=== PATIENT | male | born 1975 | race Hispanic/Latino ===

== ENCOUNTER 2019-12-02 11:18 | Emergency (ER) | payer SELFPAY ==
[2019-12-02] MEDS ORDERED: LIDOCAINE 1% W/EPI 1:100,000 MDV 20 ML VIAL ONE (12:16)
--- NOTE | 2019-12-02 12:43 | ER ---
Nurse's Notes [facility] Name: Trevor Miguel Age: 43 yrs Sex: Male : 1975 Arrival Date: 12/02/2019 Time: 11:20 Bed 13 Private MD: Diagnosis: Laceration without foreign body of left wrist Presentation: 12/01 11:48 Chief complaint: Patient states: "I cut myself with a knife about an hour ago". aa5 Laceration noted to left wrist, no active bleeding noted. Unknown tetanus. 11:48 Acuity: MEGAN 4 aa5 11:48 Method Of Arrival: Ambulatory aa5 11:48 Coronavirus screen: Client denies travel out of the [place] in the last 14 days. At this aa5 time, the client does not indicate any symptoms associated with coronavirus-19. 11:48 Ebola Screen: Patient negative for fever greater than or equal to 101.5 degrees aa5 Fahrenheit, and additional compatible Ebola Virus Disease symptoms. Complicating Factors: There are no complicating factors for this patient. Initial Sepsis Screen: Does the patient meet any 2 criteria? No. Patient's initial sepsis screen is negative. Does the patient have a suspected source of infection? No. Patient's initial sepsis screen is negative. Risk Assessment: Do you want to hurt yourself or someone else? Patient reports no desire to harm self or others. Onset of symptoms was December 02, 2019. Triage Assessment: 12:00 General: Appears in no apparent distress. comfortable, Behavior is calm, cooperative, bp appropriate for age. Pain: Complains of pain in left arm. EENT: No deficits noted. Neuro: No deficits noted. Cardiovascular: No deficits noted. Respiratory: No deficits noted. GI: No signs and/or symptoms were reported involving the gastrointestinal system. : No signs and/or symptoms were reported regarding the genitourinary system. Derm: No deficits noted. Musculoskeletal: No deficits noted. Injury Description: Laceration sustained to left arm. Historical: - Allergies: :48 No Known Allergies; aa5 - PMHx: 11:48 Diabetes - IDDM; aa5 - Immunization history:: Last tetanus immunization: unknown. - Social history:: Patient/guardian denies using alcohol, street drugs, The patient lives with family, Smoking status: Patient denies any tobacco usage or history of. - Family history:: not pertinent. Screenin:00 Abuse screen: Denies threats or abuse. Denies injuries from another. Nutritional bp screening: No deficits noted. Tuberculosis screening: No symptoms or risk factors identified. Fall Risk None identified. Assessment: 12:31 General: SEE TRIAGE NOTE. bp 12:31 Injury Description: Laceration is 0.5 to 2.5 cm long, not bleeding. bp 12:38 Reassessment: MD AT B/S FOR REPAIR. bp 13:11 Reassessment: PT D/C HOME AMBULATORY, DX WITH LACERATION WITHOUT FB. bp Vital Signs: 11:48 BP 120 / 75; Pulse 71; Resp 16; Temp 98.5; Pulse Ox 99% ; Weight 74.39 kg (R); Height 5 bp ft. 7 in. (170.18 cm) (R); Pain 3/10; 12:30 BP 114 / 65; Pulse 70; Resp 16; Pulse Ox 100% ; bp 13:11 BP 122 / 77; Pulse 71; Resp 16; Temp 98.5; Pulse Ox 100% ; bp 11:48 Body Mass Index 25.69 (74.39 kg, 170.18 cm) bp ED Course: 11:20 Patient arrived in ED. as 11:48 Arm band placed on Patient placed in an exam room, on a stretcher. aa5 11:49 Eligio Crowe MD is Attending Physician. ma2 11:53 Rony Gibson, RN is Primary Nurse. bp 12:00 Patient has correct armband on for positive identification. Bed in low position. Call bp light in reach. Side rails up X2. 12:05 Triage completed. aa5 13:12 Assist provider with laceration repair on left arm that was 2.5 cm. or less using bp sutures. Set up tray. Performed by Eligio Crowe MD Dressed with Inge, Patient tolerated well. Patient did not have IV access during this emergency room visit. Administered Medications: 12:10 Drug: Lidocaine-Epinephrine -2 % (1:100,000) 10 ml {Note: AT B/S FOR MD.} Route: bp Infiltration; 13:10 Drug: Tetanus-Diphtheria Toxoid Adult 0.5 ml {Compliance Officer: [employer]. Exp: bp 05/20/2022. Lot #: [id number]. } Route: IM; Site: right deltoid; 13:11 Follow up: Response: Medication administered at discharge. bp Outcome: 12:43 Discharge ordered by . sundar 13:12 Discharged to home ambulatory. bp 13:12 Condition: stable 13:12 Discharge instructions given to patient, Instructed on discharge instructions, follow up and referral plans. medication usage, wound care, Demonstrated understanding of instructions, follow-up care, medications, wound care, Prescriptions given X 1. 13:13 Patient left the ED. bp Signatures: Irma Landon Audri, RN RN aa5 Rony Gibson RN RN bp Eligio Crowe MD MD ma2 Corrections: (The following items were deleted from the chart) 12:22 11:48 74.39 kg Reported; Height 5 ft. 7 in. Reported; BMI: 25.6; Pain 3/10; aa5 bp
--- NOTE | 2019-12-02 12:43 | EDPHYS ---
Physician Documentation [facility] Name: Trevor Miguel Age: 43 yrs Sex: Male : 1975 Arrival Date: 12/02/2019 Time: 11:20 Bed 13 Private MD: ED Physician Eligio Crowe HPI: 12/01 12:03 This 43 yrs old Male presents to ER via Unassigned with complaints of ma2 Laceration To Hand. 12:03 The patient has a laceration occurred at home. The laceration(s) is(are) located on the ma2 left arm. Onset: The symptoms/episode began/occurred suddenly, 1 hour(s) ago. Associated signs and symptoms: Pertinent negatives: dizziness, heavy bleeding, loss of consciousness, suspected foreign body. The patient has not experienced similar symptoms in the past. Historical: - Allergies: 11:48 No Known Allergies; aa5 - PMHx: 11:48 Diabetes - IDDM; aa5 - Immunization history:: Last tetanus immunization: unknown. - Social history:: Patient/guardian denies using alcohol, street drugs, The patient lives with family, Smoking status: Patient denies any tobacco usage or history of. - Family history:: not pertinent. ROS: 12:03 Constitutional: Negative for fever, chills, and weight loss. ma2 12:03 All other systems are negative. Exam: 12:03 Constitutional: This is a well developed, well nourished patient who is awake, alert, ma2 and in no acute distress. Neck: Trachea midline, no thyromegaly or masses palpated, and no cervical lymphadenopathy. Supple, full range of motion without nuchal rigidity, or vertebral point tenderness. No Meningismus. Chest/axilla: Normal chest wall appearance and motion. Nontender with no deformity. No lesions are appreciated. Cardiovascular: Regular rate and rhythm with a normal S1 and S2. No gallops, murmurs, or rubs. Normal PMI, no JVD. No pulse deficits. Respiratory: Lungs have equal breath sounds bilaterally, clear to auscultation and percussion. No rales, rhonchi or wheezes noted. No increased work of breathing, no retractions or nasal flaring. Abdomen/GI: Soft, non-tender, with normal bowel sounds. No distension or tympany. No guarding or rebound. No evidence of tenderness throughout. Skin: Warm, dry with normal turgor. Normal color with no rashes, no lesions, and no evidence of cellulitis. MS/ Extremity: lac left anterior wrist, 4 cm long superficialPulses equal, no cyanosis. Neurovascular intact. Full, normal range of motion. Neuro: Awake and alert, GCS 15, oriented to person, place, time, and situation. Cranial nerves II-XII grossly intact. Motor strength 5/5 in all extremities. Sensory grossly intact. Cerebellar exam normal. Normal gait. Vital Signs: 11:48 BP 120 / 75; Pulse 71; Resp 16; Temp 98.5; Pulse Ox 99% ; Weight 74.39 kg (R); Height 5 bp ft. 7 in. (170.18 cm) (R); Pain 3/10; 12:30 BP 114 / 65; Pulse 70; Resp 16; Pulse Ox 100% ; bp 13:11 BP 122 / 77; Pulse 71; Resp 16; Temp 98.5; Pulse Ox 100% ; bp 11:48 Body Mass Index 25.69 (74.39 kg, 170.18 cm) bp Laceration: 12:03 Wound Repair of 4cm ( 1.6in ) subcutaneous laceration to left arm. Linear shaped.. ma2 Distal neuro/vascular/tendon intact. Anesthesia: Local anesthetic administered with 10 mls of 1% lidocaine w/ Epi. Wound prep: Simple cleansing. Skin closed with 5 2-0 Prolene using simple sutures and sterile technique. Dressed with Bacitracin. Patient tolerated well. MDM: 11:49 Patient medically screened. ma2 12:03 Differential diagnosis: superficial laceration, tendon injury, vascular injury. ma2 Differential diagnosis: tendon injury, vascular injury, no tendon or neurovascular injury. Data reviewed: vital signs, nurses notes. Data interpreted: traffic monitor specialist:. Counseling: I had a detailed discussion with the patient and/or guardian regarding: the historical points, exam findings, and any diagnostic results supporting the discharge/admit diagnosis, the presence of at least one elevated blood pressure reading (>120/80) during this emergency department visit. Response to treatment: the patient's symptoms have markedly improved after treatment. 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 Exp: bp 05/20/2022. Lot #: [id number]. } Route: IM; Site: right deltoid; 13:11 Follow up: Response: Medication administered at discharge. bp Disposition: 12/02/19 12:43 Discharged to Home. Impression: Laceration without foreign body of left wrist. - Condition is Stable. - Discharge Instructions: Laceration Care, Adult, [id number]. - Prescriptions for Diclofenac Sodium 75 mg Oral Tablet Sustained Release - take 1 tablet by ORAL route 2 times per day; 30 tablet. - Medication Reconciliation Form, Thank You Letter, Antibiotic Education, Prescription Opioid Use form. - Follow up: Private Physician; When: Tomorrow; Reason: Continuance of care. - Notes: remove sutures in 10 days Signatures: Erika Red RN RN aa5 Rony Gibson RN RN Eligio Crowe MD MD ma2 Corrections: (The following items were deleted from the chart) 13:13 12:43 12/02/2019 12:43 Discharged to Home. Impression: Laceration without foreign body bp of left wrist. Condition is Stable. Forms are Medication Reconciliation Form, Thank You Letter, Antibiotic Education, Prescription Opioid Use. Follow up: Private Physician; When: Tomorrow; Reason: Continuance of care. ma2
[2019-12-02] MEDS ORDERED: TETANUS & DIPHTHERIA TOX,ADULT 0.5 ML VIAL ONE (13:13)
[2019-12-03 11:32] VITALS: TEMP 98.5
[2019-12-03 11:33] VITALS: O2SAT 100
[2019-12-03 11:34] VITALS: BP 122/77
== END 2019-12-02 13:13 | disposition home or self-care (01) ==
LOC: ER 11:18
PROC: 0JQH0ZZ Repair Left Lower Arm Subcutaneous Tissue and Fascia, Open Approach (ICD-10-PCS; principal; 2019-12-02)
DX: S61.512A Laceration without foreign body of left wrist, initial encounter (principal); W45.8XXA Other foreign body or object entering through skin, initial encounter; Y93.9 Activity, unspecified; Y92.009 Unspecified place in unspecified non-institutional (private) residence as the place of occurrence of the external cause; Z23 Encounter for immunization; E11.9 Type 2 diabetes mellitus without complications
CPT/HCPCS: 90471; 90714; 99283

== ENCOUNTER 2020-06-26 07:46 | Emergency (ER) | payer SELFPAY ==
[2020-06-26] MEDS ORDERED: FAMOTIDINE 20 MG/2 ML VIAL IV ONE (09:14)
--- NOTE | 2020-06-26 09:19 | RAD REPORT ---
EXAM DESCRIPTION: Sera Single View06/26/2020 9:04 am CLINICAL HISTORY: Chest pain COMPARISON: none FINDINGS: The lungs appear clear of acute infiltrate. The heart is normal size IMPRESSION: No acute abnormalities displayed
[2020-06-26 09:20] LABS: Absolute Lymphocytes (CBC) 1.2 K/uL (0.7-4.9); Basophils % 0.4 % (0-1.3); Lymphocytes % 9.2 % (15.3-44.8); MPV 10.6 fL (7.6-11.3); RBC Red Blood Cell Count 4.48 M/uL (4.33-5.43)
[2020-06-26 09:28] LABS: Protime INR 1.09
[2020-06-26 09:58] LABS: Bilirubin Direct 0.2 mg/dL (0-0.2); Bilirubin Total 0.8 mg/dL (0.2-1.0); Magnesium 2.1 mg/dL (1.8-2.4); Potassium 4.7 mmol/L (3.5-5.1); Protein, Total 6.5 g/dL (6.4-8.2)
[2020-06-26] MEDS ORDERED: METOPROLOL TAR 25 MG TAB ONE (10:19)
[2020-06-26] MEDS ORDERED: ASPIRIN 81 MG CHEWABLE TABLET ONE (10:19)
[2020-06-26] MEDS ORDERED: CLOPIDOGREL 75 MG TABLET ONE (10:37)
--- NOTE | 2020-06-26 10:48 | ER ---
Nurse's Notes [facility] Name: Trevor Miguel Age: 44 yrs Sex: Male : 1975 Arrival Date: 06/26/2020 Time: 07:47 Bed 13 Private MD: Diagnosis: Non-ST elevation (NSTEMI) myocardial infarction;Hyperglycemia, unspecified Presentation: 06/26 08:17 Chief complaint: Patient states: Pt presents with Chest pain and tenderness x4 days. bw Body aches, vomitting at home and slight fever. Denies sick contacts. Coronavirus screen: At this time, unable to obtain information related to travel outside the [place] Client presents with at least one sign or symptom that may indicate coronavirus-19. Standard/surgical mask placed on the client. Provider contacted for isolation considerations. Ebola Screen: No symptoms or risks identified at this time. Initial Sepsis Screen: Does the patient meet any 2 criteria? No. Patient's initial sepsis screen is negative. Does the patient have a suspected source of infection? No. Patient's initial sepsis screen is negative. Risk Assessment: Do you want to hurt yourself or someone else? Patient reports no desire to harm self or others. Onset of symptoms was June 23, 2020. 08:17 Method Of Arrival: Ambulatory 08:17 Acuity: MEGAN 3 bw Triage Assessment: 08:22 General: Appears in no apparent distress. Behavior is calm, cooperative, appropriate bw for age. Pain: Complains of pain in anterior aspect of left upper chest and left breast. Cardiovascular: Reports chest pain, nausea, Rhythm is regular. Respiratory: No deficits noted. GI: Reports nausea, vomiting. : No signs and/or symptoms were reported regarding the genitourinary system. Derm: No signs and/or symptoms reported regarding the dermatologic system. Musculoskeletal: No deficits noted. Historical: - Allergies: 08:22 No Known Allergies; bw - Home Meds: 08:22 Insulin Glargine Sub-Q twice a day [Active]; bw - PMHx: 08:22 Diabetes - IDDM; bw - PSHx: 08:22 None; bw - Immunization history:: Adult Immunizations up to date. - Social history:: Smoking status: Patient denies any tobacco usage or history of. Screenin:24 Abuse screen: Denies threats or abuse. Nutritional screening: No deficits noted. Tuberculosis screening: No symptoms or risk factors identified. Fall Risk None identified. Assessment: 08:24 Reassessment: See triage assessment. Pain: Pain does not radiate. Pain began 2-3 days bw ago. 09:11 Reassessment: Patient appears in no apparent distress at this time. No changes from previously documented assessment. Patient and/or family updated on plan of care and expected duration. Pain level reassessed. Patient is alert, oriented x 3, equal unlabored respirations, skin warm/dry/pink. 10:13 Reassessment: Patient appears in no apparent distress at this time. No changes from previously documented assessment. Patient and/or family updated on plan of care and expected duration. Pain level reassessed. Patient is alert, oriented x 3, equal unlabored respirations, skin warm/dry/pink. 10:14 Reassessment: critical trop of [address] Saenz. Orders received. Will bw continue to monitor. 11:10 Reassessment: Patient appears in no apparent distress at this time. No changes from previously documented assessment. Patient and/or family updated on plan of care and expected duration. Pain level reassessed. Patient is alert, oriented x 3, equal unlabored respirations, skin warm/dry/pink. 12:49 Reassessment: Patient appears in no apparent distress at this time. No changes from previously documented assessment. Patient and/or family updated on plan of care and expected duration. Pain level reassessed. Patient is alert, oriented x 3, equal unlabored respirations, skin warm/dry/pink. 13:10 Reassessment: Patient appears in no apparent distress at this time. No changes from previously documented assessment. Patient and/or family updated on plan of care and expected duration. Pain level reassessed. Patient is alert, oriented x 3, equal unlabored respirations, skin warm/dry/pink. report given to Get MARVIN at [facility]. 14:01 Reassessment: Patient appears in no apparent distress at this time. No changes from previously documented assessment. Patient and/or family updated on plan of care and expected duration. Pain level reassessed. Patient is alert, oriented x 3, equal unlabored respirations, skin warm/dry/pink. ems here for patient transfer. Report given. Vital Signs: 08:17 BP 130 / 81; Pulse 106; Resp 18; Temp 99.7; Pulse Ox 99% on R/A; Weight 77.11 kg; bw Height 5 ft. 7 in. (170.18 cm); Pain 6/10; 09:11 BP 115 / 75; Pulse 98; Resp 18; Pulse Ox 99% on R/A; bw 10:13 BP 119 / 73; Pulse 87; Resp 18; Pulse Ox 100% on R/A; bw 11:10 BP 115 / 77; Pulse 88; Resp 18; Pulse Ox 100% on R/A; bw 12:49 BP 117 / 75; Pulse 86; Resp 18; Pulse Ox 99% on R/A; bw 14:02 BP 123 / 79; Pulse 87; Resp 18; Pulse Ox 99% on R/A; bw 08:17 Body Mass Index 26.63 (77.11 kg, 170.18 cm) bw ED Course: 07:47 Patient arrived in ED. rg4 08:15 Chris Saenz MD is Attending Physician. kdr 08:17 Fior Roca RN is Primary Nurse. bw 08:21 Triage completed. bw 08:24 Patient has correct armband on for positive identification. Call light in reach. Side bw rails up X2. cafeteria monitor on. Pulse ox on. NIBP on. Warm blanket given. 08:24 No provider procedures requiring assistance completed. Patient maintains SpO2 bw saturation greater than 95% on room air. 09:04 XRAY Chest (1 view) In Process Unspecified. EDMS 10:13 Inserted saline lock: 20 gauge in right antecubital area, using aseptic technique. bw 11:57 Inserted saline lock: 20 gauge in left. kj1 Administered Medications: 09:10 Drug: Pepcid (famotidine) 20 mg Route: IVP; Site: right antecubital; bw 09:11 Follow up: Response: No adverse reaction bw 10:12 Drug: Lopressor 25 mg Route: PO; bw 10:23 Follow up: Response: No adverse reaction bw 10:13 Drug: Aspirin Chewable Tablet 324 mg Route: PO; bw 10:23 Follow up: Response: No adverse reaction bw 10:23 Drug: PlaVIX (clopidogrel) 300 mg Route: PO; bw 11:09 Follow up: Response: No adverse reaction bw 12:29 Drug: Heparin (VA-Bolus No thrombolytic) - HEParin 60 units/kg {Co-Signature: sv bw (Dilma Neri RN).} Route: IVP; Site: left forearm; 13:13 Follow up: Response: No adverse reaction bw 12:39 Drug: Heparin (VA Drip) 12 units/kg/hr - (HEParin 78189 units, D5W 500 ml) bw {Co-Signature: sv (Dilma Neri RN).} Route: IV; Rate: calculated rate; Site: left forearm; 12:44 Drug: Lipitor (atorvastatin) 40 mg Route: PO; bw 13:14 Follow up: Response: No adverse reaction bw Outcome: 10:47 ER care complete, transfer ordered by . kdr 14:23 Patient left the ED. bw Signatures: Dispatcher [employer] EDMS Chris Saenz MD MD kdr Garcia, Rubi rg4 Jessi Coulter kj1 Fior Roca RN RN Dilma Neri RN sv Corrections: (The following items were deleted from the chart) 10:15 10:13 BP 123 / 83; Pulse 102bpm; Resp 18bpm; Pulse Ox 97%; bw bw 11:59 11:57 Inserted saline lock: 20 gauge in left Blood collected. kj1 kj1
--- NOTE | 2020-06-26 10:48 | EDPHYS ---
Physician Documentation [facility] Name: Trevor Miguel Age: 44 yrs Sex: Male : 1975 Arrival Date: 06/26/2020 Time: 07:47 Bed 13 Private MD: ED Physician Chris Saenz HPI: 06/26 10:49 This 44 yrs old Male presents to ER via Ambulatory with complaints of Chest kdr Pain, Body Aches, Anxiety. 10:49 The patient or guardian reports chest pain that is located primarily in the anterior kdr chest wall, left. Onset: gradually, 2 day(s) ago. The pain radiates to Lateral left chest. Associated signs and symptoms: Pertinent positives: anxious, nausea. The chest pain is described as aching, dull, a pressure. Duration: The patient or guardian reports multiple episodes, that are intermittent, that wax and wane, with no pattern. Modifying factors: The symptoms are alleviated by nothing. the symptoms are aggravated by nothing. Severity of pain: At its worst the pain was mild moderate just prior to arrival, in the emergency department the pain has improved mildly. The patient has not experienced similar symptoms in the past. The patient has not recently seen a physician. Historical: - Allergies: 08:22 No Known Allergies; bw - Home Meds: 08:22 Insulin Glargine Sub-Q twice a day [Active]; bw - PMHx: 08:22 Diabetes - IDDM; bw - PSHx: 08:22 None; bw - Immunization history:: Adult Immunizations up to date. - Social history:: Smoking status: Patient denies any tobacco usage or history of. ROS: 10:49 Constitutional: Negative for fever, chills, and weight loss, Eyes: Negative for injury, kdr pain, redness, and discharge, ENT: Negative for injury, pain, and discharge, Neck: Negative for injury, pain, and swelling, Respiratory: Negative for shortness of breath, cough, wheezing, and pleuritic chest pain, Abdomen/GI: Negative for abdominal pain, nausea, vomiting, diarrhea, and constipation, Back: Negative for injury and pain, : Negative for injury, bleeding, discharge, and swelling, MS/Extremity: Negative for injury and deformity, Skin: Negative for injury, rash, and discoloration, Neuro: Negative for headache, weakness, numbness, tingling, and seizure activity. Psych: Negative for depression, anxiety, suicide ideation, homicidal ideation, and hallucinations, Allergy/Immunology: Negative for hives, rash, and allergies, Endocrine: Negative for neck swelling, polydipsia, polyuria, polyphagia, and marked weight changes, Hematologic/Lymphatic: Negative for swollen nodes, abnormal bleeding, and unusual bruising. 10:49 Cardiovascular: Positive for chest pain, with cough, with movement, Negative for edema, orthopnea, palpitations. Exam: 10:03 ECG was reviewed by the Attending Physician. kdr 10:49 Constitutional: This is a well developed, well nourished patient who is awake, alert, kdr and in no acute distress. Head/Face: Normocephalic, atraumatic. Eyes: Pupils equal round and reactive to light, extra-ocular motions intact. Lids and lashes normal. Conjunctiva and sclera are non-icteric and not injected. Cornea within normal limits. Periorbital areas with no swelling, redness, or edema. Neck: Trachea midline, no thyromegaly or masses palpated, and no cervical lymphadenopathy. Supple, full range of motion without nuchal rigidity, or vertebral point tenderness. No Meningismus. Chest/axilla: Normal chest wall appearance and motion. Nontender with no deformity. No lesions are appreciated. Cardiovascular: Regular rate and rhythm with a normal S1 and S2. No gallops, murmurs, or rubs. Normal PMI, no JVD. No pulse deficits. Respiratory: Lungs have equal breath sounds bilaterally, clear to auscultation and percussion. No rales, rhonchi or wheezes noted. No increased work of breathing, no retractions or nasal flaring. Back: No spinal tenderness. No costovertebral tenderness. Full range of motion. Skin: Warm, dry with normal turgor. Normal color with no rashes, no lesions, and no evidence of cellulitis. MS/ Extremity: Pulses equal, no cyanosis. Neurovascular intact. Full, normal range of motion. Neuro: Awake and alert, GCS 15, oriented to person, place, time, and situation. Cranial nerves II-XII grossly intact. Motor strength 5/5 in all extremities. Sensory grossly intact. Cerebellar exam normal. Normal gait. Psych: Awake, alert, with orientation to person, place and time. Behavior, mood, and affect are within normal limits. Vital Signs: 08:17 BP 130 / 81; Pulse 106; Resp 18; Temp 99.7; Pulse Ox 99% on R/A; Weight 77.11 kg; bw Height 5 ft. 7 in. (170.18 cm); Pain 6/10; 09:11 BP 115 / 75; Pulse 98; Resp 18; Pulse Ox 99% on R/A; bw 10:13 BP 119 / 73; Pulse 87; Resp 18; Pulse Ox 100% on R/A; bw 11:10 BP 115 / 77; Pulse 88; Resp 18; Pulse Ox 100% on R/A; bw 12:49 BP 117 / 75; Pulse 86; Resp 18; Pulse Ox 99% on R/A; bw 14:02 BP 123 / 79; Pulse 87; Resp 18; Pulse Ox 99% on R/A; bw 08:17 Body Mass Index 26.63 (77.11 kg, 170.18 cm) bw MDM: 10:47 Patient medically screened. kdr 10:49 Differential diagnosis: acute myocardial infarction, acute pericarditis, anxiety, kdr coronary artery disease congestive heart failure. Data reviewed: vital signs, nurses notes, lab test result(s). Counseling: I had a detailed discussion with the patient and/or guardian regarding: the historical points, exam findings, and any diagnostic results supporting the discharge/admit diagnosis, lab results, radiology results, the need to transfer to another facility, for higher level of care, [facility] does not immediately have the required specialist. Physician consultation: Basil Sullivan MD was called at 10:52, was contacted at 10:52, regarding admission, consult, patient's condition, after a discussion of the case, a recommendation for transfer for higher level of care is made, No cath lab technologist available. 06/26 08:30 Order name: Basic Metabolic Panel; Complete Time: 10: kdr 06/26 08:30 Order name: CBC with Diff; Complete Time: 09:56 kdr 06/26 08:30 Order name: LFT's; Complete Time: 10:01 kdr 06/26 08:30 Order name: Magnesium; Complete Time: 10: kdr 06/26 08:30 Order name: NT PRO-BNP; Complete Time: 10: kdr 06/26 08:30 Order name: PT-INR; Complete Time: 09:56 kdr 06/26 08:30 Order name: Troponin (emerg Dept Use Only); Complete Time: 10:01 kdr 06/26 08:30 Order name: XRAY Chest (1 view); Complete Time: 09:56 kdr 06/26 10:47 Order name: Troponin (emerg Dept Use Only); Complete Time: 12:01 kdr 06/26 11:52 Order name: SARS-COV-2 RT PCR; Complete Time: 12:01 EDMS 06/26 08:30 Order name: EKG; Complete Time: 08:31 kdr 06/26 08:30 Order name: Cardiac monitoring; Complete Time: 08:55 kdr 06/26 08:30 Order name: EKG - Nurse/Tech; Complete Time: 08:55 kdr 06/26 08:30 Order name: IV Saline Lock; Complete Time: 09:11 kdr 06/26 08:30 Order name: Labs collected and sent; Complete Time: 09:11 kdr 06/26 08:30 Order name: O2 Per Protocol; Complete Time: 08:55 kdr 06/26 08:30 Order name: O2 Sat Monitoring; Complete Time: 08:55 kdr EC:03 Rate is 96 beats/min. Rhythm is regular, Sinus Rhythm with No ectopy. QRS [place] is kdr Normal. VT interval is normal. QRS interval is normal. QT interval is normal. Clinical impression: NSR w/ Non-specific ST/T Changes. Administered Medications: 09:10 Drug: Pepcid (famotidine) 20 mg Route: IVP; Site: right antecubital; bw 09:11 Follow up: Response: No adverse reaction bw 10:12 Drug: Lopressor 25 mg Route: PO; bw 10:23 Follow up: Response: No adverse reaction bw 10:13 Drug: Aspirin Chewable Tablet 324 mg Route: PO; bw 10:23 Follow up: Response: No adverse reaction bw 10:23 Drug: PlaVIX (clopidogrel) 300 mg Route: PO; bw 11:09 Follow up: Response: No adverse reaction bw 12:29 Drug: Heparin (MT-Bolus No thrombolytic) - HEParin 60 units/kg {Co-Signature: sv bw (Dilma Neri RN).} Route: IVP; Site: left forearm; 13:13 Follow up: Response: No adverse reaction bw 12:39 Drug: Heparin (MT Drip) 12 units/kg/hr - (HEParin 01172 units, D5W 500 ml) bw {Co-Signature: sv (Dilma Neri RN).} Route: IV; Rate: calculated rate; Site: left forearm; 12:44 Drug: Lipitor (atorvastatin) 40 mg Route: PO; bw 13:14 Follow up: Response: No adverse reaction bw Disposition: 06/26/20 10:47 Transfer ordered to [facility]. Diagnosis are Non-ST elevation (NSTEMI) myocardial infarction, Hyperglycemia, unspecified. - Reason for transfer: Higher level of care. - Accepting physician is Card. - Condition is Fair. - Problem is new. - Symptoms have improved. Signatures: Dispatcher [employer] ED[facility] Chris Saenz MD MD kdr Fior Roca RN RN bw Dilma groves Corrections: (The following items were deleted from the chart) 10:47 10:47 06/26/2020 10:47 Transfer ordered to [facility]. kdr Diagnosis is Non-ST elevation (NSTEMI) myocardial infarction. Reason for transfer: Higher level of care. Accepting physician is Card. Condition is Fair. Problem is new. Symptoms have improved. kdr 11:06 10:50 CORONAVIRUS+MR.LAB.BRZ ordered. [facility] ED[facility] 14:23 10:47 06/26/2020 10:47 Transfer ordered to [facility]. bw Diagnosis is Non-ST elevation (NSTEMI) myocardial infarction; Hyperglycemia, unspecified. Reason for transfer: Higher level of care. Accepting physician is Card. Condition is Fair. Problem is new. Symptoms have improved. kdr
[2020-06-26] MEDS ORDERED: HEPARIN/D5W 25,000 UNIT/500 ML BAG IV ONE (12:44)
[2020-06-26] MEDS ORDERED: HEPARIN 5000 UNIT/ML 1 ML VIAL ONE (12:44)
[2020-06-26] MEDS ORDERED: ATORVASTATIN 20 MG TAB ONE (12:44)
[2020-06-27 04:13] VITALS: TEMP 99.7
[2020-06-27 04:25] VITALS: BP 123/79; O2SAT 99
== END 2020-06-26 14:23 | disposition short-term general hospital (02) ==
LOC: ER 07:46
DX: I21.4 Non-ST elevation (NSTEMI) myocardial infarction (principal); E11.65 Type 2 diabetes mellitus with hyperglycemia; Z79.4 Long term (current) use of insulin; Z20.822 Contact with and (suspected) exposure to COVID-19
CPT/HCPCS: 36415; 71045; 80048; 80076; 83735; 83880; 84484; 85025; 85610; 93005; 99285; J1644; U0003

== ENCOUNTER 2021-06-11 22:34 | Emergency (ER) | payer SELFPAY ==
--- OUTSIDE RECORDS SUMMARY | 2021-06-11 22:44 | XMS REPORT | Continuity of Care Document ---
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 Dasha [facility] GLUCOSE-STAT LAB 2020-07-02 02:49:00 Dasha [facility] HGB/HCT (H&H) - STAT LAB 2020-07-02 02:49:00 Rohan Lou [facility] CBC W/PLT COUNT & AUTO 2020-07-02 02:49:00 Rickie Doyle [facility] BLOOD GAS, ARTERIAL 2020-07-02 01:44:00 Lamont Schuler [facility] RRL CRITICAL LABS 2020-07-02 01:44:00 Dasha Rohan [facility] (ABG,NA,K,H&H,GLUCOSE) [facility] enter SODIUM NA-STAT LAB 2020-07-02 01:44:00 Dasha [facility] POTASSIUM-STAT LAB 2020-07-02 01:44:00 Dasha Rohan [facility] GLUCOSE-STAT LAB 2020-07-02 01:44:00 Dasha [facility] HGB/HCT (H&H) - STAT LAB 2020-07-02 01:44:00 Rohan Lou [facility] MAGNESIUM 2020-07-02 01:44:00 Rickie Doyle [facility] LACTIC ACID, ARTERIAL 2020-07-02 01:44:00 Dasha Rohan [facility] POCT-GLUCOSE METER 2020-07-02 01:17:00 Lei Pierson [facility] XR CHEST 1 VIEW PORTABLE 2020-07-02 00:25:[address] [facility] / BEDSIDE [facility] RRL CRITICAL LABS 2020-07-01 23:59:00 Lamont Schuler [facility] (ABG,NA,K,H&H,GLUCOSE) Medical C enter BLOOD GAS, ARTERIAL 2020-07-01 23:59:00 Lamont Schuler I [facility] SODIUM NA-STAT LAB 2020-07-01 23:59:00 Lamont Schuler [facility] POTASSIUM-STAT LAB 2020-07-01 23:59:00 [facility] GLUCOSE-STAT LAB 2020-07-01 23:59:00 Lamont Schuler [facility] HGB/HCT (H&H) - STAT LAB 2020-07-01 23:59:00 Lamont Schuler [facility] PREPARE RBC 2020-07-01 23:30:00 Rohan Lou [facility] ECG 12-LEAD 2020-07-01 23:19:00 [facility] MAGNESIUM 2020-07-01 23:02:00 Scout [facility] PHOSPHORUS 2020-07-01 23:02:00 Scout [facility] RRL CRITICAL LABS 2020-07-01 23:02:00 Lamont Schuler [facility] (ABG,NA,K,H&H,GLUCOSE) Medical C enter CBC W/PLT COUNT & AUTO 2020-07-01 23:02:00 Lamont Schuler [facility] COMPREHENSIVE METABOLIC 2020-07-01 23:02:00 Lamont Schuler [facility] LACTIC ACID, ARTERIAL 2020-07-01 23:02:00 Lamont Schuler [facility] OXYGEN SATURATION, 2020-07-01 23:02:[address] [facility] CALCIUM, IONIZED 2020-07-01 23:02:00 [place]OT[facility]/INR 2020-07-01 23:02:00 Lamont Schuler Kat C HI [facility] APTT 2020-07-01 23:02:00 [facility] FIBR[facility]EN 2020-07-01 23:02:00 [place] [facility] BLOOD GAS, ARTERIAL 2020-07-01 23:02:00 Lamont Schuler Kat [facility] SODIUM NA-STAT LAB 2020-07-01 23:02:00 [place] [facility] POTASSIUM-STAT LAB 2020-07-01 23:02:00 Harini [facility] GLUCOSE-STAT LAB 2020-07-01 23:02:00 [place] [facility] HGB/HCT (H&H) - STAT LAB 2020-07-01 23:02:00 [place] [facility] CBC W/PLT COUNT & AUTO 2020-07-01 23:02:00 [place] [facility] RRL CRITICAL LABS 2020-07-01 22:27:34 Jenniffer Watts [facility] (ABG,NA,K,H&H,GLUCOSE) Medical C enter CALCIUM, IONIZED 2020-07-01 22:27:34 Jenniffer Watts [facility] BLOOD GAS, ARTERIAL 2020-07-01 22:27:34 Jenniffer Watts [facility] SODIUM NA-STAT LAB 2020-07-01 22:27:34 Jenniffer Watts [facility] POTASSIUM-STAT LAB 2020-07-01 22:27:34 Jenniffer Watts [facility] GLUCOSE-STAT LAB 2020-07-01 22:27:34 Jenniffer Watts [facility] HGB/HCT (H&H) - STAT LAB 2020-07-01 22:27:34 Jenniffer Watts [facility] POCT-ACT 2020-07-01 21:54:00 Lei Pierson [facility] TRANSFUSE LEUKO-REDUCED 2020-07-01 21:46:[address] [facility] PLATELETS [facility] RRL CRITICAL LABS 2020-07-01 21:40:44 Jenniffer Watts [facility] (ABG,NA,K,H&H,GLUCOSE) Medical C enter CALCIUM, IONIZED 2020-07-01 21:40:44 Jenniffer Watts [facility] PROTHROMBIN TIME/INR 2020-07-01 21:40:44 Jenniffer Watts [facility] APTT 2020-07-01 21:40:44 Jenniffer Watts [facility] FIBRINOGEN 2020-07-01 21:40:44 Jenniffer Watts [facility] PLATELET COUNT 2020-07-01 21:40:44 Jenniffer Watts [facility] BLOOD GAS, ARTERIAL 2020-07-01 21:40:44 Jenniffer Watts [facility] SODIUM NA-STAT LAB 2020-07-01 21:40:44 Jenniffer Watts [facility] POTASSIUM-STAT LAB 2020-07-01 21:40:44 Jenniffer Watts [facility] GLUCOSE-STAT LAB 2020-07-01 21:40:44 Jenniffer Watts [facility] HGB/HCT (H&H) - STAT LAB 2020-07-01 21:40:44 Jenniffer Watts [facility] CBC W/PLT COUNT & AUTO 2020-07-01 21:40:00 Siena Butterfield [facility] CBC W/PLT COUNT & AUTO 2020-07-01 21:40:00 Siena Butterfield [facility] RRL CRITICAL LABS 2020-07-01 21:05:[address] [facility] (ABG,NA,K,H&H,GLUCOSE) Medical C enter BLOOD GAS, ARTERIAL 2020-07-01 21:05:25 Rohan Lou [facility] SODIUM NA-STAT LAB 2020-07-01 21:05:25 Rohan Lou [facility] POTASSIUM-STAT LAB 2020-07-01 21:05:25 Rohan Lou [facility] GLUCOSE-STAT LAB 2020-07-01 21:05:25 Rohan Lou [facility] HGB/HCT (H&H) - STAT LAB 2020-07-01 21:05:25 Rohan Lou [facility] POCT-ACT 2020-07-01 21:05[facility]00 [facility]-07[facility]01 20:32[facility] 2020-07-01 20:30:38 Rohan Lou [facility] (ABG,NA,K,H&H,GLUCOSE) Medical C enter BLOOD GAS, ARTERIAL 2020-07-01 20:30:38 Rohan Lou yolanda [facility] SODIUM NA-STAT LAB 2020-07-01 20:30:38 Rohan Lou [facility] POTASSIUM-STAT LAB 2020-07-01 20:30:38 Rohan Lou [facility] GLUCOSE-STAT LAB 2020-07-01 20:30:38 Rohan Lou [facility] HGB/HCT (H&H) - STAT LAB 2020-07-01 20:30:38 Dasha Rohan El [facility] POCT-ACT 2020-07-01 20:02:00 [facility] 2020-07-01 20:00:10 Rohan Lou [facility] (ABG,NA,K,H&H,GLUCOSE) Medical C enter BLOOD GAS, ARTERIAL 2020-07-01 20:00:10 Dasha Rohan yolanda [facility] SODIUM NA-STAT LAB 2020-07-01 20:00:10 Dasha Rohan [facility] POTASSIUM-STAT LAB 2020-07-01 20:00:10 Rohan Lou [facility] GLUCOSE-STAT LAB 2020-07-01 20:00:10 Dasha Rohan [facility] HGB/HCT (H&H) - STAT LAB 2020-07-01 20:00:10 Rohan Lou [facility] POCT-ACT 2020-07-01 19:34:00 Brisa [facility] RRL CRITICAL LABS 2020-07-01 19:31:53 Rohan Lou [facility] (ABG,NA,K,H&H,GLUCOSE) Medical C enter BLOOD GAS, ARTERIAL 2020-07-01 19:31:53 Rohan Lou yolanda [facility] SODIUM NA-STAT LAB 2020-07-01 19:31:53 Dasha [facility] POTASSIUM-STAT LAB 2020-07-01 19:31:53 Dasha Rohan [facility] GLUCOSE-STAT LAB 2020-07-01 19:31:53 Rohan Lou [facility] HGB/HCT (H&H) - STAT LAB 2020-07-01 19:31:[address] [facility] POCT-ACT 2020-07-01 19:10:00 Brisa [facility] ANESTHESIA ROSALINDA 2020-07-01 18:35:35 Jenniffer Watts [facility] POCT-ACT 2020-07-01 17:26:00 Brisa [facility] RRL CRITICAL LABS 2020-07-01 17:21:59 Jenniffer Watts [facility] (ABG,NA,K,H&H,GLUCOSE) Medical C enter CALCIUM, IONIZED 2020-07-01 17:21:59 Jenniffer Watts [facility] BLOOD GAS, ARTERIAL 2020-07-01 17:21:59 Jenniffer Watts [facility] SODIUM NA-STAT LAB 2020-07-01 17:21:59 Jenniffer Watts [facility] POTASSIUM-STAT LAB 2020-07-01 17:21:59 Jenniffer Watts [facility] GLUCOSE-STAT LAB 2020-07-01 17:21:59 Jenniffer Watts [facility] HGB/HCT (H&H) - STAT LAB 2020-07-01 17:21:59 Jenniffer Watts [facility] BYPASS,AORTO CORONARY 2020-07-01 16:40:[address] [facility] MAURICIO/SVG [facility] ENDOSCOPIC HARVEST,VEIN 2020-07-01 16:40:00 Rohan Lou [facility] STERNOTOMY 2020-07-01 16:40:00 Rohan Lou [facility] POCT-GLUCOSE METER 2020-07-01 16:09:00 Brisa [facility] POCT-GLUCOSE METER 2020-07-01 14:22:00 Brisa [facility] POCT-GLUCOSE METER 2020-07-01 12:07:00 Brisa [facility] POCT-GLUCOSE METER 2020-07-01 10:13:00 Brisa [facility] HC VENOUS DOPPLER EXT UNI 2020-07-01 09:57:00 Marissa Borges [facility] POCT-GLUCOSE METER 2020-07-01 08:59:00 Brisa [facility] POCT-GLUCOSE METER 2020-07-01 08:06:00 Brisa [facility] POCT-GLUCOSE METER 2020-07-01 06:51:00 Brisa [facility] POCT-GLUCOSE METER 2020-07-01 04:45:00 Brisa [facility] CBC W/PLT COUNT & AUTO 2020-07-01 04:39:00 Lew Sosa [facility] BASIC METABOLIC PANEL (7) 2020-07-01 04:39:00 Lew Sosa [facility] MAGNESIUM 2020-07-01 04:39:00 Lew Sosa [facility] APTT 2020-07-01 04:39:00 Lew Sosa [facility] CBC W/PLT COUNT & AUTO 2020-07-01 04:39:00 Rickie Doyle [facility] POCT-GLUCOSE METER 2020-07-01 03:16:00 Brisa [facility] POCT-GLUCOSE METER 2020-07-01 02:07:00 Brisa [facility] POCT-GLUCOSE METER 2020-07-01 00:49:00 Javedangelina [facility] ABORH, MANUAL 2020-07-01 00:30:00 Casie Gaspar [facility] XR CHEST 1 VIEW PORTABLE 2020-07-01 00:22:[address] [facility] HEMOGLOBIN A1C 2020-06-30 23:01:00 Jacqueline [facility] LIPID PANEL 2020-06-30 23:01:00 Jacqueline [facility] TYPE AND SCREEN, 2020-06-30 23:01:00 Tony Phillips [facility] POCT-GLUCOSE METER 2020-06-30 22:57:00 Alam, [facility] POCT-GLUCOSE METER 2020-06-30 21:30:00 Ala, [facility] POCT-GLUCOSE METER 2020-06-30 20:13:00 Alam, [facility] POCT-GLUCOSE METER 2020-06-30 19:15:00 Alam, [facility] POCT-GLUCOSE METER 2020-06-30 18:03:00 Ala, [facility] ECG 12-LEAD 2020-06-30 17:37:17 Unknown, Hl7 [facility] ECG 12-LEAD 2020-06-30 17:37:17 Unknown, Hl7 [facility] POCT-GLUCOSE METER 2020-06-30 17:01:00 Ala, [facility] POCT-GLUCOSE METER 2020-06-30 15:43:00 Ala, [facility] POCT-GLUCOSE METER 2020-06-30 14:32:00 Ala, [facility] POCT-GLUCOSE METER 2020-06-30 13:37:00 Ala, [facility] POCT-GLUCOSE METER 2020-06-30 12:30:00 Alam, [facility] POCT-GLUCOSE METER 2020-06-30 11:28:00 Ala, [facility] ECG 12-LEAD 2020-06-30 10:59:40 Unknown, 7 [facility] POCT-GLUCOSE METER 2020-06-30 10:30:00 Ala, [facility] POCT-GLUCOSE METER 2020-06-30 07:27:00 Ala, [facility] POCT-GLUCOSE METER 2020-06-30 06:10:00 Brisa [facility] POCT-GLUCOSE METER 2020-06-30 04:28:00 Brisa [facility] CBC W/PLT COUNT & AUTO 2020-06-30 04:26:00 Sheila Hackett [facility] BASIC METABOLIC PANEL (7) 2020-06-30 04:26:00 Lew Sosa [facility] MAGNESIUM 2020-06-30 04:26:00 Lew Sosa [facility] APTT 2020-06-30 04:26:00 Lew Sosa [facility] CBC W/PLT COUNT & AUTO 2020-06-30 04:26:00 Rickie Doyle [facility] POCT-GLUCOSE METER 2020-06-30 03:17:00 Javedangelina [facility] XR CHEST 1 VIEW PORTABLE 2020-06-30 02:43:00 Lew Sosa [facility] BEDSIDE [facility] POCT-GLUCOSE METER 2020-06-30 01:24:00 Javedangelina [facility] POCT-GLUCOSE METER 2020-06-30 00:22:00 Javedangelina [facility] POCT-GLUCOSE METER 2020-06-30 00:01:00 Alaagnelina [facility] POCT-GLUCOSE METER 2020-06-29 23:27:00 Alaangelina, [facility] APTT 2020-06-29 23:25:00 Lew Sosa [facility] POCT-GLUCOSE METER 2020-06-29 21:42:00 Alaangelina [facility] POCT-GLUCOSE METER 2020-06-29 20:19:00 Alaangelina, [facility] POCT-GLUCOSE METER 2020-06-29 18:53:00 Alaangelina [facility] APTT 2020-06-29 17:12:00 Lew Sosa [facility] POCT-GLUCOSE METER 2020-06-29 17:11:00 Alaangelina, [facility] POCT-GLUCOSE METER 2020-06-29 16:15:00 Alam, [facility] POCT-GLUCOSE METER 2020-06-29 15:05:00 Alam, [facility] POCT-GLUCOSE METER 2020-06-29 14:34:00 Alam, [facility] POCT-GLUCOSE METER 2020-06-29 13:12:00 Alaangelina, [facility] POCT-GLUCOSE METER 2020-06-29 12:14:00 Alaangelina, [facility] POCT-GLUCOSE METER 2020-06-29 11:25:00 Brisa, [facility] HC CAROTID DOPPLER SAMUEL 2020-06-29 10:25:00 Rickie Doyle [facility] HC VENOUS DOPPLER EXT SAMUEL 2020-06-29 10:25:00 Rickie Dyole [facility] POCT-GLUCOSE METER 2020-06-29 09:02:00 Alaangelina, [facility] APTT 2020-06-29 08:00:00 Lew Sosa [facility] POCT-GLUCOSE METER 2020-06-29 07:58:00 Alaangelina, [facility] POCT-GLUCOSE METER 2020-06-29 06:55:00 Alam, [facility] POCT-GLUCOSE METER 2020-06-29 05:56[facility]00 [facility] W/[facility]T COUNT & AUTO 2020-06-29 04:35:00 Lew Sosa [facility] BASIC METABOLIC PANEL (7) 2020-06-29 04:35:00 Lew Sosa [facility] MAGNESIUM 2020-06-29 04:35:00 [facility] CBC W/PLT COUNT & AUTO 2020-06-29 04:35:00 Rickie Doyle [facility] POCT-GLUCOSE METER 2020-06-29 04:16:00 Javed [facility] POCT-GLUCOSE METER 2020-06-29 03:12[facility]00 [facility] VIEW PORTABLE 2020-06-29 02:19:[address] [facility] / BEDSIDE [facility] POCT-GLUCOSE METER 2020-06-29 01:50:00 Brisa [facility] SARS-COV2/RT-PCR ([facility] & 2020-06-29 00:11:00 Lew Sosa [facility] - REF LABS) [facility] GLUCOSE 2020-06-29 00:11:00 Charlee [facility] POTASSIUM 2020-06-29 00:11:00 Charlee [facility] APTT 2020-06-29 00:11:00 Lew Sosa [facility] ECG 12-LEAD 2020-06-28 23:54:28 Unknown, Hl7 [facility] ECG 12-LEAD 2020-06-28 23:54:28 Unknown, Hl7 [facility] POCT-GLUCOSE METER 2020-06-28 21:39:00 Brisa [facility] POCT-GLUCOSE METER 2020-06-28 20:47[facility]00 [facility] 2020-06-28 18:23:00 Rickie Doyle [facility] APTT 2020-06-28 18:23:00 Lew [facility] POCT-GLUCOSE METER 2020-06-28 16:10:00 Lei Pierson [facility] 2D ECHO W/ DOPPLER 2020-06-28 14:53:40 Rickie Doyle [facility] (CW/PW/COLOR) [facility] APTT 2020-06-28 11:46:00 Lew Sosa [facility] TROPONIN I 2020-06-28 08:49:00 Yanira [facility] POCT-GLUCOSE METER 2020-06-28 07:39:00 Lei Pierson [facility] ECG 12-LEAD 2020-06-28 05:19:24 Yanira [facility] ECG 12-LEAD 2020-06-28 05:19:24 Unknown, Hl7 [facility] BASIC METABOLIC PANEL (7) 2020-06-28 05:01:00 Rickie Doyle [facility] HEPATIC FUNCTION PANEL 2020-06-28 05:01:00 Rickie Doyle [facility] MAGNESIUM 2020-06-28 05:01:00 Rickie Doyle [facility] PHOSPHORUS 2020-06-28 05:01:00 Rickie Doyle [facility] TROPONIN I 2020-06-28 05:01:00 Yanira [facility] B-TYPE NATRIURETIC FACTOR 2020-06-28 05:01:00 Rickie Doyle [facility] (BNP) [facility] CBC W/PLT COUNT & AUTO 2020-06-28 05:01:00 Rickie Doyle [facility] PROTHROMBIN TIME/INR 2020-06-28 05:01:00 Rickie Doyle [facility] APTT 2020-06-28 05:01:00 Yanira [facility] CBC W/PLT COUNT & AUTO 2020-06-28 05:01:00 Rickie Doyle [facility] POCT-GLUCOSE METER 2020-06-28 04:57:00 Brisa [facility] XR CHEST 1 VIEW PORTABLE 2020-06-28 04:55:00 Rickie Doyle [facility] - / BEDSIDE [facility] POCT-GLUCOSE METER 2020-06-27 23:11:00 [facility] POCT-GLUCOSE METER 2020-06-27 21:35:00 [facility] B-TYPE NATRIURETIC FACTOR 2020-06-27 20:12:00 [facility] APTT 2020-06-27 20:11:00 Brisa [facility] BASIC METABOLIC PANEL (7) 2020-06-27 20:11:00 Brisa [facility] TROPONIN I 2020-06-27 20:11:00 Javed [facility] LACTIC ACID, VENOUS 2020-06-27 20:11:00 Brisa [facility] POCT-GLUCOSE METER 2020-06-27 16:22:00 [facility] APTT 2020-06-27 12:16:00 Brisa [facility] POCT-GLUCOSE METER 2020-06-27 11:45:00 [facility] L CATH & PCI 2020-06-27 08:06:00 Brisa [facility] POCT-GLUCOSE METER 2020-06-27 07:51:00 [facility] CBC W/PLT COUNT & AUTO 2020-06-27 05:18:00 Tyler [facility] BASIC METABOLIC PANEL (7) 2020-06-27 05:18:00 Tyler [facility] MAGNESIUM 2020-06-27 05:18:00 Tyler [facility] LIPID PANEL 2020-06-27 05:18:00 Tyler [facility] CBC W/PLT COUNT & AUTO 2020-06-27 05:18:00 Tyler [facility] APTT 2020-06-27 01:02:00 Brisa [facility] URINALYSIS W/ REFLEX 2020-06-26 23:44:00 Javed [facility] URINE CULTURE [facility] XR CHEST 1 VIEW PORTABLE 2020-06-26 22:15:00 Javed [facility] / BEDSIDE [facility] BLOOD CULTURE 2020-06-26 22:12:00 [facility] BLOOD [facility] 2020-06-26 22:10:00 [place] [facility] POCT-GLUCOSE METER 2020-06-26 21:12:00 [facility] CONTRAST & DOPPLER 2020-06-26 20:22:31 Javed [facility] B-TYPE NATRIURETIC FACTOR 2020-06-26 18:02:00 Tyelr [facility] (BNP) [facility] ECG 12-LEAD 2020-06-26 17:13:31 [facility] TROPONIN I 2020-06-26 16:36:00 [facility] CBC W/PLT COUNT & AUTO 2020-06-26 16:36:00 [facility] BASIC METABOLIC PANEL (7) 2020-06-26 16:36:00 Scott [facility] MAGNESIUM 2020-06-26 16:36:00 [facility] APTT 2020-06-26 16:36:00 [facility] HEMOGLOBIN A1C 2020-06-26 16:36:00 [facility] CBC W/PLT COUNT & AUTO 2020-06-26 16:36:00 Murali [facility] POCT-GLUCOSE METER 2020-06-26 16:23:00 Murali Scott [facility] CARDIAC CATH REPORT - 2020-06-26 00:00:00 Provider, Default [facility] SCAN Scanning [facility] REPORT OF PROCEDURE - 2020-06-26 00:00:00 Provider, Default [facility] ENDOSCOPY SCAN Scanning [facility] Plan of Care Planned Activity Planned Date Details Comments Source Future Scheduled 2023-07-[address] [facility]00 (procedure) [code = Medical Center 53611981] Diagnostic Test 2021-06-06 glucose, fingerstick, [facility] Pending 00:00:00 blood [code = glucose, fingerstick, blood] Diagnostic Test 2021-06-06 albumin/creatinine, [facility] Pending 00:00:00 ratio, urine [code = albumin/creatinine, ratio, urine] Future Scheduled 2020-12-30 Hemoglobin A1c [facility] - Test 00:00:00 measurement Medical Center (procedure) [code = 47905747] Future Scheduled 2020-11-26 INFLUENZA VACCINE (#1) [facility]:00 [code = INFLUENZA Medical Ce nter VACCINE (#1)] Future Scheduled 1996 DTAP/TDAP/TD VACCINES [facility] Test 00:00:00 (1 - Tdap) [code = Medical C enter DTAP/TDAP/TD VACCINES (1 - Tdap)] Future Scheduled 1995-12-09 HEPATITIS C SCREENING [facility] Test 00:00:00 [code = HEPATITIS C Medical Center SCREENING] Future Scheduled 1989 COVID-19 VACCINE (1) [facility] - Test 00:00:00 [code = COVID-[address] VACCINE (1)] Future Scheduled 1987-12-09 DIABETIC EYE EXAM [facility] - Test 00:00:00 [code = DIABETIC EYE Medical Center EXAM] Future Scheduled 1987-12-[address] [facility] - Test 00:00:00 examination Medical Center (regime/therapy) [code = 628172331] Future Scheduled 1987-12-09 Urine screening for [facility] - Test 00:00:00 [facility] [code = 732923912] Future Scheduled 1983-12-[address] [facility] - Test 00:00:00 0-64 YRS (1 of 2 - Medical C enter PPSV23) [code = PNEUMOCOCCAL VACCINE 0-64 YRS (1 of 2 - PPSV23)] Encounters Start End Encounter Admission Attending Care Care Encounter Source Date/Time Date/Time Type Type Clinicians Facility Department ID 2020-06-28 Inpatient UR BRISA [facility] Cardiac ICU [id number] SLE 04:16:00 MAHBOOB 2020-06-26 Inpatient ER SCOTT, [facility] [id number] [facility] 15:55:00 MURALI 2021-06-06 2021-06-06 Outpatient GRAIR_D SJOSE SJOSE [id number] Bright 12:24:00 12:24:00 4 [facility] 2021-06-06 2021-06-06 Outpatient GRAIR_D SJOSE SJOSE [id number] Bright 10:30:00 10:30:00 0312 [facility] 2021-06-06 2021-06-06 Ryan SJOSE [place] - Bright [id number] Bright 00:00:00 00:00:00 Janet [facility] Glenna Schroeder - [facility] - [facility] : [place] [address] , Ph. 2021-05-27 2021-05-27 Outpatient GRAIR_D SJOSE SJOSE [id number] Bright 11:28:00 11:28:00 0302 [facility] 2021-05-27 2021-05-27 Francesca Blake SJOSE [place] - Bright [id number] Bright 00:00:00 00:00:00 MD Kaitlynn: [facility] Roger 261[address]andon [facility] - [facility] [place] [address] , Ph. 2021-05-20 2021-05-20 Outpatient GRAIR_D SJOSE SJOSE [id number] Bright 09:37:00 09:37:00 3 [facility] 2021-04-07 2021-04-07 Outpatient GRAIR_D SJOSE SJOSE [id number] Bright 11:12:00 11:12:00 0111 [facility] 2021-03-11 2021-03-11 Outpatient GRAIR_D SJOSE SJOSE [id number] Bright 03:13:00 03:13:00 1215 [facility] 2021-03-11 2021-03-11 Outpatient GRAIR_D SJOSE SJOSE [id number] Bright 03:13:00 03:13:00 1216 [facility] 2021-03-11 2021-03-11 Outpatient GRAIR_D SJOSE SJOSE [id number] Bright 03:13:00 03:13:00 1220 [facility] 2021-03-04 2021-03-04 Outpatient GRAIR_D SJOSE SJOSE [id number] Bright 04:28:00 04:28:00 1209 [facility] 2021-03-04 2021-03-04 Outpatient GRAIR_D SJOSE SJOSE [id number] Bright 04:28:00 04:28:00 1214 [facility] 2021-03-04 2021-03-04 Outpatient GRAIR_D SJOSE SJOSE [id number] Bright 02:42:00 02:42:00 1208 [facility] 2021-03-04 2021-03-04 Adlia SJOSE [place] - [facility] [id number] Bright 00:00:00 00:00:00 Ayanna [facility] Glenna DAVISD: - [facility] - [address] [address] , Ph. 2021-02-26 2021-02-26 Outpatient GRAIR_D SJOSE SJOSE [id number] Bright 04:54:00 04:54:00 1206 [facility] 2021-02-26 2021-02-26 Outpatient GRAIR_D SJOSE SJOSE [id number] Bright 04:08:00 04:08:00 1202 [facility] 2021-02-26 2021-02-26 Francesca B SJOSE [place] - [facility] [id number] Bright 00:00:00 00:00:00 MD Kaitlynn: [address] [address] [place] [address] , Ph. 2021-02-11 2021-02-11 Outpatient GRAIR_D SJOSE SJOSE [id number] Bright 09:09:00 09:09:00 1117 [facility] 2021-01-27 2021-01-27 Outpatient GRAIR_D SJOSE SJOSE [id number] Bright 02:14:00 02:14:00 1102 [facility] 2021-01-14 2021-01-14 Outpatient GRAIR_D SJOSE SJOSE [id number] Bright 02:41:00 02:41:00 1020 [facility] 2021-01-14 2021-01-14 Outpatient GRAIR_D SJOSE SJOSE [id number] Bright 02:41:00 02:41:00 1021 [facility] 2021-01-14 2021-01-14 Outpatient GRAIR_D SJOSE SJOSE [id number] Bright 02:41:00 02:41:00 1101 [facility] 2021-01-14 2021-01-14 Adlia SJOSE [place] - [facility] [id number] Bright 00:00:00 00:00:00 Ayanna [facility] Glenna abdi PHARMD: - [facility] - [address] [address] , Ph. 2021-01-10 2021-01-10 Outpatient GRAIR_D SJOSE SJOSE [id number] Bright 09:19:00 09:19:00 1016 [facility] 2021-01-10 2021-01-10 Arndy SJOSE [place] - [facility] [id number] Bright 00:00:00 00:00:00 Jose [facility] Donavon madrigal MD: [address] [place] [address] , Ph. 2021-01-07 2021-01-07 Outpatient GRAIR_D SJOSE SJOSE [id number] Bright 02:05:00 02:05:00 1013 [facility] 2021-01-07 2021-01-07 Outpatient GRAIR_D SJOSE SJOSE [id number] Bright 02:05:00 02:05:00 1015 [facility] 2021-01-07 2021-01-07 Rasheedaia SJOSE [place] - [facility] [id number] Bright 00:00:00 00:00:00 Ebkelsie [facility] Glenna se PHARMD: - [address] [address] , Ph. 2020-12-25 2020-12-25 Outpatient GRAIR_D SJOSE SJOSE [id number] Bright 02:32:00 02:32:00 0930 [facility] 2020-12-24 2020-12-24 Outpatient GRAIR_D SJOSE SJOSE [id number] Bright 10:41:00 10:41:00 0929 [facility] 2020-12-24 2020-12-24 Adlia SJOSE [facility] [id number] [facility] 00:00:00 00:00:00 Ayanna [facility] Glenna se PHARMD: - [address] [address] , Ph. 2020-11-28 2020-11-28 Outpatient GRAIR_D SJOSE SJOSE [id number] Bright 03:32:00 03:32:00 0903 [facility] 2020-11-25 2020-11-25 Outpatient GRAIR_D SJOSE SJOSE [id number] Bright 03:05:00 03:05:00 0831 [facility] 2020-11-25 2020-11-25 Francesca B SJOSE [facility] [id number] [facility] 00:00:00 00:00:00 MD Kaitlynn: [address] [address] , Ph. 2020-11-18 2020-11-18 Outpatient GRAIR_D SJOSE SJOSE [id number] Bright 10:41:00 10:41:00 0824 [facility] 2020-10-23 2020-10-23 Outpatient GRAIR_D SJOSE SJOSE [id number] Bright 10:17:00 10:17:00 0729 [facility] 2020-09-26 2020-09-26 Barry Sahni [facility] [id number] [facility] 00:00:00 00:00:[address] [facility] 2020-09-25 2020-09-25 Outpatient GRAIR_D SJOSE SJOSE [id number] Bright 04:52:00 04:52:00 0702 [facility] 2020-09-24 2020-09-24 Outpatient GRAIR_D SJOSE SJOSE [id number] Bright 03:47:00 03:47:00 06 [facility] 2020-09-24 2020-09-24 Outpatient GRAIR_D SJOSE SJOSE [id number] Bright 03:47:00 03:47:00 0701 [facility] 2020-09-24 2020-09-24 Adlia SJOSE [place] - [facility] [id number] Bright 00:00:00 00:00:00 Ayanna [facility] Glenna abdi PHARMD: - [address] [address] , Ph. 2020-09-12 2020-09-12 Outpatient GRAIR_D SJOSE SJOSE [id number] Bright 11:33:00 11:33:00 0618 [facility] 2020-09-11 2020-09-11 Outpatient GRAIR_D SJOSE SJOSE [id number] Bright 11:07:00 11:07:00 0617 [facility] 2020-09-11 2020-09-11 Francesca B SJOSE [place] - [facility] [id number] Bright 00:00:00 00:00:00 MD Kaitlynn: [address] [address] , Ph. 2020-08-20 2020-08-20 Telephone Meera [facility] [id number] 00:[facility] 00:00:00 [facility] 2020-08-14 2020-08-14 Office Dasha [facility] [id number] 12:51:06 13:21:06 Visit Rohan [facility] 2020-08-14 2020-08-14 Outpatient SHIVA LOU [facility] [id number] [facility] 00:00:00 00:00:00 ROHAN 2020-07-22 2020-07-22 Outpatient GRAIR_D SJOSE SJOSE [id number] Bright 05:58:00 05:58:00 0504 [facility] 2020-07-18 2020-07-18 Office SHIVA Hernandes [facility] [id number] 09:31:25 10:01:25 Visit [facility] 2020-07-18 2020-07-18 Outpatient [facility] [id number] [facility] 00:00:00 00:00:00 ROSALINA 2020-07-17 2020-07-17 Outpatient GRAIR_D SJOSE SJOSE [id number] Bright 10:58:00 10:58:00 0422 [facility] 2020-07-17 2020-07-17 Francesca Hayden BLANK [facility] [id number] Bright 00:00:00 00:00:00 MD Kaitlynn: [facility] [address] [facility] [place] [address] , Ph. 2020-07-09 2020-07-09 Documentat bS [facility] [id number] 00:00:00 00:00:00 tiara Newberry [facility] 2020-07-09 2020-07-09 Telephone Jailyn [facility] [id number] 00:[facility] 00:00:00 Sonal aceves [facility] 2020-06-28 2020-07-08 [facility] [id number] [facility] 04:16:00 12:32:00 Molly Mai [facility] 2020-07-07 2020-07-07 Outpatient GRAIR_D SJOSE SJOSE [id number] Bright 05:18:00 05:18:00 0412 [facility] 2020-07-01 2020-07-02 Surgery Dasha [facility] [id number] 18:00:00 00:31:00 [facility] 2020-07-01 2020-07-01 Anesthesia Jenniffer Watts [facility] [id number] 16:15:00 23:17:00 Event Dangelo Anne [facility] 2020-06-26 2020-06-28 Hospital [place], [facility] [id number] 15:55:00 03:30:00 Encounter Murali [facility] 2020-06-28 2020-06-28 Orders [facility] [id number] 00:00:00 00:00:00 Only [facility] 2020-06-28 2020-06-28 Travel [facility] [id number] [facility] 00:[facility]00 00:00:00 [facility] 2020-06-27 2020-06-27 Surgery Brisa, [facility] [id number] 08:00:00 09:19:00 [facility] 2020-06-26 2020-06-26 Travel [facility] [id number] [facility] 00:[facility]:00 00:00:00 [facility] Results Test Description Test Time Test Comments Results Result Comments Source Glucose [Mass/volume] in Capillary blood 2021-05-27 10:53:28 Test Item Value Reference Range Interpretation Comme nts Blood Glucose: mg/dl (test code = Blood Glucose: mg/dl) 207 [facility] - Serum or [id number] 00:00:00 Test Item Value Reference Range Interpretation Comments Glucose [Mass/volume] in 64 mg/dL 65-99 L Serum or Plasma (test code = 2345-7) Urea nitrogen [Mass/volume] 18 mg/dL 6-24 in Serum or Plasma (test code = 3094-0) Creatinine [Mass/volume] in 1.03 mg/dL 0.76-1.27 Serum or Plasma (test code = 2160-0) Glomerular filtration 89 mL/min/1.73 >59 rate/1.73 sq M.predicted among non-blacks [Volume Rate/Area] in Serum, Plasma or Blood by Creatinine-based formula (CKD-EPI) (test code = 94968-7) Glomerular filtration 102 mL/min/1.73 >59 rate/1.73 sq M.predicted among blacks [Volume Rate/Area] in Serum, Plasma or Blood by Creatinine-based formula (CKD-EPI) (test code = 50125-9) Urea nitrogen/Creatinine 17 9-20 [Mass Ratio] in Serum or Plasma (test code = 3097-3) Sodium [Moles/volume] in 143 mmol/L 134-144 Serum or Plasma (test code = 2951-2) Potassium [Moles/volume] in 4.1 mmol/L 3.5-5.2 Serum or Plasma (test code = 2823-3) Chloride [Moles/volume] in 108 mmol/L 96-106 H Serum or Plasma (test code = 2075-0) Carbon dioxide, total 23 mmol/L 20-29 [Moles/volume] in Serum or Plasma (test code = 2027-) Calcium [Mass/volume] in 9.3 mg/dL 8.7-10.2 Serum or Plasma (test code = 20809-3) Protein [Mass/volume] in 6.0 g/dL 6.0-8.5 Serum or Plasma (test code = 2885-2) Albumin [Mass/volume] in 3.9 g/dL 4.0-5.0 L Serum or Plasma (test code = 1751-7) Globulin [Mass/volume] in 2.1 g/dL 1.5-4.5 Serum by calculation (test code = 56704-6) Albumin/Globulin [Mass Ratio] 1.9 1.2-2.2 in Serum or Plasma (test code = 1759-0) Bilirubin.total [Mass/volume] 0.3 mg/dL 0.0-1.2 in Serum or Plasma (test code = 1974-) Alkaline phosphatase 79 IU/L 44-121 [Enzymatic activity/volume] in Serum or Plasma (test code = 6768-6) Aspartate aminotransferase 16 IU/L 0-40 [Enzymatic activity/volume] in Serum or Plasma (test code = 0-8) Alanine aminotransferase 14 IU/L 0-44 [Enzymatic activity/volume] in Serum or Plasma (test code = 174-6) [facility].total in [id number] 00:00:00 Test Item Value Reference Range Interpretation Comments Hemoglobin A1c/Hemoglobin.total in 7.9 % 4.8-5.6 H Blood (test code = 4548-4) [facility]] in Capillary [id number] 15:37:00 Test Item Value Reference Range Interpretation Comments Blood Glucose: mg/dl (test code = Blood 200 Glucose: mg/dl) [facility] [[facility]/volume] in Capillary [id number] 15:37:00 Test Item Value Reference Range Interpretation Comments Blood Glucose: mg/dl (test code = Blood 200 Glucose: mg/dl) [facility] [Mass/volume] in Capillary [id number] 15:37:00 Test Item Value Reference Range Interpretation Comments Blood Glucose: mg/dl (test code = Blood 200 Glucose: mg/dl) [facility] - Serum or [id number] 00:00:00 Test Item Value Reference Range Interpretation Comments Glucose [Mass/volume] in Serum 68 mg/dL 65-99 or Plasma (test code = 2345-7) Urea nitrogen [Mass/volume] in 26 mg/dL 6-24 H Serum or Plasma (test code = 3094-0) Creatinine [Mass/volume] in 1.22 mg/dL 0.76-1.27 Serum or Plasma (test code = 2160-0) Glomerular filtration 72 mL/min/1.73 >59 rate/1.73 sq M.predicted among non-blacks [Volume Rate/Area] in Serum, Plasma or Blood by Creatinine-based formula (CKD-EPI) (test code = 80755-8) Glomerular filtration 83 mL/min/1.73 >59 rate/1.73 sq M.predicted among blacks [Volume Rate/Area] in Serum, Plasma or Blood by Creatinine-based formula (CKD-EPI) (test code = 07769-0) Urea nitrogen/Creatinine [Mass 21 9-20 H Ratio] in Serum or Plasma (test code = 3097-3) Sodium [Moles/volume] in Serum 142 mmol/L 134-144 or Plasma (test code = 2951-2) Potassium [Moles/volume] in 4.5 mmol/L 3.5-5.2 Serum or Plasma (test code = 2823-3) Chloride [Moles/volume] in 106 mmol/L 96-106 Serum or Plasma (test code = 5-0) Carbon dioxide, total 25 mmol/L 20-29 [Moles/volume] in Serum or Plasma (test code = 2027-9) Calcium [Mass/volume] in Serum 9.2 mg/dL 8.7-10.2 or Plasma (test code = 32067-1) Protein [Mass/volume] in Serum 6.2 g/dL 6.0-8.5 or Plasma (test code = 2885-2) Albumin [Mass/volume] in Serum 4.3 g/dL 4.0-5.0 or Plasma (test code = 1751-7) Globulin [Mass/volume] in 1.9 g/dL 1.5-4.5 Serum by calculation (test code = 61047-2) Albumin/Globulin [Mass Ratio] 2.3 1.2-2.2 H in Serum or Plasma (test code = 1759-0) Bilirubin.total [Mass/volume] 0.3 mg/dL 0.0-1.2 in Serum or Plasma (test code = 1974-2) Alkaline phosphatase 87 IU/L 44-121 [Enzymatic activity/volume] in Serum or Plasma (test code = 6768-6) Aspartate aminotransferase 17 IU/L 0-40 [Enzymatic activity/volume] in Serum or Plasma (test code = 1920-8) Alanine aminotransferase 15 IU/L 0-44 [Enzymatic activity/volume] in Serum or Plasma (test code = 1742-6) [facility]em[facility].total in [id number] 00:00:00 Test Item Value Reference Range Interpretation Comments Hemoglobin A1c/Hemoglobin.total in 8.7 % 4.8-5.6 H Blood (test code = 4548-4) [facility] 2000 [facility] - Serum or [id number] 00:00:00 Test Item Value Reference Range Interpretation Comments Glucose [Mass/volume] in Serum 68 mg/dL 65-99 or Plasma (test code = 2345-7) Urea nitrogen [Mass/volume] in 26 mg/dL 6-24 H Serum or Plasma (test code = 3094-0) Creatinine [Mass/volume] in 1.22 mg/dL 0.76-1.27 Serum or Plasma (test code = 2160-0) Glomerular filtration 72 mL/min/1.73 >59 rate/1.73 sq M.predicted among non-blacks [Volume Rate/Area] in Serum, Plasma or Blood by Creatinine-based formula (CKD-EPI) (test code = 88003-2) Glomerular filtration 83 mL/min/1.73 >59 rate/1.73 sq M.predicted among blacks [Volume Rate/Area] in Serum, Plasma or Blood by Creatinine-based formula (CKD-EPI) (test code = 28612-6) Urea nitrogen/Creatinine [Mass 21 9-20 H Ratio] in Serum or Plasma (test code = 3097-3) Sodium [Moles/volume] in Serum 142 mmol/L 134-144 or Plasma (test code = 2951-2) Potassium [Moles/volume] in 4.5 mmol/L 3.5-5.2 Serum or Plasma (test code = 2823-3) Chloride [Moles/volume] in 106 mmol/L 96-106 Serum or Plasma (test code = 5-0) Carbon dioxide, total 25 mmol/L 20-29 [Moles/volume] in Serum or Plasma (test code = 2027-9) Calcium [Mass/volume] in Serum 9.2 mg/dL 8.7-10.2 or Plasma (test code = 83684-3) Protein [Mass/volume] in Serum 6.2 g/dL 6.0-8.5 or Plasma (test code = 2885-2) Albumin [Mass/volume] in Serum 4.3 g/dL 4.0-5.0 or Plasma (test code = 1751-7) Globulin [Mass/volume] in 1.9 g/dL 1.5-4.5 Serum by calculation (test code = 09878-0) Albumin/Globulin [Mass Ratio] 2.3 1.2-2.2 H in Serum or Plasma (test code = 1759-0) Bilirubin.total [Mass/volume] 0.3 mg/dL 0.0-1.2 in Serum or Plasma (test code = 1975-2) Alkaline phosphatase 87 IU/L 44-121 [Enzymatic activity/volume] in Serum or Plasma (test code = 6768-6) Aspartate aminotransferase 17 IU/L 0-40 [Enzymatic activity/volume] in Serum or Plasma (test code = 1920-8) Alanine aminotransferase 15 IU/L 0-44 [Enzymatic activity/volume] in Serum or Plasma (test code = 1742-6) [facility]Hemoglobin.total in [id number] 00:00:00 Test Item Value Reference Range Interpretation Comments Hemoglobin A1c/Hemoglobin.total in 8.7 % 4.8-5.6 H Blood (test code = 4548-4) [facility] - Serum or [id number] 00:00:00 Test Item Value Reference Range Interpretation Comments Glucose [Mass/volume] in Serum 68 mg/dL 65-99 or Plasma (test code = 2345-7) Urea nitrogen [Mass/volume] in 26 mg/dL 6-24 H Serum or Plasma (test code = 3094-0) Creatinine [Mass/volume] in 1.22 mg/dL 0.76-1.27 Serum or Plasma (test code = 2160-0) Glomerular filtration 72 mL/min/1.73 >59 rate/1.73 sq M.predicted among non-blacks [Volume Rate/Area] in Serum, Plasma or Blood by Creatinine-based formula (CKD-EPI) (test code = 57647-7) Glomerular filtration 83 mL/min/1.73 >59 rate/1.73 sq M.predicted among blacks [Volume Rate/Area] in Serum, Plasma or Blood by Creatinine-based formula (CKD-EPI) (test code = 93012-5) Urea nitrogen/Creatinine [Mass 21 9-20 H Ratio] in Serum or Plasma (test code = 3097-3) Sodium [Moles/volume] in Serum 142 mmol/L 134-144 or Plasma (test code = 2951-2) Potassium [Moles/volume] in 4.5 mmol/L 3.5-5.2 Serum or Plasma (test code = 2823-3) Chloride [Moles/volume] in 106 mmol/L 96-106 Serum or Plasma (test code = 2075-0) Carbon dioxide, total 25 mmol/L 20-29 [Moles/volume] in Serum or Plasma (test code = 2027-9) Calcium [Mass/volume] in Serum 9.2 mg/dL 8.7-10.2 or Plasma (test code = 40207-7) Protein [Mass/volume] in Serum 6.2 g/dL 6.0-8.5 or Plasma (test code = 2885-2) Albumin [Mass/volume] in Serum 4.3 g/dL 4.0-5.0 or Plasma (test code = 1751-7) Globulin [Mass/volume] in 1.9 g/dL 1.5-4.5 Serum by calculation (test code = 42161-3) Albumin/Globulin [Mass Ratio] 2.3 1.2-2.2 H in Serum or Plasma (test code = 1759-0) Bilirubin.total [Mass/volume] 0.3 mg/dL 0.0-1.2 in Serum or Plasma (test code = 1975-2) Alkaline phosphatase 87 IU/L 44-121 [Enzymatic activity/volume] in Serum or Plasma (test code = 6768-6) Aspartate aminotransferase 17 IU/L 0-40 [Enzymatic activity/volume] in Serum or Plasma (test code = 1920-8) Alanine aminotransferase 15 IU/L 0-44 [Enzymatic activity/volume] in Serum or Plasma (test code = 1742-6) [facility]Hemoglobin.total in [id number] 00:00:00 Test Item Value Reference Range Interpretation Comments Hemoglobin A1c/Hemoglobin.total in 8.7 % 4.8-5.6 H Blood (test code = 4548-4) [facility] [[facility]/volume] in Capillary [id number] 10:23:00 Test Item Value Reference Range Interpretation Comments Blood Glucose: mg/dl (test code = Blood 251 Glucose: mg/dl) [facility] [Mass/volume] in Capillary [id number] 10:23:00 Test Item Value Reference Range Interpretation Comments Blood Glucose: mg/dl (test code = Blood 251 Glucose: mg/dl) [facility] [id number] 11:27:00 Test Item Value Reference Range Interpretation Comments Sodium (test code = 136 meq/L 823-764 7877-2) Potassium (test code = 4.6 meq/L 3.5-5.1 2823-3) Chloride (test code = 101 meq/L 98-107 2075-0) CO2 (test code = 30 meq/L 22-29 H 8-9) BUN (test code = 23 mg/dL 7-21 H 3094-0) Creatinine (test code 1.31 mg/dL 0.57-1.25 H = 2160-0) Glucose (test code = 278 mg/dL 70-105 H 2345-7) Calcium (test code = 8.7 mg/dL 8.4-10.2 08228-7) EGFR (test code = 60 mL/min/1.73 [place] [address]-7) NOT ACCURATE CREATININE CLEARANCE IN PREDICTING GLOMERULAR FILTRATION RATE . ESTIMATED GFR I S NOT APPLICABLE FOR DIALYSIS PATIENTS. NANCY (test code = NANCY) Rubber Mixer ID - GISELE C Lab Interpretation Abnormal (test code = 26874-4) [facility] Test Item Value Reference Range Interpretation Comments Magnesium (test code = 2.0 mg/dL 1.6-2.6 37056-4) NANCY (test code = NANCY) Rubber Mixer ID - GISELE C Lab Interpretation (test Normal code = 22659-7) [facility] [id number] 11:27:00 Test Item Value Reference Range Interpretation Comments SODIUM (BEAKER) 136 meq/L 136-145 (test code = 381) POTASSIUM (BEAKER) 4.6 meq/L 3.5-5.1 (test code = 379) CHLORIDE (BEAKER) 101 meq/L 98-107 (test code = 382) CO2 (BEAKER) (test 30 meq/L 22-29 H code = 355) BLOOD UREA NITROGEN 23 mg/dL 7-21 H (BEAKER) (test code = 354) CREATININE (BEAKER) 1.31 mg/dL 0.57-1.25 H (test code = 358) GLUCOSE RANDOM 278 mg/dL 70-105 H (BEAKER) (test code = 652) CALCIUM (BEAKER) 8.7 mg/dL 8.4-10.2 (test code = 697) EGFR (BEAKER) (test 60 mL/min/1.73 ESTIMA ADRIANA GFR IS code = 1092) sq m NOT ACCURATE CREATININE CLEARANCE IN PREDICTING GLOMERULAR FILTRATION RATE . ESTIMATED GFR I S NOT APPLICABLE FOR DIALYSIS PATIEN TS. Rubber Mixer ID - GISELE [id number] 11:27:00 Test Item Value Reference Range Interpretation Comments MAGNESIUM (BEAKER) (test code = 2.0 mg/dL 1.6-2.6 627) Rubber Mixer ID - GISELE CGlucose [Mass/volume] in Capillary [id number] 08:58:00 Test Item Value Reference Range Interpretation Comments Blood Glucose: mg/dl (test code = Blood 126 Glucose: mg/dl) [facility] [id number] 08:18:00 Test Item Value Reference Range Interpretation Comments Islet Cell Ab Profile Refer to individual (test code = 2556) Islet Cell Ab and/or Islet Cell Ab Titer results. [facility] [id number] 08:18:00 Test Item Value Reference Range Interpretation Comments ISLET CELL AB Refer to individual AUTOVERIFICATION (test Islet Cell Ab code = 2556) and/or Islet Cell Ab Titer results. Islet Cell Ab [id number] 19:46:00 Test Item Value Reference Range Interpretation Comments Islet Cell NEGATIVE NEGATIVE This test was developed Ab (test and its analyti juanito code = performance 4999298) characteristics havebeen determined by [facility].It h as not been cleared or approved by FDA. This as say has been validatedp ursuant to the CLIA reg ulations and is used for clinical purposes. NANCY (test Performing Lab code = NANCY) [facility]Z [facility] [address] [address] [facility] [address] Berenice Boswell MD, PhD, IRIS [facility] [id number] 19:46:00 Test Item Value Reference Range Interpretation Comments Islet Cell TNP LESS THAN 1.25 Test Not Perf ormed. Ab Titer JDF units Screening test Negative (test code = or Not Detected . Titer 45992-1) notperformed. N OTE: End point titers ar e compared to a s michelle international referencestanda rd and values are repo rted in JDF (Juvenile D iabetes Foundation) uni ts. NANCY (test Performing Lab code = NANCY) EZ [facility] [address] [place] [address] Berenice Boswell MD, PhD, IRIS [facility]-Glucose [id number] 07:41:00 Test Item Value Reference Range Interpretation Comments POC-Glucose Meter (test 287 mg/dL 70-110 H : TE STED AT [facility] code = 1538) [address] [facility], 770 30: Rubber Mixer/Techni allen ID = [id number] for YAMILEBLAINE Lab Interpretation (test Abnormal code = 95393-8) [facility]-GLUCOSE [id number] 07:41:00 Test Item Value Reference Range Interpretation Comments POC-GLUCOSE METER 287 mg/dL 70-110 H : TESTED A T [facility] 6720 (BEAKER) (test code = [facility], 1538) [address]: Rubber Mixer/Techni allen ID = [id number] for BLAINE AMANDA BASIC METABOLIC [id number] 07:18:00 Test Item Value Reference Range Interpretation Comments SODIUM (BEAKER) 132 meq/L 136-145 L (test code = 381) POTASSIUM (BEAKER) 4.7 meq/L 3.5-5.1 (test code = 379) CHLORIDE (BEAKER) 97 meq/L 98-107 L (test code = 382) CO2 (BEAKER) (test 27 meq/L 22-29 code = 355) BLOOD UREA NITROGEN 17 mg/dL 7-21 (BEAKER) (test code = 354) CREATININE (BEAKER) 1.07 mg/dL 0.57-1.25 (test code = 358) GLUCOSE RANDOM 309 mg/dL 70-105 H (BEAKER) (test code = 652) CALCIUM (BEAKER) 8.2 mg/dL 8.4-10.2 L (test code = 697) EGFR (BEAKER) (test 76 mL/min/1.73 ESTIMA ADRIANA GFR IS code = 1092) sq m NOT ACCURATE CREATININE CLEARANCE IN PREDICTING GLOMERULAR FILTRATION RATE . ESTIMATED GFR I S NOT APPLICABLE FOR DIALYSIS PATIEN TS. Rubber Mixer ID - JAMI [id number] 07:18:00 Test Item Value Reference Range Interpretation Comments MAGNESIUM (BEAKER) (test code = 2.0 mg/dL 1.6-2.6 627) Rubber Mixer ID - JAMI MCBC with platelet count + automated [id number] 06:36:00 Test Item Value Reference Range Interpretation Comments WBC (test code = 6690-2) 12.1 See_Comment H [A utomated message] The system [employer] generated this result transmitted ref erence range: 3.5 - 10 .5 K/L. The refe rence range was not u sed to interpret this result as normal/abnor mal. RBC (test code = 789-8) 3.06 See_Comment L [Au tomated message] The system [employer] generated this result transmitted ref erence range: 4.63 - 6 .08 M/L. The refe rence range was not u sed to interpret this result as normal/abnor mal. MCHC (test code = 786-4) 32.8 See_Comment L [A utomated message] The system [employer] generated this result transmitted ref erence range: 32.3 - 3 6.5 GM/DL. The refe rence range was not u sed to interpret this result as normal/abnor mal. Hematocrit (test code = 30.2 % 40.1-51.0 L 4544-3) MCV (test code = 787-2) 98.7 fL 79.0-92.2 H MCH (test code = 785-6) 32.4 pg 25.7-32.2 H RDW (test code = 788-0) 13.9 % 11.6-14.4 Platelets (test code = 364 See_Comment [Aut omated message] 777-3) The system [employer] generated this result transmitted ref erence range: 150 - 45 0 K/CU MM. The referen ce range was not u sed to interpret this result as normal/abnor mal. MPV (test code = 11.2 fL 9.4-12.4 91851-1) nRBC (test code = 413) 0 See_Comment [Aut omated message] The system [employer] generated this result transmitted ref erence range: 0 - 0 /1 00 WBC. The refere nce range was not u sed to interpret this result as normal/abnor mal. % Neutros (test code = 76 % 429) % Lymphs (test code = 9 % 430) % Monos (test code = 9 % 431) % Eos (test code = 432) 4 % % Baso (test code = 437) 1 % # Neutros (test code = 9.23 See_Comment H [Aut omated message] 670) The system [employer] generated this result transmitted ref erence range: 1.78 - 5 .38 K/L. The refe rence range was not u sed to interpret this result as normal/abnor mal. # Lymphs (test code = 1.14 See_Comment L [Auto mated message] 414) The system [employer] generated this result transmitted ref erence range: 1.32 - 3 .57 K/L. The refe rence range was not u sed to interpret this result as normal/abnor mal. # Monos (test code = 1.14 See_Comment H [Autom ated message] 415) The system [employer] generated this result transmitted ref erence range: 0.30 - 0 .82 K/L. The refe rence range was not u sed to interpret this result as normal/abnor mal. # Eos (test code = 416) 0.44 See_Comment [Au tomated message] The system [employer] generated this result transmitted ref erence range: 0.04 - 0 .54 K/L. The refe rence range was not u sed to interpret this result as normal/abnor mal. # Baso (test code = 417) 0.07 See_Comment [A utomated message] The system [employer] generated this result transmitted ref erence range: 0.01 - 0 .08 K/L. The refe rence range was not u sed to interpret this result as normal/abnor mal. Immature 1 % 0-1 Granulocytes-Relative (test code = 2801) Lab Interpretation (test Abnormal code = 60296-3) [facility] W/PLT COUNT & AUTO [id number] 06:36:00 Test Item Value Reference Range Interpretation Comments WHITE BLOOD CELL COUNT (BEAKER) 12.1 K/ L 3.5-10.5 H (test code = 775) RED BLOOD CELL COUNT (BEAKER) 3.06 M/ L 4.63-6.08 L (test code = 761) HEMOGLOBIN (BEAKER) (test code = 9.9 GM/DL 13.7-17.5 L 410) HEMATOCRIT (BEAKER) (test code = 30.2 % 40.1-51.0 L 411) MEAN CORPUSCULAR VOLUME (BEAKER) 98.7 fL 79.0-92.2 H (test code = 753) MEAN CORPUSCULAR HEMOGLOBIN 32.4 pg 25.7-32.2 H (BEAKER) (test code = 751) MEAN CORPUSCULAR HEMOGLOBIN CONC 32.8 GM/DL 32.3-36.5 (BEAKER) (test code = 752) RED CELL DISTRIBUTION WIDTH 13.9 % 11.6-14.4 (BEAKER) (test code = 412) PLATELET COUNT (BEAKER) (test 364 K/CU MM 150-450 code = 756) MEAN PLATELET VOLUME (BEAKER) 11.2 fL 9.4-12.4 (test code = 754) NUCLEATED RED BLOOD CELLS 0 /100 WBC 0-0 (BEAKER) (test code = 413) NEUTROPHILS RELATIVE PERCENT 76 % (BEAKER) (test code = 429) LYMPHOCYTES RELATIVE PERCENT 9 % (BEAKER) (test code = 430) MONOCYTES RELATIVE PERCENT 9 % (BEAKER) (test code = 431) EOSINOPHILS RELATIVE PERCENT 4 % (BEAKER) (test code = 432) BASOPHILS RELATIVE PERCENT 1 % (BEAKER) (test code = 437) NEUTROPHILS ABSOLUTE COUNT 9.23 K/ L 1.78-5.38 H (BEAKER) (test code = 670) LYMPHOCYTES ABSOLUTE COUNT 1.14 K/ L 1.32-3.57 L (BEAKER) (test code = 414) MONOCYTES ABSOLUTE COUNT (BEAKER) 1.14 K/ L 0.30-0.82 H (test code = 415) EOSINOPHILS ABSOLUTE COUNT 0.44 K/ L 0.04-0.54 (BEAKER) (test code = 416) BASOPHILS ABSOLUTE COUNT (BEAKER) 0.07 K/ L 0.01-0.08 (test code = 417) IMMATURE GRANULOCYTES-RELATIVE 1 % 0-1 PERCENT (BEAKER) (test code = 2801) Blood Culture - Routine (Left Venipuncture)2020-07-08 04:01:00 Test Item Value Reference Range Interpretation Comments Result (test code = No growth in 5 days 6463-4) [facility] [id number] 04:01:00 Test Item Value Reference Range Interpretation Comments CULTURE (BEAKER) (test No growth in 5 days code = 1095) BLOOD [id number] 04:01:00 Test Item Value Reference Range Interpretation Comments CULTURE (BEAKER) (test No growth in 5 days code = 1095) POCT-GLUCOSE [id number] 21:58:00 Test Item Value Reference Range Interpretation Comments POC-GLUCOSE METER 207 mg/dL 70-110 H : TESTED A T [facility] 6720 (BEAKER) (test code [facility], = 1538) [address]: Rubber Mixer/Techni allen ID = [id number] for Shannon bucio (contract)Lexi POCT-GLUCOSE [id number] 17:16:00 Test Item Value Reference Range Interpretation Comments POC-GLUCOSE METER 289 mg/dL 70-110 H : TESTED A T [facility] 6720 (BEAKER) (test code = [facility], 1538) 267[address]: Rubber Mixer/Techni allen ID = [id number] for GLENNA HN, BLAINE [id number] 15:46:00 Test Item Value Reference Range Interpretation Comments C-Peptide (test code = <0.10 0.80-3.85 L 4438397) NANCY (test code = NANCY) Performing Lab EZ [facility] [address] [place] [address] Berenice Boswell MD, PhD, IRIS Lab Interpretation (test Abnormal code = 36265-0) [facility]D [id number] 15:41:28 Ejection FractionSLEH ECHO HEARTLAB MKCK[facility]ON [facility] POCT-GLUCOSE [id number] 12:19:00 Test Item Value Reference Range Interpretation Comments POC-GLUCOSE METER 282 mg/dL 70-110 H : TESTED A T [facility] 6720 (BEAKER) (test code = [facility], 1538) [address]: Rubber Mixer/Techni allen ID = [id number] for GLENNA HN, BLAINE RAD, CHEST, 1 VIEW, NON [id number] 11:06:00Reason for exam:->IABPShould this be performed at the bedside?->Yes [facility] : 1975 Sex: MFINAL REPORT CLINICAL HISTORY: IABP TECHNIQUE: 1 view of the chest. COMPARISON: 07/06/2020 IMPRESSION: The right jugular sheath and left basilar chest tube have been removed. The small left pneumothorax is unchanged. Left chest wall subcutaneous emphysema is unchanged. Left lung base pleural- parenchymal opacity is unchanged. The cardiomediastinal silhouette is magnified by technique with sternotomy wires. Signed: Mariah Scott MDReport Verified Date/Time: 07/07/2020 11:06:14 Reading Location: [facility] Radiology Reading Room Manual [id number] 08:54:00 Test Item Value Reference Range Interpretation Comments % Neutros (test code = 2816) 73 % % Lymphs (test code = 2817) 15 % % Monos (test code = 2818) 10 % % Bands (test code = 2826) 1 % 0-10 % Atypical Lymphs (test code = 1 % 0-0 H 2829) # Neutros (test code = 2830) 7.67 K/ul 1.78-5.38 H # Lymphs (test code = 2831) 1.58 K/ul 1.32-3.57 # Monos (test code = 2832) 1.05 K/uL 0.30-0.82 H # Bands (test code = 2840) 0.11 K/uL 0.00-0.80 # Atypical Lymphs (test code = 0.11 K/uL 0.00-0.00 H 2858) Total Counted (test code = 1351) 100 WBC Morphology (test code = 487) Normal Platelet Morphology (test code = Normal 486) Polychromasia (test code = 478) 1+ few Hypochromia (test code = 963) 1+ few Anisocytosis (test code = 961) 1+ few Poikilocytes (test code = 966) 1+ few Spherocytes (test code = 768) 1+ few Ovalocytes (test code = 477) 1+ few Lab Interpretation (test code = Abnormal 21637-7) [facility](CELLAVISION MANUAL DIFF)2020-07-07 08:54:00 Test Item Value Reference Range Interpretation Comments NEUTROPHILS - REL 73 % (CELLAVISION)(BEAKER) (test code = 2816) LYMPHOCYTES - REL 15 % (CELLAVISION)(BEAKER) (test code = 2817) MONOCYTES - REL 10 % (CELLAVISION)(BEAKER) (test code = 2818) BANDS - REL (CELLAVISION)(BEAKER) 1 % 0-10 (test code = 2826) ATYPICAL LYMPHOCYTES - REL 1 % 0-0 H (CELLAVISION)(BEAKER) (test code = 2829) NEUTROPHILS - ABS 7.67 K/ul 1.78-5.38 H (CELLAVISION)(BEAKER) (test code = 2830) LYMPHOCYTES - ABS 1.58 K/ul 1.32-3.57 (CELLAVISION)(BEAKER) (test code = 2831) MONOCYTES - ABS 1.05 K/uL 0.30-0.82 H (CELLAVISION)(BEAKER) (test code = 2832) BANDS - ABS (CELLAVISION)(BEAKER) 0.11 K/uL 0.00-0.80 (test code = 2840) ATYPICAL LYMPHOCYTES - ABS 0.11 K/uL 0.00-0.00 H (CELLAVISION)(BEAKER) (test code = 2858) TOTAL COUNTED (BEAKER) (test code = 100 1351) WBC MORPHOLOGY (BEAKER) (test code Normal = 487) PLT MORPHOLOGY (BEAKER) (test code Normal = 486) POLYCHROMATOPHILLIC RBCS(BEAKER) 1+ few (test code = 478) HYPOCHROMIA (BEAKER) (test code = 1+ few 963) ANISOCYTOSIS (BEAKER) (test code = 1+ few 961) POIKILOCYTES (BEAKER) (test code = 1+ few 966) SPHEROCYTES (BEAKER) (test code = 1+ few 768) OVALOCYTES (BEAKER) (test code = 1+ few 477) POCT-GLUCOSE [id number] 08:08:00 Test Item Value Reference Range Interpretation Comments POC-GLUCOSE METER 119 mg/dL 70-110 H : TESTED A T [facility] 6720 (BEAKER) (test code = [facility], 1538) [address]: Rubber Mixer/Techni allen ID = [id number] for BLAINE AMANDA POCT-GLUCOSE [id number] 06:31:00 Test Item Value Reference Range Interpretation Comments POC-GLUCOSE METER 84 mg/dL 70-110 : TESTED A T [facility] 6720 (BEAKER) (test code = [facility], 1538) [address]12[address]: Rubber Mixer/Techni allen ID = [id number] for Shannon fortuntao (contract)Lexi CBC W/PLT COUNT & AUTO [id number] 05:43:00 Test Item Value Reference Range Interpretation Comments WHITE BLOOD CELL COUNT (BEAKER) 10.5 K/ L 3.5-10.5 (test code = 775) RED BLOOD CELL COUNT (BEAKER) 2.92 M/ L 4.63-6.08 L (test code = 761) HEMOGLOBIN (BEAKER) (test code = 9.4 GM/DL 13.7-17.5 L 410) HEMATOCRIT (BEAKER) (test code = 28.3 % 40.1-51.0 L 411) MEAN CORPUSCULAR VOLUME (BEAKER) 96.9 fL 79.0-92.2 H (test code = 753) MEAN CORPUSCULAR HEMOGLOBIN 32.2 pg 25.7-32.2 (BEAKER) (test code = 751) MEAN CORPUSCULAR HEMOGLOBIN CONC 33.2 GM/DL 32.3-36.5 (BEAKER) (test code = 752) RED CELL DISTRIBUTION WIDTH 13.3 % 11.6-14.4 (BEAKER) (test code = 412) PLATELET COUNT (BEAKER) (test 276 K/CU MM 150-450 code = 756) MEAN PLATELET VOLUME (BEAKER) 11.3 fL 9.4-12.4 (test code = 754) NUCLEATED RED BLOOD CELLS 0 /100 WBC 0-0 (BEAKER) (test code = 413) POCT-GLUCOSE [id number] 05:40:00 Test Item Value Reference Range Interpretation Comments POC-GLUCOSE METER 61 mg/dL 70-110 L : TESTED A T [facility] 6720 (BEAKER) (test code = [place], 1538) [address]: Rubber Mixer/Techni allen ID = [id number] for Shannon (contract)Lexi anshulbobbi BASIC METABOLIC [id number] 05:38:00 Test Item Value Reference Range Interpretation Comments SODIUM (BEAKER) 138 meq/L 136-145 (test code = 381) POTASSIUM (BEAKER) 3.6 meq/L 3.5-5.1 (test code = 379) CHLORIDE (BEAKER) 100 meq/L 98-107 (test code = 382) CO2 (BEAKER) (test 32 meq/L 22-29 H code = 355) BLOOD UREA NITROGEN 18 mg/dL 7-21 (BEAKER) (test code = 354) CREATININE (BEAKER) 0.92 mg/dL 0.57-1.25 (test code = 358) GLUCOSE RANDOM 44 mg/dL 70-105 L (BEAKER) (test code = 652) CALCIUM (BEAKER) 7.9 mg/dL 8.4-10.2 L (test code = 697) EGFR (BEAKER) (test 90 mL/min/1.73 ESTIMA ADRIANA GFR IS code = 1092) sq m NOT ACCURATE CREATININE CLEARANCE IN PREDICTING GLOMERULAR FILTRATION RATE . ESTIMATED GFR I S NOT APPLICABLE FOR DIALYSIS PATIEN TS. Rubber Mixer ID - JAMI [id number] 05:36:00 Test Item Value Reference Range Interpretation Comments MAGNESIUM (BEAKER) (test code = 2.2 mg/dL 1.6-2.6 627) Rubber Mixer ID - JAMI MPOCT-GLUCOSE [id number] 05:22:00 Test Item Value Reference Range Interpretation Comments POC-GLUCOSE METER 40 mg/dL 70-110 LL : TESTED A T [facility] 6720 (BEAKER) (test code = [facility], 153) 70451: Rubber Mixer/Techni allen ID = [id number] for Shannon bucio (contract)Lexi POCT-GLUCOSE [id number] 21:51:00 Test Item Value Reference Range Interpretation Comments POC-GLUCOSE METER 212 mg/dL 70-110 H : TESTED A T [facility] 6720 (BEAKER) (test code = [facility], 153) 70809: Rubber Mixer/Techni allen ID = [id number] for JOSÉ MIGUEL PERES POCT-GLUCOSE [id number] 17:53:00 Test Item Value Reference Range Interpretation Comments POC-GLUCOSE METER 93 mg/dL 70-110 : TESTED A T [facility] 6720 (BEAKER) (test code = [facility], 153) 25974: Rubber Mixer/Techni allen ID = [id number] for ERICKSON SAM POCT-GLUCOSE [id number] 17:42:00 Test Item Value Reference Range Interpretation Comments POC-GLUCOSE METER 47 mg/dL 70-110 L : TESTED A T [facility] 6720 (BEAKER) (test code = [facility], 153) 69622: Rubber Mixer/Techni allen ID = [id number] for SANTOS Cortes WOODY POCT-GLUCOSE [id number] 16:55:00 Test Item Value Reference Range Interpretation Comments POC-GLUCOSE METER 46 mg/dL 70-110 L : TESTED A T [facility] 6720 (AKER) (test code = [facility], 153) 49158: Rubber Mixer/Techni allen ID = [id number] for CHARLIESHE BARRIENTOSCY POCT-GLUCOSE [id number] 11:42:00 Test Item Value Reference Range Interpretation Comments POC-GLUCOSE METER 204 mg/dL 70-110 H : TESTED A T [facility] 6720 (BEAKER) (test code = [facility], 153) 37150: Rubber Mixer/Techni allen ID = [id number] for RAMSEY EREN FAN SARS-CoV2/RT-PCR (Asymptomatic ONLY)2020-07-06 09:24:00 Test Item Value Reference Range Interpretation Comments SARS-COV2/RT-PCR Negative Not Detected, (test code = Negative, See 50342-2) external report for linked test SARS-COV-2 [facility] (test code = 12451-9) NANCY (test code = Negative result for this NANCY) test determines that SARS-CoV-2 RNA was not present in the specimen above the Limit of Detection (LOD). However, Negative results do not preclude SARS-CoV-2 infection and should not be used as the sole basis for treatment or patient management decisions. Negative results must be combined with clinical observations, patient history, and epidemiological information. A false negative result may occur if a specimen is improperly collected, transported or handled. A false negative result should be considered if patient's recent exposures or clinical presentation indicate that COVID-19 (SARS-CoV-2) is likely and diagnostic tests for other causes of illness are negative. Re-testing should be considered in cases of suspected false negatives. The limit of detection for this assay is 800 copies/mL. This SARS CoV-2 test is a real-time RT-PCR test intended for the qualitative detection of nucleic acid from SARS-CoV-2 in a nasopharyngeal swab specimen collected from individuals suspected of COVID-19 by their healthcare provider. This test has not been Food and Drug Administration (FDA) cleared or approved. This is a modified version of an approved Emergency Use Authorization (EUA) and is in the process of review by the FDA. Once authorized by the FDA, the issued EUA will be effective until the declaration that circumstances exist justifying the authorization of the emergency use of in vitro diagnostic tests for detection and/or diagnosis of COVID-19 is terminated under Section 564(b)(2) of the Act or the EUA is revoked under Section 564(g) of the Act. Fact Sheet for Healthcare Providers:https://www.LOG[employer]el[employer]/sites/default/f shawanda/product/documents/F act_Sheet_HC_Providers_L zxy_YVDN-OnP-6.pdf Fact Sheet for Healthcare Patients:https://www.aj del.com/sites/default/fi les/product/documents/Fa ct_Sheet_Patients_Lyra_S ARS-CoV-2.pdf Performing Laboratory:[facility], [place] [address] [place], [place] [address]ARS-COV2/RT-PCR ([facility])2020-07-06 09:24:00 Test Item Value Reference Range Interpretation Comments SARS-COV2/RT-PCR (test Negative Not Detected, Negative, code = 9959393) See external report for linked test SARS-COV-[address] [facility] (test code = 7626372) Negative result for this test determines that SARS-CoV-2 RNA was not present in the specimen above the Limit of Detection (LOD). However, Negative results do not preclude SARS-CoV-2 infection and should not be used as the sole basis for treatment or patient management decisions. Negative results mustbe combined with clinical observations, patient history, and epidemiological information. A false negative result may occur if a specimen is improperly collected, transported or handled. A false negative result should be considered if patient's recent exposures or clinical presentation indicate that COVID-19 (SARS-CoV-2) is likely and diagnostic tests for other causes of illness are negative. Re-testing should be considered in cases of suspected false negatives.The limit of detection for this assay is 800 copies/mL.This SARS CoV-2 test is a real-time RT-PCR test intended for the qualitative detection of nucleic acid from SARS-CoV-2 in a nasopharyngeal swab specimen collected from individuals susp ected of COVID-19 by their healthcare provider.This test has not been Food and Drug Administration (FDA) cleared or approved. This is a modified version of an approved Emergency Use Authorization (EUA) and is in the process of review by the FDA. Once authorized by the FDA, the issued EUA will be effective until the declaration that circumstances exist justifying the authorization of the emergency use of in vitro diagnostic tests for detection and/or diagnosis of COVID-19 is terminated under Section 564(b)(2) of the Act or the EUA is revoked under Section 564(g) of the Act.Fact Sheet for Healthcare Providers:https://www.[employer]/sites/default/files/product/documents/Fact_Shee n_AZ_Cqhcwiiem_Uivt_FVAY-UfO-6.pdfFact Sheet for Healthcare Patients:https://www.[employer]com/sites/default/files/product/ documents/Iayy_Ntsex_Rafyskec_Czts_GMNY-LmQ-6.pdfPerforming Laboratory:[facility], [place] [address]EQES-CNEOYAL METER 2020-07-06 07:25:00 Test Item Value Reference Range Interpretation Comments POC-GLUCOSE METER 115 mg/dL 70-110 H : TESTED A T [facility] 6720 (BEAKER) (test code = [facility], 1538) 31431: Rubber Mixer/Techni allen ID = [id number] for FAN WALTON POCT-GLUCOSE [id number] 06:27:00 Test Item Value Reference Range Interpretation Comments POC-GLUCOSE METER 67 mg/dL 70-110 L : TESTED A T [facility] 6720 (BEAKER) (test code = [facility], 1538) 96771: Rubber Mixer/Techni allen ID = [id number] for Rehana ham (contract)Birgit a [id number] 06:10:00 Test Item Value Reference Range Interpretation Comments MAGNESIUM (BEAKER) 2.3 mg/dL 1.6-2.6 Specimen slightly (test code = 627) hemolyzed Rubber Mixer ID - JAMI MBASIC METABOLIC [id number] 06:10:00 Test Item Value Reference Range Interpretation Comments SODIUM (BEAKER) 136 meq/L 136-145 (test code = 381) POTASSIUM (BEAKER) 4.1 meq/L 3.5-5.1 Specimen slightly (test code = 379) hemolyzed CHLORIDE (BEAKER) 99 meq/L 98-107 (test code = 382) CO2 (BEAKER) (test 28 meq/L 22-29 code = 355) BLOOD UREA NITROGEN 23 mg/dL 7-21 H (BEAKER) (test code = 354) CREATININE (BEAKER) 0.88 mg/dL 0.57-1.25 Specimen slightly (test code = 358) hemolyzed GLUCOSE RANDOM 56 mg/dL 70-105 L (BEAKER) (test code = 652) CALCIUM (BEAKER) 8.1 mg/dL 8.4-10.2 L (test code = 697) EGFR (BEAKER) (test 95 mL/min/1.73 ESTIMA ADRIANA GFR IS code = 1092) sq m NOT ACCURATE CREATININE CLEARANCE IN PREDICTING GLOMERULAR FILTRATION RATE . ESTIMATED GFR I S NOT APPLICABLE FOR DIALYSIS PATIEN TS. Rubber Mixer ID - JAMI [facility] W/PLT COUNT & AUTO [id number] 06:02:00 Test Item Value Reference Range Interpretation Comments WHITE BLOOD CELL COUNT (BEAKER) 12.6 K/ L 3.5-10.5 H (test code = 775) RED BLOOD CELL COUNT (BEAKER) 3.14 M/ L 4.63-6.08 L (test code = 761) HEMOGLOBIN (BEAKER) (test code = 10.2 GM/DL 13.7-17.5 L 410) HEMATOCRIT (BEAKER) (test code = 30.2 % 40.1-51.0 L 411) MEAN CORPUSCULAR VOLUME (BEAKER) 96.2 fL 79.0-92.2 H (test code = 753) MEAN CORPUSCULAR HEMOGLOBIN 32.5 pg 25.7-32.2 H (BEAKER) (test code = 751) MEAN CORPUSCULAR HEMOGLOBIN CONC 33.8 GM/DL 32.3-36.5 (BEAKER) (test code = 752) RED CELL DISTRIBUTION WIDTH 13.1 % 11.6-14.4 (BEAKER) (test code = 412) PLATELET COUNT (BEAKER) (test 280 K/CU MM 150-450 code = 756) MEAN PLATELET VOLUME (BEAKER) 11.5 fL 9.4-12.4 (test code = 754) NUCLEATED RED BLOOD CELLS 0 /100 WBC 0-0 (BEAKER) (test code = 413) NEUTROPHILS RELATIVE PERCENT 78 % (BEAKER) (test code = 429) LYMPHOCYTES RELATIVE PERCENT 9 % (BEAKER) (test code = 430) MONOCYTES RELATIVE PERCENT 10 % (BEAKER) (test code = 431) EOSINOPHILS RELATIVE PERCENT 3 % (BEAKER) (test code = 432) BASOPHILS RELATIVE PERCENT 0 % (BEAKER) (test code = 437) NEUTROPHILS ABSOLUTE COUNT 9.84 K/ L 1.78-5.38 H (BEAKER) (test code = 670) LYMPHOCYTES ABSOLUTE COUNT 1.12 K/ L 1.32-3.57 L (BEAKER) (test code = 414) MONOCYTES ABSOLUTE COUNT (BEAKER) 1.23 K/ L 0.30-0.82 H (test code = 415) EOSINOPHILS ABSOLUTE COUNT 0.31 K/ L 0.04-0.54 (BEAKER) (test code = 416) BASOPHILS ABSOLUTE COUNT (BEAKER) 0.04 K/ L 0.01-0.08 (test code = 417) IMMATURE GRANULOCYTES-RELATIVE 1 % 0-1 PERCENT (BEAKER) (test code = 2801) RAD, CHEST, 1 VIEW, NON [id number] 03:11:00Reason for exam:->IABPShould this be performed at the bedside?->Yes [facility] 1975 Sex: MFINAL REPORT Chest one view. Clinical history: IABP Comparison: Chest radiograph 07/05/2020. Technique: A single frontal view of the chest was obtained. Findings:There is no intra-aortic balloon pump. There is a right IJ vascular sheath with tip in the SVC. There is a left chest tube with tip in the left lung base. The patient is status post median sternotomy and CABG. There are midline surgical skin te. The cardiomediastinal contours are stable. There yunior small left apical pneumothorax. There are airspace opacities in the left lung base, which may represent atelectasis and/or pneumonia. There is no definite pleural effusion. There is mild subcutaneousemphysema in the left chest wall. Signed: Kemi Longoria MDReport Verified Date/Time: 07/06/2020 03:11:31 B-65 2020-07-06 01:00:00 Test Item Value Reference Interpretation Comments Range BEN-65 (test code = 74 See_Comment H This [facility] was 3214) performed using the GAD65 MARIN met [facility] which is standardizedaga inst the International r eference preparation 97/ 550. [Automated mess age] The system which ge nerated this result tra nsmitted reference range : <5 IU/mL. The refe rence range was not u sed to interpret this result as normal/abnor mal. NANCY (test code = Performing Lab NANCY) EZ [facility] [address] [place] [address] Berenice Boswell MD, PhD, IRIS Lab Interpretation Abnormal (test code = 00735-4) [facility] [id number] 20:34:00 Test Item Value Reference Range Interpretation Comments POC-GLUCOSE METER 133 mg/dL 70-110 H : TESTED A T [facility] 6720 (BEAKER) (test code = [facility], 153) 25905: Rubber Mixer/Techni allen ID = [id number] for Avery wilkins (contract), Birgit a POCT-GLUCOSE [id number] 17:02:00 Test Item Value Reference Range Interpretation Comments POC-GLUCOSE METER 79 mg/dL 70-110 : TESTED A T [facility] 6720 (BEAKER) (test code = [facility], 153) 76815: Rubber Mixer/Techni allen ID = [id number] for SCHA NUSRATMAN, FAN POCT-GLUCOSE [id number] 11:46:00 Test Item Value Reference Range Interpretation Comments POC-GLUCOSE METER 157 mg/dL 70-110 H : TESTED A T [facility] 6720 (BEAKER) (test code = [facility], 153) 66128: Rubber Mixer/Techni allen ID = [id number] for SC HATTMAN, FAN POCT-GLUCOSE [id number] 07:50:00 Test Item Value Reference Range Interpretation Comments POC-GLUCOSE METER 190 mg/dL 70-110 H : TESTED A T [facility] 6720 (BEAKER) (test code = [facility], 153) 50359: Rubber Mixer/Techni allen ID = [id number] for SC HATTMAN, FAN RAD, CHEST, 1 VIEW, NON [id number] 07:17:00Reason for exam:->IABPShould this be performed at the bedside?->Yes [facility] : 1975 Sex: MFINAL REPORT TECHNIQUE: Frontal view of the chest. INDICATION:IABP COMPARISON:07/04/2020 DISCUSSION:Limited evaluation due to portable technique. Lines and hardware: Interval removal of the pulmonary arterial catheter and mediastinal drain. Remaining support structures are stable.Heart and mediastinum: Stable.Lungs and pleura: Stable left basilar atelectasis. Negative for lobar consolidation, large pleural effusion or pneumothorax.Soft tissues and bones: No acuteabnormality. IMPRESSION:Interval removal of right internal jugular approach pulmonary arterial catheter and mediastinal drain.Otherwise stable exam. Signed: Howie Kirkland Verified Date/Time: 07/05/2020 07:17:08 Reading Location: [address] Transitional Reading Room Electronically signedby: HOWIE KIRKLAND MD on 07/05/2020 07:17 AMCBC W/PLT COUNT & AUTO [id number] 07:08:00 Test Item Value Reference Range Interpretation Comments WHITE BLOOD CELL COUNT (BEAKER) 14.7 K/ L 3.5-10.5 H (test code = 775) RED BLOOD CELL COUNT (BEAKER) 3.06 M/ L 4.63-6.08 L (test code = 761) HEMOGLOBIN (BEAKER) (test code = 10.1 GM/DL 13.7-17.5 L 410) HEMATOCRIT (BEAKER) (test code = 29.4 % 40.1-51.0 L 411) MEAN CORPUSCULAR VOLUME (BEAKER) 96.1 fL 79.0-92.2 H (test code = 753) MEAN CORPUSCULAR HEMOGLOBIN 33.0 pg 25.7-32.2 H (BEAKER) (test code = 751) MEAN CORPUSCULAR HEMOGLOBIN CONC 34.4 GM/DL 32.3-36.5 (BEAKER) (test code = 752) RED CELL DISTRIBUTION WIDTH 13.2 % 11.6-14.4 (BEAKER) (test code = 412) PLATELET COUNT (BEAKER) (test 238 K/CU MM 150-450 code = 756) MEAN PLATELET VOLUME (BEAKER) 11.4 fL 9.4-12.4 (test code = 754) NUCLEATED RED BLOOD CELLS 0 /100 WBC 0-0 (BEAKER) (test code = 413) (CELLAVISION MANUAL DIFF)2020-07-05 07:08:00 Test Item Value Reference Range Interpretation Comments NEUTROPHILS - REL 80 % (CELLAVISION)(BEAKER) (test code = 2816) LYMPHOCYTES - REL 9 % (CELLAVISION)(BEAKER) (test code = 2817) MONOCYTES - REL 5 % (CELLAVISION)(BEAKER) (test code = 2818) EOSINOPHILS - REL 3 % (CELLAVISION)(BEAKER) (test code = 2819) BANDS - REL (CELLAVISION)(BEAKER) 2 % 0-10 (test code = 2826) ATYPICAL LYMPHOCYTES - REL 1 % 0-0 H (CELLAVISION)(BEAKER) (test code = 2829) NEUTROPHILS - ABS 11.76 K/ul 1.78-5.38 H (CELLAVISION)(BEAKER) (test code = 2830) LYMPHOCYTES - ABS 1.32 K/ul 1.32-3.57 (CELLAVISION)(BEAKER) (test code = 2831) MONOCYTES - ABS 0.74 K/uL 0.30-0.82 (CELLAVISION)(BEAKER) (test code = 2832) EOSINOPHILS - ABS 0.44 K/uL 0.04-0.54 (CELLAVISION)(BEAKER) (test code = 2834) BANDS - ABS (CELLAVISION)(BEAKER) 0.29 K/uL 0.00-0.80 (test code = 2840) ATYPICAL LYMPHOCYTES - ABS 0.15 K/uL 0.00-0.00 H (CELLAVISION)(BEAKER) (test code = 2858) TOTAL COUNTED (BEAKER) (test code 100 = 1351) RBC MORPHOLOGY (BEAKER) (test code Normal = 762) WBC MORPHOLOGY (BEAKER) (test code Normal = 487) PLT MORPHOLOGY (BEAKER) (test code Normal = 486) ARTIFACT (CELLAVISION)(BEAKER) Present (test code = 3432) PLATELET CONCENTRATION Adequate (CELLAVISION)(BEAKER) (test code = 3438) Rubber Mixer ID - Sharon OverholtUser comments: Slide comments:BASIC METABOLIC PANEL 2020-07-05 05:46:00 Test Item Value Reference Range Interpretation Comments SODIUM (BEAKER) 135 meq/L 136-145 L (test code = 381) POTASSIUM (BEAKER) 4.1 meq/L 3.5-5.1 (test code = 379) CHLORIDE (BEAKER) 100 meq/L 98-107 (test code = 382) CO2 (BEAKER) (test 27 meq/L 22-29 code = 355) BLOOD UREA NITROGEN 29 mg/dL 7-21 H (BEAKER) (test code = 354) CREATININE (BEAKER) 0.98 mg/dL 0.57-1.25 (test code = 358) GLUCOSE RANDOM 146 mg/dL 70-105 H (BEAKER) (test code = 652) CALCIUM (BEAKER) 8.3 mg/dL 8.4-10.2 L (test code = 697) EGFR (BEAKER) (test 84 mL/min/1.73 ESTIMA ADRIANA GFR IS code = 1092) sq m NOT ACCURATE CREATININE CLEARANCE IN PREDICTING GLOMERULAR FILTRATION RATE . ESTIMATED GFR I S NOT APPLICABLE FOR DIALYSIS PATIEN TS. Rubber Mixer ID - [id number] 05:46:00 Test Item Value Reference Range Interpretation Comments MAGNESIUM (BEAKER) (test code = 2.4 mg/dL 1.6-2.6 627) Rubber Mixer ID - EDASIPOCT-GLUCOSE [id number] 21:44:00 Test Item Value Reference Range Interpretation Comments POC-GLUCOSE METER 163 mg/dL 70-110 H : TESTED A T [facility] 6720 (BEAKER) (test code = [facility], 1538) 68033: Rubber Mixer/Techni allen ID = [id number] for DO MINGUCARMEN, ROBERTH POCT-GLUCOSE [id number] 16:55:00 Test Item Value Reference Range Interpretation Comments POC-GLUCOSE METER 262 mg/dL 70-110 H : TESTED A T [facility] 6720 (BEAKER) (test code = [facility], 1538) 31158: Rubber Mixer/Techni allen ID = [id number] for Am inu, Kafayat POCT-GLUCOSE [id number] 11:17:00 Test Item Value Reference Range Interpretation Comments POC-GLUCOSE METER 156 mg/dL 70-110 H : TESTED A T [facility] 6720 (BEAKER) (test code = [facility], 153) 06128: Rubber Mixer/Techni allen ID = [id number] for Am inu, Kafayat CBC W/PLT COUNT & AUTO [id number] 09:10:00 Test Item Value Reference Range Interpretation Comments WHITE BLOOD CELL COUNT (BEAKER) 16.3 K/ L 3.5-10.5 H (test code = 775) RED BLOOD CELL COUNT (BEAKER) 2.76 M/ L 4.63-6.08 L (test code = 761) HEMOGLOBIN (BEAKER) (test code = 8.9 GM/DL 13.7-17.5 L 410) HEMATOCRIT (BEAKER) (test code = 26.3 % 40.1-51.0 L 411) MEAN CORPUSCULAR VOLUME (BEAKER) 95.3 fL 79.0-92.2 H (test code = 753) MEAN CORPUSCULAR HEMOGLOBIN 32.2 pg 25.7-32.2 (BEAKER) (test code = 751) MEAN CORPUSCULAR HEMOGLOBIN CONC 33.8 GM/DL 32.3-36.5 (BEAKER) (test code = 752) RED CELL DISTRIBUTION WIDTH 13.4 % 11.6-14.4 (BEAKER) (test code = 412) PLATELET COUNT (BEAKER) (test 159 K/CU MM 150-450 code = 756) MEAN PLATELET VOLUME (BEAKER) 11.7 fL 9.4-12.4 (test code = 754) NUCLEATED RED BLOOD CELLS 0 /100 WBC 0-0 (BEAKER) (test code = 413) (CELLAVISION MANUAL DIFF)2020-07-04 09:10:00 Test Item Value Reference Range Interpretation Comments NEUTROPHILS - REL 91 % (CELLAVISION)(BEAKER) (test code = 2816) LYMPHOCYTES - REL 4 % (CELLAVISION)(BEAKER) (test code = 2817) MONOCYTES - REL 3 % (CELLAVISION)(BEAKER) (test code = 2818) EOSINOPHILS - REL 2 % (CELLAVISION)(BEAKER) (test code = 2819) NEUTROPHILS - ABS 14.83 K/ul 1.78-5.38 H (CELLAVISION)(BEAKER) (test code = 2830) LYMPHOCYTES - ABS 0.65 K/ul 1.32-3.57 L (CELLAVISION)(BEAKER) (test code = 2831) MONOCYTES - ABS 0.49 K/uL 0.30-0.82 (CELLAVISION)(BEAKER) (test code = 2832) EOSINOPHILS - ABS 0.33 K/uL 0.04-0.54 (CELLAVISION)(BEAKER) (test code = 2834) TOTAL COUNTED (BEAKER) (test code 100 = 1351) PLT MORPHOLOGY (BEAKER) (test Normal code = 486) SMUDGE CELLS (BEAKER) (test code Present = 1371) POLYCHROMATOPHILLIC RBCS(BEAKER) 2+ moderate (test code = 478) PLATELET CONCENTRATION Adequate (CELLAVISION)(BEAKER) (test code = 3438) Rubber Mixer ID - Manan Alvarez comments: Slide comments:POCT-GLUCOSE [id number] 07:14:00 Test Item Value Reference Range Interpretation Comments POC-GLUCOSE METER 134 mg/dL 70-110 H : TESTED A T [facility] 6720 (BEAKER) (test code = [facility], 1538) 28328: Rubber Mixer/Techni allen ID = [id number] for June POCT-GLUCOSE [id number] 07:11:00 Test Item Value Reference Range Interpretation Comments POC-GLUCOSE METER 206 mg/dL 70-110 H : TESTED A T [facility] 6720 (BEAKER) (test code [facility], = 1538) 92560: Rubber Mixer/Techni allen ID = [id number] for Charlie whitman (contract), Lacy molina POCT-GLUCOSE [id number] 06:06:00 Test Item Value Reference Range Interpretation Comments POC-GLUCOSE METER 183 mg/dL 70-110 H : TESTED A T [facility] 6720 (BEAKER) (test code [facility], = 1538) 90179: Rubber Mixer/Techni allen ID = [id number] for Charlie whitman (contract), Lacy molina Oxygen saturation, [id number] 05:40:00 Test Item Value Reference Range Interpretation Comments O2 Saturation (Measured) (test code = 97.1 % 49825-9) [facility]YGEN SATURATION, [id number] 05:40:00 Test Item Value Reference Range Interpretation Comments O2 SATURATION (MEASURED) (BEAKER) 97.1 % (test code = 1455) BASIC METABOLIC [id number] 05:38:00 Test Item Value Reference Range Interpretation Comments SODIUM (BEAKER) 135 meq/L 136-145 L (test code = 381) POTASSIUM (BEAKER) 4.4 meq/L 3.5-5.1 (test code = 379) CHLORIDE (BEAKER) 100 meq/L 98-107 (test code = 382) CO2 (BEAKER) (test 28 meq/L 22-29 code = 355) BLOOD UREA NITROGEN 30 mg/dL 7-21 H (BEAKER) (test code = 354) CREATININE (BEAKER) 1.12 mg/dL 0.57-1.25 (test code = 358) GLUCOSE RANDOM 223 mg/dL 70-105 H (BEAKER) (test code = 652) CALCIUM (BEAKER) 8.1 mg/dL 8.4-10.2 L (test code = 697) EGFR (BEAKER) (test 72 mL/min/1.73 ESTIMA ADRIANA GFR IS code = 1092) sq m NOT ACCURATE CREATININE CLEARANCE IN PREDICTING GLOMERULAR FILTRATION RATE . ESTIMATED GFR I S NOT APPLICABLE FOR DIALYSIS PATIEN TS. Rubber Mixer ID - [id number] 05:38:00 Test Item Value Reference Range Interpretation Comments MAGNESIUM (BEAKER) (test code = 2.6 mg/dL 1.6-2.6 627) Rubber Mixer ID - EDASIPOCT-GLUCOSE [id number] 03:43:00 Test Item Value Reference Range Interpretation Comments POC-GLUCOSE METER 198 mg/dL 70-110 H : TESTED A T [facility] 6720 (BEAKER) (test code [facility], = 1538) 09401: Rubber Mixer/Techni allen ID = [id number] for Charlie whitman (contract), Lacy molina POCT-GLUCOSE [id number] 03:38:00 Test Item Value Reference Range Interpretation Comments POC-GLUCOSE METER 220 mg/dL 70-110 H : TESTED A T [facility] 6720 (BEAKER) (test code [facility], = 1538) 27913: Rubber Mixer/Techni allen ID = [id number] for Charlie whitman (contract), Lacy molina RAD, CHEST, 1 VIEW, NON [id number] 02:56:00Reason for exam:->IABPShould this be performed at the bedside?->Yes [facility] 1975 Sex: MFINAL REPORT RAD, CHEST, 1 VIEW, NON DEPT INDICATION: IABP COMPARISON: Prior day's exam FINDINGS: Portable frontal view of the chest. IMPRESSION: Support Lines:Stable. Lungs and pleura: Unchanged venous congestion and left basilar atelectasis. No focal consolidation or sizable effusion. No pneumothorax.Heart and mediastinum: Stable contours.Additional findings: None. Signed: Candelaria Lockett Verified Date/Time: 07/04/2020 02:56:01 Electronicallysigned by: CANDELARIA LOCKETT MD on 07/04/2020 02:56 AMPOCT-GLUCOSE [id number] 01:34:00 Test Item Value Reference Range Interpretation Comments POC-GLUCOSE METER 236 mg/dL 70-110 H : TESTED A T [facility] 6720 (BEAKER) (test code = [facility], 1538) 95044: Rubber Mixer/Techni allen ID = [id number] for Olga Alfaro POCT-GLUCOSE [id number] 00:05:00 Test Item Value Reference Range Interpretation Comments POC-GLUCOSE METER 248 mg/dL 70-110 H : TESTED A T [facility] 6720 (BEAKER) (test code [facility], = 1538) 18133: Rubber Mixer/Techni allen ID = [id number] for Charlie whitman (contract), Lacy tracy POCT-GLUCOSE [id number] 21:25:00 Test Item Value Reference Range Interpretation Comments POC-GLUCOSE METER 200 mg/dL 70-110 H : TESTED A T [facility] 6720 (BEAKER) (test code [facility], = 1538) 66822: Rubber Mixer/Techni allen ID = [id number] for Charlie whitman (contract), Lacy tracy POCT-GLUCOSE [id number] 21:23:00 Test Item Value Reference Range Interpretation Comments POC-GLUCOSE METER 247 mg/dL 70-110 H : TESTED A T [facility] 6720 (BEAKER) (test code = [facility], 1538) 40287: Rubber Mixer/Techni allen ID = [id number] for DO MOYAJune BASIC METABOLIC [id number] 21:19:00 Test Item Value Reference Range Interpretation Comments SODIUM (BEAKER) 135 meq/L 136-145 L (test code = 381) POTASSIUM (BEAKER) 4.6 meq/L 3.5-5.1 (test code = 379) CHLORIDE (BEAKER) 100 meq/L 98-107 (test code = 382) CO2 (BEAKER) (test 27 meq/L 22-29 code = 355) BLOOD UREA NITROGEN 28 mg/dL 7-21 H (BEAKER) (test code = 354) CREATININE (BEAKER) 1.14 mg/dL 0.57-1.25 (test code = 358) GLUCOSE RANDOM 250 mg/dL 70-105 H (BEAKER) (test code = 652) CALCIUM (BEAKER) 8.2 mg/dL 8.4-10.2 L (test code = 697) EGFR (BEAKER) (test 70 mL/min/1.73 ESTIMA ADRIANA GFR IS code = 1092) sq m NOT ACCURATE CREATININE CLEARANCE IN PREDICTING GLOMERULAR FILTRATION RATE . ESTIMATED GFR I S NOT APPLICABLE FOR DIALYSIS PATIEN TS. Rubber Mixer ID - DBPOCT-GLUCOSE [id number] 20:04:00 Test Item Value Reference Range Interpretation Comments POC-GLUCOSE METER 197 mg/dL 70-110 H : TESTED A T [facility] 6720 ([place]) (test code = [place], 1538) 91052: Rubber Mixer/Techni aleln ID = [id number] for DO RACHIDJune, ABDOMEN/KUB, 1 VIEW [id number] 19:42:00Reason for exam:->abdominal distensionMEM[facility] : 1975 Sex: MFINAL REPORT TECHNIQUE: Supine views of the abdomen. INDICATION : abdominal distension. COMPARISON: Exam from nine hours prior. FINDINGS/IMPRESSION: No significantchange in multiple loops of nondistended gaseous small bowel, colon, and stomach that is nonspecific. Moderate volume of fecal matter within the cecum and ascending colon, as before. Supine technique limits sensitivity for detection of free air. Otherwise, no acute interval abnormality. Signed: Candelaria Locketteport Verified Date/Time: 07/03/2020 19:42:59 POCT-GLUCOSE [id number] 18:16:00 Test Item Value Reference Range Interpretation Comments POC-GLUCOSE METER 185 mg/dL 70-110 H : TESTED A T [facility] 6720 (BEAKER) (test code = [facility], 1538) 92987: Rubber Mixer/Techni allen ID = [id number] for PAULINA DELAROSA POCT-GLUCOSE [id number] 16:38:00 Test Item Value Reference Range Interpretation Comments POC-GLUCOSE METER 182 mg/dL 70-110 H : TESTED A T [facility] 6720 (BEAKER) (test code = [facility], 1538) 70180: Rubber Mixer/Techni allen ID = [id number] for PAULINA DELAROSA POCT-GLUCOSE [id number] 15:40:00 Test Item Value Reference Range Interpretation Comments POC-GLUCOSE METER 212 mg/dL 70-110 H : TESTED A T [facility] 6720 (BEAKER) (test code = [facility], 1538) 78383: Rubber Mixer/Techni allen ID = [id number] for PAULINA DELAROSA Urinalysis w/[id number] 15:30:00 Test Item Value Reference Range Interpretation Comments Color, UA (test code Yellow = 5778-6) Clarity, UA (test Clear code = 5767-9) Specific [place], UA 1.038 1.001-1.035 H (test code = 5811-5) pH, UA (test code = 6.0 5.0-8.0 5803-2) Protein, UA (test 20 mg/dL Negative A code = 29304-8) Glucose, UA (test >1000 mg/dL Negative A code = 365) Ketones, UA (test 40 mg/dL Negative A code = 2514-8) Bilirubin, UA (test Negative Negative code = 05424-9) Blood, UA (test code Negative Negative = 90451-1) Nitrite, UA (test Negative Negative code = 5802-4) Leukocytes, UA (test Negative Negative code = 5799-2) Urobilinogen, UA 0.2 mg/dL 0.2-1.0 (test code = 34348-1) RBC, UA (test code = 5 See_Comment [Autom ated 13917-3) message] The system which generated this result transmit adriana reference range : /HPF. The reference range was not used to interpret this result as normal/abnormal . WBC, UA (test code = 1 See_Comment [Autom ated 8021-4) message] The system which generated this result transmit adriana reference range : /HPF. The reference range was not used to interpret this result as normal/abnormal . Bacteria, UA (test Rare code = 31074-0) Mucus (test code = Rare 8247-9) Specimen Source (test code = 2795) NANCY (test code = NANCY) Rubber Mixer ID - [auto]Rubber Mixer ID - tech Lab Interpretation Abnormal (test code = 82297-7) [facility] [id number] 15:30:00 Test Item Value Reference Range Interpretation Comments COLOR (BEAKER) (test code = 470) Yellow CLARITY (BEAKER) (test code = Clear 469) SPECIFIC GRAVITY UA (BEAKER) 1.038 1.001-1.035 H (test code = 468) PH UA (BEAKER) (test code = 467) 6.0 5.0-8.0 PROTEIN UA (BEAKER) (test code = 20 mg/dL Negative A 464) GLUCOSE UA (BEAKER) (test code = >1000 mg/dL Negative A 365) KETONES UA (BEAKER) (test code = 40 mg/dL Negative A 371) BILIRUBIN UA (BEAKER) (test code Negative Negative = 462) BLOOD UA (BEAKER) (test code = Negative Negative 461) NITRITE UA (BEAKER) (test code = Negative Negative 465) LEUKOCYTE ESTERASE UA (BEAKER) Negative Negative (test code = 466) UROBILINOGEN UA (BEAKER) (test 0.2 mg/dL 0.2-1.0 code = 463) RBC UA (BEAKER) (test code = 519) 5 /HPF WBC UA (BEAKER) (test code = 520) 1 /HPF BACTERIA (BEAKER) (test code = Rare 517) MUCUS (BEAKER) (test code = 1574) Rare SOURCE(BEAKER) (test code = 2795) Rubber Mixer ID - [auto]Rubber Mixer ID - techTSH/Free T4 If [id number] 14:57:00 Test Item Value Reference Range Interpretation Comments TSH (test code = 1.765 See_Comment [Automated 51240-5) message] The system which generated this result transmit adriana reference range : 0.350 - 4.940 uIU/mL. The reference range was not used to interpret this result as normal/abnormal . NANCY (test code = NANCY) Rubber Mixer ID - AAHAMID Lab Interpretation Normal (test code = 79239-1) [facility] [id number] 14:57:00 Test Item Value Reference Range Interpretation Comments THYROID STIMULATING HORMONE 1.765 uIU/mL 0.350-4.940 (BEAKER) (test code = 772) Rubber Mixer ID - [id number] 14:48:00 Test Item Value Reference Range Interpretation Comments Phosphorus (test code 2.6 mg/dL 2.3-4.7 Specim en = 2777-1) moderately hemolyzed NANCY (test code = NANCY) Rubber Mixer ID - AAHAMID Lab Interpretation Normal (test code = 81131-0) [id number]:00 Test Item Value Reference Range Interpretation Comments MAGNESIUM (BEAKER) 2.6 mg/dL 1.6-2.6 Specimen moderately (test code = 627) hemolyzed Rubber Mixer ID - [id number] 14:48:00 Test Item Value Reference Range Interpretation Comments PHOSPHORUS (BEAKER) 2.6 mg/dL 2.3-4.7 Specimen moderately (test code = 604) hemolyzed Rubber Mixer ID - AAHAMIDBASIC METABOLIC [id number] 14:48:00 Test Item Value Reference Range Interpretation Comments SODIUM (BEAKER) 134 meq/L 136-145 L (test code = 381) POTASSIUM (BEAKER) 5.0 meq/L 3.5-5.1 Specimen moderately (test code = 379) hemolyzed CHLORIDE (BEAKER) 101 meq/L 98-107 (test code = 382) CO2 (BEAKER) (test 23 meq/L 22-29 code = 355) BLOOD UREA NITROGEN 30 mg/dL 7-21 H (BEAKER) (test code = 354) CREATININE (BEAKER) 1.20 mg/dL 0.57-1.25 Specimen moderately (test code = 358) hemolyzed GLUCOSE RANDOM 276 mg/dL 70-105 H (BEAKER) (test code = 652) CALCIUM (BEAKER) 8.2 mg/dL 8.4-10.2 L (test code = 697) EGFR (BEAKER) (test 66 mL/min/1.73 ESTIMA ADRIANA GFR IS code = 1092) sq m NOT ACCURATE CREATININE CLEARANCE IN PREDICTING GLOMERULAR FILTRATION RATE . ESTIMATED GFR I S NOT APPLICABLE FOR DIALYSIS PATIEN TS. Rubber Mixer ID - AAHAMIDPOCT-GLUCOSE [id number] 14:38:00 Test Item Value Reference Range Interpretation Comments POC-GLUCOSE METER 254 mg/dL 70-110 H : TESTED A T [facility] 6720 (BEAKER) (test code = [facility], 1538) [address]: Rubber Mixer/Techni allen ID = [id number] for CHINEDU ZHANG OXYGEN SATURATION, [id number] 14:28:00 Test Item Value Reference Range Interpretation Comments O2 SATURATION (MEASURED) (BEAKER) 73.4 % (test code = 1455) Calcium, [id number] 14:24:00 Test Item Value Reference Range Interpretation Comments Calcium, Ion (test code = 1994-3) 1.12 mmol/L 1.12-1.27 pH, Blood (test code = 07944-7) 7.46 [facility] [id number] 14:24:00 Test Item Value Reference Range Interpretation Comments CALCIUM IONIZED (BEAKER) (test 1.12 mmol/L 1.12-1.27 code = 698) PH, BLOOD (BEAKER) (test code = 7.46 1810) POCT-GLUCOSE [id number] 13:49:00 Test Item Value Reference Range Interpretation Comments POC-GLUCOSE METER 264 mg/dL 70-110 H : TESTED A T [facility] 6720 (BEAKER) (test code = [facility], 1538) 68398: Rubber Mixer/Techni allen ID = [id number] for RO BERSON, TIONIA POCT-GLUCOSE [id number] 12:42:00 Test Item Value Reference Range Interpretation Comments POC-GLUCOSE METER 303 mg/dL 70-110 H : TESTED A T [facility] 6720 (BEAKER) (test code = [facility], 1538) 02404: Rubber Mixer/Techni allen ID = [id number] for RO BERSON, TIONIA POCT-GLUCOSE [id number] 12:39:00 Test Item Value Reference Range Interpretation Comments POC-GLUCOSE METER 321 mg/dL 70-110 H : TESTED A T [facility] 67[facility] (BEAKER) (test code = [place], 1538) 42182: Rubber Mixer/Techni allen ID = [id number] for PAULINA DELAROSA Ketone, [id number] 11:39:00 Test Item Value Reference Range Interpretation Comments Ketones, Blood (test code = 1103) 3.2 mmol/L <0.4 H Lab Interpretation (test code = Abnormal 15362-6) [facility] [id number] 11:39:00 Test Item Value Reference Range Interpretation Comments KETONES, BLOOD (BEAKER) (test code 3.2 mmol/L <0.4 H = 1103) Blood gas, [id number] 11:33:00 Test Item Value Reference Range Interpretation Comments pH, Arterial (test code 7.42 7.35-7.45 = 2744-1) pCO2, Arterial (test 36 See_Comment [Autom ated code = 2019-8) message] The system which generated this result transmitted reference range : 35 - 45 mm Hg. The reference range was not used to interpret this result as normal/abnormal . pO2, Arterial (test 124 See_Comment H [Automa adriana code = 2703-7) message] The system which generated this result transmitted reference range : 80 - 90 mm Hg. The reference range was not used to interpret this result as normal/abnormal . O2 Sat, Arterial (test 98.5 % 96.0-97.0 H code = 2708-6) HCO3, Arterial (test 22 mmol/L 21-29 code = 1960-4) Base Excess, Arterial -1.7 mmol/L -2.0-3.0 (test code = 1925-7) Patient Temperature 37.5 (test code = 8310-5) FIO2 (test code = 1819) 21 Lab Interpretation Abnormal (test code = 65211-4) [facility], [id number] 11:33:00 Test Item Value Reference Range Interpretation Comments PH ARTERIAL (BEAKER) (test code = 7.42 7.35-7.45 383) PCO2 ARTERIAL (BEAKER) (test code 36 mm Hg 35-45 = 384) PO2 ARTERIAL (BEAKER) (test code 124 mm Hg 80-90 H = 385) O2 SATURATION ARTERIAL (BEAKER) 98.5 % 96.0-97.0 H (test code = 386) HCO3 ARTERIAL (BEAKER) (test code 22 mmol/L 21-29 = 388) BASE EXCESS ARTERIAL (BEAKER) -1.7 mmol/L -2.0-3.0 (test code = 387) PATIENT TEMPERATURE (BEAKER) 37.5 (test code = 1818) FIO2 (BEAKER) (test code = 1819) 21.0 POCT-GLUCOSE [id number] 10:21:00 Test Item Value Reference Range Interpretation Comments POC-GLUCOSE METER 278 mg/dL 70-110 H : TESTED A T [facility] 67[facility] (BEAKER) (test code = [place], 1538) 835[address]: Rubber Mixer/Techni allen ID = [id number] for PAULINA DELAROSA RAD, CHEST, 1 VIEW, NON [id number] 10:12:00Reason for exam:->s/p ACB with IABPShould this be performed at the bedside?->Yes [facility] 1975 Sex: MFINAL REPORT RAD, CHEST, 1 VIEW, NON DEPT INDICATION: s/p ACB with IABP COMPARISON: Prior day's exam FINDINGS: Portable frontal view of the chest. IMPRESSION: Support Lines: [place]-Sanjay tip overlies the pulmonary outflow tract. Sternotomy wires and skin te are present. Lungs and pleura: Scattered diffuse interstitial thickening and hazy airspace disease is unchanged No pneumothorax.Heart and mediastinum: Stable contours.Additional findings: None Signed: Cony Bella Verified Date/Time: 07/03/2020 10:12:13 Reading Location: [facility] Radiology Reading Room RAD, ABDOMEN/KUB, 1 VIEW [id number] 09:17:00Reason for exam:->Abdominal distension [facility] : 1975 Sex: MFINAL REPORT RAD, ABDOMEN/KUB, 1 VIEW AP CLINICAL INDICATION:Abdominal distension COMPARISON: None TECHNIQUE: Single, frontal radiograph of the abdomen. FINDINGS: The bowel gas pattern gaseous distention of the stomach loops of small bowel. Bowel gas pattern is nonspecific, however, mild ileus is difficult to exclude. Large stool burden within the right colon. The regional skeleton is intact. Signed: Cony Bella Verified Date/Time: 07/03/2020 09:17:00 Reading Location: [facility] Radiology Reading Room -GLUCOSE [id number] 09:05:00 Test Item Value Reference Range Interpretation Comments POC-GLUCOSE METER 199 mg/dL 70-110 H : TESTED A T [facility] 67[facility] (BEAKER) (test code = [place], 1538) 12194: Rubber Mixer/Techni allen ID = [id number] for CHINEDU ZHANG [id number] 08:53:00 Test Item Value Reference Range Interpretation Comments Lipase (test code = <4 8-78 L 3040-3) NANCY (test code = NANCY) Rubber Mixer ID - JAMI Alfaro Lab Interpretation (test Abnormal code = 92735-2) [facility] 08:53:00 Test Item Value Reference Range Interpretation Comments LIPASE (BEAKER) (test code = 749) < U/L 8-78 L Rubber Mixer ID - JAMI epatic function [id number] 08:48:00 Test Item Value Reference Range Interpretation Comments Protein, Total (test 5.4 See_Comment L [Autom ated code = 2885-2) message] The system which generated this result transmit adriana reference range : 6.0 - 8.3 gm/dL . The reference range was not u sed to interpret th is result as normal/abnormal . Albumin (test code = 3.0 g/dL 3.5-5.0 L 84208-3) Total Bilirubin (test 0.7 mg/dL 0.2-1.2 code = 1974-2) Bilirubin, Direct 0.4 mg/dL 0.1-0.5 (test code = 1967-7) Alkaline Phosphatase 89 U/L 40-150 (test code = 6768-6) AST (test code = 57 U/L 5-34 H 1920-8) ALT (test code = 32 U/L 6-55 1742-6) NANCY (test code = NANCY) Rubber Mixer ID - JAMI Alfaro Lab Interpretation Abnormal (test code = 17526-0) [facility]ylase[facility] 08:48:00 Test Item Value Reference Range Interpretation Comments Amylase (test code = 27 U/L 25-125 1798-8) NANCY (test code = NANCY) Rubber Mixer ID - JAMI Lab Interpretation (test Normal code = 43435-7) [facility]IC [facility]ABOLIC [id number] 08:48:00 Test Item Value Reference Range Interpretation Comments SODIUM (BEAKER) 138 meq/L 136-145 (test code = 381) POTASSIUM (BEAKER) 4.6 meq/L 3.5-5.1 (test code = 379) CHLORIDE (BEAKER) 103 meq/L 98-107 (test code = 382) CO2 (BEAKER) (test 27 meq/L 22-29 code = 355) BLOOD UREA NITROGEN 27 mg/dL 7-21 H (BEAKER) (test code = 354) CREATININE (BEAKER) 1.15 mg/dL 0.57-1.25 (test code = 358) GLUCOSE RANDOM 155 mg/dL 70-105 H (BEAKER) (test code = 652) CALCIUM (BEAKER) 8.2 mg/dL 8.4-10.2 L (test code = 697) EGFR (BEAKER) (test 70 mL/min/1.73 ESTIMA ADRIANA GFR IS code = 1092) sq m NOT ACCURATE CREATININE CLEARANCE IN PREDICTING GLOMERULAR FILTRATION RATE . ESTIMATED GFR I S NOT APPLICABLE FOR DIALYSIS PATIEN TS. Rubber Mixer ID - JAMI [id number] 08:48:00 Test Item Value Reference Range Interpretation Comments MAGNESIUM (BEAKER) (test code = 2.6 mg/dL 1.6-2.6 627) Rubber Mixer ID - JAMI [id number] 08:48:00 Test Item Value Reference Range Interpretation Comments PHOSPHORUS (BEAKER) (test code = 3.6 mg/dL 2.3-4.7 604) Rubber Mixer ID - JAMI MHEPATIC FUNCTION [id number] 08:48:00 Test Item Value Reference Range Interpretation Comments TOTAL PROTEIN (BEAKER) (test code = 5.4 gm/dL 6.0-8.3 L 770) ALBUMIN (BEAKER) (test code = 1145) 3.0 g/dL 3.5-5.0 L BILIRUBIN TOTAL (BEAKER) (test code 0.7 mg/dL 0.2-1.2 = 377) BILIRUBIN DIRECT (BEAKER) (test 0.4 mg/dL 0.1-0.5 code = 706) ALKALINE PHOSPHATASE (BEAKER) (test 89 U/L 40-150 code = 346) AST (SGOT) (BEAKER) (test code = 57 U/L 5-34 H 353) ALT (SGPT) (BEAKER) (test code = 32 U/L 6-55 347) Rubber Mixer ID - JAMI [id number] 08:48:00 Test Item Value Reference Range Interpretation Comments AMYLASE (BEAKER) (test code = 349) 27 U/L 25-125 Rubber Mixer ID - JAMI MCALCIUM, [id number] 08:23:00 Test Item Value Reference Range Interpretation Comments CALCIUM IONIZED (BEAKER) (test 1.13 mmol/L 1.12-1.27 code = 698) PH, BLOOD (BEAKER) (test code = 7.45 1810) POCT-GLUCOSE [id number] 08:18:00 Test Item Value Reference Range Interpretation Comments POC-GLUCOSE METER 132 mg/dL 70-110 H : TESTED A T [facility] 6720 (BEAKER) (test code = [facility], 1538) 32991: Rubber Mixer/Techni allen ID = [id number] for GLENNA Catherine CHINEDU POCT-GLUCOSE [id number] 08:13:00 Test Item Value Reference Range Interpretation Comments POC-GLUCOSE METER 155 mg/dL 70-110 H : TESTED A T [facility] 6720 (BEAKER) (test code [facility], = 1538) 74006: Rubber Mixer/Techni allen ID = [id number] for Charlie whitman (contract), Lacy tracy [id number] 08:04:00 Test Item Value Reference Range Interpretation Comments MAGNESIUM (BEAKER) (test code = 2.5 mg/dL 1.6-2.6 627) Rubber Mixer ID - KIRAN [id number] 08:04:00 Test Item Value Reference Range Interpretation Comments PHOSPHORUS (BEAKER) (test code = 3.2 mg/dL 2.3-4.7 604) Rubber Mixer ID - KIRAN FPOCT-GLUCOSE [id number] 06:34:00 Test Item Value Reference Range Interpretation Comments POC-GLUCOSE METER 140 mg/dL 70-110 H : TESTED A T [facility] 6720 (BEAKER) (test code [facility], = 1538) 50499: Rubber Mixer/Techni allen ID = [id number] for Charlie whitman (contract), Lacy tracy [id number] 05:16:00 Test Item Value Reference Range Interpretation Comments MAGNESIUM (BEAKER) 2.5 mg/dL 1.6-2.6 Specimen slightly (test code = 627) hemolyzed Rubber Mixer ID - DANIEL [id number] 05:16:00 Test Item Value Reference Range Interpretation Comments PHOSPHORUS (BEAKER) 3.3 mg/dL 2.3-4.7 Specimen slightly (test code = 604) hemolyzed Rubber Mixer ID - PIAYA LBASIC METABOLIC [id number] 05:16:00 Test Item Value Reference Range Interpretation Comments SODIUM (BEAKER) 138 meq/L 136-145 (test code = 381) POTASSIUM (BEAKER) 4.4 meq/L 3.5-5.1 Specimen slightly (test code = 379) hemolyzed CHLORIDE (BEAKER) 105 meq/L 98-107 (test code = 382) CO2 (BEAKER) (test 24 meq/L 22-29 code = 355) BLOOD UREA NITROGEN 27 mg/dL 7-21 H (BEAKER) (test code = 354) CREATININE (BEAKER) 1.17 mg/dL 0.57-1.25 Specimen slightly (test code = 358) hemolyzed GLUCOSE RANDOM 161 mg/dL 70-105 H (BEAKER) (test code = 652) CALCIUM (BEAKER) 8.4 mg/dL 8.4-10.2 (test code = 697) EGFR (BEAKER) (test 68 mL/min/1.73 ESTIMA ADRIANA GFR IS code = 1092) sq m NOT ACCURATE CREATININE CLEARANCE IN PREDICTING GLOMERULAR FILTRATION RATE . ESTIMATED GFR I S NOT APPLICABLE FOR DIALYSIS PATIEN TS. Rubber Mixer ID - PIAYA LPOCT-GLUCOSE [id number] 04:56:00 Test Item Value Reference Range Interpretation Comments POC-GLUCOSE METER 149 mg/dL 70-110 H : TESTED A T [facility] 6720 (BEAKER) (test code [facility], = 1538) 10265: Rubber Mixer/Techni allen ID = [id number] for Charlie whitman (contract), Lacy tracy POCT-GLUCOSE [id number] 04:30:00 Test Item Value Reference Range Interpretation Comments POC-GLUCOSE METER 226 mg/dL 70-110 H : TESTED A T [facility] 6720 (BEAKER) (test code [facility], = 1538) 15981: Rubber Mixer/Techni allen ID = [id number] for Charlie ington (contract), Lacy tracy POCT-GLUCOSE [id number] 02:21:00 Test Item Value Reference Range Interpretation Comments POC-GLUCOSE METER 245 mg/dL 70-110 H : TESTED A T [facility] (BEAKER) (test code [place], = 1538) 13513: Rubber Mixer/Techni allen ID = [id number] for Charlie whitman (contract)Lacy [id number] 02:12:00 Test Item Value Reference Range Interpretation Comments Glucose (test code = 290 mg/dL 70-105 H 2345-7) NANCY (test code = NANCY) Rubber Mixer ID - DANIEL L Lab Interpretation (test Abnormal code = 36285-5) [facility] 02:12:00 Test Item Value Reference Range Interpretation Comments GLUCOSE RANDOM (BEAKER) (test code 290 mg/dL 70-105 H = 652) Rubber Mixer ID - DANIEL LCBC W/PLT COUNT & AUTO [id number] 02:07:00 Test Item Value Reference Range Interpretation Comments WHITE BLOOD CELL COUNT (BEAKER) 13.9 K/ L 3.5-10.5 H (test code = 775) RED BLOOD CELL COUNT (BEAKER) 2.98 M/ L 4.63-6.08 L (test code = 761) HEMOGLOBIN (BEAKER) (test code = 9.7 GM/DL 13.7-17.5 L 410) HEMATOCRIT (BEAKER) (test code = 28.7 % 40.1-51.0 L 411) MEAN CORPUSCULAR VOLUME (BEAKER) 96.3 fL 79.0-92.2 H (test code = 753) MEAN CORPUSCULAR HEMOGLOBIN 32.6 pg 25.7-32.2 H (BEAKER) (test code = 751) MEAN CORPUSCULAR HEMOGLOBIN CONC 33.8 GM/DL 32.3-36.5 (BEAKER) (test code = 752) RED CELL DISTRIBUTION WIDTH 13.0 % 11.6-14.4 (BEAKER) (test code = 412) PLATELET COUNT (BEAKER) (test 143 K/CU MM 150-450 L code = 756) MEAN PLATELET VOLUME (BEAKER) 11.8 fL 9.4-12.4 (test code = 754) NUCLEATED RED BLOOD CELLS 0 /100 WBC 0-0 (BEAKER) (test code = 413) NEUTROPHILS RELATIVE PERCENT 89 % (BEAKER) (test code = 429) LYMPHOCYTES RELATIVE PERCENT 4 % (BEAKER) (test code = 430) MONOCYTES RELATIVE PERCENT 7 % (BEAKER) (test code = 431) EOSINOPHILS RELATIVE PERCENT 0 % (BEAKER) (test code = 432) BASOPHILS RELATIVE PERCENT 0 % (BEAKER) (test code = 437) NEUTROPHILS ABSOLUTE COUNT 12.31 K/ L 1.78-5.38 H (BEAKER) (test code = 670) LYMPHOCYTES ABSOLUTE COUNT 0.55 K/ L 1.32-3.57 L (BEAKER) (test code = 414) MONOCYTES ABSOLUTE COUNT (BEAKER) 0.90 K/ L 0.30-0.82 H (test code = 415) EOSINOPHILS ABSOLUTE COUNT 0.00 K/ L 0.04-0.54 L (BEAKER) (test code = 416) BASOPHILS ABSOLUTE COUNT (BEAKER) 0.03 K/ L 0.01-0.08 (test code = 417) IMMATURE GRANULOCYTES-RELATIVE 1 % 0-1 PERCENT (BEAKER) (test code = 2801) [id number] 01:47:00 Test Item Value Reference Range Interpretation Comments MAGNESIUM (BEAKER) (test code = 2.5 mg/dL 1.6-2.6 627) Rubber Mixer ID - DANIEL [id number] 01:47:00 Test Item Value Reference Range Interpretation Comments PHOSPHORUS (BEAKER) (test code = 3.6 mg/dL 2.3-4.7 604) Rubber Mixer ID - DANIEL [id number] 01:47:00 Test Item Value Reference Range Interpretation Comments PHOSPHORUS (BEAKER) (test code = 3.9 mg/dL 2.3-4.7 604) Rubber Mixer ID - PIAYA LOXYGEN SATURATION, [id number] 01:27:00 Test Item Value Reference Range Interpretation Comments O2 SATURATION (MEASURED) (BEAKER) 97.8 % (test code = 1455) BASIC METABOLIC [id number] 00:11:00 Test Item Value Reference Range Interpretation Comments SODIUM (BEAKER) 134 meq/L 136-145 L (test code = 381) POTASSIUM (BEAKER) 5.0 meq/L 3.5-5.1 (test code = 379) CHLORIDE (BEAKER) 103 meq/L 98-107 (test code = 382) CO2 (BEAKER) (test 19 meq/L 22-29 L code = 355) BLOOD UREA NITROGEN 27 mg/dL 7-21 H (BEAKER) (test code = 354) CREATININE (BEAKER) 1.43 mg/dL 0.57-1.25 H (test code = 358) GLUCOSE RANDOM 340 mg/dL 70-105 H (BEAKER) (test code = 652) CALCIUM (BEAKER) 8.5 mg/dL 8.4-10.2 (test code = 697) EGFR (BEAKER) (test 54 mL/min/1.73 ESTIMA ADRIANA GFR IS code = 1092) sq m NOT ACCURATE CREATININE CLEARANCE IN PREDICTING GLOMERULAR FILTRATION RATE . ESTIMATED GFR I S NOT APPLICABLE FOR DIALYSIS PATIEN TS. Rubber Mixer ID - BSPrepare [id number] 23:55:00 Test Item Value Reference Range Interpretation Comments Unit ABO (test code = 6852507) O Pos UNIT NUMBER (test code = [id number] 934-0) Status (test code = 6457358) TX_TIMEINCHART Blood Bank Product (test code PLATELETS = 2263) PRODUCT CODE (test code = K1959E40 933-2) [facility], [id number] 23:45:00 Test Item Value Reference Range Interpretation Comments Lactate, Art (test code = 1.5 mmol/L 0.5-2.2 2874) NANCY (test code = NANCY) Rubber Mixer ID - BS Lab Interpretation (test Normal code = 31342-0) [facility]LACTIC ACID, [id number] 23:45:00 Test Item Value Reference Range Interpretation Comments LACTATE BLOOD ARTERIAL (2) 1.5 mmol/L 0.5-2.2 (AKER) (test code = 2874) Rubber Mixer ID - BSPOCT-GLUCOSE [id number] 23:43:00 Test Item Value Reference Range Interpretation Comments POC-GLUCOSE METER 325 mg/dL 70-110 H : Notified RN/MD: (YOANA) (test code = TESTED AT [facility] 67[facility] 1538) [place], [address]: Rubber Mixer/Techni allen ID = [id number] for DO RACHIDJune, [id number] 23:32:00 Test Item Value Reference Range Interpretation Comments KETONES, BLOOD (BEAKER) (test code 1.6 mmol/L <0.4 H = 1103) Potassium-Stat [id number] 23:31:00 Test Item Value Reference Range Interpretation Comments Potassium (test code = 2823-3) 4.9 meq/L 3.6-5.5 Lab Interpretation (test code = Normal 39410-7) [facility], [id number] 23:31:00 Test Item Value Reference Range Interpretation Comments PH ARTERIAL (BEAKER) (test code = 7.39 7.35-7.45 383) PCO2 ARTERIAL (BEAKER) (test code 36 mm Hg 35-45 = 384) PO2 ARTERIAL (BEAKER) (test code 118 mm Hg 80-90 H = 385) O2 SATURATION ARTERIAL (BEAKER) 98.3 % 96.0-97.0 H (test code = 386) HCO3 ARTERIAL (BEAKER) (test code 21 mmol/L 21-29 = 388) BASE EXCESS ARTERIAL (BEAKER) -3.3 mmol/L -2.0-3.0 L (test code = 387) PATIENT TEMPERATURE (BEAKER) 37.0 (test code = 1818) FIO2 (BEAKER) (test code = 1819) 24.0 POTASSIUM-STAT [id number] 23:31:00 Test Item Value Reference Range Interpretation Comments POTASSIUM (BEAKER) (test code = 4.9 meq/L 3.6-5.5 379) BASIC METABOLIC [id number] 21:13:00 Test Item Value Reference Range Interpretation Comments SODIUM (BEAKER) 132 meq/L 136-145 L (test code = 381) POTASSIUM (BEAKER) 5.5 meq/L 3.5-5.1 H Specimen moderately (test code = 379) hemolyzed CHLORIDE (BEAKER) 102 meq/L 98-107 (test code = 382) CO2 (BEAKER) (test 16 meq/L 22-29 L code = 355) BLOOD UREA NITROGEN 26 mg/dL 7-21 H (BEAKER) (test code = 354) CREATININE (BEAKER) 1.47 mg/dL 0.57-1.25 H Specimen moderately (test code = 358) hemolyzed GLUCOSE RANDOM 410 mg/dL 70-105 HH (BEAKER) (test code = 652) CALCIUM (BEAKER) 8.6 mg/dL 8.4-10.2 (test code = 697) EGFR (BEAKER) (test 53 mL/min/1.73 ESTIMA ADRIANA GFR IS code = 1092) sq m NOT ACCURATE CREATININE CLEARANCE IN PREDICTING GLOMERULAR FILTRATION RATE . ESTIMATED GFR I S NOT APPLICABLE FOR DIALYSIS PATIEN TS. Rubber Mixer ID - [id number] 21:11:00 Test Item Value Reference Range Interpretation Comments MAGNESIUM (BEAKER) 2.3 mg/dL 1.6-2.6 Specimen moderately (test code = 627) hemolyzed Rubber Mixer ID - [id number] 21:11:00 Test Item Value Reference Range Interpretation Comments PHOSPHORUS (BEAKER) 3.8 mg/dL 2.3-4.7 Specimen moderately (test code = 604) hemolyzed Rubber Mixer ID - BSLACTIC ACID, [id number] 21:07:00 Test Item Value Reference Range Interpretation Comments LACTATE BLOOD ARTERIAL (2) 1.6 mmol/L 0.5-2.2 (BEAKER) (test code = 2874) Rubber Mixer ID - BSPOCT-GLUCOSE [id number] 19:01:00 Test Item Value Reference Range Interpretation Comments POC-GLUCOSE METER 404 mg/dL 70-110 HH : TESTED A T [facility] 6720 (BEAKER) (test code = [facility] [employer] [facility], 153) [address]: Rubber Mixer/Techni allen ID = [id number] for PAULINA DELAROSA POCT-GLUCOSE [id number] 12:35:00 Test Item Value Reference Range Interpretation Comments POC-GLUCOSE METER 248 mg/dL 70-110 H : TESTED A T [facility] 6720 (BEAKER) (test code = [facility] [employer] [facility], 1538) 23120: Rubber Mixer/Techni allen ID = [id number] for WILLIAMS DEJESUS POCT-GLUCOSE [id number] 11:47:00 Test Item Value Reference Range Interpretation Comments POC-GLUCOSE METER 207 mg/dL 70-110 H : TESTED A T [facility] 6720 (BEAKER) (test code = [facility] [employer] [facility], 1538) 73530: Rubber Mixer/Techni allen ID = [id number] for CHELSI DEJESUSA POCT-GLUCOSE [id number] 10:40:00 Test Item Value Reference Range Interpretation Comments POC-GLUCOSE METER 116 mg/dL 70-110 H : TESTED A T [facility] 6720 (BEAKER) (test code = [facility], 1538) [address]: Rubber Mixer/Techni allen ID = [id number] for CHELSI DEJESUSA POCT-GLUCOSE [id number] 10:28:00 Test Item Value Reference Range Interpretation Comments POC-GLUCOSE METER 47 mg/dL 70-110 L : TESTED A T [facility] 6720 (BEAKER) (test code = [facility], 1538) 61176: Rubber Mixer/Techni allen ID = [id number] for BHAVANI STEELEAIRA OXYGEN SATURATION, [id number] 10:09:00 Test Item Value Reference Range Interpretation Comments O2 SATURATION (MEASURED) ([facility]) 68.4 % (test code = 1455) POCT-GLUCOSE [id number] 09:55:00 Test Item Value Reference Range Interpretation Comments POC-GLUCOSE METER 113 mg/dL 70-110 H : TESTED A T [facility] 6720 (BEAKER) (test code = [facility], 1538) 43445: Rubber Mixer/Techni allen ID = [id number] for BHAVANI DEJESUSAIRA POCT-GLUCOSE [id number] 08:54:00 Test Item Value Reference Range Interpretation Comments POC-GLUCOSE METER 100 mg/dL 70-110 : TESTED A T [facility] 6720 (BEAKER) (test code = [facility], 1538) 38[address]: Rubber Mixer/Techni allen ID = [id number] for BHAVANI DEJESUSAIRA [id number] 06:54:00 Test Item Value Reference Range Interpretation Comments ACTIVATED CLOTTING TIME 692 sec : 74 -137 seconds, (BEAKER) (test code = Baseli ne: TESTED AT 441) [facility] [address] [facility], 770 30: Rubber Mixer/Techni allen ID = [id number] for NG NADIAMONSEG [id number] 06:54:00 Test Item Value Reference Range Interpretation Comments ACTIVATED CLOTTING TIME > sec : 74 -137 seconds, (BEAKER) (test code = Baseli ne: TESTED AT 441) [address], [address]: Rubber Mixer/Techni allen ID = [id number] for NG NADIA, DUNG POC ACTIVATED CLOTTING [id number] 06:53:00 Test Item Value Reference Range Interpretation Comments Activated Clotting Time 109 sec : 74 -137 seconds, (test code = 441) Baseline: TESTED AT [address], [facility] 30: Rubber Mixer/Techni allen ID = [id number] for NG NADIA, DUNG [id number] 06:53:00 Test Item Value Reference Range Interpretation Comments ACTIVATED CLOTTING TIME 109 sec : 74 -137 seconds, (BEAKER) (test code = Baseli ne: TESTED AT [facility]) [address], [facility] 30: Rubber Mixer/Techni allen ID = [id number] for NG NADIA, DUNG [id number] 06:53:00 Test Item Value Reference Range Interpretation Comments ACTIVATED CLOTTING TIME 543 sec : 74 -137 seconds, (BEAKER) (test code = Baseli ne: TESTED AT [facility]) [address], [address]: Rubber Mixer/Techni allen ID = [id number] for NG NADIA, DUNG [id number] 06:53:00 Test Item Value Reference Range Interpretation Comments ACTIVATED CLOTTING TIME 505 sec : 74 -137 seconds, (BEAKER) (test code = Baseli ne: TESTED AT [facility]) [address], [address]: Rubber Mixer/Techni allen ID = [id number] for NG NADIA, DUNG [id number] 06:53:00 Test Item Value Reference Range Interpretation Comments ACTIVATED CLOTTING TIME 417 sec : 74 -137 seconds, (BEAKER) (test code = Baseli ne: TESTED AT [facility]) [address], [facility] 30: Rubber Mixer/Techni allen ID = [id number] for NG NADIA, DUNG [id number] 06:53:00 Test Item Value Reference Range Interpretation Comments ACTIVATED CLOTTING TIME 131 sec : 74 -137 seconds, (BEAKER) (test code = Baseli ne: TESTED AT 441) [facility] [address] [place], [address]: Rubber Mixer/Techni allen ID = [id number] for ZEINAB WEISS HGB/HCT (H&H)-Stat [id number] 06:45:00 Test Item Value Reference Range Interpretation Comments Hemoglobin (test code = 11.2 See_Comment L [Au tomated message] 786-4) The system [employer] generated this result transmitted ref erence range: 13.0 - 1 6.8 GM/DL. The refe rence range was not u sed to interpret this result as normal/abnor mal. Hematocrit (test code = 33.0 % 40.0-50.0 L 4544-3) Lab Interpretation (test Abnormal code = 11903-5) [facility] [id number] 06:45:00 Test Item Value Reference Range Interpretation Comments Glucose (test code = 2345-7) 122 mg/dL 70-110 H Lab Interpretation (test code = Abnormal 13957-6) [facility], [id number] 06:45:00 Test Item Value Reference Range Interpretation Comments PH ARTERIAL (BEAKER) (test code = 7.37 7.35-7.45 383) PCO2 ARTERIAL (BEAKER) (test code 45 mm Hg 35-45 = 384) PO2 ARTERIAL (BEAKER) (test code = 188 mm Hg 80-90 H 385) O2 SATURATION ARTERIAL (BEAKER) 99.2 % 96.0-97.0 H (test code = 386) HCO3 ARTERIAL (BEAKER) (test code 26 mmol/L 21-29 = 388) BASE EXCESS ARTERIAL (BEAKER) 0.0 mmol/L -2.0-3.0 (test code = 387) PATIENT TEMPERATURE (BEAKER) (test 36.7 code = 1818) FIO2 (BEAKER) (test code = 1819) 36.0 GLUCOSE-STAT [id number] 06:45:00 Test Item Value Reference Range Interpretation Comments GLUCOSE RANDOM (BEAKER) (test code 122 mg/dL 70-110 H = 652) HGB/HCT (H&H) - STAT [id number] 06:45:00 Test Item Value Reference Range Interpretation Comments HEMOGLOBIN (BEAKER) (test code = 11.2 GM/DL 13.0-16.8 L 410) HEMATOCRIT (BEAKER) (test code = 33.0 % 40.0-50.0 L 411) Sodium Na-Stat [id number] 06:40:00 Test Item Value Reference Range Interpretation Comments Sodium (test code = 2951-2) 137 meq/L 136-145 Lab Interpretation (test code = Normal 36087-3) [facility] [id number] 06:40:00 Test Item Value Reference Range Interpretation Comments SODIUM (BEAKER) (test code = 381) 137 meq/L 136-145 POTASSIUM-STAT [id number] 06:40:00 Test Item Value Reference Range Interpretation Comments POTASSIUM (BEAKER) (test code = 5.0 meq/L 3.6-5.5 379) POCT-GLUCOSE [id number] 05:13:00 Test Item Value Reference Range Interpretation Comments POC-GLUCOSE METER 125 mg/dL 70-110 H : TESTED A T [facility] (BEAKER) (test code = [facility], 1538) [id number]: Rubber Mixer/Techni allen ID = [id number] for ON LALITHA ARMSTRONG BASIC METABOLIC [id number] 03:42:00 Test Item Value Reference Range Interpretation Comments SODIUM (BEAKER) 139 meq/L 136-145 (test code = 381) POTASSIUM (BEAKER) 4.2 meq/L 3.5-5.1 (test code = 379) CHLORIDE (BEAKER) 108 meq/L 98-107 H (test code = 382) CO2 (BEAKER) (test 24 meq/L 22-29 code = 355) BLOOD UREA NITROGEN 15 mg/dL 7-21 (BEAKER) (test code = 354) CREATININE (BEAKER) 1.06 mg/dL 0.57-1.25 (test code = 358) GLUCOSE RANDOM 166 mg/dL 70-105 H (BEAKER) (test code = 652) CALCIUM (BEAKER) 8.9 mg/dL 8.4-10.2 (test code = 697) EGFR (BEAKER) (test 77 mL/min/1.73 ESTIMA ADRIANA GFR IS code = 1092) sq m NOT ACCURATE CREATININE CLEARANCE IN PREDICTING GLOMERULAR FILTRATION RATE . ESTIMATED GFR I S NOT APPLICABLE FOR DIALYSIS PATIEN TS. Rubber Mixer ID - [id number] 03:42:00 Test Item Value Reference Range Interpretation Comments MAGNESIUM (BEAKER) (test code = 2.2 mg/dL 1.6-2.6 627) Rubber Mixer ID - [id number] 03:42:00 Test Item Value Reference Range Interpretation Comments PHOSPHORUS (BEAKER) (test code = 2.2 mg/dL 2.3-4.7 L 604) Rubber Mixer ID - BSBLOOD GAS, [id number] 03:20:00 Test Item Value Reference Range Interpretation Comments PH ARTERIAL (BEAKER) (test code = 7.45 7.35-7.45 383) PCO2 ARTERIAL (BEAKER) (test code 38 mm Hg 35-45 = 384) PO2 ARTERIAL (BEAKER) (test code = 150 mm Hg 80-90 H 385) O2 SATURATION ARTERIAL (BEAKER) 99.0 % 96.0-97.0 H (test code = 386) HCO3 ARTERIAL (BEAKER) (test code 26 mmol/L 21-29 = 388) BASE EXCESS ARTERIAL (BEAKER) 1.7 mmol/L -2.0-3.0 (test code = 387) PATIENT TEMPERATURE (BEAKER) (test 36.7 code = 1818) FIO2 (BEAKER) (test code = 1819) 40.0 GLUCOSE-STAT [id number] 03:20:00 Test Item Value Reference Range Interpretation Comments GLUCOSE RANDOM (BEAKER) (test code 167 mg/dL 70-110 H = 652) HGB/HCT (H&H) - STAT [id number] 03:20:00 Test Item Value Reference Range Interpretation Comments HEMOGLOBIN (BEAKER) (test code = 11.3 GM/DL 13.0-16.8 L 410) HEMATOCRIT (BEAKER) (test code = 33.0 % 40.0-50.0 L 411) SODIUM NA-STAT [id number] 03:15:00 Test Item Value Reference Range Interpretation Comments SODIUM (BEAKER) (test code = 381) 137 meq/L 136-145 POTASSIUM-STAT [id number] 03:15:00 Test Item Value Reference Range Interpretation Comments POTASSIUM (BEAKER) (test code = 3.9 meq/L 3.6-5.5 379) CBC W/PLT COUNT & AUTO [id number] 03:10:00 Test Item Value Reference Range Interpretation Comments WHITE BLOOD CELL COUNT (BEAKER) 13.9 K/ L 3.5-10.5 H (test code = 775) RED BLOOD CELL COUNT (BEAKER) 3.27 M/ L 4.63-6.08 L (test code = 761) HEMOGLOBIN (BEAKER) (test code = 10.5 GM/DL 13.7-17.5 L 410) HEMATOCRIT (BEAKER) (test code = 31.0 % 40.1-51.0 L 411) MEAN CORPUSCULAR VOLUME (BEAKER) 94.8 fL 79.0-92.2 H (test code = 753) MEAN CORPUSCULAR HEMOGLOBIN 32.1 pg 25.7-32.2 (BEAKER) (test code = 751) MEAN CORPUSCULAR HEMOGLOBIN CONC 33.9 GM/DL 32.3-36.5 (BEAKER) (test code = 752) RED CELL DISTRIBUTION WIDTH 12.6 % 11.6-14.4 (BEAKER) (test code = 412) PLATELET COUNT (BEAKER) (test 111 K/CU MM 150-450 L code = 756) MEAN PLATELET VOLUME (BEAKER) 11.2 fL 9.4-12.4 (test code = 754) NUCLEATED RED BLOOD CELLS 0 /100 WBC 0-0 (BEAKER) (test code = 413) NEUTROPHILS RELATIVE PERCENT 90 % (BEAKER) (test code = 429) LYMPHOCYTES RELATIVE PERCENT 2 % (BEAKER) (test code = 430) MONOCYTES RELATIVE PERCENT 7 % (BEAKER) (test code = 431) EOSINOPHILS RELATIVE PERCENT 0 % (BEAKER) (test code = 432) BASOPHILS RELATIVE PERCENT 0 % (BEAKER) (test code = 437) NEUTROPHILS ABSOLUTE COUNT 12.51 K/ L 1.78-5.38 H (BEAKER) (test code = 670) LYMPHOCYTES ABSOLUTE COUNT 0.28 K/ L 1.32-3.57 L (BEAKER) (test code = 414) MONOCYTES ABSOLUTE COUNT (BEAKER) 1.02 K/ L 0.30-0.82 H (test code = 415) EOSINOPHILS ABSOLUTE COUNT 0.02 K/ L 0.04-0.54 L (BEAKER) (test code = 416) BASOPHILS ABSOLUTE COUNT (BEAKER) 0.02 K/ L 0.01-0.08 (test code = 417) IMMATURE GRANULOCYTES-RELATIVE 0 % 0-1 PERCENT (BEAKER) (test code = 2801) Comprehensive metabolic [id number] 02:35:00 Test Item Value Reference Range Interpretation Comments Protein, Total (test 5.7 See_Comment L [Autom ated code = 2885-2) message] The system which generated this result transmitted reference range : 6.0 - 8.3 gm/dL . The reference range was not used to interpr et this result as normal/abnormal . Albumin (test code = 3.2 g/dL 3.5-5.0 L 88421-6) Alkaline Phosphatase 112 U/L 40-150 (test code = 6768-6) Total Bilirubin (test 1.3 mg/dL 0.2-1.2 H code = 1975-2) Sodium (test code = 138 meq/L 322-111 4693-2) Potassium (test code 4.3 meq/L 3.5-5.1 = 2823-3) Chloride (test code = 107 meq/L 98-107 2075-0) CO2 (test code = 20 meq/L 22-29 L 2028-9) BUN (test code = 15 mg/dL 7-21 3094-0) Creatinine (test code 1.16 mg/dL 0.57-1.25 = 2160-0) Glucose (test code = 263 mg/dL 70-105 H 2345-7) Calcium (test code = 9.3 mg/dL 8.4-10.2 38230-2) AST (test code = 38 U/L 5-34 H 1920-8) ALT (test code = 26 U/L 6-55 1742-6) EGFR (test code = 69 mL/min/1.73 [place] [address]-4) m NOT ACCURATE CREATININE CLEARANCE IN PREDICTING GLOMERULAR FILTRATION RATE . ESTIMATED GFR I S NOT APPLICABLE FOR DIALYSIS PATIENTS. NANCY (test code = NANCY) Rubber Mixer ID - BSOperator ID - BS Lab Interpretation Abnormal (test code = 43133-1) [id number] 02:35:00 Test Item Value Reference Range Interpretation Comments MAGNESIUM (BEAKER) (test code = 2.5 mg/dL 1.6-2.6 627) Rubber Mixer ID - BSCOMPREHENSIVE METABOLIC [id number] 02:35:00 Test Item Value Reference Range Interpretation Comments TOTAL PROTEIN 5.7 gm/dL 6.0-8.3 L (BEAKER) (test code = 770) ALBUMIN (BEAKER) 3.2 g/dL 3.5-5.0 L (test code = 1145) ALKALINE PHOSPHATASE 112 U/L 40-150 (BEAKER) (test code = 346) BILIRUBIN TOTAL 1.3 mg/dL 0.2-1.2 H (BEAKER) (test code = 377) SODIUM (BEAKER) (test 138 meq/L 136-145 code = 381) POTASSIUM (BEAKER) 4.3 meq/L 3.5-5.1 (test code = 379) CHLORIDE (BEAKER) 107 meq/L 98-107 (test code = 382) CO2 (BEAKER) (test 20 meq/L 22-29 L code = 355) BLOOD UREA NITROGEN 15 mg/dL 7-21 (BEAKER) (test code = 354) CREATININE (BEAKER) 1.16 mg/dL 0.57-1.25 (test code = 358) GLUCOSE RANDOM 263 mg/dL 70-105 H (BEAKER) (test code = 652) CALCIUM (BEAKER) 9.3 mg/dL 8.4-10.2 (test code = 697) AST (SGOT) (BEAKER) 38 U/L 5-34 H (test code = 353) ALT (SGPT) (BEAKER) 26 U/L 6-55 (test code = 347) EGFR (BEAKER) (test 69 mL/min/1.73 ESTIMA ADRIANA GFR IS code = 1092) sq m NOT ACCURATE CREATININE CLEARANCE IN PREDICTING GLOMERULAR FILTRATION RATE . ESTIMATED GFR I S NOT APPLICABLE FOR DIALYSIS PATIEN TS. Rubber Mixer ID - BSOperator ID - [id number] 02:25:00 Test Item Value Reference Range Interpretation Comments MAGNESIUM (BEAKER) (test code = 2.3 mg/dL 1.6-2.6 627) Rubber Mixer ID - BSLACTIC ACID, [id number] 02:21:00 Test Item Value Reference Range Interpretation Comments LACTATE BLOOD ARTERIAL (2) 1.2 mmol/L 0.5-2.2 (BEAKER) (test code = 2874) Rubber Mixer ID - BSHGB/HCT (H&H) - STAT [id number] 02:07:00 Test Item Value Reference Range Interpretation Comments HEMOGLOBIN (BEAKER) (test code = 11.3 GM/DL 13.0-16.8 L 410) HEMATOCRIT (BEAKER) (test code = 33.0 % 40.0-50.0 L 411) BLOOD GAS, [id number] 02:06:00 Test Item Value Reference Range Interpretation Comments PH ARTERIAL (BEAKER) (test code = 7.41 7.35-7.45 383) PCO2 ARTERIAL (BEAKER) (test code 44 mm Hg 35-45 = 384) PO2 ARTERIAL (BEAKER) (test code = 96 mm Hg 80-90 H 385) O2 SATURATION ARTERIAL (BEAKER) 97.4 % 96.0-97.0 H (test code = 386) HCO3 ARTERIAL (BEAKER) (test code 27 mmol/L 21-29 = 388) BASE EXCESS ARTERIAL (BEAKER) 2.1 mmol/L -2.0-3.0 (test code = 387) PATIENT TEMPERATURE (BEAKER) (test 36.7 code = 1818) FIO2 (BEAKER) (test code = 1819) 40.0 GLUCOSE-STAT [id number] 02:06:00 Test Item Value Reference Range Interpretation Comments GLUCOSE RANDOM (BEAKER) (test code 189 mg/dL 70-110 H = 652) SODIUM NA-STAT [id number] 02:05:00 Test Item Value Reference Range Interpretation Comments SODIUM (BEAKER) (test code = 381) 137 meq/L 136-145 POTASSIUM-STAT [id number] 02:05:00 Test Item Value Reference Range Interpretation Comments POTASSIUM (BEAKER) (test code = 4.0 meq/L 3.6-5.5 379) POCT-GLUCOSE [id number] 01:29:00 Test Item Value Reference Range Interpretation Comments POC-GLUCOSE METER 194 mg/dL 70-110 H : TESTED A T [facility] (BEAKER) (test code = [place], 1538) [address]: Rubber Mixer/Techni allen ID = [id number] for ON LALITHA ARMSTRONG BLOOD [id number] 01:00:00 Test Item Value Reference Range Interpretation Comments CULTURE (BEAKER) (test No growth in 5 days code = 1095) BLOOD [id number] 01:00:00 Test Item Value Reference Range Interpretation Comments CULTURE (BEAKER) (test No growth in 5 days code = 1095) GLUCOSE-STAT [id number] 00:32:00 Test Item Value Reference Range Interpretation Comments GLUCOSE RANDOM (BEAKER) (test code 243 mg/dL 70-110 H = 652) HGB/HCT (H&H) - STAT [id number] 00:32:00 Test Item Value Reference Range Interpretation Comments HEMOGLOBIN (BEAKER) (test code = 11.2 GM/DL 13.0-16.8 L 410) HEMATOCRIT (BEAKER) (test code = 33.0 % 40.0-50.0 L 411) BLOOD GAS, [id number] 00:31:00 Test Item Value Reference Range Interpretation Comments PH ARTERIAL (BEAKER) (test code = 7.34 7.35-7.45 L 383) PCO2 ARTERIAL (BEAKER) (test code 48 mm Hg 35-45 H = 384) PO2 ARTERIAL (BEAKER) (test code 199 mm Hg 80-90 H = 385) O2 SATURATION ARTERIAL (BEAKER) 99.3 % 96.0-97.0 H (test code = 386) HCO3 ARTERIAL (BEAKER) (test code 25 mmol/L 21-29 = 388) BASE EXCESS ARTERIAL (BEAKER) -0.7 mmol/L -2.0-3.0 (test code = 387) PATIENT TEMPERATURE (BEAKER) 36.7 (test code = 1818) FIO2 (BEAKER) (test code = 1819) 60.0 RAD, CHEST, 1 VIEW, NON [id number] 00:30:00Reason for exam:->Status post CV Surgery post op day 0Should this be performed at the bedside?->Yes [facility] : 1975 Sex: MFINAL REPORT RAD, CHEST, 1 VIEW, NON DEPT INDICATION: Status post CV Surgery post op day 0 COMPARISON: Prior day's exam FINDINGS: Portable frontal view of the chest. IMPRESSION: Support Lines: Endotracheal tube terminates 7.3 cm cephalad to the lauren at the superior margin of the level of the clavicles. Enteric tube terminates within the gastric fundus. Pulmonary arterial catheter tip overlies the main pulmonary outflow tract. Intra-aortic balloon pump marker is 6.3 cm caudal to the superior margin of the aortic arch. Mediastinal and left chest tubes are present. Lungs and pleura: Hypoinflated lungs with scattered bilateral atelectasis. No focal consolidation or sizable effusion. No pneumothorax.Heart and mediastinum: Post surgical changes with otherwise unremarkable cardiac mediastinal contours.Additional findings: None. Signed: Candelaria Lockett [facility] Verified Date/Time: 07/02/2020 00:30:13 SODIUM NA-STAT [id number] 00:26:00 Test Item Value Reference Range Interpretation Comments SODIUM (BEAKER) (test code = 381) 137 meq/L 136-145 POTASSIUM-STAT [id number] 00:26:00 Test Item Value Reference Range Interpretation Comments POTASSIUM (BEAKER) (test code = 4.3 meq/L 3.6-5.5 379) [id number] 00:00:00 Test Item Value Reference Range Interpretation Comments PHOSPHORUS (BEAKER) (test code = 3.4 mg/dL 2.3-4.7 604) Rubber Mixer ID - BSLACTIC ACID, [id number] 23:52:00 Test Item Value Reference Range Interpretation Comments LACTATE BLOOD 2.3 mmol/L 0.5-2.2 H Specimen sligh tly ARTERIAL (2) (BEAKER) hemoly zed (test code = 2874) Rubber Mixer ID - [id number] 23:41:00 Test Item Value Reference Range Interpretation Comments Fibrinogen (test code = 3255-7) 533 mg/dl 225-434 H Lab Interpretation (test code = Abnormal 86476-7) [facility] 23:41:00 Test Item Value Reference Range Interpretation Comments PTT (test code = 36.8 See_Comment H [Automated message] 08734-0) The system [employer] generated this result transmitted ref erence range: 22.5 - 3 6.0 seconds. The reference range was not used to int erpret this result as normal/abnormal . Lab Interpretation (test Abnormal code = 95387-3) [facility]EN[facility] 23:41:00 Test Item Value Reference Range Interpretation Comments FIBRINOGEN LEVEL (BEAKER) (test 533 mg/dl 225-434 H code = 658) [id number] 23:41:00 Test Item Value Reference Range Interpretation Comments PARTIAL THROMBOPLASTIN TIME 36.8 seconds 22.5-36.0 H (BEAKER) (test code = 760) Prothromin time/[id number] 23:40:00 Test Item Value Reference Interpretation Comments Range Protime (test code = 17.0 See_Comment H [Autom ated 5902-2) message] The system which generated this result transmitted reference range : 11.9 - 14.2 seconds. The reference range was not used to interpret this result as normal/abnormal . INR (test code = 1.42 See_Comment [Automated 6301-6) message] The system which generated this result transmitted reference range : <=5.90. The reference range was not used to interpret this result as normal/abnormal . NANCY (test code = Effective 08/23/2018: NANCY) PT Reference Range ChangeNew: 11.9-14.2 Previous: 11.7-14.7 RECOMMENDED COUMADIN/WARFARIN INR THERAPY RANGESSTANDARD DOSE: 2.0-3.0 Includes: PROPHYLAXIS for venous thrombosis, systemic embolization; TREATMENT for venous thrombosis and/or pulmonary embolus.HIGH RISK: Target INR is 2.5-3.5 for patients wiht mechanical heart valves. Lab Interpretation Abnormal (test code = 78032-8) [facility]/[id number] 23:40:00 Test Item Value Reference Range Interpretation Comments PROTIME (BEAKER) 17.0 seconds 11.9-14.2 H (test code = 759) INR (BEAKER) (test 1.42 See_Comment [Automat ed message] code = 370) The system [employer] generated this result transmitted ref erence range: <=5.90. The reference range was not used to int erpret this result as normal/abnormal . Effective 08/23/2018: PT Reference Range ChangeNew: 11.9-14.2 Previous: 11.7- 14.7RECOMMENDED COUMADIN/WARFARIN INR THERAPY RANGESSTANDARD DOSE: 2.0-3.0 Includes: PROPHYLAXIS for venous thrombosis, systemic embolization; TREATMENT for venous thrombosis and/or pulmonary embolus.HIGH RISK: Target INR is2.5-3.5 for patients wiht mechanical heart valves.Prepare [id number] 23:30:00 Test Item Value Reference Range Interpretation Comments CROSSMATCH (test code = 2264) COMPATIBLE Unit ABO (test code = A Pos 5429426) UNIT NUMBER (test code = [id number] 934-0) Status (test code = 9392248) CANCELED Blood Bank Product (test code RED BLOOD CELLS = 2263) PRODUCT CODE (test code = Y8934G28 933-2) [facility] & AUTO [id number] 23:27:00 Test Item Value Reference Range Interpretation Comments WHITE BLOOD CELL COUNT (BEAKER) 15.8 K/ L 3.5-10.5 H (test code = 775) RED BLOOD CELL COUNT (BEAKER) 3.33 M/ L 4.63-6.08 L (test code = 761) HEMOGLOBIN (BEAKER) (test code = 10.7 GM/DL 13.7-17.5 L 410) HEMATOCRIT (BEAKER) (test code = 31.7 % 40.1-51.0 L 411) MEAN CORPUSCULAR VOLUME (BEAKER) 95.2 fL 79.0-92.2 H (test code = 753) MEAN CORPUSCULAR HEMOGLOBIN 32.1 pg 25.7-32.2 (BEAKER) (test code = 751) MEAN CORPUSCULAR HEMOGLOBIN CONC 33.8 GM/DL 32.3-36.5 (BEAKER) (test code = 752) RED CELL DISTRIBUTION WIDTH 12.5 % 11.6-14.4 (BEAKER) (test code = 412) PLATELET COUNT (BEAKER) (test 110 K/CU MM 150-450 L code = 756) MEAN PLATELET VOLUME (BEAKER) 11.1 fL 9.4-12.4 (test code = 754) NUCLEATED RED BLOOD CELLS 0 /100 WBC 0-0 (BEAKER) (test code = 413) NEUTROPHILS RELATIVE PERCENT 87 % (BEAKER) (test code = 429) LYMPHOCYTES RELATIVE PERCENT 7 % (BEAKER) (test code = 430) MONOCYTES RELATIVE PERCENT 4 % (BEAKER) (test code = 431) EOSINOPHILS RELATIVE PERCENT 1 % (BEAKER) (test code = 432) BASOPHILS RELATIVE PERCENT 0 % (BEAKER) (test code = 437) NEUTROPHILS ABSOLUTE COUNT 13.74 K/ L 1.78-5.38 H (BEAKER) (test code = 670) LYMPHOCYTES ABSOLUTE COUNT 1.08 K/ L 1.32-3.57 L (BEAKER) (test code = 414) MONOCYTES ABSOLUTE COUNT (BEAKER) 0.68 K/ L 0.30-0.82 (test code = 415) EOSINOPHILS ABSOLUTE COUNT 0.13 K/ L 0.04-0.54 (BEAKER) (test code = 416) BASOPHILS ABSOLUTE COUNT (BEAKER) 0.02 K/ L 0.01-0.08 (test code = 417) IMMATURE GRANULOCYTES-RELATIVE 1 % 0-1 PERCENT (BEAKER) (test code = 2801) CBC W/PLT COUNT & AUTO [id number] 23:21:00 Test Item Value Reference Range Interpretation Comments WHITE BLOOD CELL COUNT (BEAKER) 12.7 K/ L 3.5-10.5 H (test code = 775) RED BLOOD CELL COUNT (BEAKER) 2.95 M/ L 4.63-6.08 L (test code = 761) HEMOGLOBIN (BEAKER) (test code = 9.6 GM/DL 13.7-17.5 L 410) HEMATOCRIT (BEAKER) (test code = 28.0 % 40.1-51.0 L 411) MEAN CORPUSCULAR VOLUME (BEAKER) 94.9 fL 79.0-92.2 H (test code = 753) MEAN CORPUSCULAR HEMOGLOBIN 32.5 pg 25.7-32.2 H (BEAKER) (test code = 751) MEAN CORPUSCULAR HEMOGLOBIN CONC 34.3 GM/DL 32.3-36.5 (BEAKER) (test code = 752) RED CELL DISTRIBUTION WIDTH 12.6 % 11.6-14.4 (BEAKER) (test code = 412) PLATELET COUNT (BEAKER) (test code 90 K/CU MM 150-450 L = 756) MEAN PLATELET VOLUME (BEAKER) 11.4 fL 9.4-12.4 (test code = 754) NUCLEATED RED BLOOD CELLS (BEAKER) 0 /100 WBC 0-0 (test code = 413) NEUTROPHILS RELATIVE PERCENT 85 % (BEAKER) (test code = 429) LYMPHOCYTES RELATIVE PERCENT 12 % (BEAKER) (test code = 430) MONOCYTES RELATIVE PERCENT 2 % (BEAKER) (test code = 431) EOSINOPHILS RELATIVE PERCENT 1 % (BEAKER) (test code = 432) BASOPHILS RELATIVE PERCENT 0 % (BEAKER) (test code = 437) NEUTROPHILS ABSOLUTE COUNT 10.76 K/ L 1.78-5.38 H (BEAKER) (test code = 670) LYMPHOCYTES ABSOLUTE COUNT 1.47 K/ L 1.32-3.57 (BEAKER) (test code = 414) MONOCYTES ABSOLUTE COUNT (BEAKER) 0.26 K/ L 0.30-0.82 L (test code = 415) EOSINOPHILS ABSOLUTE COUNT 0.12 K/ L 0.04-0.54 (BEAKER) (test code = 416) BASOPHILS ABSOLUTE COUNT (BEAKER) 0.03 K/ L 0.01-0.08 (test code = 417) IMMATURE GRANULOCYTES-RELATIVE 1 % 0-1 PERCENT (BEAKER) (test code = 2801) CALCIUM, [id number] 23:15:00 Test Item Value Reference Range Interpretation Comments CALCIUM IONIZED (BEAKER) (test 1.23 mmol/L 1.12-1.27 code = 698) PH, BLOOD (BEAKER) (test code = 7.31 1810) OXYGEN SATURATION, [id number] 23:15:00 Test Item Value Reference Range Interpretation Comments O2 SATURATION (MEASURED) (BEAKER) 84.0 % (test code = 1455) BLOOD GAS, [id number] 23:14:00 Test Item Value Reference Range Interpretation Comments PH ARTERIAL (BEAKER) (test code = 7.32 7.35-7.45 L 383) PCO2 ARTERIAL (BEAKER) (test code 48 mm Hg 35-45 H = 384) PO2 ARTERIAL (BEAKER) (test code 209 mm Hg 80-90 H = 385) O2 SATURATION ARTERIAL (BEAKER) 99.3 % 96.0-97.0 H (test code = 386) HCO3 ARTERIAL (BEAKER) (test code 24 mmol/L 21-29 = 388) BASE EXCESS ARTERIAL (BEAKER) -2.2 mmol/L -2.0-3.0 L (test code = 387) PATIENT TEMPERATURE (BEAKER) 36.1 (test code = 1818) FIO2 (BEAKER) (test code = 1819) 40.0 GLUCOSE-STAT [id number] 23:14:00 Test Item Value Reference Range Interpretation Comments GLUCOSE RANDOM (BEAKER) (test code 249 mg/dL 70-110 H = 652) HGB/HCT (H&H) - STAT [id number] 23:14:00 Test Item Value Reference Range Interpretation Comments HEMOGLOBIN (BEAKER) (test code = 11.4 GM/DL 13.0-16.8 L 410) HEMATOCRIT (BEAKER) (test code = 34.0 % 40.0-50.0 L 411) SODIUM NA-STAT [id number] 23:12:00 Test Item Value Reference Range Interpretation Comments SODIUM (BEAKER) (test code = 381) 137 meq/L 136-145 POTASSIUM-STAT [id number] 23:12:00 Test Item Value Reference Range Interpretation Comments POTASSIUM (BEAKER) (test code = 4.2 meq/L 3.6-5.5 379) SODIUM NA-STAT [id number] 22:33:00 Test Item Value Reference Range Interpretation Comments SODIUM (BEAKER) (test code = 381) 135 meq/L 136-145 L POTASSIUM-STAT [id number] 22:33:00 Test Item Value Reference Range Interpretation Comments POTASSIUM (BEAKER) (test code = 3.9 meq/L 3.6-5.5 379) CALCIUM, [id number] 22:33:00 Test Item Value Reference Range Interpretation Comments CALCIUM IONIZED (BEAKER) (test 1.26 mmol/L 1.12-1.27 code = 698) PH, BLOOD (BEAKER) (test code = 7.32 1810) BLOOD GAS, [id number] 22:33:00 Test Item Value Reference Range Interpretation Comments PH ARTERIAL (BEAKER) (test code = 7.32 7.35-7.45 L 383) PCO2 ARTERIAL (BEAKER) (test code 46 mm Hg 35-45 H = 384) PO2 ARTERIAL (BEAKER) (test code 344 mm Hg 80-90 H = 385) O2 SATURATION ARTERIAL (BEAKER) 99.7 % 96.0-97.0 H (test code = 386) HCO3 ARTERIAL (BEAKER) (test code 24 mmol/L 21-29 = 388) BASE EXCESS ARTERIAL (BEAKER) -2.7 mmol/L -2.0-3.0 L (test code = 387) PATIENT TEMPERATURE (BEAKER) 36.9 (test code = 1818) FIO2 (BEAKER) (test code = 1819) 100.0 GLUCOSE-STAT [id number] 22:33:00 Test Item Value Reference Range Interpretation Comments GLUCOSE RANDOM (BEAKER) (test code 239 mg/dL 70-110 H = 652) HGB/HCT (H&H) - STAT [id number] 22:33:00 Test Item Value Reference Range Interpretation Comments HEMOGLOBIN (BEAKER) (test code = 10.9 GM/DL 13.0-16.8 L 410) HEMATOCRIT (BEAKER) (test code = 32.0 % 40.0-50.0 L 411) PROTHROMBIN [id number] 22:28:00 Test Item Value Reference Range Interpretation Comments PROTIME (BEAKER) 18.1 seconds 11.9-14.2 H (test code = 759) INR (BEAKER) (test 1.54 See_Comment [Automat ed message] code = 370) The system [employer] generated this result transmitted ref erence range: <=5.90. The reference range was not used to int erpret this result as normal/abnormal . Effective 08/23/2018: PT Reference Range ChangeNew: 11.9-14.2 Previous: 11.7- 14.7RECOMMENDED COUMADIN/WARFARIN INR THERAPY RANGESSTANDARD DOSE: 2.0-3.0 Includes: PROPHYLAXIS for venous thrombosis, systemic embolization; TREATMENT for venous thrombosis and/or pulmonary embolus.HIGH RISK: Target INR is2.5-3.5 for patients wiht mechanical heart valves.[id number] 22:28:00 Test Item Value Reference Range Interpretation Comments FIBRINOGEN LEVEL (BEAKER) (test 527 mg/dl 225-434 H code = 658) [id number] 22:28:00 Test Item Value Reference Range Interpretation Comments PARTIAL THROMBOPLASTIN TIME 31.7 seconds 22.5-36.0 (BEAKER) (test code = 760) Platelet [id number] 22:09:00 Test Item Value Reference Range Interpretation Comments Platelets (test code 90 See_Comment L [Autom ated = 777-3) message] The system which generated this result transmit adriana reference range : 150 - 450 K/CU MM. The reference range was not u sed to interpret th is result as normal/abnormal . NANCY (test code = NANCY) Rubber Mixer ID - [id number] ID - [id number] ID - [id number] Lab Interpretation Abnormal (test code = 97558-7) [facility] [id number] 22:09:00 Test Item Value Reference Range Interpretation Comments PLATELET COUNT (BEAKER) (test code 90 K/CU MM 150-450 L = 756) Rubber Mixer ID - [id number] ID - [id number] ID - [id number]-STAT LAB 2020-07-01 21:58:00 Test Item Value Reference Range Interpretation Comments POTASSIUM (BEAKER) (test code = 4.1 meq/L 3.6-5.5 379) BLOOD GAS, [id number] 21:58:00 Test Item Value Reference Range Interpretation Comments PH ARTERIAL (BEAKER) (test code = 7.36 7.35-7.45 383) PCO2 ARTERIAL (BEAKER) (test code 44 mm Hg 35-45 = 384) PO2 ARTERIAL (BEAKER) (test code 298 mm Hg 80-90 H = 385) O2 SATURATION ARTERIAL (BEAKER) 99.7 % 96.0-97.0 H (test code = 386) HCO3 ARTERIAL (BEAKER) (test code 24 mmol/L 21-29 = 388) BASE EXCESS ARTERIAL (BEAKER) -1.2 mmol/L -2.0-3.0 (test code = 387) PATIENT TEMPERATURE (BEAKER) 36.4 (test code = 1818) FIO2 (BEAKER) (test code = 1819) 100.0 CALCIUM, [id number] 21:58:00 Test Item Value Reference Range Interpretation Comments CALCIUM IONIZED (BEAKER) (test 1.04 mmol/L 1.12-1.27 L code = 698) PH, BLOOD (BEAKER) (test code = 7.36 1810) SODIUM NA-STAT [id number] 21:58:00 Test Item Value Reference Range Interpretation Comments SODIUM (BEAKER) (test code = 381) 134 meq/L 136-145 L GLUCOSE-STAT [id number] 21:58:00 Test Item Value Reference Range Interpretation Comments GLUCOSE RANDOM (BEAKER) (test code 237 mg/dL 70-110 H = 652) HGB/HCT (H&H) - STAT [id number] 21:58:00 Test Item Value Reference Range Interpretation Comments HEMOGLOBIN (BEAKER) (test code = 10.1 GM/DL 13.0-16.8 L 410) HEMATOCRIT (BEAKER) (test code = 30.0 % 40.0-50.0 L 411) BLOOD GAS, [id number] 21:09:00 Test Item Value Reference Range Interpretation Comments PH ARTERIAL (BEAKER) (test code = 7.39 7.35-7.45 383) PCO2 ARTERIAL (BEAKER) (test code 41 mm Hg 35-45 = 384) PO2 ARTERIAL (BEAKER) (test code 348 mm Hg 80-90 H = 385) O2 SATURATION ARTERIAL (BEAKER) 99.8 % 96.0-97.0 H (test code = 386) HCO3 ARTERIAL (BEAKER) (test code 24 mmol/L 21-29 = 388) BASE EXCESS ARTERIAL (BEAKER) -0.6 mmol/L -2.0-3.0 (test code = 387) PATIENT TEMPERATURE (BEAKER) 36.7 (test code = 1818) FIO2 (BEAKER) (test code = 1819) 80.0 POTASSIUM-STAT [id number] 21:09:00 Test Item Value Reference Range Interpretation Comments POTASSIUM (BEAKER) (test code = 5.8 meq/L 3.6-5.5 H 379) GLUCOSE-STAT [id number] 21:09:00 Test Item Value Reference Range Interpretation Comments GLUCOSE RANDOM (BEAKER) (test code 268 mg/dL 70-110 H = 652) HGB/HCT (H&H) - STAT [id number] 21:09:00 Test Item Value Reference Range Interpretation Comments HEMOGLOBIN (BEAKER) (test code = 9.4 GM/DL 13.0-16.8 L 410) HEMATOCRIT (BEAKER) (test code = 28.0 % 40.0-50.0 L 411) SODIUM NA-STAT [id number] 21:08:00 Test Item Value Reference Range Interpretation Comments SODIUM (BEAKER) (test code = 381) 135 meq/L 136-145 L POTASSIUM-STAT [id number] 20:36:00 Test Item Value Reference Range Interpretation Comments POTASSIUM (BEAKER) (test code = 6.5 meq/L 3.6-5.5 HH 379) HGB/HCT (H&H) - STAT [id number] 20:36:00 Test Item Value Reference Range Interpretation Comments HEMOGLOBIN (BEAKER) (test code = 9.4 GM/DL 13.0-16.8 L 410) HEMATOCRIT (BEAKER) (test code = 28.0 % 40.0-50.0 L 411) BLOOD GAS, [id number] 20:34:00 Test Item Value Reference Range Interpretation Comments PH ARTERIAL (BEAKER) (test code = 7.44 7.35-7.45 383) PCO2 ARTERIAL (BEAKER) (test code 41 mm Hg 35-45 = 384) PO2 ARTERIAL (BEAKER) (test code = 377 mm Hg 80-90 H 385) O2 SATURATION ARTERIAL (BEAKER) 99.8 % 96.0-97.0 H (test code = 386) HCO3 ARTERIAL (BEAKER) (test code 27 mmol/L 21-29 = 388) BASE EXCESS ARTERIAL (BEAKER) 2.3 mmol/L -2.0-3.0 (test code = 387) PATIENT TEMPERATURE (BEAKER) (test 35.5 code = 1818) FIO2 (BEAKER) (test code = 1819) 80.0 SODIUM NA-STAT [id number] 20:34:00 Test Item Value Reference Range Interpretation Comments SODIUM (BEAKER) (test code = 381) 131 meq/L 136-145 L GLUCOSE-STAT [id number] 20:34:00 Test Item Value Reference Range Interpretation Comments GLUCOSE RANDOM (BEAKER) (test code 289 mg/dL 70-110 H = 652) BLOOD GAS, [id number] 20:07:00 Test Item Value Reference Range Interpretation Comments PH ARTERIAL (BEAKER) (test code = 7.41 7.35-7.45 383) PCO2 ARTERIAL (BEAKER) (test code 40 mm Hg 35-45 = 384) PO2 ARTERIAL (BEAKER) (test code = 351 mm Hg 80-90 H 385) O2 SATURATION ARTERIAL (BEAKER) 99.8 % 96.0-97.0 H (test code = 386) HCO3 ARTERIAL (BEAKER) (test code 25 mmol/L 21-29 = 388) BASE EXCESS ARTERIAL (BEAKER) 0.2 mmol/L -2.0-3.0 (test code = 387) PATIENT TEMPERATURE (BEAKER) (test 35.4 code = 1818) FIO2 (BEAKER) (test code = 1819) 80.0 SODIUM NA-STAT [id number] 20:07:00 Test Item Value Reference Range Interpretation Comments SODIUM (BEAKER) (test code = 381) 129 meq/L 136-145 L GLUCOSE-STAT [id number] 20:07:00 Test Item Value Reference Range Interpretation Comments GLUCOSE RANDOM (BEAKER) (test code 284 mg/dL 70-110 H = 652) POTASSIUM-STAT [id number] 20:07:00 Test Item Value Reference Range Interpretation Comments POTASSIUM (BEAKER) (test code = 7.1 meq/L 3.6-5.5 HH 379) HGB/HCT (H&H) - STAT [id number] 20:07:00 Test Item Value Reference Range Interpretation Comments HEMOGLOBIN (BEAKER) (test code = 10.5 GM/DL 13.0-16.8 L 410) HEMATOCRIT (BEAKER) (test code = 31.0 % 40.0-50.0 L 411) SODIUM NA-STAT [id number] 19:37:00 Test Item Value Reference Range Interpretation Comments SODIUM (BEAKER) (test code = 381) 126 meq/L 136-145 L POTASSIUM-STAT [id number] 19:37:00 Test Item Value Reference Range Interpretation Comments POTASSIUM (BEAKER) (test code = 7.6 meq/L 3.6-5.5 HH 379) HGB/HCT (H&H) - STAT [id number] 19:37:00 Test Item Value Reference Range Interpretation Comments HEMOGLOBIN (BEAKER) (test code = 10.7 GM/DL 13.0-16.8 L 410) HEMATOCRIT (BEAKER) (test code = 31.0 % 40.0-50.0 L 411) BLOOD GAS, [id number] 19:36:00 Test Item Value Reference Range Interpretation Comments PH ARTERIAL (BEAKER) (test code = 7.42 7.35-7.45 383) PCO2 ARTERIAL (BEAKER) (test code 40 mm Hg 35-45 = 384) PO2 ARTERIAL (BEAKER) (test code = 401 mm Hg 80-90 H 385) O2 SATURATION ARTERIAL (BEAKER) 99.8 % 96.0-97.0 H (test code = 386) HCO3 ARTERIAL (BEAKER) (test code 26 mmol/L 21-29 = 388) BASE EXCESS ARTERIAL (BEAKER) 0.7 mmol/L -2.0-3.0 (test code = 387) PATIENT TEMPERATURE (BEAKER) (test 35.1 code = 1818) FIO2 (BEAKER) (test code = 1819) 80.0 GLUCOSE-STAT [id number] 19:36:00 Test Item Value Reference Range Interpretation Comments GLUCOSE RANDOM (BEAKER) (test code 261 mg/dL 70-110 H = 652) POTASSIUM-STAT [id number] 17:35:00 Test Item Value Reference Range Interpretation Comments POTASSIUM (BEAKER) (test code = 4.1 meq/L 3.6-5.5 379) BLOOD GAS, [id number] 17:35:00 Test Item Value Reference Range Interpretation Comments PH ARTERIAL (BEAKER) (test code = 7.45 7.35-7.45 383) PCO2 ARTERIAL (BEAKER) (test code 40 mm Hg 35-45 = 384) PO2 ARTERIAL (BEAKER) (test code = 488 mm Hg 80-90 H 385) O2 SATURATION ARTERIAL (BEAKER) 99.9 % 96.0-97.0 H (test code = 386) HCO3 ARTERIAL (BEAKER) (test code 28 mmol/L 21-29 = 388) BASE EXCESS ARTERIAL (BEAKER) 3.2 mmol/L -2.0-3.0 H (test code = 387) PATIENT TEMPERATURE (BEAKER) (test 36.0 code = 1818) FIO2 (BEAKER) (test code = 1819) 100.0 SODIUM NA-STAT [id number] 17:35:00 Test Item Value Reference Range Interpretation Comments SODIUM (BEAKER) (test code = 381) 133 meq/L 136-145 L GLUCOSE-STAT [id number] 17:35:00 Test Item Value Reference Range Interpretation Comments GLUCOSE RANDOM (BEAKER) (test code 146 mg/dL 70-110 H = 652) HGB/HCT (H&H) - STAT [id number] 17:35:00 Test Item Value Reference Range Interpretation Comments HEMOGLOBIN (BEAKER) (test code = 11.6 GM/DL 13.0-16.8 L 410) HEMATOCRIT (BEAKER) (test code = 34.0 % 40.0-50.0 L 411) CALCIUM, [id number] 17:32:00 Test Item Value Reference Range Interpretation Comments CALCIUM IONIZED (BEAKER) (test 1.16 mmol/L 1.12-1.27 code = 698) PH, BLOOD (BEAKER) (test code = 7.44 1810) POCT-GLUCOSE [id number] 16:22:00 Test Item Value Reference Range Interpretation Comments POC-GLUCOSE METER 109 mg/dL 70-110 : TESTED A T [facility] 6720 (BEAKER) (test code = [place], 153) 62681: Rubber Mixer/Techni allen ID = [id number] for PATRICIA MARIE POCT-GLUCOSE [id number] 14:34:00 Test Item Value Reference Range Interpretation Comments POC-GLUCOSE METER 119 mg/dL 70-110 H : TESTED A T [facility] 6720 (BEAKER) (test code = [facility], 1538) 03534: Rubber Mixer/Techni allen ID = [id number] for HE RNANDEZ, PATRICIA Venous doppler arm, [id number] 13:32:51Ejection FractionSLE ECHO HEARTLAB MKCKESSON CPACSPomerado HospitalHemoglobin [id number] 12:23:00 Test Item Value Reference Range Interpretation Comments Hemoglobin A1C (test code = 4548-4) 8.5 % 4.3-6.1 H Lab Interpretation (test code = Abnormal 22101-1) [facility] HospitalHEMOGLOBIN [id number] 12:23:00 Test Item Value Reference Range Interpretation Comments HEMOGLOBIN A1C (BEAKER) (test code = 8.5 % 4.3-6.1 H 368) POCT-GLUCOSE [id number] 12:19:00 Test Item Value Reference Range Interpretation Comments POC-GLUCOSE METER 142 mg/dL 70-110 H : TESTED A T [facility] 6720 (BEAKER) (test code = [facility], 153) 47983: Rubber Mixer/Techni allen ID = [id number] for HE RNANDEZ, PATRICIA POCT-GLUCOSE [id number] 10:25:00 Test Item Value Reference Range Interpretation Comments POC-GLUCOSE METER 125 mg/dL 70-110 H : TESTED A T [facility] 6720 (BEAKER) (test code = [facility], 153) 86491: Rubber Mixer/Techni allen ID = [id number] for HE RNANDEZ, PATRICIA POCT-GLUCOSE [id number] 09:11:00 Test Item Value Reference Range Interpretation Comments POC-GLUCOSE METER 125 mg/dL 70-110 H : TESTED A T [facility] 6720 (BEAKER) (test code = [facility], 153) 45724: Rubber Mixer/Techni allen ID = [id number] for HE RNANDEZ, PATRICIA POCT-GLUCOSE [id number] 08:26:00 Test Item Value Reference Range Interpretation Comments POC-GLUCOSE METER 130 mg/dL 70-110 H : TESTED A T [facility] 6720 (BEAKER) (test code = [facility], 1538) 89484: Rubber Mixer/Techni allen ID = [id number] for HE RNANDEZ, PATRICIA RAD, CHEST, 1 VIEW, NON [id number] 07:48:00Reason for exam:->IABPShould this be performed at the bedside?->Yes [facility] : 1975 Sex: MFINAL REPORT RAD, CHEST, 1 VIEW, NON DEPT INDICATION: IABP COMPARISON: Prior day's exam FINDINGS: Portable frontal view of the chest. IMPRESSION: Support Lines:IABP marker is 4.8 cm below the top of the aortic arch. Lungs and pleura: Scattered diffuse interstitial thickening and hazy airspace disease is unchanged No pneumothorax.Heart and mediastinum: Stable contours.Additional findings: None. Signed: Cony Bella Verified Date/Time: 07/01/2020 07:48:53 Reading Location: [facility] Radiology Reading Room POCT-GLUCOSE METER 2020-07-01 07:04:00 Test Item Value Reference Range Interpretation Comments POC-GLUCOSE METER 115 mg/dL 70-110 H : TESTED A T [facility] 6720 (BEAKER) (test code = [place], 1538) 73800: Rubber Mixer/Techni allen ID = [id number] for OTIS MAURER BASIC METABOLIC [id number] 05:57:00 Test Item Value Reference Range Interpretation Comments SODIUM (BEAKER) 135 meq/L 136-145 L (test code = 381) POTASSIUM (BEAKER) 4.1 meq/L 3.5-5.1 (test code = 379) CHLORIDE (BEAKER) 102 meq/L 98-107 (test code = 382) CO2 (BEAKER) (test 25 meq/L 22-29 code = 355) BLOOD UREA NITROGEN 15 mg/dL 7-21 (BEAKER) (test code = 354) CREATININE (BEAKER) 0.95 mg/dL 0.57-1.25 (test code = 358) GLUCOSE RANDOM 134 mg/dL 70-105 H (BEAKER) (test code = 652) CALCIUM (BEAKER) 8.1 mg/dL 8.4-10.2 L (test code = 697) EGFR (BEAKER) (test 87 mL/min/1.73 ESTIMA ADRIANA GFR IS code = 1092) sq m NOT ACCURATE CREATININE CLEARANCE IN PREDICTING GLOMERULAR FILTRATION RATE . ESTIMATED GFR I S NOT APPLICABLE FOR DIALYSIS PATIEN TS. Rubber Mixer ID - [id number] 05:57:00 Test Item Value Reference Range Interpretation Comments MAGNESIUM (BEAKER) (test code = 2.1 mg/dL 1.6-2.6 627) Rubber Mixer ID - [id number] 05:30:00 Test Item Value Reference Range Interpretation Comments PARTIAL THROMBOPLASTIN TIME 89.6 seconds 22.5-36.0 H (BEAKER) (test code = 760) CBC W/PLT COUNT & AUTO [id number] 05:04:00 Test Item Value Reference Range Interpretation Comments WHITE BLOOD CELL COUNT (BEAKER) 7.7 K/ L 3.5-10.5 (test code = 775) RED BLOOD CELL COUNT (BEAKER) 3.30 M/ L 4.63-6.08 L (test code = 761) HEMOGLOBIN (BEAKER) (test code = 10.6 GM/DL 13.7-17.5 L 410) HEMATOCRIT (BEAKER) (test code = 31.2 % 40.1-51.0 L 411) MEAN CORPUSCULAR VOLUME (BEAKER) 94.5 fL 79.0-92.2 H (test code = 753) MEAN CORPUSCULAR HEMOGLOBIN 32.1 pg 25.7-32.2 (BEAKER) (test code = 751) MEAN CORPUSCULAR HEMOGLOBIN CONC 34.0 GM/DL 32.3-36.5 (BEAKER) (test code = 752) RED CELL DISTRIBUTION WIDTH 12.5 % 11.6-14.4 (BEAKER) (test code = 412) PLATELET COUNT (BEAKER) (test 127 K/CU MM 150-450 L code = 756) MEAN PLATELET VOLUME (BEAKER) 11.6 fL 9.4-12.4 (test code = 754) NUCLEATED RED BLOOD CELLS 0 /100 WBC 0-0 (BEAKER) (test code = 413) NEUTROPHILS RELATIVE PERCENT 72 % (BEAKER) (test code = 429) LYMPHOCYTES RELATIVE PERCENT 15 % (BEAKER) (test code = 430) MONOCYTES RELATIVE PERCENT 11 % (BEAKER) (test code = 431) EOSINOPHILS RELATIVE PERCENT 2 % (BEAKER) (test code = 432) BASOPHILS RELATIVE PERCENT 0 % (BEAKER) (test code = 437) NEUTROPHILS ABSOLUTE COUNT 5.58 K/ L 1.78-5.38 H (BEAKER) (test code = 670) LYMPHOCYTES ABSOLUTE COUNT 1.15 K/ L 1.32-3.57 L (BEAKER) (test code = 414) MONOCYTES ABSOLUTE COUNT (BEAKER) 0.81 K/ L 0.30-0.82 (test code = 415) EOSINOPHILS ABSOLUTE COUNT 0.14 K/ L 0.04-0.54 (BEAKER) (test code = 416) BASOPHILS ABSOLUTE COUNT (BEAKER) 0.02 K/ L 0.01-0.08 (test code = 417) IMMATURE GRANULOCYTES-RELATIVE 0 % 0-1 PERCENT (BEAKER) (test code = 2801) POCT-GLUCOSE [id number] 05:00:00 Test Item Value Reference Range Interpretation Comments POC-GLUCOSE METER 129 mg/dL 70-110 H : TESTED A T [facility] 6720 (BEAKER) (test code = [facility], 1538) 27997: Rubber Mixer/Techni allen ID = [id number] for OTIS MAURER POCT-GLUCOSE [id number] 03:40:00 Test Item Value Reference Range Interpretation Comments POC-GLUCOSE METER 164 mg/dL 70-110 H : TESTED A T [facility] 6720 (BEAKER) (test code = [facility], 1538) 96335: Rubber Mixer/Techni allen ID = [id number] for OSMAN DELEON POCT-GLUCOSE [id number] 02:20:00 Test Item Value Reference Range Interpretation Comments POC-GLUCOSE METER 182 mg/dL 70-110 H : TESTED A T [facility] 6720 (BEAKER) (test code = [facility]A Maya [facility], 1538) 46981: Rubber Mixer/Techni allen ID = [id number] for OTIS MAURER ABORH, [id number] 01:31:00 Test Item Value Reference Range Interpretation Comments ABO Grouping (test code = 2588) A Rh Factor (test code = 2589) POS [facility] [id number] 01:02:00 Test Item Value Reference Range Interpretation Comments POC-GLUCOSE METER 226 mg/dL 70-110 H : TESTED A T [facility] 6720 (BEAKER) (test code = ANGELA Maya [facility], 1538) 34128: Rubber Mixer/Techni allen ID = [id number] for OTIS MAURER Type and screen, [id number] 23:53:00 Test Item Value Reference Range Interpretation Comments ABO/RH AUTOMATED (BEAKER) (test A POSITIVE code = 2260) Ab Scrn (test code = 890-4) NEGATIVE [facility] HospitalLipid [id number] 23:48:00 Test Item Value Reference Range Interpretation Comments Triglycerides (test 71 mg/dL Specimen code = 2571-8) slightly hemolyzed Cholesterol (test 82 mg/dL Specimen code = 2093-3) slightly hemolyzed HDL (test code = 30 mg/dL 5-9) LDL Calculated (test 38 mg/dL code = 72164-9) NANCY (test code = Triglyceride NANCY) Reference Range: Low Risk <150 Borderline 150-199 High Risk 200-499 Very High Risk >=500 Cholesterol Reference Range: Low Risk <200 Borderline 200-239 High Risk >240 HDL Cholesterol Reference Range: Low Risk >=60 High Risk <40 LDL Cholesterol Reference Range: Optimal <100 Near Optimal 100-129 Borderline 130-159 High 160-189 Very High >=190 Rubber Mixer ID - DB [facility] HospitalLIPID [id number] 23:48:00 Test Item Value Reference Range Interpretation Comments TRIGLYCERIDES (BEAKER) 71 mg/dL Speci men slightly (test code = 540) hemolyzed CHOLESTEROL (BEAKER) 82 mg/dL Specime n slightly (test code = 631) hemolyzed HDL CHOLESTEROL (AKER) 30 mg/dL (test code = 976) LDL CHOLESTEROL 38 mg/dL CALCULATED ([facility]) (test code = 633) Triglyceride Reference Range: Low Risk <150 Borderline 150-199 High Risk 200-499 Very High Risk >=500Cholesterol Reference Range: Low Risk <200 Borderline 200-239 High Risk >240HDL Cholesterol Reference Range: Low Risk >=60 High Risk <40LDL Cholesterol Reference Range: Optimal <100 Near Optimal 100-129 Borderline 130-159 High 160-189 Very High >=190 Rubber Mixer ID - DBPOCT-GLUCOSE [id number] 23:10:00 Test Item Value Reference Range Interpretation Comments POC-GLUCOSE METER 233 mg/dL 70-110 H : TESTED A T [facility] 6720 (BEAKER) (test code = [facility], 1538) 49674: Rubber Mixer/Techni allen ID = [id number] for DOUGLAS ELOY, OSMAN POCT-GLUCOSE [id number] 21:45:00 Test Item Value Reference Range Interpretation Comments POC-GLUCOSE METER 175 mg/dL 70-110 H : TESTED A T [facility] 6720 (BEAKER) (test code = [facility], 1538) 55352: Rubber Mixer/Techni allen ID = [id number] for RUSSELL MAURERA POCT-GLUCOSE [id number] 20:26:00 Test Item Value Reference Range Interpretation Comments POC-GLUCOSE METER 116 mg/dL 70-110 H : TESTED A T [facility] 6720 (BEAKER) (test code = [facility], 1538) 22934: Rubber Mixer/Techni allen ID = [id number] for AR ELOY, OSMAN POCT-GLUCOSE [id number] 19:28:00 Test Item Value Reference Range Interpretation Comments POC-GLUCOSE METER 96 mg/dL 70-110 : TESTED A T [facility] 6720 (BEAKER) (test code = [facility], 1538) 15983: Rubber Mixer/Techni allen ID = [id number] for DORY COLEMAN POCT-GLUCOSE [id number] 18:17:00 Test Item Value Reference Range Interpretation Comments POC-GLUCOSE METER 121 mg/dL 70-110 H : TESTED A T [facility] 6720 (BEAKER) (test code = [facility], 1538) 43932: Rubber Mixer/Techni allen ID = [id number] for BE LL, BEAULA POCT-GLUCOSE [id number] 17:15:00 Test Item Value Reference Range Interpretation Comments POC-GLUCOSE METER 168 mg/dL 70-110 H : TESTED A T [facility] 6720 (BEAKER) (test code = [facility], 1538) 04478: Rubber Mixer/Techni allen ID = [id number] for BE LL, BEAULA POCT-GLUCOSE [id number] 15:56:00 Test Item Value Reference Range Interpretation Comments POC-GLUCOSE METER 168 mg/dL 70-110 H : TESTED A T [facility] 6720 (BEAKER) (test code = [facility], 1538) 19129: Rubber Mixer/Techni allen ID = [id number] for BE LL, BEAULA POCT-GLUCOSE [id number] 14:43:00 Test Item Value Reference Range Interpretation Comments POC-GLUCOSE METER 154 mg/dL 70-110 H : TESTED A T [facility] 6720 (BEAKER) (test code = [facility], 1538) 25106: Rubber Mixer/Techni allen ID = [id number] for NI ETO, CINTIA POCT-GLUCOSE [id number] 13:50:00 Test Item Value Reference Range Interpretation Comments POC-GLUCOSE METER 128 mg/dL 70-110 H : TESTED A T [facility] 6720 (BEAKER) (test code = [facility], 1538) 44844: Rubber Mixer/Techni allen ID = [id number] for BE LL, BEAULA POCT-GLUCOSE [id number] 12:44:00 Test Item Value Reference Range Interpretation Comments POC-GLUCOSE METER 141 mg/dL 70-110 H : TESTED A T [facility] 6720 (BEAKER) (test code = [facility], 1538) 00981: Rubber Mixer/Techni allen ID = [id number] for BE LL, BEAULA POCT-GLUCOSE [id number] 11:41:00 Test Item Value Reference Range Interpretation Comments POC-GLUCOSE METER 144 mg/dL 70-110 H : TESTED A T [facility] 6720 (BEAKER) (test code = [facility], 1538) 31613: Rubber Mixer/Techni allen ID = [id number] for MANUEL MCBRIDEAULA POCT-GLUCOSE [id number] 10:49:00 Test Item Value Reference Range Interpretation Comments POC-GLUCOSE METER 177 mg/dL 70-110 H : TESTED A T [facility] 6720 (BEAKER) (test code = [facility], 1538) 45101: Rubber Mixer/Techni allen ID = [id number] for CINTIA [place] POCT-GLUCOSE [id number] 07:39:00 Test Item Value Reference Range Interpretation Comments POC-GLUCOSE METER 112 mg/dL 70-110 H : TESTED A T [facility] 6720 (BEAKER) (test code = [facility], 1538) 57764: Rubber Mixer/Techni allen ID = [id number] for RI PPLE, RHETT POCT-GLUCOSE [id number] 06:22:00 Test Item Value Reference Range Interpretation Comments POC-GLUCOSE METER 118 mg/dL 70-110 H : TESTED A T [facility] 6720 (BEAKER) (test code = [facility], 1538) 29356: Rubber Mixer/Techni allen ID = [id number] for RI PPLE, RHETT [id number] 05:06:00 Test Item Value Reference Range Interpretation Comments MAGNESIUM (BEAKER) 2.2 mg/dL 1.6-2.6 Specimen slightly (test code = 627) hemolyzed Rubber Mixer ID - EDASIBASIC METABOLIC [id number] 05:06:00 Test Item Value Reference Range Interpretation Comments SODIUM (BEAKER) 136 meq/L 136-145 (test code = 381) POTASSIUM (BEAKER) 4.2 meq/L 3.5-5.1 Specimen slightly (test code = 379) hemolyzed CHLORIDE (BEAKER) 101 meq/L 98-107 (test code = 382) CO2 (BEAKER) (test 28 meq/L 22-29 code = 355) BLOOD UREA NITROGEN 20 mg/dL 7-21 (BEAKER) (test code = 354) CREATININE (BEAKER) 0.92 mg/dL 0.57-1.25 Specimen slightly (test code = 358) hemolyzed GLUCOSE RANDOM 134 mg/dL 70-105 H (BEAKER) (test code = 652) CALCIUM (BEAKER) 8.0 mg/dL 8.4-10.2 L (test code = 697) EGFR (BEAKER) (test 90 mL/min/1.73 ESTIMA ADRIANA GFR IS code = 1092) sq m NOT ACCURATE CREATININE CLEARANCE IN PREDICTING GLOMERULAR FILTRATION RATE . ESTIMATED GFR I S NOT APPLICABLE FOR DIALYSIS PATIEN TS. Rubber Mixer ID - [id number] 04:53:00 Test Item Value Reference Range Interpretation Comments PARTIAL THROMBOPLASTIN TIME 72.5 seconds 22.5-36.0 H (BEAKER) (test code = 760) CBC W/PLT COUNT & AUTO [id number] 04:50:00 Test Item Value Reference Range Interpretation Comments WHITE BLOOD CELL COUNT (BEAKER) 9.1 K/ L 3.5-10.5 (test code = 775) RED BLOOD CELL COUNT (BEAKER) 3.41 M/ L 4.63-6.08 L (test code = 761) HEMOGLOBIN (BEAKER) (test code = 11.3 GM/DL 13.7-17.5 L 410) HEMATOCRIT (BEAKER) (test code = 31.7 % 40.1-51.0 L 411) MEAN CORPUSCULAR VOLUME (BEAKER) 93.0 fL 79.0-92.2 H (test code = 753) MEAN CORPUSCULAR HEMOGLOBIN 33.1 pg 25.7-32.2 H (BEAKER) (test code = 751) MEAN CORPUSCULAR HEMOGLOBIN CONC 35.6 GM/DL 32.3-36.5 (BEAKER) (test code = 752) RED CELL DISTRIBUTION WIDTH 12.6 % 11.6-14.4 (BEAKER) (test code = 412) PLATELET COUNT (BEAKER) (test 129 K/CU MM 150-450 L code = 756) MEAN PLATELET VOLUME (BEAKER) 11.8 fL 9.4-12.4 (test code = 754) NUCLEATED RED BLOOD CELLS 0 /100 WBC 0-0 (BEAKER) (test code = 413) NEUTROPHILS RELATIVE PERCENT 76 % (BEAKER) (test code = 429) LYMPHOCYTES RELATIVE PERCENT 13 % (BEAKER) (test code = 430) MONOCYTES RELATIVE PERCENT 10 % (BEAKER) (test code = 431) EOSINOPHILS RELATIVE PERCENT 1 % (BEAKER) (test code = 432) BASOPHILS RELATIVE PERCENT 0 % (BEAKER) (test code = 437) NEUTROPHILS ABSOLUTE COUNT 6.88 K/ L 1.78-5.38 H (BEAKER) (test code = 670) LYMPHOCYTES ABSOLUTE COUNT 1.21 K/ L 1.32-3.57 L (BEAKER) (test code = 414) MONOCYTES ABSOLUTE COUNT (BEAKER) 0.87 K/ L 0.30-0.82 H (test code = 415) EOSINOPHILS ABSOLUTE COUNT 0.10 K/ L 0.04-0.54 (BEAKER) (test code = 416) BASOPHILS ABSOLUTE COUNT (BEAKER) 0.01 K/ L 0.01-0.08 (test code = 417) IMMATURE GRANULOCYTES-RELATIVE 0 % 0-1 PERCENT (BEAKER) (test code = 2801) POCT-GLUCOSE [id number] 04:40:00 Test Item Value Reference Range Interpretation Comments POC-GLUCOSE METER 143 mg/dL 70-110 H : TESTED A T [facility] 6720 (BEAKER) (test code = ANGELA Zulma [facility], 1538) 42487: Rubber Mixer/Techni allen ID = [id number] for RI PPLE, RHETT RAD, CHEST, 1 VIEW, NON [id number] 04:25:00Reason for exam:->IABPShould this be performed at the bedside?->Yes [facility] 1975 Sex: MFINAL REPORT RAD, CHEST, 1 VIEW, NON DEPT INDICATION: IABP COMPARISON: Prior day's exam FINDINGS: Portable frontal view of the chest. IMPRESSION: Support Lines:IABP marker 4.5 cm caudal to the aortic knob apex. Lungs and pleura: Increased discoid atelectasis of the right lung. Vascular congestion is stable. Stable left lung base atelectasis. No pneumothorax.Heart and mediastinum: Stable contours. Additional findings: None. Signed: Ulices Bee MDReport Verified Date/Time: 06/30/2020 04:25:17 POCT-GLUCOSE [id number] 03:29:00 Test Item Value Reference Range Interpretation Comments POC-GLUCOSE METER 143 mg/dL 70-110 H : TESTED A T [facility] 6720 (BEAKER) (test code = [facility], [facility]) 72997: Rubber Mixer/Techni allen ID = [id number] for RI PPLE, RHETT POCT-GLUCOSE [id number] 01:36:00 Test Item Value Reference Range Interpretation Comments POC-GLUCOSE METER 122 mg/dL 70-110 H : TESTED A T [facility] 6720 (BEAKER) (test code = [facility], [facility]) 19616: Rubber Mixer/Techni allen ID = [id number] for RI PPLE, RHETT POCT-GLUCOSE [id number] 00:35:00 Test Item Value Reference Range Interpretation Comments POC-GLUCOSE METER 81 mg/dL 70-110 : TESTED A T [facility] 6720 ([facility]) (test code = [facility], [facility]) 12720: Rubber Mixer/Techni allen ID = [id number] for DeLu ca, Mallory POCT-GLUCOSE [id number] 00:12:00 Test Item Value Reference Range Interpretation Comments POC-GLUCOSE METER 78 mg/dL 70-110 : TESTED A T [facility] 6720 ([facility]) (test code = [facility], [facility]) 94536: Rubber Mixer/Techni allen ID = [id number] for RIPP LE, RHETT [id number] 00:00:00 Test Item Value Reference Range Interpretation Comments PARTIAL THROMBOPLASTIN TIME 64.7 seconds 22.5-36.0 H (AKER) (test code = 760) POCT-GLUCOSE [id number] 23:39:00 Test Item Value Reference Range Interpretation Comments POC-GLUCOSE METER 85 mg/dL 70-110 : [facility] T [facility] 6720 [facility] (test code = [facility], 153) 95808: Rubber Mixer/Techni allen ID = [id number] for RIPP LE, RHETT Carotid doppler [id number] 23:13:55Ejection FractionSLEH ECHO HEARTLAB MKCKESSON [facility] UCLAVein Mapping Legs Bilateral 2020-06-29 23:13:30Ejection FractionSLEH ECHO HEARTLAB MKCKESSON [facility] UCLAPOCT-GLUCOSE [id number] 21:59:00 Test Item Value Reference Range Interpretation Comments POC-GLUCOSE METER 154 mg/dL 70-110 H : TESTED A T [facility] 6720 ([facility]) (test code = [facility], 153) 36896: Rubber Mixer/Techni allen ID = [id number] for RI PPLE, RHETT POCT-GLUCOSE [id number] 20:47:00 Test Item Value Reference Range Interpretation Comments POC-GLUCOSE METER 141 mg/dL 70-110 H : TESTED A T [facility] 6720 ([facility]) (test code = [facility], 1538) 70441: Rubber Mixer/Techni allen ID = [id number] for RI PPLE, RHETT POCT-GLUCOSE [id number] 19:07:00 Test Item Value Reference Range Interpretation Comments POC-GLUCOSE METER 156 mg/dL 70-110 H : TESTED A T [facility] 6720 (IActiveAKER) (test code [facility], = 1538) 72921: Rubber Mixer/Techni allen ID = [id number] for TORR ALBA, BENITO [id number] 17:32:00 Test Item Value Reference Range Interpretation Comments PARTIAL THROMBOPLASTIN TIME 63.9 seconds 22.5-36.0 H (AKER) (test code = 760) POCT-GLUCOSE [id number] 17:23:00 Test Item Value Reference Range Interpretation Comments POC-GLUCOSE METER 147 mg/dL 70-110 H : [facility] T [facility] 6720 [facility] (test code = [facility], 1538) 58713: Rubber Mixer/Techni allen ID = [id number] for FO X, AIMEE POCT-GLUCOSE [id number] 16:28:00 Test Item Value Reference Range Interpretation Comments POC-GLUCOSE METER 94 mg/dL 70-110 : TESTED A T [facility] 6720 (BEAKER) (test code = [facility], 1538) 70217: Rubber Mixer/Techni allen ID = [id number] for SILVA, AIMEE POCT-GLUCOSE [id number] 15:17:00 Test Item Value Reference Range Interpretation Comments POC-GLUCOSE METER 89 mg/dL 70-110 : TESTED A T [facility] 6720 (BEAKER) (test code [facility], = 1538) 61698: Rubber Mixer/Techni allen ID = [id number] for TORR ALBA, BENITO POCT-GLUCOSE [id number] 14:46:00 Test Item Value Reference Range Interpretation Comments POC-GLUCOSE METER 133 mg/dL 70-110 H : TESTED A T [facility] 6720 (BEAKER) (test code [facility], = 1538) 16178: Rubber Mixer/Techni allen ID = [id number] for TORR ALBA, BENITO POCT-GLUCOSE [id number] 13:24:00 Test Item Value Reference Range Interpretation Comments POC-GLUCOSE METER 206 mg/dL 70-110 H : TESTED A T [facility] 6720 (BEAKER) (test code [facility], = 1538) 52919: Rubber Mixer/Techni allen ID = [id number] for TORR ALBA, BENITO POCT-GLUCOSE [id number] 12:27:00 Test Item Value Reference Range Interpretation Comments POC-GLUCOSE METER 236 mg/dL 70-110 H : TESTED A T [facility] 6720 (BEAKER) (test code = [facility], 1538) 36210: Rubber Mixer/Techni allen ID = [id number] for FO X, AIMEE Transthoracic 2D echo w/ doppler (cw/pw/color)2020-06-29 12:22:56Ejection [facility] ECHO HEARTLAB MKCKESSON [facility] UCLAPOCT- GLUCOSE [id number] 11:37:00 Test Item Value Reference Range Interpretation Comments POC-GLUCOSE METER 214 mg/dL 70-110 H : TESTED A T [facility] 6720 ([facility]) (test code = [facility] Zulma [facility], 1538) 45090: Rubber Mixer/Techni allen ID = [id number] for PURNIMA MCCULLOUGH POCT-GLUCOSE [id number] 09:14:00 Test Item Value Reference Range Interpretation Comments POC-GLUCOSE METER 146 mg/dL 70-110 H : TESTED A T [facility] 6720 ([facility]) (test code [facility], = 1538) 55488: Rubber Mixer/Techni allen ID = [id number] for BENITO GÓMEZ [id number] 08:18:00 Test Item Value Reference Range Interpretation Comments PARTIAL THROMBOPLASTIN TIME 55.8 seconds 22.5-36.0 H ([facility]) (test code = 760) POCT-GLUCOSE [id number] 08:09:00 Test Item Value Reference Range Interpretation Comments POC-GLUCOSE METER 114 mg/dL 70-110 H : TESTED A T [facility] 6720 ([facility]) (test code = [facility] Zulma [facility], 1538) 24212: Rubber Mixer/Techni allen ID = [id number] for DONN Linda, AIMEE POCT-GLUCOSE [id number] 07:08:00 Test Item Value Reference Range Interpretation Comments POC-GLUCOSE METER 115 mg/dL 70-110 H : Notified RN/MD: ([facility]) (test code = TESTED AT [place] [address] 1538) [facility], 06961: Rubber Mixer/Techni allen ID = [id number] for ROGER BARRON SARS-COV2/RT-PCR ([facility])2020-06-29 07:01:00 Test Item Value Reference Range Interpretation Comments SARS-COV2/RT-PCR (test Negative Not Detected, Negative, code = 9526899) See external report for linked test SARS-COV-2 PERFORMING LAB [facility] (test code = 3213020) Negative result for this test determines that SARS-CoV-2 RNA was not present in the specimen above the Limit of Detection (LOD). However, Negative results do not preclude SARS-CoV-2 infection and should not be used as the sole basis for treatment or patient management decisions. Negative results mustbe combined with clinical observations, patient history, and epidemiological information. A false negative result may occur if a specimen is improperly collected, transported or handled. A false negative result should be considered if patient's recent exposures or clinical presentation indicate that COVID-19 (SARS-CoV-2) is likely and diagnostic tests for other causes of illness are negative. Re-testing should be considered in cases of suspected false negatives.The limit of detection for this assay is 800 copies/mL.This SARS CoV-2 test is a real-time RT-PCR test intended for the qualitative detection of nucleic acid from SARS-CoV-2 in a nasopharyngeal swab specimen collected from individuals susp ected of COVID-19 by their healthcare provider.This test has not been Food and Drug Administration (FDA) cleared or approved. This is a modified version of an approved Emergency Use Authorization (EUA) and is in the process of review by the FDA. Once authorized by the FDA, the issued EUA will be effective until the declaration that circumstances exist justifying the authorization of the emergency use of in vitro diagnostic tests for detection and/or diagnosis of COVID-19 is terminated under Section 564(b)(2) of the Act or the EUA is revoked under Section 564(g) of the Act.Fact Sheet for Healthcare Providers:https://www.[employer]/sites/default/files/product/documents/Fact_Shee f_ZJ_Taqalmpwt_Pblg_ZJXQ-RrQ-7.pdfFact Sheet for Healthcare Patients:https://www.[employer]com/sites/default/files/product/ documents/Mhqs_Wlaco_Vzulzxpi_Jepv_ADBK-ZhD-7.pdfPerforming Laboratory:[facility], [place] [address]GHJE-HFFSAPW METER 2020-06-29 06:09:00 Test Item Value Reference Range Interpretation Comments POC-GLUCOSE METER 123 mg/dL 70-110 H : TESTED A T [facility] 6720 (YOANA) (test code = ANGELA Maya [facility], 1538) 27920: Rubber Mixer/Techni allen ID = [id number] for SA NTOYO, ROGER RAD, CHEST, 1 VIEW, NON [id number] 05:53:00Reason for exam:->IABPShould this be performed at the bedside?->Yes [facility] : 1975 Sex: MFINAL REPORT RAD, CHEST, 1 VIEW, NON DEPT INDICATION: IABP COMPARISON: Prior day's exam FINDINGS: Portable frontal view of the chest. IMPRESSION: Support Lines:Intra-aortic balloon pump superior marker terminates 4.1 cm below the superior aspect of the aortic knob. Lungs and pleura: Mildly increased coarse interstitial airspace opacities may be in part related to differences in technique however interstitial pulmonary edema can have this appearance. Bibasilar atelectasis. No pleural effusion. No pneumothorax.Heart and mediastinum: Stable contours. Additional findings: None. Signed: Page Oliver [facility] Verified Date/Time: 06/29/2020 05:53:32 BASIC METABOLIC [id number] 05:22:00 Test Item Value Reference Range Interpretation Comments SODIUM (BEAKER) 138 meq/L 136-145 (test code = 381) POTASSIUM (BEAKER) 4.0 meq/L 3.5-5.1 (test code = 379) CHLORIDE (BEAKER) 101 meq/L 98-107 (test code = 382) CO2 (BEAKER) (test 28 meq/L 22-29 code = 355) BLOOD UREA NITROGEN 22 mg/dL 7-21 H (BEAKER) (test code = 354) CREATININE (BEAKER) 0.94 mg/dL 0.57-1.25 (test code = 358) GLUCOSE RANDOM 151 mg/dL 70-105 H (BEAKER) (test code = 652) CALCIUM (BEAKER) 8.6 mg/dL 8.4-10.2 (test code = 697) EGFR (BEAKER) (test 88 mL/min/1.73 ESTIMA ADRIANA GFR IS code = 1092) sq m NOT ACCURATE CREATININE CLEARANCE IN PREDICTING GLOMERULAR FILTRATION RATE . ESTIMATED GFR I S NOT APPLICABLE FOR DIALYSIS PATIEN TS. Rubber Mixer ID - [id number] 05:22:00 Test Item Value Reference Range Interpretation Comments MAGNESIUM (BEAKER) (test code = 2.5 mg/dL 1.6-2.6 627) Rubber Mixer ID - DBCBC W/PLT COUNT & AUTO [id number] 04:59:00 Test Item Value Reference Range Interpretation Comments WHITE BLOOD CELL COUNT (BEAKER) 8.0 K/ L 3.5-10.5 (test code = 775) RED BLOOD CELL COUNT (BEAKER) 3.98 M/ L 4.63-6.08 L (test code = 761) HEMOGLOBIN (BEAKER) (test code = 12.9 GM/DL 13.7-17.5 L 410) HEMATOCRIT (BEAKER) (test code = 37.3 % 40.1-51.0 L 411) MEAN CORPUSCULAR VOLUME (BEAKER) 93.7 fL 79.0-92.2 H (test code = 753) MEAN CORPUSCULAR HEMOGLOBIN 32.4 pg 25.7-32.2 H (BEAKER) (test code = 751) MEAN CORPUSCULAR HEMOGLOBIN CONC 34.6 GM/DL 32.3-36.5 (BEAKER) (test code = 752) RED CELL DISTRIBUTION WIDTH 12.8 % 11.6-14.4 (BEAKER) (test code = 412) PLATELET COUNT (BEAKER) (test 143 K/CU MM 150-450 L code = 756) MEAN PLATELET VOLUME (BEAKER) 11.5 fL 9.4-12.4 (test code = 754) NUCLEATED RED BLOOD CELLS 0 /100 WBC 0-0 (BEAKER) (test code = 413) NEUTROPHILS RELATIVE PERCENT 71 % (BEAKER) (test code = 429) LYMPHOCYTES RELATIVE PERCENT 17 % (BEAKER) (test code = 430) MONOCYTES RELATIVE PERCENT 10 % (BEAKER) (test code = 431) EOSINOPHILS RELATIVE PERCENT 2 % (BEAKER) (test code = 432) BASOPHILS RELATIVE PERCENT 0 % (BEAKER) (test code = 437) NEUTROPHILS ABSOLUTE COUNT 5.67 K/ L 1.78-5.38 H (BEAKER) (test code = 670) LYMPHOCYTES ABSOLUTE COUNT 1.32 K/ L 1.32-3.57 (BEAKER) (test code = 414) MONOCYTES ABSOLUTE COUNT (BEAKER) 0.83 K/ L 0.30-0.82 H (test code = 415) EOSINOPHILS ABSOLUTE COUNT 0.12 K/ L 0.04-0.54 (BEAKER) (test code = 416) BASOPHILS ABSOLUTE COUNT (BEAKER) 0.02 K/ L 0.01-0.08 (test code = 417) IMMATURE GRANULOCYTES-RELATIVE 0 % 0-1 PERCENT ([facility]) (test code = 2801) POCT-GLUCOSE [id number] 04:28:00 Test Item Value Reference Range Interpretation Comments POC-GLUCOSE METER 164 mg/dL 70-110 H : TESTED A [facility] 6720 ([facility]) (test code = [facility], 1538) 67916: Rubber Mixer/Techni allen ID = [id number] for RI PPJOSE, RHETT POCT-GLUCOSE [id number] 03:24:00 Test Item Value Reference Range Interpretation Comments POC-GLUCOSE METER 181 mg/dL 70-110 H : [facility] ([facility]) (test code = [facility], 1538) 30280: Rubber Mixer/Techni allen ID = [id number] for RI PPLE, RHETT POCT-GLUCOSE [id number] 02:01:00 Test Item Value Reference Range Interpretation Comments POC-GLUCOSE METER 206 mg/dL 70-110 H : Notified RN/MD: ([facility]) (test code = TESTED AT [facility] 6720 1538) [facility], [address]: Rubber Mixer/Techni allen ID = [id number] for SA GUSMANNAVINROGER [id number] 00:35:00 Test Item Value Reference Range Interpretation Comments GLUCOSE RANDOM ([facility]) (test code 268 mg/dL 70-105 H = 652) Rubber Mixer ID - [id number] 00:34:00 Test Item Value Reference Range Interpretation Comments Potassium (test code = 4.2 meq/L 3.5-5.1 2823-3) NANCY (test code = NANCY) Rubber Mixer ID - DB Lab Interpretation (test Normal code = 78523-6) [facility] 00:34[facility]00 Test Item Value Reference Range Interpretation Comments POTASSIUM (BEAKER) (test code = 4.2 meq/L 3.5-5.1 379) Rubber Mixer ID - [id number] 00:33:00 Test Item Value Reference Range Interpretation Comments PARTIAL THROMBOPLASTIN TIME 119.0 seconds 22.5-36.0 H (BEAKER) (test code = 760) POCT-GLUCOSE [id number] 21:56:00 Test Item Value Reference Range Interpretation Comments POC-GLUCOSE METER 247 mg/dL 70-110 H : Notified RN/MD: (YOANA) (test code = TESTED AT [facility] 6720 1538) [facility], [address]: Rubber Mixer/Techni allen ID = [id number] for ROGER BARRON POCT-GLUCOSE [id number] 21:06:00 Test Item Value Reference Range Interpretation Comments POC-GLUCOSE METER 283 mg/dL 70-110 H : TESTED A T [facility] 6720 ([facility]) (test code = [facility], 1538) 44741: Rubber Mixer/Techni allen ID = [id number] for ERIKA LYNN Troponin [id number] 19:07:00 Test Item Value Reference Range Interpretation Comments Troponin I (test code = 48.48 ng/mL 0.00-0.03 54958-7) NANCY (test code = NANCY) Troponin I (TnI) levels must be interpreted in the context of the presenting symptoms and the clinical findings. Elevated TnI levels indicate myocardial damage, but are not specific for ischemic heart disease. Elevated TnI levels are seen in patients with other cardiac conditions (including myocarditis and congestive heart failure), and slight TnI elevations occur in patients with other conditions, including sepsis, renal failure, acidosis, acute neurological disease, and persistent tachyarrhythmia.Opera tor ID - EDASI Lab Interpretation (test Abnormal code = 60095-9) [facility] [id number] 19:07:00 Test Item Value Reference Range Interpretation Comments TROPONIN I (MANUELAKER) (test code = 48.48 ng/mL 0.00-0.03 397) Troponin I (TnI) levels must be interpreted in the context of the presenting symptoms and the clinical findings. Elevated TnI levels indicate myocardial damage, but are not specific for ischemic heart disease. Elevated TnI levels are seen in patients with other cardiac conditions (including myocarditis and congestive heart failure), and slight TnI elevations occur in patients with other conditions, including sepsis, renal failure, acidosis, acute neurological disease, and persistent tachyarrhythmia.Rubber Mixer ID - [id number] 18:52:00 Test Item Value Reference Range Interpretation Comments PARTIAL THROMBOPLASTIN TIME 70.0 seconds 22.5-36.0 H (MANUELAKER) (test code = 760) POCT-GLUCOSE [id number] 16:25:00 Test Item Value Reference Range Interpretation Comments POC-GLUCOSE METER 260 mg/dL 70-110 H : TESTED A T [facility] 6720 (YOANA) (test code = ANGELA Maya [facility], 1538) 49770: Rubber Mixer/Techni allen ID = [id number] for [employer] Health TechnologiesE (V), ALVARO ECHO W CONTRAST & [id number] 12:35:00Ejection [facility] ECHO HEARTLAB MKCKESSON [facility]APTT2021-[facility]-03 12:11:00 Test Item Value Reference Range Interpretation Comments PARTIAL THROMBOPLASTIN TIME 113.3 seconds 22.5-36.0 H (YOANA) (test code = 760) TROPONIN [id number] 10:03:00 Test Item Value Reference Range Interpretation Comments TROPONIN I (MANUELAKER) (test code = 56.61 ng/mL 0.00-0.03 397) Troponin I (TnI) levels must be interpreted in the context of the presenting symptoms and the clinical findings. Elevated TnI levels indicate myocardial damage, but are not specific for ischemic heart disease. Elevated TnI levels are seen in patients with other cardiac conditions (including myocarditis and congestive heart failure), and slight TnI elevations occur in patients with other conditions, including sepsis, renal failure, acidosis, acute neurological disease, and persistent tachyarrhythmia.Rubber Mixer ID - EDASIOperator ID - EDASI POCT-GLUCOSE [id number] 08:26:00 Test Item Value Reference Range Interpretation Comments POC-GLUCOSE METER 225 mg/dL 70-110 H : TESTED A T [facility] 6720 (BEAKER) (test code = [place], 1538) [address]: Rubber Mixer/Techni allen ID = [id number] for NHAN STEWARD [id number] 06:09:00 Test Item Value Reference Range Interpretation Comments MAGNESIUM (BEAKER) 1.9 mg/dL 1.6-2.6 Specimen slightly (test code = 627) hemolyzed Rubber Mixer ID - [id number] 06:09:00 Test Item Value Reference Range Interpretation Comments PHOSPHORUS (BEAKER) 2.8 mg/dL 2.3-4.7 Specimen slightly (test code = 604) hemolyzed Rubber Mixer ID - EDASIBASIC METABOLIC [id number] 06:09:00 Test Item Value Reference Range Interpretation Comments SODIUM (BEAKER) 135 meq/L 136-145 L (test code = 381) POTASSIUM (BEAKER) 4.4 meq/L 3.5-5.1 Specimen slightly (test code = 379) hemolyzed CHLORIDE (BEAKER) 101 meq/L 98-107 (test code = 382) CO2 (BEAKER) (test 25 meq/L 22-29 code = 355) BLOOD UREA NITROGEN 26 mg/dL 7-21 H (BEAKER) (test code = 354) CREATININE (BEAKER) 1.17 mg/dL 0.57-1.25 Specimen slightly (test code = 358) hemolyzed GLUCOSE RANDOM 164 mg/dL 70-105 H (BEAKER) (test code = 652) CALCIUM (BEAKER) 8.2 mg/dL 8.4-10.2 L (test code = 697) EGFR (BEAKER) (test 68 mL/min/1.73 ESTIMA ADRIANA GFR IS code = 1092) sq m NOT ACCURATE CREATININE CLEARANCE IN PREDICTING GLOMERULAR FILTRATION RATE . ESTIMATED GFR I S NOT APPLICABLE FOR DIALYSIS PATIEN TS. Rubber Mixer ID - EDASIHEPATIC FUNCTION [id number] 06:09:00 Test Item Value Reference Range Interpretation Comments TOTAL PROTEIN (BEAKER) 6.3 gm/dL 6.0-8.3 Speci men slightly (test code = 770) hemolyzed ALBUMIN (BEAKER) (test 3.3 g/dL 3.5-5.0 L Speci men slightly code = 1145) hemolyzed BILIRUBIN TOTAL 0.4 mg/dL 0.2-1.2 Specimen sli ghtly (BEAKER) (test code = hemoly zed 377) BILIRUBIN DIRECT 0.2 mg/dL 0.1-0.5 Specimen sl ightly (BEAKER) (test code = hemoly zed 706) ALKALINE PHOSPHATASE 77 U/L 40-150 (BEAKER) (test code = 346) AST (SGOT) (BEAKER) 43 U/L 5-34 H Specimen slightly (test code = 353) hemolyzed ALT (SGPT) (BEAKER) 29 U/L 6-55 Specimen slightly (test code = 347) hemolyzed Rubber Mixer ID - ARUNASITRADRIANN [id number] 06:02:00 Test Item Value Reference Range Interpretation Comments TROPONIN I (BEAKER) (test code = 66.32 ng/mL 0.00-0.03 397) Troponin I (TnI) levels must be interpreted in the context of the presenting symptoms and the clinical findings. Elevated TnI levels indicate myocardial damage, but are not specific for ischemic heart disease. Elevated TnI levels are seen in patients with other cardiac conditions (including myocarditis and congestive heart failure), and slight TnI elevations occur in patients with other conditions, including sepsis, renal failure, acidosis, acute neurological disease, and persistent tachyarrhythmia.Rubber Mixer ID - DBOperator ID - DBB-type natriuretic [id number] 05:40:00 Test Item Value Reference Range Interpretation Comments BNP (test code = 95232-4) 154 pg/mL 0-100 H NANCY (test code = NANCY) Rubber Mixer ID - EDASI Lab Interpretation (test Abnormal code = 68081-3) [facility] NAT[facility] FA[facility] (BNP)2020-06-28 05:40:00 Test Item Value Reference Range Interpretation Comments B-TYPE NATRIURETIC PEPTIDE (BEAKER) 154 pg/mL 0-100 H (test code = 700) Rubber Mixer ID - [id number] 05:37:00 Test Item Value Reference Range Interpretation Comments PARTIAL THROMBOPLASTIN TIME 76.1 seconds 22.5-36.0 H (BEAKER) (test code = 760) PROTHROMBIN [id number] 05:35:00 Test Item Value Reference Range Interpretation Comments PROTIME (BEAKER) 14.3 seconds 11.9-14.2 H (test code = 759) INR (BEAKER) (test 1.14 See_Comment [Automat ed message] code = 370) The system [employer] generated this result transmitted ref erence range: <=5.90. The reference range was not used to int erpret this result as normal/abnormal . Effective 08/23/2018: PT Reference Range ChangeNew: 11.9-14.2 Previous: 11.7- 14.7RECOMMENDED COUMADIN/WARFARIN INR THERAPY RANGESSTANDARD DOSE: 2.0-3.0 Includes: PROPHYLAXIS for venous thrombosis, systemic embolization; TREATMENT for venous thrombosis and/or pulmonary embolus.HIGH RISK: Target INR is2.5-3.5 for patients wiht mechanical heart valves.CBC W/PLT COUNT & AUTO [id number] 05:27:00 Test Item Value Reference Range Interpretation Comments WHITE BLOOD CELL COUNT (BEAKER) 13.4 K/ L 3.5-10.5 H (test code = 775) RED BLOOD CELL COUNT (BEAKER) 4.33 M/ L 4.63-6.08 L (test code = 761) HEMOGLOBIN (BEAKER) (test code = 14.1 GM/DL 13.7-17.5 410) HEMATOCRIT (BEAKER) (test code = 40.5 % 40.1-51.0 411) MEAN CORPUSCULAR VOLUME (BEAKER) 93.5 fL 79.0-92.2 H (test code = 753) MEAN CORPUSCULAR HEMOGLOBIN 32.6 pg 25.7-32.2 H (BEAKER) (test code = 751) MEAN CORPUSCULAR HEMOGLOBIN CONC 34.8 GM/DL 32.3-36.5 (BEAKER) (test code = 752) RED CELL DISTRIBUTION WIDTH 12.8 % 11.6-14.4 (BEAKER) (test code = 412) PLATELET COUNT (BEAKER) (test 161 K/CU MM 150-450 code = 756) MEAN PLATELET VOLUME (BEAKER) 11.9 fL 9.4-12.4 (test code = 754) NUCLEATED RED BLOOD CELLS 0 /100 WBC 0-0 (BEAKER) (test code = 413) NEUTROPHILS RELATIVE PERCENT 86 % (BEAKER) (test code = 429) LYMPHOCYTES RELATIVE PERCENT 5 % (BEAKER) (test code = 430) MONOCYTES RELATIVE PERCENT 8 % (BEAKER) (test code = 431) EOSINOPHILS RELATIVE PERCENT 0 % (BEAKER) (test code = 432) BASOPHILS RELATIVE PERCENT 0 % (BEAKER) (test code = 437) NEUTROPHILS ABSOLUTE COUNT 11.59 K/ L 1.78-5.38 H (BEAKER) (test code = 670) LYMPHOCYTES ABSOLUTE COUNT 0.70 K/ L 1.32-3.57 L (BEAKER) (test code = 414) MONOCYTES ABSOLUTE COUNT (BEAKER) 1.04 K/ L 0.30-0.82 H (test code = 415) EOSINOPHILS ABSOLUTE COUNT 0.01 K/ L 0.04-0.54 L (BEAKER) (test code = 416) BASOPHILS ABSOLUTE COUNT (BEAKER) 0.02 K/ L 0.01-0.08 (test code = 417) IMMATURE GRANULOCYTES-RELATIVE 0 % 0-1 PERCENT (BEAKER) (test code = 2801) POCT-GLUCOSE [id number] 05:09:00 Test Item Value Reference Range Interpretation Comments POC-GLUCOSE METER 174 mg/dL 70-110 H : TESTED A T [facility] 6720 (BEAKER) (test code = ANGELA Maya [facility], 1538) [id number]: Rubber Mixer/Techni allen ID = [id number] for RI PPLE, RHETT RAD, CHEST, 1 VIEW, NON [id number] 04:59:00Reason for exam:->IABPShould this be performed at the bedside?->Yes [facility] : 1975 Sex: MFINAL REPORT RAD, CHEST, 1 VIEW, NON DEPT INDICATION: IABP COMPARISON: Prior day's exam FINDINGS: Portable frontal view of the chest. IMPRESSION: Support Lines:Intra-articular pump superior marker terminates 4.3 cm below the superior aspect of the aortic knob.Lungs and pleura: Unchanged airspace and pleural opacities. No pneumothorax.Heart and mediastinum: Stable contours. Additional findings: None. Signed: Page Oliver Verified Date/Time: 06/28/2020 04:59:08 POCT-GLUCOSE [id number] 23:23:00 Test Item Value Reference Range Interpretation Comments POC-GLUCOSE METER 80 mg/dL 70-110 : TESTED A T [facility] [address] ([place]) (test code = [address], [address]) [place] [address]: Rubber Mixer/Techni allen ID = [id number] for Salvatore Moeda POCT-GLUCOSE [id number] 21:48:00 Test Item Value Reference Range Interpretation Comments POC-GLUCOSE METER 59 mg/dL 70-110 L : TESTED A T [facility] [address] (BEAKER) (test code = [address], 15[address]) [place] [id number]: Rubber Mixer/Techni allen ID = [id number] for Nitin ostGiovannya TROPONIN [id number] 21:23:00 Test Item Value Reference Range Interpretation Comments TROPONIN I (BEAKER) (test code = 64.31 ng/mL 0.00-0.15 [facility]) Troponin I (TnI) levels must be interpreted in the context of the presenting symptoms and the clinical findings. Elevated TnI levels indicate myocardial damage, but are not specific for ischemic heart disease. Elevated TnI levels are seen in patients with other cardiac conditions (including myocarditis and congestive heart failure), and slight TnI elevations occur in patients with other conditions, including sepsis, renal failure, acidosis, acute neurological disease, and persistent tachyarrhythmia.Rubber Mixer ID - [id number] ID - [id number] NATRIURETIC FACTOR (BNP)2020-06-27 21:08:00 Test Item Value Reference Range Interpretation Comments B-TYPE NATRIURETIC PEPTIDE (BEAKER) 209 pg/mL 0-100 H (test code = 700) Rubber Mixer ID - [id number] METABOLIC [id number] 21:01:00 Test Item Value Reference Range Interpretation Comments SODIUM (BEAKER) 137 meq/L 135-148 (test code = 381) POTASSIUM (BEAKER) 4.0 meq/L 3.6-5.5 Specimen slightly (test code = 379) hemolyzed CHLORIDE (BEAKER) 103 meq/L 98-106 (test code = 382) CO2 (BEAKER) (test 23 meq/L 20-29 code = 355) BLOOD UREA NITROGEN 23 mg/dL 10-26 (BEAKER) (test code = 354) CREATININE (BEAKER) 1.14 mg/dL 0.50-1.20 Specimen slightly (test code = 358) hemolyzed GLUCOSE RANDOM 87 mg/dL 70-110 (BEAKER) (test code = 652) CALCIUM (BEAKER) 8.5 mg/dL 8.5-10.5 (test code = 697) EGFR (BEAKER) (test 70 mL/min/1.73 ESTIMA ADRIANA GFR IS code = 1092) sq m NOT ACCURATE CREATININE CLEARANCE IN PREDICTING GLOMERULAR FILTRATION RATE . ESTIMATED GFR I S NOT APPLICABLE FOR DIALYSIS PATIEN TS. Rubber Mixer ID - [id number] ID - [id number] ID - [id number] ID - [id number] ID - [id number] ID - [id number] ID - [id number] ID - [id number] ID - [id number] ID - [id number] ID - [id number] ID - [id number] 20:57:00 Test Item Value Reference Range Interpretation Comments PARTIAL THROMBOPLASTIN 33.6 seconds 23.0-35.0 Final Information TIME (BEAKER) (test (Auto Ou tput) code = 760) Lactic acid, [id number] 20:55:00 Test Item Value Reference Range Interpretation Comments Lactate, Venous (test 1.28 mmol/L 0.50-2.00 Specim en code = 2872) slightly hemolyzed NANCY (test code = NANCY) Rubber Mixer ID - [id number] ID - [id number] ID - [id number] ID - [id number] Lab Interpretation Normal (test code = 39496-8) [facility] Center[facility], [id number] 20:55:00 Test Item Value Reference Range Interpretation Comments LACTATE BLOOD 1.28 mmol/L See_Comment Specimen sligh tly VENOUS (2) (BEAKER) hemolyze d [Automated (test code = 2872) message] The system which generated this result transmit adriana reference range : 0.50-<2.00. The reference range was not used to interpr et this result as normal/abnormal . Rubber Mixer ID - [id number] ID - [id number] ID - [id number] ID - [id number] 16:34:00 Test Item Value Reference Range Interpretation Comments POC-GLUCOSE METER 242 mg/dL 70-110 H : TESTED A T [facility] (BEAKER) (test code [address], = 1538) [place] [address]: Rubber Mixer/Techni allen ID = [id number] for [place] [id number] 12:38:00 Test Item Value Reference Range Interpretation Comments PARTIAL THROMBOPLASTIN 36.9 seconds 23.0-35.0 H Final Information TIME (BEAKER) (test (Auto Ou tput) code = 760) POCT-GLUCOSE [id number] 12:01:00 Test Item Value Reference Range Interpretation Comments POC-GLUCOSE METER 333 mg/dL 70-110 H : TESTED A T [facility] (BEAKER) (test code [address], = 1538) [place] [address]: Rubber Mixer/Techni allen ID = [id number] for [place]al [place] POCT-GLUCOSE [id number] 08:03:00 Test Item Value Reference Range Interpretation Comments POC-GLUCOSE METER 298 mg/dL 70-110 H : TESTED A T [facility] [address] (BEAKER) (test code [address], = 1538) [place] [address]: Rubber Mixer/Techni allen ID = [id number] for [place] LIPID [id number] 05:53:00 Test Item Value Reference Range Interpretation Comments TRIGLYCERIDES (BEAKER) (test code = 101 mg/dL 540) CHOLESTEROL (BEAKER) (test code = 112 mg/dL 631) HDL CHOLESTEROL (BEAKER) (test code 38 mg/dL = 976) LDL CHOLESTEROL CALCULATED (BEAKER) 54 mg/dL (test code = 633) Triglyceride Reference Range: Low Risk <150 Borderline 150-199 High Risk 200-499 Very High Risk >=500Cholesterol Reference Range: Low Risk <200 Borderline 200-239 High Risk >240HDL Cholesterol Reference Range: Low Risk >=60 High Risk <40LDL Cholesterol Reference Range: Optimal <100 Near Optimal 100-129 Borderline 130-159 High 160-189 Very High >=190 Rubber Mixer ID - [id number] ID - [id number] ID - [id number] 05:47:00 Test Item Value Reference Range Interpretation Comments MAGNESIUM (BEAKER) (test code = 2.1 mg/dL 1.5-3.0 627) Rubber Mixer ID - [id number] ID - [id number] ID - [id number] ID - [id number] METABOLIC [id number] 05:45:00 Test Item Value Reference Range Interpretation Comments SODIUM (BEAKER) 134 meq/L 135-148 L (test code = 381) POTASSIUM (BEAKER) 4.2 meq/L 3.6-5.5 (test code = 379) CHLORIDE (BEAKER) 102 meq/L 98-106 (test code = 382) CO2 (BEAKER) (test 23 meq/L 20-29 code = 355) BLOOD UREA NITROGEN 22 mg/dL 10-26 (BEAKER) (test code = 354) CREATININE (BEAKER) 1.37 mg/dL 0.50-1.20 H (test code = 358) GLUCOSE RANDOM 359 mg/dL 70-110 H (BEAKER) (test code = 652) CALCIUM (BEAKER) 8.4 mg/dL 8.5-10.5 L (test code = 697) EGFR (BEAKER) (test 57 mL/min/1.73 ESTIMA ADRIANA GFR IS code = 1092) sq m NOT ACCURATE CREATININE CLEARANCE IN PREDICTING GLOMERULAR FILTRATION RATE . ESTIMATED GFR I S NOT APPLICABLE FOR DIALYSIS PATIEN TS. Rubber Mixer ID - [id number] ID - [id number] ID - [id number] ID - [id number] ID - [id number] ID - [id number] ID - [id number] ID - [id number] ID - [id number] W/PLT COUNT & AUTO [id number] 05:37:00 Test Item Value Reference Range Interpretation Comments WHITE BLOOD CELL COUNT (BEAKER) 11.0 K/ L 4.0-10.0 H (test code = 775) RED BLOOD CELL COUNT (BEAKER) 4.50 M/ L 4.20-5.80 (test code = 761) HEMOGLOBIN (BEAKER) (test code = 14.5 GM/DL 13.0-16.8 410) HEMATOCRIT (BEAKER) (test code = 42.2 % 36.0-50.0 411) MEAN CORPUSCULAR VOLUME (BEAKER) 93.8 fL 82.0-99.0 (test code = 753) MEAN CORPUSCULAR HEMOGLOBIN 32.2 pg 27.0-33.0 (BEAKER) (test code = 751) MEAN CORPUSCULAR HEMOGLOBIN CONC 34.4 GM/DL 32.0-36.0 (BEAKER) (test code = 752) RED CELL DISTRIBUTION WIDTH 12.9 % 12.0-15.0 (BEAKER) (test code = 412) PLATELET COUNT (BEAKER) (test 155 K/CU MM 150-430 code = 756) MEAN PLATELET VOLUME (BEAKER) 11.9 fL 6.0-11.5 H (test code = 754) NUCLEATED RED BLOOD CELLS 0 /100 WBC 0-0 (BEAKER) (test code = 413) NEUTROPHILS RELATIVE PERCENT 72 % (BEAKER) (test code = 429) LYMPHOCYTES RELATIVE PERCENT 16 % (BEAKER) (test code = 430) MONOCYTES RELATIVE PERCENT 11 % (BEAKER) (test code = 431) EOSINOPHILS RELATIVE PERCENT 1 % (BEAKER) (test code = 432) BASOPHILS RELATIVE PERCENT 0 % (BEAKER) (test code = 437) NEUTROPHILS ABSOLUTE COUNT 7.89 K/ L 1.80-8.00 (BEAKER) (test code = 670) LYMPHOCYTES ABSOLUTE COUNT 1.81 K/ L 1.48-4.50 (BEAKER) (test code = 414) MONOCYTES ABSOLUTE COUNT (BEAKER) 1.16 K/ L 0.00-1.30 (test code = 415) EOSINOPHILS ABSOLUTE COUNT 0.07 K/ L 0.00-0.50 (BEAKER) (test code = 416) BASOPHILS ABSOLUTE COUNT (BEAKER) 0.04 K/ L 0.00-0.20 (test code = 417) IMMATURE GRANULOCYTES-RELATIVE 1 % 0-0 H PERCENT (BEAKER) (test code = 2801) [id number] 01:41:00 Test Item Value Reference Range Interpretation Comments PARTIAL THROMBOPLASTIN 33.1 seconds 23.0-35.0 Final Information TIME (BEAKER) (test (Auto Ou tput) code = 760) Urinalysis w/Microscopic + Reflex to [id number] 00:07:00 Test Item Value Reference Range Interpretation Comments Color, UA (test code = Yellow 5778-6) Clarity, UA (test code Clear = 5767-9) Specific [place], UA 1.020 1.001-1.035 (test code = 5811-5) pH, UA (test code = 6.0 5.0-8.0 5803-2) Protein, UA (test code Negative Negative = 78261-8) Glucose, UA (test code >=1000 mg/dL Negative A = 365) Ketones, UA (test code 40 mg/dL Negative A = 2514-8) Bilirubin, UA (test Negative Negative code = 29265-4) Blood, UA (test code = Negative Negative 72221-5) Nitrite, UA (test code Negative Negative = 5802-4) Leukocytes, UA (test Negative Negative code = 5799-2) Urobilinogen, UA (test 0.2 mg/dL 0.2-1.0 code = 66393-9) Bacteria, UA (test None Seen code = 92186-3) RBC, UA (test code = None Seen See_Comment [Autom ated 799-7) message] The sy stem which generated this result transmitted reference range : /HPF. The refer ence range was not u sed to interpret th is result as normal/abnormal . WBC, UA (test code = <5 See_Comment [Autom ated 00561-3) message] The sy stem which generated this result transmitted reference range : /HPF. The refer ence range was not u sed to interpret th is result as normal/abnormal . SQUAMOUS EPITHELIAL <5 See_Comment [Automa adriana (test code = 67517-2) messag e] The system which generated this result transmitted reference range : /HPF. The refer ence range was not u sed to interpret th is result as normal/abnormal . Specimen Source (test code = 2795) Lab Interpretation Abnormal (test code = 77607-3) [facility] [id number] 00:07:00 Test Item Value Reference Range Interpretation Comments COLOR (BEAKER) (test code = Yellow 470) CLARITY (BEAKER) (test code = Clear 469) SPECIFIC GRAVITY UA (BEAKER) 1.020 1.001-1.035 (test code = 468) PH UA (BEAKER) (test code = 6.0 5.0-8.0 467) PROTEIN UA (BEAKER) (test code Negative Negative = 464) GLUCOSE UA (BEAKER) (test code >=1000 mg/dL Negative A = 365) KETONES UA (BEAKER) (test code 40 mg/dL Negative A = 371) BILIRUBIN UA (BEAKER) (test Negative Negative code = 462) BLOOD UA (BEAKER) (test code = Negative Negative 461) NITRITE UA (BEAKER) (test code Negative Negative = 465) LEUKOCYTE ESTERASE UA (BEAKER) Negative Negative (test code = 466) UROBILINOGEN UA (BEAKER) (test 0.2 mg/dL 0.2-1.0 code = 463) BACTERIA (BEAKER) (test code = None Seen 517) RBC UA-MANUAL (BEAKER) (test None Seen /HPF code = 1659) WBC UA-MANUAL (BEAKER) (test <5 /HPF code = 1661) SQUAMOUS EPITHELIAL MANUAL <5 /HPF (BEAKER) (test code = 1663) SOURCE(BEAKER) (test code = 2795) RAD, CHEST, 1 VIEW, NON [id number] 23:40:00Reason for exam:->fever, elevated troponinShould this be performed at the bedside?->Yes [facility] : 1975 Sex: MFINAL REPORT INDICATION: fever, elevated troponin COMPARISON: None TECHNIQUE: Single frontal view of the chest. IMPRESSION: Lungs and pleura: There are vague bibasilar parenchymal opacities suggestive of atelectasis or atypical pneumonitis. No dense consolidation.No effusion.Heart and mediastinum: Normal heart size. Unremarkable mediastinal contours.Osseous structures: No acute abnormality.Other: None. Signed: Candelaria Lockett Verified Date/Time: 06/26/2020 23:40:36 POCT-GLUCOSE [id number] 21:24:00 Test Item Value Reference Range Interpretation Comments POC-GLUCOSE METER 213 mg/dL 70-110 H : TESTED A T [facility] [address] (YOANA) (test code [facility] [address], = 1538) [facility] [address]: Rubber Mixer/Techni allen ID = [id number] for Hina Moe B-TYPE NATRIURETIC FACTOR (BNP)2020-06-26 18:29:00 Test Item Value Reference Range Interpretation Comments B-TYPE NATRIURETIC PEPTIDE (MANUELAKER) 228 pg/mL 0-100 H (test code = 700) Rubber Mixer ID - [id number] 17:25:00 Test Item Value Reference Range Interpretation Comments TROPONIN I (YOANA) (test code = 83.94 ng/mL 0.00-0.15 397) Troponin I (TnI) levels must be interpreted in the context of the presenting symptoms and the clinical findings. Elevated TnI levels indicate myocardial damage, but are not specific for ischemic heart disease. Elevated TnI levels are seen in patients with other cardiac conditions (including myocarditis and congestive heart failure), and slight TnI elevations occur in patients with other conditions, including sepsis, renal failure, acidosis, acute neurological disease, and persistent tachyarrhythmia.Rubber Mixer ID - [id number] ID - [id number] 16:59:00 Test Item Value Reference Range Interpretation Comments MAGNESIUM (BEAKER) (test code = 2.1 mg/dL 1.5-3.0 627) Rubber Mixer ID - [id number] ID - [id number] ID - [id number] ID - [id number] 16:59:00 Test Item Value Reference Range Interpretation Comments HEMOGLOBIN A1C (BEAKER) (test code = 7.9 % 4.3-6.1 H 368) Rubber Mixer ID - [id number] METABOLIC [id number] 16:58:00 Test Item Value Reference Range Interpretation Comments SODIUM (BEAKER) 137 meq/L 135-148 (test code = 381) POTASSIUM (BEAKER) 4.4 meq/L 3.6-5.5 (test code = 379) CHLORIDE (BEAKER) 104 meq/L 98-106 (test code = 382) CO2 (BEAKER) (test 23 meq/L 20-29 code = 355) BLOOD UREA NITROGEN 20 mg/dL 10-26 (BEAKER) (test code = 354) CREATININE (BEAKER) 1.19 mg/dL 0.50-1.20 (test code = 358) GLUCOSE RANDOM 225 mg/dL 70-110 H (BEAKER) (test code = 652) CALCIUM (BEAKER) 8.8 mg/dL 8.5-10.5 (test code = 697) EGFR (BEAKER) (test 67 mL/min/1.73 ESTIMA ADRIANA GFR IS code = 1092) sq m NOT ACCURATE CREATININE CLEARANCE IN PREDICTING GLOMERULAR FILTRATION RATE . ESTIMATED GFR I S NOT APPLICABLE FOR DIALYSIS PATIEN TS. Rubber Mixer ID - [id number] ID - [id number] ID - [id number] ID - [id number] ID - [id number] ID - [id number] ID - [id number] ID - [id number] ID - [id number] 16:57:00 Test Item Value Reference Range Interpretation Comments PARTIAL THROMBOPLASTIN 39.3 seconds 23.0-35.0 H Final Information TIME (BEAKER) (test (Auto Ou tput) code = 760) CBC W/PLT COUNT & AUTO [id number] 16:51:00 Test Item Value Reference Range Interpretation Comments WHITE BLOOD CELL COUNT (BEAKER) 13.4 K/ L 4.0-10.0 H (test code = 775) RED BLOOD CELL COUNT (BEAKER) 4.55 M/ L 4.20-5.80 (test code = 761) HEMOGLOBIN (BEAKER) (test code = 14.8 GM/DL 13.0-16.8 410) HEMATOCRIT (BEAKER) (test code = 42.5 % 36.0-50.0 411) MEAN CORPUSCULAR VOLUME (BEAKER) 93.4 fL 82.0-99.0 (test code = 753) MEAN CORPUSCULAR HEMOGLOBIN 32.5 pg 27.0-33.0 (BEAKER) (test code = 751) MEAN CORPUSCULAR HEMOGLOBIN CONC 34.8 GM/DL 32.0-36.0 (BEAKER) (test code = 752) RED CELL DISTRIBUTION WIDTH 12.9 % 12.0-15.0 (BEAKER) (test code = 412) PLATELET COUNT (BEAKER) (test 153 K/CU MM 150-430 code = 756) MEAN PLATELET VOLUME (BEAKER) 12.4 fL 6.0-11.5 H (test code = 754) NUCLEATED RED BLOOD CELLS 0 /100 WBC 0-0 (BEAKER) (test code = 413) NEUTROPHILS RELATIVE PERCENT 72 % (BEAKER) (test code = 429) LYMPHOCYTES RELATIVE PERCENT 15 % (BEAKER) (test code = 430) MONOCYTES RELATIVE PERCENT 11 % (BEAKER) (test code = 431) EOSINOPHILS RELATIVE PERCENT 0 % (BEAKER) (test code = 432) BASOPHILS RELATIVE PERCENT 0 % (BEAKER) (test code = 437) NEUTROPHILS ABSOLUTE COUNT 9.66 K/ L 1.80-8.00 H (BEAKER) (test code = 670) LYMPHOCYTES ABSOLUTE COUNT 2.06 K/ L 1.48-4.50 (BEAKER) (test code = 414) MONOCYTES ABSOLUTE COUNT (BEAKER) 1.49 K/ L 0.00-1.30 H (test code = 415) EOSINOPHILS ABSOLUTE COUNT 0.04 K/ L 0.00-0.50 (BEAKER) (test code = 416) BASOPHILS ABSOLUTE COUNT (BEAKER) 0.04 K/ L 0.00-0.20 (test code = 417) IMMATURE GRANULOCYTES-RELATIVE 0 % 0-0 PERCENT (BEAKER) (test code = 2801) POCT-GLUCOSE [id number] 16:35:00 Test Item Value Reference Range Interpretation Comments POC-GLUCOSE METER 202 mg/dL 70-110 H : Notified RN/MD: TESTED (BEAKER) (test code AT [address] = 1538) [facility] [address]: Rubber Mixer/Techni allen ID = [id number] for Octavia Garcia
--- NOTE | 2021-06-12 01:01 | EDPHYS ---
Physician Documentation [facility] Name: Trevor Miguel Age: 45 yrs Sex: Male : 1975 Arrival Date: 06/11/2021 Time: 22:44 Bed 28 Private MD: ED Physician Chris Saenz HPI: 06/12 06:23 This 45 yrs old Male presents to ER via Ambulatory with complaints of Hives. kdr 06:23 The patient presents with itching, rash, redness of skin. Onset: The symptoms/episode kdr began/occurred Last Tuesday night. Associated signs and symptoms: The patient has no apparent associated signs or symptoms. Possible causes: Terbinafine was started this last week. At home the patient or guardian has treated the symptoms with nothing. Severity of symptoms: At their worst the symptoms were mild moderate just prior to arrival, in the emergency department the symptoms are unchanged. The patient has not experienced similar symptoms in the past. The patient has not recently seen a physician. Historical: - Home Meds: 06/11 23:01 Insulin Glargine Sub-Q twice a day [Active]; vc1 - PMHx: 23:01 Diabetes - IDDM; vc1 - PSHx: 23:01 Open heart surgery; vc1 - Immunization history:: Adult Immunizations up to date, Client reports having NOT received the Covid vaccine. - Social history:: Smoking status: Patient reports the use of cigarette tobacco products, smokes one pack cigarettes per day. ROS: 06/12 06:23 Constitutional: Negative for fever, chills, and weight loss, Eyes: Negative for injury, kdr pain, redness, and discharge, ENT: Negative for injury, pain, and discharge, Neck: Negative for injury, pain, and swelling, Cardiovascular: Negative for chest pain, palpitations, and edema, Respiratory: Negative for shortness of breath, cough, wheezing, and pleuritic chest pain, Abdomen/GI: Negative for abdominal pain, nausea, vomiting, diarrhea, and constipation, Back: Negative for injury and pain, : Negative for injury, bleeding, discharge, and swelling, MS/Extremity: Negative for injury and deformity, Neuro: Negative for headache, weakness, numbness, tingling, and seizure activity. Psych: Negative for depression, anxiety, suicide ideation, homicidal ideation, and hallucinations, Allergy/Immunology: Negative for hives, rash, and allergies, Endocrine: Negative for neck swelling, polydipsia, polyuria, polyphagia, and marked weight changes, Hematologic/Lymphatic: Negative for swollen nodes, abnormal bleeding, and unusual bruising. Skin: Positive for rash. Exam: 06:23 Constitutional: This is a well developed, well nourished patient who is awake, alert, kdr and in no acute distress. Head/Face: Normocephalic, atraumatic. Eyes: Pupils equal round and reactive to light, extra-ocular motions intact. Lids and lashes normal. Conjunctiva and sclera are non-icteric and not injected. Cornea within normal limits. Periorbital areas with no swelling, redness, or edema. Neck: Trachea midline, no thyromegaly or masses palpated, and no cervical lymphadenopathy. Supple, full range of motion without nuchal rigidity, or vertebral point tenderness. No Meningismus. Chest/axilla: Normal chest wall appearance and motion. Nontender with no deformity. No lesions are appreciated. Cardiovascular: Regular rate and rhythm with a normal S1 and S2. No gallops, murmurs, or rubs. Normal PMI, no JVD. No pulse deficits. Respiratory: Lungs have equal breath sounds bilaterally, clear to auscultation and percussion. No rales, rhonchi or wheezes noted. No increased work of breathing, no retractions or nasal flaring. Abdomen/GI: Soft, non-tender, with normal bowel sounds. No distension or tympany. No guarding or rebound. No evidence of tenderness throughout. Back: No spinal tenderness. No costovertebral tenderness. Full range of motion. MS/ Extremity: Pulses equal, no cyanosis. Neurovascular intact. Full, normal range of motion. Neuro: Awake and alert, GCS 15, oriented to person, place, time, and situation. Cranial nerves II-XII grossly intact. Motor strength 5/5 in all extremities. Sensory grossly intact. Cerebellar exam normal. Normal gait. Psych: Awake, alert, with orientation to person, place and time. Behavior, mood, and affect are within normal limits. 06:23 Skin: rash a severe rash is noted, rash can be described as erythematous, macular, urticarial, drug rash. Vital Signs: 06/11 22:56 BP 120 / 72; Pulse 88; Resp 18; Temp 98.8; Pulse Ox 98% on R/A; Weight 77.11 kg; Height vc1 5 ft. 8 in. (172.72 cm); Pain 3/10; 18 00:19 BP 115 / 69; Pulse 78; Resp 18; Temp 98.5; Pulse Ox 100% on R/A; Pain 0/10; miroslava 01:19 BP 116 / 68; Pulse 76; Resp 18; Temp 98.5; Pulse Ox 100% on R/A; Pain 0/10; miroslava 06/11 22:56 Body Mass Index 25.85 (77.11 kg, 172.72 cm) vc1 MDM: 01:00 Patient medically screened. kdr 06:23 Data reviewed: vital signs, nurses notes, lab test result(s), radiologic studies. kdr Counseling: I had a detailed discussion with the patient and/or guardian regarding: the historical points, exam findings, and any diagnostic results supporting the discharge/admit diagnosis, the need for outpatient follow up. Administered Medications: 00:45 Drug: SOLU-Medrol (methylPREDNISolone sodium succinate) 125 mg Route: IM; Site: left miroslava gluteus; 01:18 Follow up: Response: No adverse reaction miroslava 00:45 Drug: Benadryl (diphenhydrAMINE) 50 mg Route: PO; miroslava 01:17 Follow up: Response: No adverse reaction miroslava Disposition Summary: 06/12/21 01:00 Discharge Ordered Location: Home kdr Problem: new kdr Symptoms: have improved kdr Condition: Stable kdr Diagnosis - Allergic urticaria kdr - Other allergy kdr Followup: kdr - With: Private Physician - When: 2 - 3 days - Reason: If symptoms return, Further diagnostic work-up, Recheck today's complaints, Continuance of care, Re-evaluation by your physician Discharge Instructions: - Discharge Summary Sheet kdr - Allergies, Adult kdr - Hives kdr Forms: - Medication Reconciliation Form kdr - Thank You Letter kdr Prescriptions: - Benadryl 25 mg Oral Capsule - take 1 capsule by ORAL route every 6 hours As needed; 30 tablet; Refills: 0, kdr Product Selection Permitted - Pepcid 20 mg Oral Tablet - take 1 tablet by ORAL route every 12 hours for 5 days; 10 tablet; Refills: 0, kdr Product Selection Permitted - Medrol (Nilesh) 4 mg Oral Tablets, Dose Pack - take 1 tablet by ORAL route as directed - follow package instructions; 1 kdr packet; Refills: 0, Product Selection Permitted Signatures: Chris Saenz MD MD kdr O'Farrell, Brenda, RN RN miroslava Gracie Garcia RN RN vc1
--- NOTE | 2021-06-12 01:01 | ER ---
Nurse's Notes [facility] Name: Trevor Miguel Age: 45 yrs Sex: Male : 1975 Arrival Date: 06/11/2021 Time: 22:44 Bed 28 Private MD: Diagnosis: Allergic urticaria;Other allergy Presentation: 06/11 22:56 Chief complaint: Spouse and/or significant other states: "He has had these spots since vc1 Tuesday night, it started out with a few then kind of spread out.". Coronavirus screen: Vaccine status: Patient reports being unvaccinated. Ebola Screen: No symptoms or risks identified at this time. Onset: The symptoms/episode began/occurred gradually. Anaphylaxis evaluation, no signs or symptoms of anaphylaxis were noted. Initial Sepsis Screen: Does the patient meet any 2 criteria? No. Patient's initial sepsis screen is negative. Does the patient have a suspected source of infection? No. Patient's initial sepsis screen is negative. Risk Assessment: Do you want to hurt yourself or someone else? Patient reports no desire to harm self or others. Onset of symptoms was June 06, 2021. 22:56 Method Of Arrival: Ambulatory vc1 22:56 Acuity: MEGAN 3 vc1 Triage Assessment: 23:01 General: Appears in no apparent distress. uncomfortable, Behavior is calm, cooperative, vc1 appropriate for age. Pain: Complains of pain in back and chest Pain does not radiate. Pain currently is 3 out of 10 on a pain scale. Derm: Rash noted that is itchy, red, on entire body. Historical: - Home Meds: 23:01 Insulin Glargine Sub-Q twice a day [Active]; vc1 - PMHx: 23:01 Diabetes - IDDM; vc1 - PSHx: 23:01 Open heart surgery; vc1 - Immunization history:: Adult Immunizations up to date, Client reports having NOT received the Covid vaccine. - Social history:: Smoking status: Patient reports the use of cigarette tobacco products, smokes one pack cigarettes per day. Screenin:33 Abuse screen: Denies threats or abuse. Nutritional screening: No deficits noted. ss7 Tuberculosis screening: No symptoms or risk factors identified. 23:36 Fall Risk None identified. ss7 Assessment: 23:33 General: Appears in no apparent distress. Pain: Denies pain. Neuro: No deficits noted. ss7 Cardiovascular: Heart tones S1 S2. Respiratory: Airway is patent Respiratory effort is even, Breath sounds are clear bilaterally. GI: No deficits noted. : No deficits noted. EENT: No deficits noted. Derm: Skin Rash noted that is itchy, red, raised, urticaria, on generalized. 06/12 00:29 Reassessment: Patient appears in no apparent distress at this time. I recv'd report on miroslava the pt in room 28. He is in NAD and his girlfriend is at bedside. The pt is [place] speaking mostly. Vital Signs: 06/11 22:56 BP 120 / 72; Pulse 88; Resp 18; Temp 98.8; Pulse Ox 98% on R/A; Weight 77.11 kg; Height vc1 5 ft. 8 in. (172.72 cm); Pain 3/10; 06/12 00:19 BP 115 / 69; Pulse 78; Resp 18; Temp 98.5; Pulse Ox 100% on R/A; Pain 0/10; miroslava 01:19 BP 116 / 68; Pulse 76; Resp 18; Temp 98.5; Pulse Ox 100% on R/A; Pain 0/10; miroslava 03 22:56 Body Mass Index 25.85 (77.11 kg, 172.72 cm) vc1 ED Course: 06/11 22:44 Patient arrived in ED. jj6 23:01 Triage completed. vc1 23:01 Arm band placed on right wrist. vc1 23:33 Mariza Ro RN is Primary Nurse. ss7 23:33 Patient has correct armband on for positive identification. Bed in low position. Call ss7 light in reach. 23:33 No provider procedures requiring assistance completed. ss7 23:50 Chris Saenz MD is Attending Physician. kdr 23:59 Report given to Yesenia Palacios. ss7 06/12 01:19 Patient did not have IV access during this emergency room visit. miroslava Administered Medications: 00:45 Drug: SOLU-Medrol (methylPREDNISolone sodium succinate) 125 mg Route: IM; Site: left miroslava gluteus; 01:18 Follow up: Response: No adverse reaction miroslava 00:45 Drug: Benadryl (diphenhydrAMINE) 50 mg Route: PO; miroslava 01:17 Follow up: Response: No adverse reaction miroslava Outcome: 00:20 Condition: stable miroslava 01:00 Discharge ordered by . kdr 01:18 Discharged to home ambulatory, with family. miroslava 01:18 Discharge instructions given to patient, Instructed on discharge instructions, follow up and referral plans. medication usage, Demonstrated understanding of instructions, follow-up care, medications, Prescriptions given X 3. 01:21 Patient left the ED. miroslava Signatures: Chris Saenz MD MD kdr Jeffries, Jennifer [id number] Suzanne Alvarado, RN RN miroslava Gracie Garcia RN RN vc1 Mariza Ro RN RN ss7
[2021-06-12] MEDS ORDERED: METHYLPREDNISOLONE 125 MG INJ ONE (01:04)
[2021-06-12] MEDS ORDERED: DIPHENHYDRAMINE 25 MG TAB/CAP ONE (01:04)
[2021-06-12 03:06] VITALS: TEMP 98.5; O2SAT 100
[2021-06-12 03:07] VITALS: BP 116/68
== END 2021-06-12 01:21 | disposition home or self-care (01) ==
LOC: ER 22:34
DX: L50.0 Allergic urticaria (principal); E11.9 Type 2 diabetes mellitus without complications; F17.210 Nicotine dependence, cigarettes, uncomplicated
CPT/HCPCS: 96372; 99283; J2930

== ENCOUNTER 2021-06-13 14:27 | Emergency (ER) | payer SELFPAY ==
--- OUTSIDE RECORDS SUMMARY | 2021-06-13 14:38 | XMS REPORT | Continuity of Care Document ---
:1975 Author Organization [facility] t Address [address] [place] [address] Care Team Providers Name Role Phone Pcp [...] 00 Type 1 Type 1 Problem Active Brgiht diabetes Diabetes 6-17 Roger mellitus Mellitus 00:00: Clinic 00 Tobacco Tobacco Problem Active Bright user User 07-17 Roger 00:00: Clinic 00 Coronary Coronary Problem Active [facility] arterioscl Arterioscl 4 Glenna se erosis erosis 00:00: Clinic 00 Depressive Depressive Problem Active S an disorder Disorder 06-27 Roger 00:00: Clinic 00 Acute Acute Problem Active [facility] non-ST non-ST 06-27 Roger segment Segment 00:00: Clinic elevation Elevation 00 myocardial Myocardial infarction Infarction s/p ACB x s/p ACB x Disease Active [facility] 07/01/20 by 07/01/20 by 00:00: [facility] juanito Lou 00 Ce nter Diabetes Diabetes Disease Active [facility] mellitus mellitus 10-24 [facility] - 00[facility]: Medical 00 Center Acute Acute Disease Active [facility] postoperat postoperat Monie kes - kimberlee pain kimberlee pain Medica l [place] Hyperglyce Hyperglyce Disease Active C [facility] dontae due to dontae due to Monie kes - type 1 type 1 Medical diabetes diabetes Center mellitus mellitus Insulin Insulin Disease Active [facility] dependent dependent ke s - diabetes diabetes Medica l mellitus mellitus Center type IA type IA Allergies, Adverse Reactions, Alerts Allergy Allergy Status Severity Reaction(s) Onset Inactive Treating Comm ents Source Name Type Date Date Clinician NO KNOWN Allergy Active [facility] Family History Family Member Diagnosis Comments Start Date Stop Date Source Natural brother Diabetes [facility] Natural mother Colon cancer [facility] Social History Social Habit Start Date [...] Brent es - 00:00:00 00:00:00 non-drinker Medical [place] maya (finding) Cigarettes smoked 2020-06-26 2020-06-[address] [facility] - current (pack per 00:00:00 00:00:00 Medical Center day) - Reported Cigarette 2020-06-26 2020-06-[address] [facility] - pack-years 00:00:00 00:00:00 Medical Center Tobacco use and 2020-06-26 2020-06-[address] [facility] Monie kes - exposure 00:00:00 00:00:00 Medical Center History [facility] 2020-06-26 2020-06-[address] [facility] - Alcohol Frequency 00:00:00 00:00:00 Medical Center History [facility] 2020-06-26 2020-06-[address] [facility] - Alcohol Binge 00:00:00 00:00:[address] [facility] Social 2020-06-26 2020-06-26 4 [facility] Phone 00:00:00 00:00:00 Medical Center History [facility] 2020-06-26 2020-06-26 4 [facility] Get 00:00:00 00:00:00 Medical C enter Together History [facility] Social 2020-06-26 2020-06-26 1 [facility] Latter-Day 00:00:00 00:00:00 Medica l Center History [facility] Social 2020-06-26 2020-06-26 2 [facility]00 00:00:00 Medical Cente r Membership History [facility] Social 2020-06-26 2020-06-26 98 [facility] 00:[facility]00 00:00:00 Medical Cente r Meetings History [facility] Social 2020-06-26 2020-06-26 3 [facility] Living 00:00:00 00:00:00 Medica l Center History [facility] 2020-06-26 2020-06-[address] [facility] - Physical Activity 00:00:00 00:00:00 Medical Center DPW History [facility] 2020-06-26 2020-06-[address] [facility] - Physical Activity 00:00:00 00:00:00 Medical Center MPS History [facility] Stress 2020-06-26 2020-06-26 3 [facility]00 Medical Center History SDOH IPV [...] [address] [facility] - 00:00:00 00:00:00 [facility] Center Sex Assigned At [address] Monie kes - 00:00:00 00:00:00 [facility] Smoking Status Start Date Stop Date Source Current Every Day Smoker [facility] Medications Ordered Filled Start Stop Current Ordering Indication Dosage Frequency Signature Comments Components Source Medication Medication Date Date Medication? Clinician (SIG) Name Name insulin Yes 20U Q.5D Inject [facility] aspart 4-23 20-22 [facility] - protamine-i 10:29: Units Medic al nsulin 21 [facility] aspart [facility] 2 (NovoLOG (two) Mix times 70-30FlexPe daily 22 n U-100) in AM and 100 unit/mL 20 in PM. (70-30) injection insulin 2020- No 20U Inject [address] 70/30, 4-23 04-23 Units [facility] - insulin 10:29: 00:00 [facility] ical NPH-insulin 16 :00 [facility] 2 [place] regular, (two) (HumuLIN times 70/30) 100 daily [...] days. Max Daily Amount: 4 tablets traMADoL 0 2020- No 50mg Take [address] [facility] [facility] (ULTRAM) 50 4-13 -23 tablet (50 L ukes - mg tablet [...] by oral route. sildenafil sildenafil No sildenafil Brihgt 50 mg 50 mg 50 mg Roger [...] Source Name Name HPV9 HPV9 2021-05-[address] [place] 12:25:00 Clinic Hep B, adult Hep B, adult 2021-05-27 [facility] Jose 12:24:16 Clinic HPV9 HPV9 2021-03-04 [address] [employer] 17:03:00 Clinic Hep B, adult Hep B, adult 2021-03-04 [facility] 17:00:00 Clinic pneumococcal pneumococcal 2021-02-[address] [employer] polysaccharide PPV23 polysaccharide PPV23 17:20:00 Clinic influenza, influenza, 2021-02-26 [facility] Jose injectable, injectable, 17:19:00 Clinic quadrivalent, quadrivalent, preservative [...] kg BP Diastolic 2021-06-06 00:00:00 69 mm[Hg] [facility] Height 2021-06-06 00:00:00 67 [in_i] [facility] BMI (Body Mass Index) 2021-06-06 00:00:00 27.8 kg/m2 [facility] BP Systolic 2021-06-06 00:00:00 122 mm[Hg] [facility] Body Weight 2021-06-06 00:00:00 177.7 [lb_av] [facility] Height 2021-03-04 00:00:00 67 [in_i] [facility] BP Diastolic 2021-02-26 00:00:00 81 mm[Hg] [facility] Height 2021-02-26 00:00:00 67 [in_i] [facility] BMI (Body Mass Index) 2021-02-26 00:00:00 25.5 kg/m2 [facility] BP Systolic 2021-02-26 00:00:00 120 mm[Hg] [facility] Body Weight 2021-02-26 00:00:00 163.1 [lb_av] [facility] BP Diastolic 2021-01-10 00:00:00 79 mm[Hg] [facility] Height 2021-01-10 00:00:00 67 [in_i] [facility] BMI (Body Mass Index) 2021-01-10 00:00:00 25.1 kg/m2 [facility] BP Systolic 2021-01-10 00:00:00 118 mm[Hg] [facility] Body Weight 2021-01-10 00:00:00 160 [lb_av] [facility] Height 2020-12-24 00:00:00 67 [in_i] [facility] Height 2020-11-25 00:00:00 67 [in_i] [facility] BMI (Body Mass Index) 2020-11-25 00:00:00 24.4 kg/m2 [facility] Body Weight 2020-11-25 00:00:00 156 [lb_av] [facility] Height 2020-09-24 00:00:00 67 [in_i] [facility] BP Diastolic 2020-09-11 00:00:00 70 mm[Hg] [facility] Height 2020-09-11 00:00:00 67 [in_i] [facility] BMI (Body Mass Index) 2020-09-11 00:00:00 25.4 kg/m2 [facility] BP Systolic 2020-09-11 00:00:00 105 mm[Hg] [facility] Body Weight 2020-09-11 00:00:00 162 [lb_av] [facility] HEIGHT 2020-08-14 13:08:00 170.2 cm WEIGHT 2020-08-14 13:08:00 72.576 kg HEIGHT 2020-08-14 13:08:00 170.2 cm WEIGHT 2020-08-14 13:08:00 72.576 kg HEIGHT 2020-07-18 09:39:00 170.2 cm WEIGHT 2020-07-18 09:39:00 71.85 kg HEIGHT 2020-07-18 09:39:00 170.2 cm WEIGHT 2020-07-18 09:39:00 71.85 kg BP Diastolic 2020-07-17 00:00:00 71 mm[Hg] [facility] Height 2020-07-17 00:00:00 67 [in_i] [facility] BMI (Body Mass Index) 2020-07-17 00:00:00 24.9 kg/m2 [facility] BP Systolic 2020-07-17 00:00:00 108 mm[Hg] [facility] Body Weight 2020-07-17 00:00:00 158.8 [lb_av] [facility] WEIGHT 2020-07-08 05:15:00 75.524 kg WEIGHT 2020-07-06 06:00:00 76.2 kg WEIGHT 2020-07-05 06:00:00 76.5 kg WEIGHT 2020-07-04 06:00:00 76.522 kg WEIGHT 2020-07-03 05:00:00 76.9 kg WEIGHT 2020-06-29 08:00:00 75.1 kg HEIGHT 2020-06-28 05:00:00 170.2 cm WEIGHT 2020-06-28 05:00:00 74.9 kg HEIGHT 2020-06-26 17:30:00 170.2 cm WEIGHT 2020-06-26 17:30:00 75.6 kg Systolic blood 2020-08-14 13:08:00 92 mm[Hg] [facility] Diastolic blood 2020-08-14 13:08:00 60 mm[Hg] [facility] Heart rate 2020-08-14 13:08:00 91 /min [facility] Body temperature 2020-08-14 13:08:00 36.56 Tonia [facility] Respiratory rate 2020-08-14 13:08:00 18 /min [facility] Body height 2020-08-14 13:08:00 170.2 cm [facility] Body weight 2020-08-14 13:08:00 72.576 kg [facility] BMI 2020-08-14 13:08:00 25.06 kg/m2 [facility] Oxygen saturation in 2020-08-14 13:08:00 100 /min room air [facility] Arterial blood by Medical Ce nter Pulse oximetry Procedures Procedure Date / Time Performing Clinician Source Performed ELECTROCARDIOGRAM, 2021-01-10 00:00:00 [facility] ROUTINE W/AT LEAST 12 LEADS; INTERPRETATION & REPORT ONLY BASIC METABOLIC PANEL (7) 2020-07-18 10:49:00 Emely Hernandes [facility] MAGNESIUM 2020-07-18 10:49:00 Emely Hernandes [facility] Bypass 2020-07-12 00:00:00 [facility] chris POCT-GLUCOSE METER 2020-07-08 07:29:00 Molly Sahni [facility] CBC W/PLT COUNT & AUTO 2020-07-08 04:54:00 Lew Sosa [facility] BASIC METABOLIC PANEL (7) 2020-07-08 04:54:00 Lew Sosa [facility] MAGNESIUM 2020-07-08 04:54:00 Lew Sosa [facility] CBC W/PLT COUNT & AUTO 2020-07-08 04:54:00 Lew Sosa [facility] POCT-GLUCOSE METER 2020-07-07 21:39:00 BoraMolly [facility] POCT-GLUCOSE METER 2020-07-07 17:04:00 BoraMolly [facility] LIMITED 2D ECHOCARDIOGRAM 2020-07-07 14:52:39 Marissa Borges [facility] POCT-GLUCOSE METER 2020-07-07 12:07:00 Brisa [facility] POCT-GLUCOSE METER 2020-07-07 07:55:00 [facility] PO[facility]SE [facility]ER 2020-07-07 06:19:00 [facility] POCT-GLUCOSE METER 2020-07-07 05:28:00 [facility] 1 VIEW PORTABLE 2020-07-07 05:16:[address] [facility] BEDSIDE [facility] POCT-GLUCOSE METER 2020-07-07 05:09:00 Javedangelina [facility] CBC W/PLT COUNT & AUTO 2020-07-07 04:29:00 Lew Sosa [facility] BASIC METABOLIC PANEL (7) 2020-07-07 04:29:00 Lew Sosa [facility] MAGNESIUM 2020-07-07 04:29:00 Lew Sosa [facility] CBC W/PLT COUNT & AUTO 2020-07-07 04:29:00 Lew Sosa [facility] (CELLAVISION MANUAL DIFF) 2020-07-07 04:29:00 Lew Sosa [facility] POCT-GLUCOSE METER 2020-07-06 21:40:00 Ala, [facility] POCT-GLUCOSE METER 2020-07-06 17:41:00 Ala, [facility] POCT-GLUCOSE METER 2020-07-06 17:29:00 Ala, [facility] POCT-GLUCOSE METER 2020-07-06 16:43:00 Ala, [facility] POCT-GLUCOSE METER 2020-07-06 11:29:00 Ala, [facility] POCT-GLUCOSE METER 2020-07-06 07:13:00 Ala, [facility] POCT-GLUCOSE METER 2020-07-06 06:14:00 [facility] CBC W/PLT COUNT & AUTO 2020-07-06 05:26:00 Lew Sosa [facility] BASIC METABOLIC PANEL (7) 2020-07-06 05:26:00 Lew Sosa [facility] MAGNESIUM 2020-07-06 05:26:00 Lew Sosa [facility] W/PLT COUNT & AUTO 2020-07-06 05:26:00 Rickie Doyle [facility] SARS-COV2/RT-PCR ([facility] & 2020-07-06 01:39:00 Lew Sosa [facility] REF LABS) [facility] XR CHEST 1 VIEW PORTABLE 2020-07-06 00:48:00 Lew Sosa [facility] - / BEDSIDE [facility] POCT-GLUCOSE METER 2020-07-05 20:23:00 [facility] POCT-GLUCOSE METER 2020-07-05 16:50:00 [facility], [facility] POCT-GLUCOSE METER 2020-07-05 11:32:00 Alam, [facility] POCT-GLUCOSE METER 2020-07-05 07:38:00 Alaangelina [facility] CBC W/PLT COUNT & AUTO 2020-07-05 04:58:00 Lew Sosa [facility] BASIC METABOLIC PANEL (7) 2020-07-05 04:58:00 Lew Sosa [facility] MAGNESIUM 2020-07-05 04:58:00 Lew Sosa [facility] CBC W/PLT COUNT & AUTO 2020-07-05 04:58:00 Rickie Doyle [facility] (CELLAVISION MANUAL DIFF) 2020-07-05 04:58:00 Rickie Doyle [facility] XR CHEST 1 VIEW PORTABLE 2020-07-05 00:38:[address] [facility] / BEDSIDE [facility] POCT-GLUCOSE METER 2020-07-04 21:31:00 [facility] POCT-GLUCOSE METER 2020-07-04 16:42:00 Alam, [facility] POCT-GLUCOSE METER 2020-07-04 11:05:00 Alaangelina, [facility] POCT-GLUCOSE METER 2020-07-04 07:01:00 Alaangelina, [facility] POCT-GLUCOSE METER 2020-07-04 05:55:00 Alam, [facility] POCT-GLUCOSE METER 2020-07-04 05:09:00 Alaangelina, [facility] CBC W/PLT COUNT & AUTO 2020-07-04 04:08:00 Lew Sosa [facility] BASIC METABOLIC PANEL (7) 2020-07-04 04:08:00 Lew Sosa [facility] MAGNESIUM 2020-07-04 04:08:00 Lew Sosa [facility] C-PEPTIDE 2020-07-04 04:08:00 Johnny Persaud [facility] OXYGEN SATURATION, 2020-07-04 04:08:00 Tricia Morillo [facility] CBC W/PLT COUNT & AUTO 2020-07-04 04:08:00 Rickie Doyle [facility] (CELLAVISION MANUAL DIFF) 2020-07-04 04:08:00 Rickie Doyle [facility] POCT-GLUCOSE METER 2020-07-04 03:30:00 Alaangelina [facility] POCT-GLUCOSE METER 2020-07-04 02:25:00 [facility] POCT-GLUCOSE METER 2020-07-04 01:22:00 Brisa [facility] XR CHEST 1 VIEW PORTABLE 2020-07-04 00:12:[address] [facility] BEDSIDE [facility] POCT-GLUCOSE METER 2020-07-03 23:53:00 Ala, [facility] POCT-GLUCOSE METER 2020-07-03 21:11:00 [facility] BASIC METABOLIC PANEL (7) 2020-07-03 20:33:00 Tricia Morillo [facility] POCT-GLUCOSE METER 2020-07-03 20:16:00 Ala, [facility] POCT-GLUCOSE METER 2020-07-03 19:52:00 [facility]BDOMEN / KUB 1 VIEW 2020-07-03 19:00:00 Tia Jain CH, I [facility] POCT-GLUCOSE METER 2020-07-03 18:03:00 Alam, [facility] POCT-GLUCOSE METER 2020-07-03 16:24:00 Alam, [facility] POCT-GLUCOSE METER 2020-07-03 15:28:00 Brisa [facility] POCT-GLUCOSE METER 2020-07-03 14:26:00 [facility] OXYGEN SATURATION, 2020-07-03 14:04:00 Iginiamre [facility] CALCIUM, IONIZED 2020-07-03 14:00:00 Iginiamre [facility] URINALYSIS W/ MICROSCOPIC 2020-07-03 14:00:00 Iginiamre [facility] MAGNESIUM 2020-07-03 13:59:[facility] BAS[facility] METABOLIC PANEL (7) 2020-07-03 13:59:00 Jr Srinathvenusjane [facility] PHOSPHORUS 2020-07-03 13:59:00 Jr Srinathvenusjane [facility] TSH/FREE T4 IF INDICATED 2020-07-03 13:59:00 Marissa Borges [facility] POCT-GLUCOSE METER 2020-07-03 13:37:00 [facility] POCT-GLUCOSE METER 2020-07-03 12:30:00 [facility] BLOOD GAS, ARTERIAL 2020-07-03 11:21:00 Tricia Morillo [facility] KETONE, BLOOD 2020-07-03 11:19:00 Tricia Morillo [facility] BEN-65 2020-07-03 11:19:00 Cori, [facility] ISLET CELL AB SCR 2020-07-03 11:19:00 Deal [facility] ISLET CELL AB SCREEN 2020-07-03 11:19:00 Deal, [facility] ISLET CELL AB TITER 2020-07-03 11:19:00 Deal, Johnny Morgan [facility] POCT-GLUCOSE METER 2020-07-03 11:13:00 Javedangelina [facility] POCT-GLUCOSE METER 2020-07-03 10:08:00 [facility] XR ABDOMEN / KUB 1 VIEW 2020-07-03 09:05:00 Fortino P[facility] POCT-GLUCOSE METER 2020-07-03 08:53:00 Brisa [facility] PHOSPHORUS 2020-07-03 08:07:00 Mireya Yo [facility] BASIC METABOLIC PANEL (7) 2020-07-03 08:07:00 Tricia Morillo [facility] CALCIUM, IONIZED 2020-07-03 08:07:[address] [facility] AMYLASE 2020-07-03 08:07:00 Tricia Morillo [facility] HEPATIC FUNCTION PANEL 2020-07-03 08:07:00 Tricia Morillo [facility] LIPASE 2020-07-03 08:07:00 Tricia Morillo [facility] MAGNESIUM 2020-07-03 08:07:00 Mireya Yo [facility] POCT-GLUCOSE METER 2020-07-03 08:05:00 Brisa [facility] ECG 12-LEAD 2020-07-03 06:41:04 Tricia Morillo [facility] POCT-GLUCOSE METER 2020-07-03 06:24:00 Brisa [facility] POCT-GLUCOSE METER 2020-07-03 05:10:00 [facility] X[facility] CHEST 1 VIEW PORTABLE 2020-07-03 04:54:[address] [facility] / BEDSIDE [facility] BASIC METABOLIC PANEL (7) 2020-07-03 04:21:00 Mireya Yo [facility] PHOSPHORUS 2020-07-03 04:21:00 Jr Srinathvenusjane Elizalde [facility] MAGNESIUM 2020-07-03 04:21:00 Mireya Yo [facility] POCT-GLUCOSE METER 2020-07-03 04:20:00 Brisa [facility] ECG 12-LEAD 2020-07-03 03:51:[address] [facility] POCT-GLUCOSE METER 2020-07-03 03:08:00 Brisa [facility] POCT-GLUCOSE METER 2020-07-03 02:09:00 [facility] GLUCOSE 2020-07-03 01:51:00 Ted Deshpande [facility] MAGNESIUM 2020-07-03 01:51:00 Tricia Morillo [facility] PHOSPHORUS 2020-07-03 01:51:00 Tricia Morillo [facility] BLOOD CULTURE 2020-07-03 00:45:00 Jr Srinathvenusjane Elizalde [facility] OXYGEN SATURATION, 2020-07-03 00:45:00 Tricia Morillo [facility] BLOOD CULTURE 2020-07-03 00:44:00 Jr Srinathvenusjane Elizalde [facility] PHOSPHORUS 2020-07-03 00:44:00 Srinath Mireya Elizalde [facility] MAGNESIUM 2020-07-03 00:44:00 Jr Srinathvenusjane Elizalde [facility] CBC W/PLT COUNT & AUTO 2020-07-03 00:44:00 Lew Sosa [facility] CBC W/PLT COUNT & AUTO 2020-07-03 00:44:00 Rickie Doyle [facility] PREPARE PLATELETS 2020-07-02 23:55:00 Rohan Lou [facility] POCT-GLUCOSE METER 2020-07-02 23:30:00 Brisa [facility] BLOOD GAS, ARTERIAL 2020-07-02 23:22:00 Srinath [facility] POTASSIUM-STAT LAB 2020-07-02 23:21:00 Srinath [facility] BASIC METABOLIC PANEL (7) 2020-07-02 23:21:00 Srinath [facility] LACTIC ACID, ARTERIAL 2020-07-02 23:21:00 Srinath [facility] KETONE, BLOOD 2020-07-02 23:21:00 Srinath [facility] PHOSPHORUS 2020-07-02 23:21:00 Srinath [facility] BASIC METABOLIC PANEL (7) 2020-07-02 20:35:00 Tricia Morillo [facility] MAGNESIUM 2020-07-02 20:35:00 Tricia Morillo [facility] PHOSPHORUS 2020-07-02 20:35:00 [facility] LACTIC ACID, ARTERIAL 2020-07-02 20:35:00 Tricia Morillo [facility] POCT-GLUCOSE METER 2020-07-02 18:44:00 Brisa [facility] POCT-GLUCOSE METER 2020-07-02 12:21:00 Brisa [facility] POCT-GLUCOSE METER 2020-07-02 11:35:00 Brisa, [facility] POCT-GLUCOSE METER 2020-07-02 10:27:00 Brisa [facility] POCT-GLUCOSE METER 2020-07-02 10:16:00 [facility] OXYGEN SATURATION, 2020-07-02 09:58:00 Jojo Butcher [facility] POCT-GLUCOSE METER 2020-07-02 09:42:00 Brisa [facility] POCT-GLUCOSE METER 2020-07-02 08:41:00 Brisa [facility] RRL CRITICAL LABS 2020-07-02 05:55:00 Lamont Schuler [facility] (ABG,NA,K,H&H,GLUCOSE) Medical C enter BLOOD GAS, ARTERIAL 2020-07-02 05:55:00 Lamont Schuler [facility] SODIUM NA-STAT LAB 2020-07-02 05:55:00 [place], [facility] POTASSIUM-STAT LAB 2020-07-02 05:55:00 TolucaMalorie mtzyola [facility] GLUCOSE-STAT LAB 2020-07-02 05:55:00 Harini [facility] HGB/HCT (H&H) - STAT LAB 2020-07-02 05:55:00 Lamont Schuler [facility] POCT-GLUCOSE METER 2020-07-02 05:01:00 Brisa [facility] CBC W/PLT COUNT & AUTO 2020-07-02 02:49:00 [facility] BASIC METABOLIC PANEL (7) 2020-07-02 02:49:00 Lew Sosa [facility] MAGNESIUM 2020-07-02 02:49:00 Lew Sosa [facility] PHOSPHORUS 2020-07-02 02:49:[address] [facility] RRL CRITICAL LABS 2020-07-02 02:49:[address] [facility] (ABG,NA,K,H&H,GLUCOSE) Medical C enter BLOOD GAS, ARTERIAL 2020-07-02 02:49:00 Rohan Lou [facility] SODIUM NA-STAT LAB 2020-07-02 02:49:00 Dasha Rohan [facility] POTASSIUM-STAT LAB 2020-07-02 02:49:00 Dasha Rohan [facility] GLUCOSE-STAT LAB 2020-07-02 02:49:00 Dasha [facility] HGB/HCT (H&H) - STAT LAB 2020-07-02 02:49:[address] [facility] CBC W/PLT COUNT & AUTO 2020-07-02 02:49:00 Rickie Doyle [facility] BLOOD GAS, ARTERIAL 2020-07-02 01:44:00 Lamont Schuler [facility] RRL CRITICAL LABS 2020-07-02 01:44:00 Rohan Lou [facility] (ABG,NA,K,H&H,GLUCOSE) [facility] C enter SODIUM NA-STAT LAB 2020-07-02 01:44:[address] [facility] POTASSIUM-STAT LAB 2020-07-02 01:44:00 Rohan Lou [facility] GLUCOSE-STAT LAB 2020-07-02 01:44:00 Dasha Rohan [facility] HGB/HCT (H&H) - STAT LAB 2020-07-02 01:44:[address] [facility] MAGNESIUM 2020-07-02 01:44:00 Rickie Doyle [facility] LACTIC ACID, ARTERIAL 2020-07-02 01:44:00 Dasha Rohan [facility] POCT-GLUCOSE METER 2020-07-02 01:17:00 Lei Pierson [facility] XR CHEST 1 VIEW PORTABLE 2020-07-02 00:25:[address] [facility] RRL CRITICAL LABS 2020-07-01 23:59:00 Lamont Schuler [facility] (ABG,NA,K,H&H,GLUCOSE) Medical C enter BLOOD GAS, ARTERIAL 2020-07-01 23:59:00 Lamont Schuler [facility] SODIUM NA-STAT LAB 2020-07-01 23:59:00 Lamont Schuler [facility] POTASSIUM-STAT LAB 2020-07-01 23:59:00 Lamont Schuler [facility] GLUCOSE-STAT LAB 2020-07-01 23:59:00 Lamont Schuler [facility] HGB/HCT (H&H) - STAT LAB 2020-07-01 23:59:00 Lamont Schuler [facility] PREPARE RBC 2020-07-01 23:30:00 Rohan Lou [facility] ECG 12-LEAD 2020-07-01 23:19:[address] [facility] MAGNESIUM 2020-07-01 23:02:00 [facility] PHOSPHORUS 2020-07-01 23:02:00 Scout [facility] RRL CRITICAL LABS 2020-07-01 23:02:00 Lamont Schuler [facility] (ABG,NA,K,H&H,GLUCOSE) Medical C enter CBC W/PLT COUNT & AUTO 2020-07-01 23:02:00 Lamont Schuler [facility] COMPREHENSIVE METABOLIC 2020-07-01 23:02:00 Lamont Schuler [facility] LACTIC ACID, ARTERIAL 2020-07-01 23:02:00 Lamont Schuler [facility] OXYGEN SATURATION, 2020-07-01 23:02:00 Lamont Schuler [facility] CALCIUM, IONIZED 2020-07-01 23:02:00 Lamont Schuler [facility] PROTHROMBIN TIME/INR 2020-07-01 23:02:00 Lamont Schuler Kat C HI [facility] APTT 2020-07-01 23:02:00 [facility] FIBRINOGEN 2020-07-01 23:02:00 Harini [facility] BLOOD GAS, ARTERIAL 2020-07-01 23:02:00 Lamont Schuler Kat CH I [facility] SODIUM NA-STAT LAB 2020-07-01 23:02:00 aHrini [facility] POTASSIUM-STAT LAB 2020-07-01 23:02:00 Harini [facility] GLUCOSE-STAT LAB 2020-07-01 23:02:00 Toluca [facility] HGB/HCT (H&H) - STAT LAB 2020-07-01 23:02:00 Malorie Schuleryola [facility] CBC W/PLT COUNT & AUTO 2020-07-01 23:02:00 [facility]IT[facility]S 2020-07-01 22:27:34 Jenniffer Watts [facility] (ABG,NA,K,H&H,GLUCOSE) Medical C enter CALCIUM, IONIZED 2020-07-01 22:27:34 Jenniffer Watts [facility] BLOOD GAS, ARTERIAL 2020-07-01 22:27:34 Jenniffer Watts [facility] SODIUM NA-STAT LAB 2020-07-01 22:27:34 Jenniffer Watts [facility] POTASSIUM-STAT LAB 2020-07-01 22:27:34 Jenniffer Watts [facility] GLUCOSE-STAT LAB 2020-07-01 22:27:34 Jenniffer Watts [facility] HGB/HCT (H&H) - STAT LAB 2020-07-01 22:27:34 Jenniffer Watts [facility] POCT-ACT 2020-07-01 21:54:00 Lei Pierson [facility] TRANSFUSE LEUKO-REDUCED 2020-07-01 21:46:[address] [facility] PLATELETS [facility] RRL CRITICAL LABS 2020-07-01 21:40:44 Jenniffer Watts [facility] (ABG,NA,K,H&H,GLUCOSE) Medical C enter CALCIUM, IONIZED 2020-07-01 21:40:44 Jenniffer Watts [facility] PROTHROMBIN TIME/INR 2020-07-01 21:40:44 Jenniffer Watts CH I [facility] APTT 2020-07-01 21:40:44 Jenniffer Watts [facility] FIBRINOGEN 2020-07-01 21:40:44 Jenniffer Watts [facility] PLATELET COUNT 2020-07-01 21:40:44 Jenniffer Watts [facility] BLOOD GAS, ARTERIAL 2020-07-01 21:40:44 Jenniffer Watts [facility] SODIUM NA-STAT LAB 2020-07-01 21:40:44 Jenniffer Watts [facility] POTASSIUM-STAT LAB 2020-07-01 21:40:44 Jenniffer Watts [facility] GLUCOSE-STAT LAB 2020-07-01 21:40:44 Jenniffer Watts [facility] HGB/HCT (H&H) - STAT LAB 2020-07-01 21:40:44 Jenniffer Watts [facility] CBC W/PLT COUNT & AUTO 2020-07-01 21:40:00 Siena Butterfield [facility] CBC W/PLT COUNT & AUTO 2020-07-01 21:40:00 Siena Butterfield [facility] RRL CRITICAL LABS 2020-07-01 21:05:[address] [facility] (ABG,NA,K,H&H,GLUCOSE) Medical C enter BLOOD GAS, ARTERIAL 2020-07-01 21:05:25 Rohan Lou [facility] SODIUM NA-STAT LAB 2020-07-01 21:05:25 Rohan Lou [facility] POTASSIUM-STAT LAB 2020-07-01 21:05:25 Rohan Lou [facility] GLUCOSE-STAT LAB 2020-07-01 21:05:25 Rohan Lou [facility] HGB/HCT (H&H) - STAT LAB 2020-07-01 21:05:25 Rohan Lou [facility] POCT-ACT 2020-07-01 21:05:00 [facility] POCT-ACT 2020-07-01 20:32:00 [facility] RRL CRITICAL LABS 2020-07-01 20:30:38 Rohan Lou [facility] (ABG,NA,K,H&H,GLUCOSE) Medical C enter BLOOD GAS, ARTERIAL 2020-07-01 20:30:38 Rohan Lou [facility] SODIUM NA-STAT LAB 2020-07-01 20:30:38 Rohan Lou [facility] POTASSIUM-STAT LAB 2020-07-01 20:30:38 Rohan Lou [facility] GLUCOSE-STAT LAB 2020-07-01 20:30:38 Rohan Lou [facility] HGB/HCT (H&H) - STAT LAB 2020-07-01 20:30:38 Rohan Lou [facility] POCT-ACT 2020-07-01 20:02:00 [facility] RRL CRITICAL LABS 2020-07-01 20:00:10 [facility] (ABG,NA,K,H&H,GLUCOSE) Medical C enter BLOOD GAS, ARTERIAL 2020-07-01 20:00:10 Dasha Rohan yolanda [facility] SODIUM NA-STAT LAB 2020-07-01 20:00:10 Dasha Rohan [facility] POTASSIUM-STAT LAB 2020-07-01 20:00:10 Rohan Lou [facility] GLUCOSE-STAT LAB 2020-07-01 20:00:10 Dasha [facility] HGB/HCT (H&H) - STAT LAB 2020-07-01 20:00:10 Dasha Rohansal Gallegos [facility] POCT-ACT 2020-07-01 19:34:[address] [facility] RRL CRITICAL LABS 2020-07-01 19:31:53 Rohan Lou [facility] (ABG,NA,K,H&H,GLUCOSE) Medical C enter BLOOD GAS, ARTERIAL 2020-07-01 19:31:53 Rohan Lou yoladna [facility] SODIUM NA-STAT LAB 2020-07-01 19:31:[address] [facility] POTASSIUM-STAT LAB 2020-07-01 19:31:53 Dasha Rohan [facility] GLUCOSE-STAT LAB 2020-07-01 19:31:53 Rohan Lou [facility] HGB/HCT (H&H) - STAT LAB 2020-07-01 19:31:53 Rohan Lou [facility] POCT-ACT 2020-07-01 19:10:00 [facility] ANESTHESIA ROSALINDA 2020-07-01 18:35:35 Jenniffer Watts [facility] POCT-ACT 2020-07-01 17:26:00 Lei Pierson [facility] RRL CRITICAL LABS 2020-07-01 17:21:59 Jenniffer Watts [facility] (ABG,NA,K,H&H,GLUCOSE) [facility] C enter CALCIUM, IONIZED 2020-07-01 17:21:59 Jenniffer Watts [facility] BLOOD GAS, ARTERIAL 2020-07-01 17:21:59 Jenniffer Watts [facility] SODIUM NA-STAT LAB 2020-07-01 17:21:59 Jenniffer Watts [facility] POTASSIUM-STAT LAB 2020-07-01 17:21:59 Jenniffer Watts [facility] GLUCOSE-STAT LAB 2020-07-01 17:21:59 Jenniffer Watts [facility] HGB/HCT (H&H) - STAT LAB 2020-07-01 17:21:59 Jenniffer Watts [facility] BYPASS,AORTO CORONARY 2020-07-01 16:40:[address] [facility] MAURICIO/SVG [facility] ENDOSCOPIC HARVEST,VEIN 2020-07-01 16:40:00 Rohan Lou [facility] STERNOTOMY 2020-07-01 16:40:00 Rohan Lou [facility] POCT-GLUCOSE METER 2020-07-01 16:09:00 Brisa [facility] POCT-GLUCOSE METER 2020-07-01 14:22:00 Brisa [facility] POCT-GLUCOSE METER 2020-07-01 12:07:00 Brisa [facility] POCT-GLUCOSE METER 2020-07-01 10:13:00 Brisa [facility] HC VENOUS DOPPLER EXT UNI 2020-07-01 09:57:00 Marissa Borges [facility] POCT-GLUCOSE METER 2020-07-01 08:59:00 Brisa [facility] POCT-GLUCOSE METER 2020-07-01 08:06:00 Brisa [facility] POCT-GLUCOSE METER 2020-07-01 06:51:00 Brisa [facility] POCT-GLUCOSE METER 2020-07-01 04:45:00 Brisa [facility] CBC W/PLT COUNT & AUTO 2020-07-01 04:39:00 Lew Sosa [facility] BASIC METABOLIC PANEL (7) 2020-07-01 04:39:00 Lew Sosa [facility] MAGNESIUM 2020-07-01 04:39:00 Lew Sosa [facility] APTT 2020-07-01 04:39:00 Lew Sosa [facility] CBC W/PLT COUNT & AUTO 2020-07-01 04:39:00 Rickie Doyle [facility] POCT-GLUCOSE METER 2020-07-01 03:16:00 Brisa [facility] POCT-GLUCOSE METER 2020-07-01 02:07:00 Brisa [facility] POCT-GLUCOSE METER 2020-07-01 00:49:00 Javedangelina [facility] ABORH, MANUAL 2020-07-01 00:30:00 Casie Gaspar [facility] XR CHEST 1 VIEW PORTABLE 2020-07-01 00:22:[address] [facility] BEDSIDE [facility] HEMOGLOBIN A1C 2020-06-30 23:01:00 Jacqueline [facility] LIPID PANEL 2020-06-30 23:01:00 Jacqueline [facility] TYPE AND SCREEN, 2020-06-30 23:01:00 Tony Phillips [facility] POCT-GLUCOSE METER 2020-06-30 22:57:00 Alam, [facility] POCT-GLUCOSE METER 2020-06-30 21:30:00 Ala, [facility] POCT-GLUCOSE METER 2020-06-30 20:13:00 Alam, [facility] POCT-GLUCOSE METER 2020-06-30 19:15:00 Ala, [facility] POCT-GLUCOSE METER 2020-06-30 18:03:00 Ala, [facility] ECG 12-LEAD 2020-06-30 17:37:17 Unknown, Hl7 [facility] ECG 12-LEAD 2020-06-30 17:37:17 Unknown, Hl7 [facility] POCT-GLUCOSE METER 2020-06-30 17:01:00 Ala, [facility] POCT-GLUCOSE METER 2020-06-30 15:43:00 Ala, [facility] POCT-GLUCOSE METER 2020-06-30 14:32:00 Ala, [facility] POCT-GLUCOSE METER 2020-06-30 13:37:00 Ala, [facility] POCT-GLUCOSE METER 2020-06-30 12:30:00 Ala, [facility] POCT-GLUCOSE METER 2020-06-30 11:28:00 Ala, [facility] ECG 12-LEAD 2020-06-30 10:59:40 Unknown, 7 [facility] POCT-GLUCOSE METER 2020-06-30 10:30:00 Alam, [facility] POCT-GLUCOSE METER 2020-06-30 07:27:00 Alam, [facility] POCT-GLUCOSE METER 2020-06-30 06:10:00 Brisa [facility] POCT-GLUCOSE METER 2020-06-30 04:28:00 Brisa [facility] CBC W/PLT COUNT & AUTO 2020-06-30 04:26:00 Sheila Hackett [facility] BASIC METABOLIC PANEL (7) 2020-06-30 04:26:00 Lew Sosa [facility] MAGNESIUM 2020-06-30 04:26:00 Lew Sosa [facility] APTT 2020-06-30 04:26:00 Lew Ssoa [facility] CBC W/PLT COUNT & AUTO 2020-06-30 04:26:00 Rickie Doyle [facility] POCT-GLUCOSE METER 2020-06-30 03:17:00 Javedangelina [facility] XR CHEST 1 VIEW PORTABLE 2020-06-30 02:43:[address] [facility] BEDSIDE [facility] POCT-GLUCOSE METER 2020-06-30 01:24:00 Javedangelina [facility] POCT-GLUCOSE METER 2020-06-30 00:22:00 Javedangelina [facility] POCT-GLUCOSE METER 2020-06-30 00:01:00 Alaangelina, [facility] POCT-GLUCOSE METER 2020-06-29 23:27:00 Alaangelina, [facility] APTT 2020-06-29 23:25:00 Lew Sosa [facility] POCT-GLUCOSE METER 2020-06-29 21:42:00 Alaangelina, [facility] POCT-GLUCOSE METER 2020-06-29 20:19:00 Alaangelina, [facility] POCT-GLUCOSE METER 2020-06-29 18:53:00 Alaangelina, [facility] APTT 2020-06-29 17:12:00 Lew Sosa [facility] POCT-GLUCOSE METER 2020-06-29 17:11:00 Alaangelina, [facility] POCT-GLUCOSE METER 2020-06-29 16:15:00 Alam, [facility] POCT-GLUCOSE METER 2020-06-29 15:05:00 Alam, [facility] POCT-GLUCOSE METER 2020-06-29 14:34:00 Alam, [facility] POCT-GLUCOSE METER 2020-06-29 13:12:00 Alaangelina, [facility] POCT-GLUCOSE METER 2020-06-29 12:14:00 Alaangelina, [facility] POCT-GLUCOSE METER 2020-06-29 11:25:00 Alaangelina, [facility] HC CAROTID DOPPLER SAMUEL 2020-06-29 10:25:00 Rickie Doyle [facility] HC VENOUS DOPPLER EXT SAMUEL 2020-06-29 10:25:00 Rickie Doyle [facility] POCT-GLUCOSE METER 2020-06-29 09:02:00 Alaangelina, [facility] APTT 2020-06-29 08:00:00 Lew Sosa [facility] POCT-GLUCOSE METER 2020-06-29 07:58:00 Alam, [facility] POCT-GLUCOSE METER 2020-06-29 06:55:00 Alam, [facility] POCT-GLUCOSE METER 2020-06-29 05:56:00 Alaangelina, [facility] CBC W/PLT COUNT & AUTO 2020-06-29 04:35:00 Lew Sosa [facility] BASIC METABOLIC PANEL (7) 2020-06-29 04:35:00 Lew Sosa [facility] MAGNESIUM 2020-06-29 04:35:00 Lew Sosa [facility] CBC W/PLT COUNT & AUTO 2020-06-29 04:35:00 Rickie Doyle [facility] POCT-GLUCOSE METER 2020-06-29 04:16:00 Javed [facility] POCT-GLUCOSE METER 2020-06-29 03:12:00 [facility] XR CHEST 1 VIEW PORTABLE 2020-06-29 02:19:[address] [facility] / BEDSIDE [facility] POCT-GLUCOSE METER 2020-06-29 01:50[facility] & 2020-06-29 00:11:00 Lew Sosa [facility] - REF LABS) [facility] GLUCOSE 2020-06-29 00:11:00 Charlee [place] POTASSIUM 2020-06-29 00:11:00 Charlee [place] APTT 2020-06-29 00:11:00 Lew Sosa [facility] ECG 12-LEAD 2020-06-28 23:54:28 Unknown, Hl7 [facility] ECG 12-LEAD 2020-06-28 23:54:28 Unknown, Hl7 [facility] POCT-GLUCOSE METER 2020-06-28 21:39:00 Alaangelina [facility] POCT-GLUCOSE METER 2020-06-28 20:47:00 [facility] 2020-06-28 18:23:00 Rick[facility] APTT 2020-06-28 18:23:00 Lew Sosa [facility] POCT-GLUCOSE METER 2020-06-28 16:10:00 Lei Pierson [facility] 2D ECHO W/ DOPPLER 2020-06-28 14:53:40 Rickie Doyle [facility] (CW/PW/COLOR) [facility] APTT 2020-06-28 11:46:00 Lew Sosa [facility] TROPONIN I 2020-06-28 08:49:00 Yanira [facility] POCT-GLUCOSE METER 2020-06-28 07:39:00 Lei Pierson [facility] ECG 12-LEAD 2020-06-28 05:19:24 Yanira [facility] ECG 12-LEAD 2020-06-28 05:19:24 Unknown, Hl7 Doctor [facility] BASIC METABOLIC PANEL (7) 2020-06-28 05:01:00 Rickie Doyle [facility] HEPATIC FUNCTION PANEL 2020-06-28 05:01:00 Rickie Doyle [facility] MAGNESIUM 2020-06-28 05:01:00 Rickie Doyle [facility] PHOSPHORUS 2020-06-28 05:01:00 Rickie Doyle [facility] TROPONIN I 2020-06-28 05:01:00 Yanira [facility] B-TYPE NATRIURETIC FACTOR 2020-06-28 05:01:00 Rickie Doyle [facility] (BNP) [facility] CBC W/PLT COUNT & AUTO 2020-06-28 05:01:00 Rickie Doyle [facility] PROTHROMBIN TIME/INR 2020-06-28 05:01:00 Rickie Doyle [facility] APTT 2020-06-28 05:01:00 Yanira [facility] CBC W/PLT COUNT & AUTO 2020-06-28 05:01:00 Rickie Doyle [facility] POCT-GLUCOSE METER 2020-06-28 04:57:00 Brisa [facility] XR CHEST 1 VIEW PORTABLE 2020-06-28 04:55:00 Yanira [facility] - / BEDSIDE [facility] POCT-GLUCOSE METER 2020-06-27 23:11:[address] [facility] POCT-GLUCOSE METER 2020-06-27 21:35:[address] [facility] B-TYPE NATRIURETIC FACTOR 2020-06-27 20:12:[address] [facility] (BNP) [facility] APTT 2020-06-27 20:11:00 Brisa [facility] BASIC METABOLIC PANEL (7) 2020-06-27 20:11:00 Lei Pierson [facility] TROPONIN I 2020-06-27 20:11:00 Javed [facility] LACTIC ACID, VENOUS 2020-06-27 20:11:00 Brisa [facility] POCT-GLUCOSE METER 2020-06-27 16:22:[address] [facility] APTT 2020-06-27 12:16:00 Brisa [facility] POCT-GLUCOSE METER 2020-06-27 11:45:[address] [facility] L CATH & PCI 2020-06-27 08:06:00 Brisa [facility] POCT-GLUCOSE METER 2020-06-27 07:51:[address] [facility] CBC W/PLT COUNT & AUTO 2020-06-27 05:18:00 Tyler [facility] BASIC METABOLIC PANEL (7) 2020-06-27 05:18:00 [facility]NES[facility] 2020-06-27 05:18:00 Tyler [facility] LIPID PANEL 2020-06-27 05:18:00 Tyler [facility] CBC W/PLT COUNT & AUTO 2020-06-27 05:18:00 Tyler [facility] APTT 2020-06-27 01:02:00 Brisa [facility] URINALYSIS W/ REFLEX 2020-06-26 23:44:00 Javed [facility] URINE CULTURE [facility] XR CHEST 1 VIEW PORTABLE 2020-06-26 22:15:00 Javed [facility] / [facility]SIDE [facility] Center BLOOD CULTURE 2020-06-26 22:12:00 [facility] BLOOD CULT[facility] 2020-06-26 22:10:00 [facility] POCT-GLUCOSE METER 2020-06-26 21:12:00 [facility] CONTRAST & DOPPLER 2020-06-26 20:22:31 Javed [facility] B-TYPE NATRIURETIC FACTOR 2020-06-26 18:02:00 Tyler [facility] (BNP) [facility] ECG 12-LEAD 2020-06-26 17:13:31 [facility] TROPONIN I 2020-06-26 16:36:00 Tyler [facility] CBC W/PLT COUNT & AUTO 2020-06-26 16:36:00 Tyler [facility] BASIC METABOLIC PANEL (7) 2020-06-26 16:36:00 [facility] MAGNESIUM 2020-06-26 16:36:00 Tyler [facility] APTT 2020-06-26 16:36:00 [facility] HEMOGLOBIN A1C 2020-06-26 16:36:00 [facility] CBC W/PLT COUNT & AUTO 2020-06-26 16:36:00 [facility]ural[facility] POCT-GLUCOSE METER 2020-06-26 16:23:00 Murali Scott [facility] CARDIAC CATH REPORT - 2020-06-26 00:00:00 Provider, Default [facility] SCAN Scanning [facility] REPORT OF PROCEDURE - 2020-06-26 00:00:00 Provider, Default [facility] ENDOSCOPY SCAN Scanning [facility] Plan of Care Planned Activity Planned Date Details Comments Source Future Scheduled 2023-07-[address] [facility] Test 00:00:00 (procedure) [code = Medical Center 56380265] Diagnostic Test 2021-06-06 glucose, fingerstick, [facility] Pending 00:00:00 blood [code = glucose, fingerstick, blood] Diagnostic Test 2021-06-06 albumin/creatinine, [facility] Pending 00:00:00 ratio, urine [code = albumin/creatinine, ratio, urine] Future Scheduled 2020-12-[address] [facility] Test 00:[facility]00 measurement [facility] (procedure) [code = 89940260] Future Scheduled 2020-11-26 INFLUENZA VACCINE (#1) C [...] 00:00:00 examination Medical Center (regime/therapy) [code = 807583942] Future Scheduled 1987-12-09 Urine screening for [facility] - Test 00:00:00 [facility] [code = 609073021] Future Scheduled 1983-12-[address] [facility] - Test 00:00:00 0-64 YRS (1 of 2 - Medical C enter PPSV23) [code = PNEUMOCOCCAL VACCINE 0-64 YRS (1 of 2 - PPSV23)] Encounters Start End Encounter Admission Attending Care Care Encounter Source Date/Time Date/Time Type Type Clinicians Facility Department ID 2020-06-28 Inpatient UR BRISA [facility] Cardiac ICU [id number] SLE 04:16:00 MAHBOOB 2020-06-26 Inpatient ER SCOTT, [facility] [id number] [facility] 15:55:00 MURALI 2021-06-06 2021-06-06 Outpatient GRAIR_D SJOSE SJOSE [id number] Bright 12:24:00 12:24:00 4 [facility] 2021-06-06 2021-06-06 Outpatient GRAIR_D SJOSE SJOSE [id number] Bright 10:30:00 10:30:00 0312 [facility] 2021-06-06 2021-06-06 Ryan SJOSE [place] - Bright [id number] Bright 00:00:00 00:00:00 Janet [facility] Glenna Schroeder - [facility] - [facility] MD: [place] [address] , Ph. 2021-05-27 2021-05-27 Outpatient GRAIR_D SJOSE SJOSE [id number] Bright 11:28:00 11:28:00 0302 [facility] 2021-05-27 2021-05-27 Francesca Blake SJOSE [place] - Bright [id number] Bright 00:00:00 00:00:00 MD Kaitlynn: [facility] Roger Yin [facility] [place] [address] , Ph. 2021-05-20 2021-05-20 Outpatient GRAIR_D SJOSE SJOSE [id number] Bright 09:37:00 09:37:00 3 [facility] 2021-04-07 2021-04-07 Outpatient GRAIR_D SJOSE SJOSE [id number] Bright 11:12:00 11:12:00 0111 [facility] 2021-03-11 2021-03-11 Outpatient GRAIR_D SJOSE SJOSE [id number] Bright 03:13:00 03:13:00 1215 [facility] 2021-03-11 2021-03-11 Outpatient GRAIR_D SJOSE SJOSE [id number] Bright 03:13:00 03:13:00 1216 [facility] 2021-03-11 2021-03-11 Outpatient GRAIR_D SJOSE SJOSE [id number] Bright 03:13:00 03:13:00 1220 [facility] 2021-03-04 2021-03-04 Outpatient GRAIR_D SJOSE SJOSE [id number] Bright 04:28:00 04:28:00 1209 [facility] 2021-03-04 2021-03-04 Outpatient GRAIR_D SJOSE SJOSE [id number] Bright 04:28:00 04:28:00 1214 [facility] 2021-03-04 2021-03-04 Outpatient GRAIR_D SJOSE SJOSE [id number] Bright 02:42:00 02:42:00 1208 [facility] 2021-03-04 2021-03-04 Adlia SJOSE [place] - [facility] [id number] Bright 00:00:00 00:00:00 Ayanna [facility] Glenna DAVISD: - [facility] - [address] [address] , Ph. 2021-02-26 2021-02-26 Outpatient GRAIR_D SJOSE SJOSE [id number] Bright 04:54:00 04:54:00 1206 [facility] 2021-02-26 2021-02-26 Outpatient GRAIR_D SJOSE SJOSE [id number] Bright 04:08:00 04:08:00 1202 [facility] 2021-02-26 2021-02-26 Francesca Blake SJOSE [place] - Bright [id number] Bright 00:00:00 00:00:00 MD Kaitlynn: [address] [phone] , Ph. 2021-02-11 2021-02-11 Outpatient GRAIR_D SJOSE SJOSE [id number] Bright 09:09:00 09:09:00 1117 [facility] 2021-01-27 2021-01-27 Outpatient GRAIR_D SJOSE SJOSE [id number] Bright 02:14:00 02:14:00 1102 [facility] 2021-01-14 2021-01-14 Outpatient GRAIR_D SJOSE SJOSE [id number] Bright 02:41:00 02:41:00 1020 [facility] 2021-01-14 2021-01-14 Outpatient GRAIR_D SJOSE SJOSE [id number] Bright 02:41:00 02:41:00 1021 [facility] 2021-01-14 2021-01-14 Outpatient GRAIR_D SJOSE SJOSE [id number] Bright 02:41:00 02:41:00 1101 [facility] 2021-01-14 2021-01-14 Adlia SJOSE [place] - [facility] [id number] Bright 00:00:00 00:00:00 Ayanna [facility] Glenna abdi PHARMD: - [facility] - [address] [address] , Ph. 2021-01-10 2021-01-10 Outpatient GRAIR_D SJOSE SJOSE [id number] Bright 09:19:00 09:19:00 1016 [facility] 2021-01-10 2021-01-10 Randy SJOSE [place] - [facility] [id number] Bright 00:00:00 00:00:00 Roger Garcia [facility] Donavon madrigal MD: [address] [place] [phone] , Ph. 2021-01-07 2021-01-07 Outpatient GRAIR_D SJOSE SJOSE [id number] Bright 02:05:00 02:05:00 1013 [facility] 2021-01-07 2021-01-07 Outpatient GRAIR_D SJOSE SJOSE [id number] Bright 02:05:00 02:05:00 1015 [facility] 2021-01-07 2021-01-07 Adlia [place]JOSE [place] [facility] [facility] [id number] Bright 00:00:00 00:00:00 Dejonkelsie [facility] Glenna se PHARMD: - [address] [address] , Ph. 2020-12-25 2020-12-25 Outpatient GRAIR_D SJOSE SJOSE [id number] Bright 02:32:00 02:32:00 0930 [facility] 2020-12-24 2020-12-24 Outpatient GRAIR_D SJOSE SJOSE [id number] Bright 10:41:00 10:41:00 0929 [facility] 2020-12-24 2020-12-24 Adlia SJOSE [facility] [id number] Bright 00:00:00 00:00:00 Ayanna [facility] Glenna se PHARMD: - [address] [address] , Ph. 2020-11-28 2020-11-28 Outpatient GRAIR_D SJOSE SJOSE [id number] Bright 03:32:00 03:32:00 0903 [facility] 2020-11-25 2020-11-25 Outpatient GRAIR_D SJOSE SJOSE [id number] Bright 03:05:00 03:05:00 31 [facility] 2020-11-25 2020-11-25 Francesca Blake SJOSE [facility] [id number] [facility] 00:00:00 00:00:00 MD Kaitlynn: [address] [address] , Ph. 2020-11-18 2020-11-18 Outpatient GRAIR_D SJOSE SJOSE [id number] Bright 10:41:00 10:41:00 0824 [facility] 2020-10-23 2020-10-23 Outpatient GRAIR_D SJOSE SJOSE [id number] Bright 10:17:00 10:17:00 0729 [facility] 2020-09-26 2020-09-26 Barry Sahni [facility] [id number] [facility] 00:00:00 00:00:00 [facility] 2020-09-25 2020-09-25 Outpatient GRAIR_D SJOSE SJOSE [id number] Bright 04:52:00 04:52:00 0702 [facility] 2020-09-24 2020-09-24 Outpatient GRAIR_D SJOSE SJOSE [id number] Bright 03:47:00 03:47:00 06 [facility] 2020-09-24 2020-09-24 Outpatient GRAIR_D SJOSE SJOSE [id number] Bright 03:47:00 03:47:00 0701 [facility] 2020-09-24 2020-09-24 Adlia SJOSE [place] - Bright [id number] Bright 00:00:00 00:00:00 Ayanna [facility] Glenna abdi PHARMD: - [facility] - [address] [address] , Ph. 2020-09-12 2020-09-12 Outpatient GRAIR_D SJOSE SJOSE [id number] Bright 11:33:00 11:33:00 0618 [facility] 2020-09-11 2020-09-11 Outpatient GRAIR_D SJOSE SJOSE [id number] Bright 11:07:00 11:07:00 0617 [facility] 2020-09-11 2020-09-11 Francesca B SJOSE [place] - [facility] [id number] Bright 00:00:00 00:00:00 MD Kaitlynn: [address] [address] , Ph. 2020-08-20 2020-08-20 Telephone Meera [facility] [id number] 00:00:00 00:00:00 Yue [facility] 2020-08-14 2020-08-14 Office Dasha [facility] [id number] 12:51:06 13:21:06 Visit [facility] 2020-08-14 2020-08-14 Outpatient SHIVA LOU [facility] [id number] [facility] 00:00:00 00:00:00 ROHAN 2020-07-22 2020-07-22 Outpatient GRAIR_D SJOSE SJOSE [id number] Bright 05:58:00 05:58:00 0504 [facility] 2020-07-18 2020-07-18 Office SHIVA Hernandes [facility] [id number] 09:31:25 10:01:25 Visit [facility] 2020-07-18 2020-07-18 Outpatient SHIVA HERNANDES [facility] [id number] [facility] 00:00:00 00:00:00 [facility] 2020-07-17 2020-07-17 Outpatient GRAIR_D SJOSE SJOSE [id number] Bright 10:58:00 10:58:00 0422 [facility] 2020-07-17 2020-07-17 Francesca Hayden BLANK [facility] [id number] [facility] 00:00:00 00:00:00 MD Kaitlynn: [facility] [address] [facility] [place] [address] , Ph. 2020-07-09 2020-07-09 Documentat Sb [facility] [id number] 00:00:00 00:00:00 tiara Newberry [facility] 2020-07-09 2020-07-09 Telephone Jailyn [facility] [id number] 00:00:00 00:00:00 Sonal aceves [facility] 2020-06-28 2020-07-08 [facility] [id number] [facility] 04:16:00 12:32:00 Molly Mai [facility] 2020-07-07 2020-07-07 Outpatient GRAIR_D SJOSE SJOSE [id number] Bright 05:18:00 05:18:00 0412 [facility] 2020-07-01 2020-07-02 Surgery Dasha [facility] [id number] 18:00:00 00:31:00 [facility] 2020-07-01 2020-07-01 Anesthesia Jenniffer Watts [facility] [id number] 16:15:00 23:17:00 Event Dangelo Anne [facility] 2020-06-26 2020-06-28 Hospital [place], [facility] [id number] 15:55:00 03:30:00 Encounter Murali [facility] 2020-06-28 2020-06-28 Orders [facility] [id number] 00:00:00 00:00:00 Only [facility] 2020-06-28 2020-06-28 Travel [facility] [id number] [facility] 00:00:00 00:00:00 [facility] 2020-06-27 2020-06-27 Surgery Brisa, [facility] [id number] 08:00:00 09:19:00 Mahboob [facility] 2020-06-26 2020-06-26 Travel [facility] [id number] [facility] 00:00:00 00:00:00 [facility] Results Test Description Test Time Test Comments Results Result Comments Source Glucose [Mass/volume] in Capillary blood 2021-05-27 10:53:28 Test Item Value Reference Range Interpretation Comme nts Blood Glucose: mg/dl (test code = Blood Glucose: mg/dl) 207 [facility] - Serum or [id number] 00:00:00 Test Item Value Reference Range Interpretation [...] by Creatinine-based formula (CKD-EPI) (test code = 10528-1) Glomerular filtration 102 mL/min/1.73 >59 rate/1.73 sq M.predicted among blacks [Volume Rate/Area] in Serum, Plasma or Blood by Creatinine-based formula (CKD-EPI) (test code = 53776-1) Urea nitrogen/Creatinine 17 9-20 [Mass Ratio] in [...] 8.7-10.2 Serum or Plasma (test code = 69303-6) Protein [Mass/volume] in 6.0 g/dL 6.0-8.5 Serum or Plasma (test code = 2885-2) Albumin [Mass/volume] in 3.9 g/dL 4.0-5.0 L Serum or Plasma (test code = 1751-7) Globulin [Mass/volume] in 2.1 g/dL 1.5-4.5 Serum by calculation (test code = 97182-8) Albumin/Globulin [Mass Ratio] 1.9 1.2-2.2 in Serum or Plasma (test code = 1759-0) Bilirubin.total [Mass/volume] 0.3 mg/dL 0.0-1.2 in Serum or Plasma (test code = 1974-) Alkaline phosphatase 79 IU/L 44-121 [Enzymatic activity/volume] in Serum or Plasma (test code = 6768-6) Aspartate aminotransferase 16 IU/L 0-40 [Enzymatic activity/volume] in Serum or Plasma (test code = 1920-8) Alanine aminotransferase 14 IU/L 0-44 [Enzymatic activity/volume] in Serum or Plasma (test code = 174-6) [facility].total in [id number] 00:00:00 Test Item Value Reference Range Interpretation Comments Hemoglobin A1c/Hemoglobin.total in 7.9 % 4.8-5.6 H Blood (test code = 4548-4) [facility] [[facility]/volume] in Capillary [id number] 15:37:00 Test Item Value Reference Range Interpretation Comments Blood Glucose: mg/dl (test code = Blood 200 Glucose: mg/dl) [facility] [[facility]/volume] in Capillary [id number] 15:37:00 Test Item Value Reference Range Interpretation Comments Blood Glucose: mg/dl (test code = Blood 200 Glucose: mg/dl) [facility] [Mass/volume] in Capillary [id number] 15:37:00 Test Item Value Reference Range Interpretation Comments Blood Glucose: mg/dl (test code = Blood 200 Glucose: mg/dl) [facility] - Serum or [id number] 00:00:00 Test Item Value Reference Range Interpretation [...] by Creatinine-based formula (CKD-EPI) (test code = 43686-2) Glomerular filtration 83 mL/min/1.73 >59 rate/1.73 sq M.predicted among blacks [Volume Rate/Area] in Serum, Plasma or Blood by Creatinine-based formula (CKD-EPI) (test code = 28172-9) Urea nitrogen/Creatinine [Mass 21 9-20 H Ratio] [...] mg/dL 8.7-10.2 or Plasma (test code = 78389-3) Protein [Mass/volume] in Serum 6.2 g/dL 6.0-8.5 or Plasma (test code = 2885-2) Albumin [Mass/volume] in Serum 4.3 g/dL 4.0-5.0 or Plasma (test code = 1751-7) Globulin [Mass/volume] in 1.9 g/dL 1.5-4.5 Serum by calculation (test code = 50015-2) Albumin/Globulin [Mass Ratio] 2.3 1.2-2.2 H in [...] Serum or Plasma (test code = 1742-6) [facility]Hemoglobin.total in [id number] 00:00:00 Test Item Value Reference Range Interpretation Comments Hemoglobin A1c/Hemoglobin.total in 8.7 % 4.8-5.6 H Blood (test code = 4548-4) [facility] 2000 [facility] - Serum or [id number] 00:00:00 Test Item Value Reference Range Interpretation [...] by Creatinine-based formula (CKD-EPI) (test code = 12125-8) Glomerular filtration 83 mL/min/1.73 >59 rate/1.73 sq M.predicted among blacks [Volume Rate/Area] in Serum, Plasma or Blood by Creatinine-based formula (CKD-EPI) (test code = 34897-2) Urea nitrogen/Creatinine [Mass 21 9-20 H Ratio] in Serum or Plasma (test code = 3097-3) Sodium [Moles/volume] in Serum 142 mmol/L 134-144 or Plasma (test code = 2951-2) Potassium [Moles/volume] in 4.5 mmol/L 3.5-5.2 Serum or Plasma (test code = 2823-3) Chloride [Moles/volume] in 106 mmol/L 96-106 Serum or Plasma (test code = 2074-0) Carbon dioxide, total 25 mmol/L 20-29 [Moles/volume] in Serum or Plasma (test code = 2027-9) Calcium [Mass/volume] in Serum 9.2 mg/dL 8.7-10.2 or Plasma (test code = 98957-9) Protein [Mass/volume] in Serum 6.2 g/dL 6.0-8.5 or Plasma (test code = 2885-2) Albumin [Mass/volume] in Serum 4.3 g/dL 4.0-5.0 or Plasma (test code = 1751-7) Globulin [Mass/volume] in 1.9 g/dL 1.5-4.5 Serum by calculation (test code = 41079-9) Albumin/Globulin [Mass Ratio] 2.3 1.2-2.2 H in [...] Serum or Plasma (test code = 1742-6) [facility]Hemoglobin.total in [id number] 00:00:00 Test Item Value Reference Range Interpretation Comments Hemoglobin A1c/Hemoglobin.total in 8.7 % 4.8-5.6 H Blood (test code = 4548-4) [facility] 2000 [facility] - Serum or [id number] 00:00:00 Test Item Value Reference Range Interpretation [...] by Creatinine-based formula (CKD-EPI) (test code = 91289-1) Glomerular filtration 83 mL/min/1.73 >59 rate/1.73 sq M.predicted among blacks [Volume Rate/Area] in Serum, Plasma or Blood by Creatinine-based formula (CKD-EPI) (test code = 84460-6) Urea nitrogen/Creatinine [Mass 21 9-20 H Ratio] [...] mg/dL 8.7-10.2 or Plasma (test code = 82081-3) Protein [Mass/volume] in Serum 6.2 g/dL 6.0-8.5 or Plasma (test code = 2885-2) Albumin [Mass/volume] in Serum 4.3 g/dL 4.0-5.0 or Plasma (test code = 1751-7) Globulin [Mass/volume] in 1.9 g/dL 1.5-4.5 Serum by calculation (test code = 74981-6) Albumin/Globulin [Mass Ratio] 2.3 1.2-2.2 H in [...] Serum or Plasma (test code = 1742-6) [facility] A[facility]/Hemoglobin.total in [id number] 00:00:00 Test Item Value Reference Range Interpretation Comments Hemoglobin A1c/Hemoglobin.total in 8.7 % 4.8-5.6 H Blood (test code = 4548-4) [facility] in Capillary [id number] 10:23:00 Test Item Value Reference Range Interpretation Comments Blood Glucose: mg/dl (test code = Blood 251 Glucose: mg/dl) [facility] [[facility]/volume] in Capillary [id number] 10:23:00 Test Item Value Reference Range Interpretation Comments Blood Glucose: mg/dl (test code = Blood 251 Glucose: mg/dl) [facility] [id number] 11:27:00 Test Item Value Reference Range Interpretation Comments Sodium (test code = 136 meq/L 116-058 0107-2) Potassium (test code = 4.6 meq/L 3.5-5.1 2823-3) Chloride (test code = 101 meq/L 98-107 2075-0) CO2 (test code = 30 meq/L 22-29 H 8-9) BUN (test code = 23 mg/dL 7-21 H 3094-0) Creatinine (test code 1.31 mg/dL 0.57-1.25 H = 2160-0) Glucose (test code = 278 mg/dL 70-105 H 2345-7) Calcium (test code = 8.7 mg/dL 8.4-10.2 87080-7) EGFR (test code = 60 mL/min/1.73 [place] [address]-6) NOT ACCURATE CREATININE CLEARANCE IN PREDICTING GLOMERULAR FILTRATION RATE . ESTIMATED GFR I S NOT APPLICABLE FOR DIALYSIS PATIENTS. NANCY (test code = NANCY) Data Abstractor ID - GISELE Owen Lab Interpretation Abnormal (test code = 61800-0) [facility] 11:27:00 Test Item Value Reference Range Interpretation Comments Magnesium (test code = 2.0 mg/dL 1.6-2.6 04247-5) NANCY (test code = NANCY) Data Abstractor ID - GISELE C Lab Interpretation (test Normal code = 74616-6) [facility] HospitalBASIC METABOLIC [id number] 11:27:00 Test Item Value Reference Range Interpretation [...] S NOT APPLICABLE FOR DIALYSIS PATIEN TS. Data Abstractor ID - GISELE [id number] 11:27:00 Test Item Value Reference Range Interpretation Comments MAGNESIUM (BEAKER) (test code = 2.0 mg/dL 1.6-2.6 627) Data Abstractor ID - GISELE CGlucose [Mass/volume] in Capillary [id number] 08:58:00 Test Item Value Reference Range Interpretation Comments Blood Glucose: mg/dl (test code = Blood 126 Glucose: mg/dl) [facility] [id number] 08:18:00 Test Item Value Reference Range Interpretation Comments Islet Cell Ab Profile Refer to individual (test code = 2556) Islet Cell Ab and/or Islet Cell Ab Titer results. [facility] HospitalISLET CELL AB [id number] 08:18:00 Test Item Value Reference Range Interpretation Comments ISLET CELL AB Refer to individual AUTOVERIFICATION (test Islet Cell Ab code = 2556) and/or Islet Cell Ab Titer results. Islet Cell Ab [id number] 19:46:00 Test Item Value Reference Range Interpretation Comments Islet Cell NEGATIVE NEGATIVE This test was developed Ab (test and its analyti juanito code = performance 9625903) characteristics havebeen determined by [facility].It h as not been cleared or approved by FDA. This as say has been validatedp ursuant to the CLIA reg ulations and is used for clinical purposes. NANCY (test Performing Lab code = NANCY) [facility] [address] [place] [address] Dhiraj Boswell MD, PhD, IRIS [facility] HospitalIslet Cell Ab [id number] 19:46:00 Test Item Value Reference Range Interpretation Comments Islet Cell TNP LESS THAN 1.25 Test Not Perf ormed. Ab Titer JDF units Screening test Negative (test code = or Not Detected . Titer 91513-5) notperformed. N OTE: End point titers ar e compared to a s michelle international referencestanda rd and values are repo rted in JDF (Juvenile D iabetes Foundation) uni ts. NANCY (test Performing Lab code = NANCY) [facility] [address] [place] [address] I Andreia NORIEGA, PhD, IRIS [facility]-Glucose [id number] 07:41:00 Test Item Value Reference Range Interpretation Comments POC-Glucose Meter (test 287 mg/dL 70-110 H : TE STED AT [facility] code = 1538) [address] [facility] 770 30: Data Abstractor/Techni allen ID = [id number] for BLAINE OVALLE Lab Interpretation (test Abnormal code = 33062-4) [facility]-GLUCOSE [id number] 07:41:00 Test Item Value Reference Range Interpretation Comments POC-GLUCOSE METER 287 mg/dL 70-110 H : TESTED A T [facility] 6720 (BEAKER) (test code = [facility], 1538) [address]: Data Abstractor/Techni allen ID = [id number] for BLAINE AMANDA BASIC METABOLIC [id number] 07:18:00 Test Item Value Reference Range Interpretation [...] S NOT APPLICABLE FOR DIALYSIS PATIEN TS. Data Abstractor ID - JAMI [id number] 07:18:00 Test Item Value Reference Range Interpretation Comments MAGNESIUM (BEAKER) (test code = 2.0 mg/dL 1.6-2.6 627) Data Abstractor ID - JAMI MCBC with platelet count + automated [id number] 06:36:00 Test Item Value Reference Range Interpretation Comments WBC (test code = 6690-2) 12.1 See_Comment H [A utomated message] The system Shustir generated this result transmitted ref erence range: 3.5 - 10 .5 K/L. The refe rence range was not u sed to interpret this result as normal/abnor mal. RBC (test code = 789-8) 3.06 See_Comment L [Au tomated message] The system Shustir generated this result transmitted ref erence range: 4.63 - 6 .08 M/L. The refe rence range was not u sed to interpret this result as normal/abnor mal. MCHC (test code = 786-4) 32.8 See_Comment L [A utomated message] The system Shustir generated this result transmitted ref erence range: [...] See_Comment [Aut omated message] 777-3) The system Shustir generated this result transmitted ref erence range: 150 - 45 0 K/CU MM. The referen ce range was not u sed to interpret this result as normal/abnor mal. MPV (test code = 11.2 fL 9.4-12.4 80614-9) nRBC (test code = 413) 0 See_Comment [Aut omated message] The system Shustir generated this result transmitted ref erence range: [...] H [Aut omated message] 670) The system Shustir generated this result transmitted ref erence range: 1.78 - 5 .38 K/L. The refe rence range was not u sed to interpret this result as normal/abnor mal. # Lymphs (test code = 1.14 See_Comment L [Auto mated message] 414) The system Shustir generated this result transmitted ref erence range: 1.32 - 3 .57 K/L. The refe rence range was not u sed to interpret this result as normal/abnor mal. # Monos (test code = 1.14 See_Comment H [Autom ated message] 415) The system Shustir generated this result transmitted ref erence range: 0.30 - 0 .82 K/L. The refe rence range was not u sed to interpret this result as normal/abnor mal. # Eos (test code = 416) 0.44 See_Comment [Au tomated message] The system Shustir generated this result transmitted ref erence range: 0.04 - 0 .54 K/L. The refe rence range was not u sed to interpret this result as normal/abnor mal. # Baso (test code = 417) 0.07 See_Comment [A utomated message] The system Shustir generated this result transmitted ref erence range: 0.01 - 0 .08 K/L. The refe rence range was not u sed to interpret this result as normal/abnor mal. Immature 1 % 0-1 Granulocytes-Relative (test code = 2801) Lab Interpretation (test Abnormal code = 87018-7) [facility] W/PLT COUNT & AUTO [id number] 06:36:00 Test Item Value Reference Range Interpretation [...] = No growth in 5 days 6463-4) [facility] HospitalBLOOD [id number] 04:01:00 Test Item Value Reference Range Interpretation Comments CULTURE (BEAKER) (test No growth in 5 days code = 1095) BLOOD [id number] 04:01:00 Test Item Value Reference Range Interpretation Comments CULTURE (BEAKER) (test No growth in 5 days code = 1095) POCT-GLUCOSE [id number] 21:58:00 Test Item Value Reference Range Interpretation Comments POC-GLUCOSE METER 207 mg/dL 70-110 H : TESTED A T [facility] 6720 (BEAKER) (test code [facility], = 1538) 19887: Data Abstractor/Techni allen ID = [id number] for Shannon bucio (contract)Lexi POCT-GLUCOSE [id number] 17:16:00 Test Item Value Reference Range Interpretation Comments POC-GLUCOSE METER 289 mg/dL 70-110 H : TESTED A T [facility] 6720 (BEAKER) (test code = [facility], 1538) [address]: Data Abstractor/Techni allen ID = [id number] for GLENNA HN, BLAINE [id number] 15:46:00 Test Item Value Reference Range Interpretation Comments C-Peptide (test code = <0.10 0.80-3.85 L 20190924) NANCY (test code = NANCY) Performing Lab E[facility] [address] [place] [address] Dhiraj Boswell MD, PhD, IRIS Lab Interpretation (test Abnormal code = 95132-9) [facility] HospitalLimited 2D Csldlgbvudgzoi2007-78-24 15:41:28 Ejection FractionSLEH ECHO HEARTLAB MKCKESSON [facility] POCT-GLUCOSE [id number] 12:19:00 Test Item Value Reference Range Interpretation Comments POC-GLUCOSE METER 282 mg/dL 70-110 H : TESTED A T [facility] 6720 (BEAKER) (test code = [facility], 1538) 320[address]: Data Abstractor/Techni allen ID = [id number] for GLENNA HN, BLAINE RAD, CHEST, 1 VIEW, NON [id number] 11:06:00Reason for exam:->IABPShould this be performed at the bedside?->Yes [facility] : 1975 Sex: [...] MDReport Verified Date/Time: 07/07/2020 11:06:14 Reading Location: [facility] Radiology Reading Room Manual [id number] 08:54:00 Test Item Value Reference Range Interpretation [...] few Lab Interpretation (test code = Abnormal 65393-8) [facility](CELLAVISION MANUAL DIFF)2020-07-07 08:54:00 Test Item Value [...] (test code = 1+ few 477) POCT-GLUCOSE [id number] 08:08:00 Test Item Value Reference Range Interpretation Comments POC-GLUCOSE METER 119 mg/dL 70-110 H : TESTED A T [facility] 6720 (BEAKER) (test code = [facility], 1538) 86767: Data Abstractor/Techni allen ID = [id number] for BLAINE AMANDA POCT-GLUCOSE [id number] 06:31:00 Test Item Value Reference Range Interpretation Comments POC-GLUCOSE METER 84 mg/dL 70-110 : TESTED A T [facility] 6720 (BEAKER) (test code = [facility], 1538) 44036: Data Abstractor/Techni allen ID = [id number] for Shannon fortunato (contract)Lexisimi CBC W/PLT COUNT & AUTO [id number] 05:43:00 Test Item Value Reference Range Interpretation [...] 0-0 (BEAKER) (test code = 413) POCT-GLUCOSE [id number] 05:40:00 Test Item Value Reference Range Interpretation Comments POC-GLUCOSE METER 61 mg/dL 70-110 L : TESTED A T [facility] 6720 (BEAKER) (test code = [facility], 1538) 26553: Data Abstractor/Techni allen ID = [id number] for Shannon (contract), Lexi bojorquez BASIC METABOLIC [id number] 05:38:00 Test Item Value Reference Range Interpretation [...] S NOT APPLICABLE FOR DIALYSIS PATIEN TS. Data Abstractor ID - JAMI [id number] 05:36:00 Test Item Value Reference Range Interpretation Comments MAGNESIUM (BEAKER) (test code = 2.2 mg/dL 1.6-2.6 627) Data Abstractor ID - JAMI MPOCT-GLUCOSE [id number] 05:22:00 Test Item Value Reference Range Interpretation Comments POC-GLUCOSE METER 40 mg/dL 70-110 LL : TESTED A T [facility] 6720 (BEAKER) (test code = [facility], 153) 37863: Data Abstractor/Techni allen ID = [id number] for Shannon bucio (contract)Lexi POCT-GLUCOSE [id number] 21:51:00 Test Item Value Reference Range Interpretation Comments POC-GLUCOSE METER 212 mg/dL 70-110 H : TESTED A T [facility] 6720 (BEAKER) (test code = [facility], [facility]) 28157: Data Abstractor/Techni allen ID = [id number] for JOSÉ MIGUEL PERES POCT-GLUCOSE [id number] 17:53:00 Test Item Value Reference Range Interpretation Comments POC-GLUCOSE METER 93 mg/dL 70-110 : TESTED A T [facility] 6720 (BEAKER) (test code = [facility], [facility]) 83875: Data Abstractor/Techni allen ID = [id number] for DEANGELOBrayden ERICKSON CERON POCT-GLUCOSE [id number] 17:42:00 Test Item Value Reference Range Interpretation Comments POC-GLUCOSE METER 47 mg/dL 70-110 L : TESTED A T [facility] 6720 (BEAKER) (test code = [facility], [facility]) 70325: Data Abstractor/Techni allen ID = [id number] for SANTOS Cortes WOODY POCT-GLUCOSE [id number] 16:55:00 Test Item Value Reference Range Interpretation Comments POC-GLUCOSE METER 46 mg/dL 70-110 L : TESTED A T [facility] 6720 (BEAKER) (test code = [facility], [facility]) 77863: Data Abstractor/Techni allen ID = [id number] for CHARLIECHELSEY BARRIENTOS POCT-GLUCOSE [id number] 11:42:00 Test Item Value Reference Range Interpretation Comments POC-GLUCOSE METER 204 mg/dL 70-110 H : TESTED A T [facility] 6720 (BEAKER) (test code = [facility], [facility]) 41580: Data Abstractor/Techni allen ID = [id number] for RAMSEY EREN FAN SARS-CoV2/RT-PCR (Asymptomatic ONLY)2020-07-06 09:24:00 Test Item Value Reference Range Interpretation Comments SARS-COV2/RT-PCR Negative Not Detected, (test code = Negative, See 89823-4) external report for linked test SARS-COV-2 [facility]FORM[facility] (test code = 04686-7) NANCY (test code = Negative result for [...] of the Act. Fact Sheet for Healthcare Providers:https://www.[employer]el.Boats.com/sites/default/f shawanda/product/documents/F act_Sheet_HC_Providers_L uvk_RKCL-DpS-4.pdf Fact Sheet for Healthcare Patients:https://www.aj del.com/sites/default/fi les/product/documents/Fa ct_Sheet_Patients_Lyra_S ARS-CoV-2.pdf Performing Laboratory:[facility], [place] [address] [place], [place] [address]COV2/RT-PCR ([facility])2020-07-06 09:24:00 Test Item Value Reference Range Interpretation Comments SARS-COV2/RT-PCR (test Negative Not Detected, Negative, code = 8321885) See external report for linked test SARS-COV-2 PERFORMING LAB [facility] (test code = 5017486) Negative result for this test determines that [...] 564(g) of the Act.Fact Sheet for Healthcare Providers:https://www.[employer].Boats.com/sites/default/files/product/documents/Fact_Shee i_MM_Tlhcwezxm_Fjqg_ZEVQ-RbP-5.pdfFact Sheet for Healthcare Patients:https://www.[employer].com/sites/default/files/product/ documents/Poft_Pnhaq_Rduskwdc_Hace_QCMM-ToN-3.pdfPerforming Laboratory:[facility], [place] [address]BLZL-QJQQDXB METER 2020-07-06 07:25:00 Test Item Value Reference Range Interpretation Comments POC-GLUCOSE METER 115 mg/dL 70-110 H : TESTED A T [facility] 6720 (BEAKER) (test code = [facility], 1538) 85785: Data Abstractor/Techni allen ID = [id number] for FAN WALTON POCT-GLUCOSE [id number] 06:27:00 Test Item Value Reference Range Interpretation Comments POC-GLUCOSE METER 67 mg/dL 70-110 L : TESTED A T [facility] 6720 (BEAKER) (test code = [facility], 1538) 97781: Data Abstractor/Techni allen ID = [id number] for Rehana ham (contract)Birgit a [id number] 06:10:00 Test Item Value Reference Range Interpretation Comments MAGNESIUM (BEAKER) 2.3 mg/dL 1.6-2.6 Specimen slightly (test code = 627) hemolyzed Data Abstractor ID - JAMI MBASIC METABOLIC [id number] 06:10:00 Test Item Value Reference Range Interpretation [...] S NOT APPLICABLE FOR DIALYSIS PATIEN TS. Data Abstractor ID - JAMI MCBC W/PLT COUNT & AUTO [id number] 06:02:00 Test Item Value Reference Range Interpretation [...] = 2801) RAD, CHEST, 1 VIEW, NON [id number] 03:11:00Reason for exam:->IABPShould this be performed at the bedside?->Yes [facility] : 1975 Sex: MFINAL REPORT [...] (test code = 74 See_Comment H This te st was 3214) performed using the GAD65 MARIN met [facility] which is standardizedaga inst the International r eference preparation 97/ 550. [Automated mess age] The system which ge nerated this result tra nsmitted reference range : <5 IU/mL. The refe rence range was not u sed to interpret this result as normal/abnor mal. NANCY (test code = Performing Lab NANCY) [facility] [address] [place] [address] Dhiraj Boswell MD, PhD, IRIS Lab Interpretation Abnormal (test code = 45613-3) [facility] [id number] 20:34:00 Test Item Value Reference Range Interpretation Comments POC-GLUCOSE METER 133 mg/dL 70-110 H : TESTED A T [facility] 6720 (BEAKER) (test code = [facility], 153) 27056: Data Abstractor/Techni allen ID = [id number] for Avery wilkins (contract), Birgit a POCT-GLUCOSE [id number] 17:02:00 Test Item Value Reference Range Interpretation Comments POC-GLUCOSE METER 79 mg/dL 70-110 : TESTED A T [facility] 6720 (BEAKER) (test code = [facility], 153) 18018: Data Abstractor/Techni allen ID = [id number] for SCHA TTMAN, FAN POCT-GLUCOSE [id number] 11:46:00 Test Item Value Reference Range Interpretation Comments POC-GLUCOSE METER 157 mg/dL 70-110 H : TESTED A T [facility] 6720 (BEAKER) (test code = [facility], 153) 53142: Data Abstractor/Techni allen ID = [id number] for SC HATTMAN, FAN POCT-GLUCOSE [id number] 07:50:00 Test Item Value Reference Range Interpretation Comments POC-GLUCOSE METER 190 mg/dL 70-110 H : TESTED A T [facility] 6720 (BEAKER) (test code = [facility], 153) 41429: Data Abstractor/Techni allen ID = [id number] for SC HATTMAN, FAN RAD, CHEST, 1 VIEW, NON [id number] 07:17:00Reason for exam:->IABPShould this be performed at the bedside?->Yes [facility] 1975 Sex: [...] Kirkland Verified Date/Time: 07/05/2020 07:17:08 Reading Location: [address] Transitional Reading Room Electronically signedby: HOWIE KIRKLAND MD on 07/05/2020 07:17 AMCBC W/PLT COUNT & AUTO [id number] 07:08:00 Test Item Value Reference Range Interpretation [...] CONCENTRATION Adequate (CELLAVISION)(BEAKER) (test code = 3438) Data Abstractor ID - Sharon OverholtUser comments: Slide comments:BASIC [...] S NOT APPLICABLE FOR DIALYSIS PATIEN TS. Data Abstractor ID - [id number] 05:46:00 Test Item Value Reference Range Interpretation Comments MAGNESIUM (BEAKER) (test code = 2.4 mg/dL 1.6-2.6 627) Data Abstractor ID - EDASIPOCT-GLUCOSE [id number] 21:44:00 Test Item Value Reference Range Interpretation Comments POC-GLUCOSE METER 163 mg/dL 70-110 H : TESTED A T [facility] 6720 (BEAKER) (test code = [place], 1538) 87137: Data Abstractor/Techni allen ID = [id number] for DO SANIA BURTONSY POCT-GLUCOSE [id number] 16:55:00 Test Item Value Reference Range Interpretation Comments POC-GLUCOSE METER 262 mg/dL 70-110 H : TESTED A T [facility] 6720 (BEAKER) (test code = [facility], 1538) 56340: Data Abstractor/Techni allen ID = [id number] for Am inu, Kafayat POCT-GLUCOSE [id number] 11:17:00 Test Item Value Reference Range Interpretation Comments POC-GLUCOSE METER 156 mg/dL 70-110 H : TESTED A T [facility] 6720 (BEAKER) (test code = [facility], 153) 53537: Data Abstractor/Techni allen ID = [id number] for Am inu, Kafayat CBC W/PLT COUNT & AUTO [id number] 09:10:00 Test Item Value Reference Range Interpretation [...] CONCENTRATION Adequate (CELLAVISION)(BEAKER) (test code = 3438) Data Abstractor ID - Manan Alvarez comments: Slide comments:POCT-GLUCOSE [id number] 07:14:00 Test Item Value Reference Range Interpretation Comments POC-GLUCOSE METER 134 mg/dL 70-110 H : TESTED A T [facility] 6720 (BEAKER) (test code = [facility], 1538) 78018: Data Abstractor/Techni allen ID = [id number] for June POCT-GLUCOSE [id number] 07:11:00 Test Item Value Reference Range Interpretation Comments POC-GLUCOSE METER 206 mg/dL 70-110 H : TESTED A T [facility] 6720 (BEAKER) (test code [facility], = 1538) 48193: Data Abstractor/Techni allen ID = [id number] for Charlie whitman (contract), Lacy molina POCT-GLUCOSE [id number] 06:06:00 Test Item Value Reference Range Interpretation Comments POC-GLUCOSE METER 183 mg/dL 70-110 H : TESTED A T [facility] 6720 (BEAKER) (test code [place], = 1538) 87768: Data Abstractor/Techni allen ID = [id number] for Charlie whitman (contract), Lacy molina Oxygen saturation, [id number] 05:40:00 Test Item Value Reference Range Interpretation Comments O2 Saturation (Measured) (test code = 97.1 % 67849-2) [facility] HospitalOXYGEN SATURATION, [id number] 05:40:00 Test Item Value Reference Range Interpretation Comments O2 SATURATION (MEASURED) (BEAKER) 97.1 % (test code = 1455) BASIC METABOLIC [id number] 05:38:00 Test Item Value Reference Range Interpretation [...] S NOT APPLICABLE FOR DIALYSIS PATIEN TS. Data Abstractor ID - [id number] 05:38:00 Test Item Value Reference Range Interpretation Comments MAGNESIUM (BEAKER) (test code = 2.6 mg/dL 1.6-2.6 627) Data Abstractor ID - EDASIPOCT-GLUCOSE [id number] 03:43:00 Test Item Value Reference Range Interpretation Comments POC-GLUCOSE METER 198 mg/dL 70-110 H : TESTED A T [facility] 6720 (BEAKER) ([facility] = 1538[facility] 55083: Data Abstractor/Techni allen ID = [id number] for Charlie whitman (contract), Lacy molina POCT-GLUCOSE [id number] 03:38:00 Test Item Value Reference Range Interpretation Comments POC-GLUCOSE METER 220 mg/dL 70-110 H : TESTED A T [facility] 6720 (YOANA) (test code [facility], = 1538) 00829: Data Abstractor/Techni allen ID = [id number] for Charlie whitman (contract) Lacy molina RAD, CHEST, 1 VIEW, NON [id number] 02:56:00Reason for exam:->IABPShould this be performed at the bedside?->Yes [facility] : 1975 Sex: MFINAL REPORT RAD, CHEST, 1 VIEW, NON DEPT INDICATION: IABP COMPARISON: Prior day's exam FINDINGS: Portable frontal view of the chest. IMPRESSION: Support Lines:Stable. Lungs and pleura: Unchanged venous congestion and left basilar atelectasis. No focal consolidation or sizable effusion. No pneumothorax.Heart and mediastinum: Stable contours.Additional findings: None. Signed: Candelaria Lockettellen Verified Date/Time: 07/04/2020 02:56:01 Electronicallysigned by: CANDELARIA LOCKETT MD on 07/04/2020 02:56 AMPOCT-GLUCOSE [id number] 01:34:00 Test Item Value Reference Range Interpretation Comments POC-GLUCOSE METER 236 mg/dL 70-110 H : TESTED A T [facility] 6720 (BEAKER) (test code = [facility], 1538) 97240: Data Abstractor/Techni allen ID = [id number] for Olga Alfaro POCT-GLUCOSE [id number] 00:05:00 Test Item Value Reference Range Interpretation Comments POC-GLUCOSE METER 248 mg/dL 70-110 H : TESTED A T [facility] 6720 (BEAKER) (test code [facility], = 1538) 14217: Data Abstractor/Techni allen ID = [id number] for Charlie whitman (contract), Lacy tracy POCT-GLUCOSE [id number] 21:25:00 Test Item Value Reference Range Interpretation Comments POC-GLUCOSE METER 200 mg/dL 70-110 H : TESTED A T [facility] 6720 (BEAKER) (test code [facility], = 1538) 07265: Data Abstractor/Techni allen ID = [id number] for Charlie whitman (contract), Lacy tracy POCT-GLUCOSE [id number] 21:23:00 Test Item Value Reference Range Interpretation Comments POC-GLUCOSE METER 247 mg/dL 70-110 H : TESTED A T [facility] 6720 (BEAKER) (test code = [facility], 1538) 51431: Data Abstractor/Techni allen ID = [id number] for DO MOYAJune BASIC METABOLIC [id number] 21:19:00 Test Item Value Reference Range Interpretation [...] S NOT APPLICABLE FOR DIALYSIS PATIEN TS. Data Abstractor ID - DBPOCT-GLUCOSE [id number] 20:04:00 Test Item Value Reference Range Interpretation Comments POC-GLUCOSE METER 197 mg/dL 70-110 H : TESTED A T [facility] 6720 (BEAKER) (test code = [place], 1538) 17850: Data Abstractor/Techni allen ID = [id number] for DO June, ABDOMEN/KUB, 1 VIEW [id number] 19:42:00Reason for exam:->abdominal distension[facility] : 1975 Sex: MFINAL REPORT TECHNIQUE: Supine [...] Otherwise, no acute interval abnormality. Signed: Candelaria Lockett MDReport Verified Date/Time: 07/03/2020 19:42:59 POCT-GLUCOSE [id number] 18:16:00 Test Item Value Reference Range Interpretation Comments POC-GLUCOSE METER 185 mg/dL 70-110 H : TESTED A T [facility] 6720 (BEAKER) (test code = [facility], 1538) 64830: Data Abstractor/Techni allen ID = [id number] for PAULINA DELAROSA POCT-GLUCOSE [id number] 16:38:00 Test Item Value Reference Range Interpretation Comments POC-GLUCOSE METER 182 mg/dL 70-110 H : TESTED A T [facility] 6720 (BEAKER) (test code = [facility], 1538) 81643: Data Abstractor/Techni allen ID = [id number] for PAULINA DELAROSA POCT-GLUCOSE [id number] 15:40:00 Test Item Value Reference Range Interpretation Comments POC-GLUCOSE METER 212 mg/dL 70-110 H : TESTED A T [facility] 6720 (BEAKER) (test code = [facility], 1538) 09690: Data Abstractor/Techni allen ID = [id number] for PAULINA DELAROSA Urinalysis w/[id number] 15:30:00 Test Item Value Reference Range Interpretation Comments Color, UA (test code Yellow = 5778-6) Clarity, UA (test Clear code = 5767-9) Specific Reserve, UA 1.038 1.001-1.035 H (test code = 5811-5) pH, UA (test code = 6.0 5.0-8.0 5803-2) Protein, UA (test 20 mg/dL Negative A code = 04693-2) Glucose, UA (test >1000 mg/dL Negative A code = 365) Ketones, UA (test 40 mg/dL Negative A code = 2514-8) Bilirubin, UA (test Negative Negative code = 09619-2) Blood, UA (test code Negative Negative = 98246-5) Nitrite, UA (test Negative Negative code = 5802-4) Leukocytes, UA (test Negative Negative code = 5799-2) Urobilinogen, UA 0.2 mg/dL 0.2-1.0 (test code = 62504-5) RBC, UA (test code = 5 See_Comment [Autom ated 96494-9) message] The system which generated this result transmit adriana reference range : /HPF. The reference range was not used to interpret this result as normal/abnormal . WBC, UA (test code = 1 See_Comment [Autom ated 0621-4) message] The system which generated this result transmit adriana reference range : /HPF. The reference range was not used to interpret this result as normal/abnormal . Bacteria, UA (test Rare code = 15797-9) Mucus (test code = Rare 8247-9) Specimen Source (test code = 2795) NANCY (test code = NANCY) Data Abstractor ID - [auto]Data Abstractor ID - tech Lab Interpretation Abnormal (test code = 40325-7) [facility]IS W/ [id number] 15:30:00 Test Item Value Reference Range Interpretation [...] 1574) Rare SOURCE(BEAKER) (test code = 2795) Data Abstractor ID - [auto]Data Abstractor ID - techTSH/Free T4 If [id number] 14:57:00 Test Item Value Reference Range Interpretation Comments TSH (test code = 1.765 See_Comment [Automated 31466-4) message] The system which generated this result transmit adriana reference range : 0.350 - 4.940 uIU/mL. The reference range was not used to interpret this result as normal/abnormal . NANCY (test code = NANCY) Data Abstractor ID - AAHAMID Lab Interpretation Normal (test code = 31476-3) [facility] HospitalTSH/FREE T4 IF [id number] 14:57:00 Test Item Value Reference Range Interpretation Comments THYROID STIMULATING HORMONE 1.765 uIU/mL 0.350-4.940 (BEAKER) (test code = 772) Data Abstractor ID - [id number] 14:48:00 Test Item Value Reference Range Interpretation Comments Phosphorus (test code 2.6 mg/dL 2.3-4.7 Specim en = 2777-1) moderately hemolyzed NANCY (test code = NANCY) Data Abstractor ID - AAHAMID Lab Interpretation Normal (test code = 11704-5) [facility] HospitalMAGNESIUM2021-04-08 14:48:00 Test Item Value Reference Range Interpretation Comments MAGNESIUM (BEAKER) 2.6 mg/dL 1.6-2.6 Specimen moderately (test code = 627) hemolyzed Data Abstractor ID - [id number] 14:48:00 Test Item Value Reference Range Interpretation Comments PHOSPHORUS (BEAKER) 2.6 mg/dL 2.3-4.7 Specimen moderately (test code = 604) hemolyzed Data Abstractor ID - AAHAMIDBASIC METABOLIC [id number] 14:48:00 Test Item Value Reference Range Interpretation [...] S NOT APPLICABLE FOR DIALYSIS PATIEN TS. Data Abstractor ID - AAHAMIDPOCT-GLUCOSE [id number] 14:38:00 Test Item Value Reference Range Interpretation Comments POC-GLUCOSE METER 254 mg/dL 70-110 H : TESTED A T [facility] 6720 (BEAKER) (test code = [facility], 1538) 91577: Data Abstractor/Techni allen ID = [id number] for CHINEDU ZHANG OXYGEN SATURATION, [id number] 14:28:00 Test Item Value Reference Range Interpretation Comments O2 SATURATION (MEASURED) (BEAKER) 73.4 % (test code = 1455) Calcium, [id number] 14:24:00 Test Item Value Reference Range Interpretation Comments Calcium, Ion (test code = 1994-3) 1.12 mmol/L 1.12-1.27 pH, Blood (test code = 59848-7) 7.46 [facility], [id number] 14:24:00 Test Item Value Reference Range Interpretation Comments CALCIUM IONIZED (BEAKER) (test 1.12 mmol/L 1.12-1.27 code = 698) PH, BLOOD (BEAKER) (test code = 7.46 1810) POCT-GLUCOSE [id number] 13:49:00 Test Item Value Reference Range Interpretation Comments POC-GLUCOSE METER 264 mg/dL 70-110 H : TESTED A T [facility] 6720 (BEAKER) (test code = [facility], 1538) 34153: Data Abstractor/Techni allen ID = [id number] for ALPESH TONYPAMELAPAULINA POCT-GLUCOSE [id number] 12:42:00 Test Item Value Reference Range Interpretation Comments POC-GLUCOSE METER 303 mg/dL 70-110 H : TESTED A T [facility] 6720 (BEAKER) (test code = [facility] [place], 1538) 49550: Data Abstractor/Techni allen ID = [id number] for PAULINA DELAROSA POCT-GLUCOSE [id number] 12:39:00 Test Item Value Reference Range Interpretation Comments POC-GLUCOSE METER 321 mg/dL 70-110 H : TESTED A T [facility] 6720 (BEAKER) (test code = [place], 1538) 84857: Data Abstractor/Techni allen ID = [id number] for PAULINA DELAROSA Ketone, [id number] 11:39:00 Test Item Value Reference Range Interpretation Comments Ketones, Blood (test code = 1103) 3.2 mmol/L <0.4 H Lab Interpretation (test code = Abnormal 71316-8) [facility] HospitalKETONE, [id number] 11:39:00 Test Item Value Reference Range Interpretation Comments KETONES, BLOOD (BEAKER) (test code 3.2 mmol/L <0.4 H = 1103) Blood gas, [id number] 11:33:00 Test Item Value Reference Range Interpretation [...] 21 Lab Interpretation Abnormal (test code = 16615-7) [facility] HospitalBLOOD GAS, [id number] 11:33:00 Test Item Value Reference Range Interpretation [...] (BEAKER) (test code = 1819) 21.0 POCT-GLUCOSE [id number] 10:21:00 Test Item Value Reference Range Interpretation Comments POC-GLUCOSE METER 278 mg/dL 70-110 H : TESTED A T [facility] 6720 (BEAKER) (test code = [place], 1538) 53550: Data Abstractor/Techni allen ID = [id number] for PAULINA DELAROSA RAD, CHEST, 1 VIEW, NON [id number] 10:12:00Reason for exam:->s/p ACB with IABPShould this be performed at the bedside?->Yes [facility] : 1975 Sex: MFINAL REPORT RAD, CHEST, 1 VIEW, NON DEPT INDICATION: s/p ACB with IABP COMPARISON: Prior day's exam FINDINGS: Portable frontal view of the chest. IMPRESSION: Support Lines: Shedd-Asnjay tip overlies the pulmonary outflow tract. Sternotomy wires and skin te are present. Lungs and pleura: Scattered diffuse interstitial thickening and hazy airspace disease is unchanged No pneumothorax.Heart and mediastinum: Stable contours.Additional findings: None Signed: Cony Bella Verified Date/Time: 07/03/2020 10:12:13 Reading Location: [facility] Radiology Reading Room RAD, ABDOMEN/KUB, 1 VIEW [id number] 09:17:00Reason for exam:->Abdominal distension [facility] : 1975 Sex: MFINAL REPORT [...] Bella Verified Date/Time: 07/03/2020 09:17:00 Reading Location: [facility] Radiology Reading Room -GLUCOSE [id number] 09:05:00 Test Item Value Reference Range Interpretation Comments POC-GLUCOSE METER 199 mg/dL 70-110 H : TESTED A T [facility] 6720 (BEAKER) (test code = [place], 1538) 32725: Data Abstractor/Techni allen ID = [id number] for CHINEDU ZHANG [id number] 08:53:00 Test Item Value Reference Range Interpretation Comments Lipase (test code = <4 8-78 L 3040-3) NANCY (test code = NANCY) Data Abstractor ID - JAMI Jon Lab Interpretation (test Abnormal code = 14151-8) [facility] HospitalLIPASE2021-04-08 08:53:00 Test Item Value Reference Range Interpretation Comments LIPASE (BEAKER) (test code = 749) < U/L 8-78 L Data Abstractor ID - JAMI epatic function [id number] 08:48:00 Test Item Value Reference Range Interpretation Comments Protein, Total (test 5.4 See_Comment L [Autom ated code = 2885-2) message] The system which generated this result transmit adriana reference range : 6.0 - 8.3 gm/dL . The reference range was not u sed to interpret th is result as normal/abnormal . Albumin (test code = 3.0 g/dL 3.5-5.0 L 11918-3) Total Bilirubin (test 0.7 mg/dL 0.2-1.2 code = 1975-2) Bilirubin, Direct 0.4 mg/dL 0.1-0.5 (test code = 1968-7) Alkaline Phosphatase 89 U/L 40-150 (test code = 6768-6) AST (test code = 57 U/L 5-34 H 1920-8) ALT (test code = 32 U/L 6-55 1742-6) NANCY (test code = NANCY) Data Abstractor ID - JAMI Jon Lab Interpretation Abnormal (test code = 51686-3) [facility] HospitalAmylase2021-04-08 08:48:00 Test Item Value Reference Range Interpretation Comments Amylase (test code = 27 U/L 25-125 1798-8) NANCY (test code = NANCY) Data Abstractor ID - JAMI Jon Lab Interpretation (test Normal code = 23169-0) [facility] HospitalBASIC METABOLIC [id number] 08:48:00 Test Item Value Reference Range Interpretation [...] S NOT APPLICABLE FOR DIALYSIS PATIEN TS. Data Abstractor ID - JAMI [id number] 08:48:00 Test Item Value Reference Range Interpretation Comments MAGNESIUM (BEAKER) (test code = 2.6 mg/dL 1.6-2.6 627) Data Abstractor ID - JAMI [id number] 08:48:00 Test Item Value Reference Range Interpretation Comments PHOSPHORUS (BEAKER) (test code = 3.6 mg/dL 2.3-4.7 604) Data Abstractor ID - JAMI MHEPATIC FUNCTION [id number] 08:48:00 Test Item Value Reference Range Interpretation [...] (test code = 32 U/L 6-55 347) Data Abstractor ID - JAMI [id number] 08:48:00 Test Item Value Reference Range Interpretation Comments AMYLASE (BEAKER) (test code = 349) 27 U/L 25-125 Data Abstractor ID - JAMI MCALCIUM, [id number] 08:23:00 Test Item Value Reference Range Interpretation Comments CALCIUM IONIZED (BEAKER) (test 1.13 mmol/L 1.12-1.27 code = 698) PH, BLOOD (BEAKER) (test code = 7.45 1810) POCT-GLUCOSE [id number] 08:18:00 Test Item Value Reference Range Interpretation Comments POC-GLUCOSE METER 132 mg/dL 70-110 H : TESTED A T [facility] 6720 (BEAKER) (test code = [facility], 1538) 85457: Data Abstractor/Techni allen ID = [id number] for GLENNA Catherine CHINEDU POCT-GLUCOSE [id number] 08:13:00 Test Item Value Reference Range Interpretation Comments POC-GLUCOSE METER 155 mg/dL 70-110 H : TESTED A T [facility] 6720 (BEAKER) (test code [facility], = 1538) 35697: Data Abstractor/Techni allen ID = [id number] for Charlie whitman (contract), Lacy tracy [id number] 08:04:00 Test Item Value Reference Range Interpretation Comments MAGNESIUM (BEAKER) (test code = 2.5 mg/dL 1.6-2.6 627) Data Abstractor ID - KIRAN [id number] 08:04:00 Test Item Value Reference Range Interpretation Comments PHOSPHORUS (BEAKER) (test code = 3.2 mg/dL 2.3-4.7 604) Data Abstractor ID - KIRAN FPOCT-GLUCOSE [id number] 06:34:00 Test Item Value Reference Range Interpretation Comments POC-GLUCOSE METER 140 mg/dL 70-110 H : TESTED A T [facility] 6720 (BEAKER) (test code [facility], = 1538) 22641: Data Abstractor/Techni allen ID = [id number] for Charlie whitman (contract), Lacy tracy [id number] 05:16:00 Test Item Value Reference Range Interpretation Comments MAGNESIUM (BEAKER) 2.5 mg/dL 1.6-2.6 Specimen slightly (test code = 627) hemolyzed Data Abstractor ID - PIAYA [id number] 05:16:00 Test Item Value Reference Range Interpretation Comments PHOSPHORUS (BEAKER) 3.3 mg/dL 2.3-4.7 Specimen slightly (test code = 604) hemolyzed Data Abstractor ID - PIFRANCISCO LBASIC METABOLIC [id number] 05:16:00 Test Item Value Reference Range Interpretation [...] S NOT APPLICABLE FOR DIALYSIS PATIEN TS. Data Abstractor ID - PIAYA LPOCT-GLUCOSE [id number] 04:56:00 Test Item Value Reference Range Interpretation Comments POC-GLUCOSE METER 149 mg/dL 70-110 H : TESTED A T [facility] 6720 (BEAKER) (test code [facility], = 1538) 14081: Data Abstractor/Techni allen ID = [id number] for Charlie whitman (contract), Lacy tracy POCT-GLUCOSE [id number] 04:30:00 Test Item Value Reference Range Interpretation Comments POC-GLUCOSE METER 226 mg/dL 70-110 H : TESTED A T [facility] 6720 (BEAKER) (test code [facility], = 1538) 51343: Data Abstractor/Techni allen ID = [id number] for Charlie ington (contract), Lacy tracy POCT-GLUCOSE [id number] 02:21:00 Test Item Value Reference Range Interpretation Comments POC-GLUCOSE METER 245 mg/dL 70-110 H : TESTED A T [facility] 6720 (BEAKER) (test code [place], = 1538) [address]: Data Abstractor/Techni allen ID = [id number] for Charlie whitman (contract)Lacy [id number] 02:12:00 Test Item Value Reference Range Interpretation Comments Glucose (test code = 290 mg/dL 70-105 H 2345-7) NANCY (test code = NANCY) Data Abstractor ID - DANIEL L Lab Interpretation (test Abnormal code = 77915-8) [facility] 02:12:00 Test Item Value Reference Range Interpretation Comments GLUCOSE RANDOM (BEAKER) (test code 290 mg/dL 70-105 H = 652) Data Abstractor ID - DANIEL LCBC W/PLT COUNT & AUTO [id number] 02:07:00 Test Item Value Reference Range Interpretation [...] 0-1 PERCENT (BEAKER) (test code = 2801) [id number] 01:47:00 Test Item Value Reference Range Interpretation Comments MAGNESIUM (BEAKER) (test code = 2.5 mg/dL 1.6-2.6 627) Data Abstractor ID - DANIEL [id number] 01:47:00 Test Item Value Reference Range Interpretation Comments PHOSPHORUS (BEAKER) (test code = 3.6 mg/dL 2.3-4.7 604) Data Abstractor ID - DANIEL [id number] 01:47:00 Test Item Value Reference Range Interpretation Comments PHOSPHORUS (BEAKER) (test code = 3.9 mg/dL 2.3-4.7 604) Data Abstractor ID - PIAYA LOXYGEN SATURATION, [id number] 01:27:00 Test Item Value Reference Range Interpretation Comments O2 SATURATION (MEASURED) (BEAKER) 97.8 % (test code = 1455) BASIC METABOLIC [id number] 00:11:00 Test Item Value Reference Range Interpretation [...] S NOT APPLICABLE FOR DIALYSIS PATIEN TS. Data Abstractor ID - BSPrepare [id number] 23:55:00 Test Item Value Reference Range Interpretation Comments Unit ABO (test code = 9336221) O Pos UNIT NUMBER (test code = [id number] 934-0) Status (test code = 6552453) [facility] Blood Bank Product (test code PLATELETS = 2263) PRODUCT CODE (test code = [id number] 933-2) [facility] HospitalL[facility] Acid, [id number] 23:45:00 Test Item Value Reference Range Interpretation Comments Lactate, Art (test code = 1.5 mmol/L 0.5-2.2 2874) NANCY (test code = NANCY) Data Abstractor ID - BS Lab Interpretation (test Normal code = 73901-9) [facility] HospitalLACTIC ACID, [id number] 23:45:00 Test Item Value Reference Range Interpretation Comments LACTATE BLOOD ARTERIAL (2) 1.5 mmol/L 0.5-2.2 (AKER) (test code = 2874) Data Abstractor ID - BSPOCT-GLUCOSE [id number] 23:43:00 Test Item Value Reference Range Interpretation Comments POC-GLUCOSE METER 325 mg/dL 70-110 H : Notified RN/MD: (YOANA) (test code = TESTED AT [facility] 5398 1538) [place], [address]: Data Abstractor/Techni allen ID = [id number] for DO June, [id number] 23:32:00 Test Item Value Reference Range Interpretation Comments KETONES, BLOOD (BEAKER) (test code 1.6 mmol/L <0.4 H = 1103) Potassium-Stat [id number] 23:31:00 Test Item Value Reference Range Interpretation Comments Potassium (test code = 2823-3) 4.9 meq/L 3.6-5.5 Lab Interpretation (test code = Normal 16565-9) [facility] HospitalBLOOD GAS, [id number] 23:31:00 Test Item Value Reference Range Interpretation [...] (BEAKER) (test code = 1819) 24.0 POTASSIUM-STAT [id number] 23:31:00 Test Item Value Reference Range Interpretation Comments POTASSIUM (BEAKER) (test code = 4.9 meq/L 3.6-5.5 379) BASIC METABOLIC [id number] 21:13:00 Test Item Value Reference Range Interpretation [...] S NOT APPLICABLE FOR DIALYSIS PATIEN TS. Data Abstractor ID - [id number] 21:11:00 Test Item Value Reference Range Interpretation Comments MAGNESIUM (BEAKER) 2.3 mg/dL 1.6-2.6 Specimen moderately (test code = 627) hemolyzed Data Abstractor ID - [id number] 21:11:00 Test Item Value Reference Range Interpretation Comments PHOSPHORUS (BEAKER) 3.8 mg/dL 2.3-4.7 Specimen moderately (test code = 604) hemolyzed Data Abstractor ID - BSLACTIC ACID, [id number] 21:07:00 Test Item Value Reference Range Interpretation Comments LACTATE BLOOD ARTERIAL (2) 1.6 mmol/L 0.5-2.2 (BEAKER) (test code = 2874) Data Abstractor ID - BSPOCT-GLUCOSE [id number] 19:01:00 Test Item Value Reference Range Interpretation Comments POC-GLUCOSE METER 404 mg/dL 70-110 HH : TESTED A T [facility] 6720 (BEAKER) (test code = [facility] [employer] [facility], 153) [address]: Data Abstractor/Techni allen ID = [id number] for PAULINA DELAROSA POCT-GLUCOSE [id number] 12:35:00 Test Item Value Reference Range Interpretation Comments POC-GLUCOSE METER 248 mg/dL 70-110 H : TESTED A T [facility] 6720 (BEAKER) (test code = [facility] [employer] [facility], 1538) [address]: Data Abstractor/Techni allen ID = [id number] for WILLIAMS DEJESUS POCT-GLUCOSE [id number] 11:47:00 Test Item Value Reference Range Interpretation Comments POC-GLUCOSE METER 207 mg/dL 70-110 H : TESTED A T [facility] 6720 (BEAKER) (test code = [facility] [employer] [facility], 1538) [address]: Data Abstractor/Techni allen ID = [id number] for CHELSI DEJESUSA POCT-GLUCOSE [id number] 10:40:00 Test Item Value Reference Range Interpretation Comments POC-GLUCOSE METER 116 mg/dL 70-110 H : TESTED A T [facility] 6720 (BEAKER) (test code = [facility], 1538) [address]: Data Abstractor/Techni allen ID = [id number] for CHELSI DEJESUSA POCT-GLUCOSE [id number] 10:28:00 Test Item Value Reference Range Interpretation Comments POC-GLUCOSE METER 47 mg/dL 70-110 L : TESTED A T [facility] 6720 (BEAKER) (test code = [facility], 1538) [address]: Data Abstractor/Techni allen ID = [id number] for BHAVANI STEELEAIRA OXYGEN SATURATION, [id number] 10:09:00 Test Item Value Reference Range Interpretation Comments O2 SATURATION (MEASURED) ([facility]) 68.4 % (test code = 1455) POCT-GLUCOSE [id number] 09:55:00 Test Item Value Reference Range Interpretation Comments POC-GLUCOSE METER 113 mg/dL 70-110 H : TESTED A T [facility] 6720 (BEAKER) (test code = [facility], 1538) [address]: Data Abstractor/Techni allen ID = [id number] for BHAVANI DEJESUSAIRA POCT-GLUCOSE [id number] 08:54:00 Test Item Value Reference Range Interpretation Comments POC-GLUCOSE METER 100 mg/dL 70-110 : TESTED A T [facility] 6720 (BEAKER) (test code = [facility], 1538) [address]: Data Abstractor/Techni allen ID = [id number] for BHAVANI DEJESUSAIRA [id number] 06:54:00 Test Item Value Reference Range Interpretation Comments ACTIVATED CLOTTING TIME 692 sec : 74 -137 seconds, (BEAKER) (test code = Baseli ne: TESTED AT 441) [facility] 6720 [facility] [place], 770 [address]: Data Abstractor/Techni allen ID = [id number] for NG NADIAMONSEG [id number] 06:54:00 Test Item Value Reference Range Interpretation Comments ACTIVATED CLOTTING TIME > sec : 74 -137 seconds, (BEAKER) (test code = Carla ne: TESTED AT 441) [address], [address]: Data Abstractor/Techni allen ID = [id number] for NG NADIA, DUNG POC ACTIVATED CLOTTING [id number] 06:53:00 Test Item Value Reference Range Interpretation Comments Activated Clotting Time 109 sec : 74 -137 seconds, (test code = 441) Baseline: TESTED AT [address], [facility] 30: Data Abstractor/Techni allen ID = [id number] for NG NADIA, DUNG [id number] 06:53:00 Test Item Value Reference Range Interpretation Comments ACTIVATED CLOTTING TIME 109 sec : 74 -137 seconds, (BEAKER) (test code = Elkedhiraj ne: TESTED AT [facility]) [address], [facility] 30: Data Abstractor/Techni allen ID = [id number] for NG NADIA, DUNG [id number] 06:53:00 Test Item Value Reference Range Interpretation Comments ACTIVATED CLOTTING TIME 543 sec : 74 -137 seconds, (BEAKER) (test code = Elkei ne: TESTED AT [facility]) [address], [facility] 30: Data Abstractor/Techni allen ID = [id number] for NG NADIA, DUNG [id number] 06:53:00 Test Item Value Reference Range Interpretation Comments ACTIVATED CLOTTING TIME 505 sec : 74 -137 seconds, (BEAKER) (test code = Carla ne: TESTED AT [facility]) [address], [facility] 30: Data Abstractor/Techni allen ID = [id number] for NG NADIA, DUNG [id number] 06:53:00 Test Item Value Reference Range Interpretation Comments ACTIVATED CLOTTING TIME 417 sec : 74 -137 seconds, (BEAKER) (test code = Baseli ne: TESTED AT [facility]) [address], [facility] 30: Data Abstractor/Techni allen ID = [id number] for NG NADIA, DUNG [id number] 06:53:00 Test Item Value Reference Range Interpretation Comments ACTIVATED CLOTTING TIME 131 sec : 74 -137 seconds, (BEAKER) (test code = Baseli ne: TESTED AT 441) [facility] [address] [place], [address]: Data Abstractor/Techni allen ID = [id number] for ZEINAB WEISS HGB/HCT (H&H)-Stat [id number] 06:45:00 Test Item Value Reference Range Interpretation Comments Hemoglobin (test code = 11.2 See_Comment L [Au tomated message] 786-4) The system Shustir generated this result transmitted ref erence range: 13.0 - 1 6.8 GM/DL. The refe rence range was not u sed to interpret this result as normal/abnor mal. Hematocrit (test code = 33.0 % 40.0-50.0 L 4544-3) Lab Interpretation (test Abnormal code = 34605-0) [facility] HospitalGlucose-Stat [id number] 06:45:00 Test Item Value Reference Range Interpretation Comments Glucose (test code = 2345-7) 122 mg/dL 70-110 H Lab Interpretation (test code = Abnormal 51415-2) [facility] HospitalBLOOD GAS, [id number] 06:45:00 Test Item Value Reference Range Interpretation [...] (BEAKER) (test code = 1819) 36.0 GLUCOSE-STAT [id number] 06:45:00 Test Item Value Reference Range Interpretation Comments GLUCOSE RANDOM (BEAKER) (test code 122 mg/dL 70-110 H = 652) HGB/HCT (H&H) - STAT [id number] 06:45:00 Test Item Value Reference Range Interpretation Comments HEMOGLOBIN (BEAKER) (test code = 11.2 GM/DL 13.0-16.8 L 410) HEMATOCRIT (BEAKER) (test code = 33.0 % 40.0-50.0 L 411) Sodium Na-Stat [id number] 06:40:00 Test Item Value Reference Range Interpretation Comments Sodium (test code = 2951-2) 137 meq/L 136-145 Lab Interpretation (test code = Normal 48103-6) [facility] [id number] 06:40:00 Test Item Value Reference Range Interpretation Comments SODIUM (BEAKER) (test code = 381) 137 meq/L 136-145 POTASSIUM-STAT [id number] 06:40:00 Test Item Value Reference Range Interpretation Comments POTASSIUM (BEAKER) (test code = 5.0 meq/L 3.6-5.5 379) POCT-GLUCOSE [id number] 05:13:00 Test Item Value Reference Range Interpretation Comments POC-GLUCOSE METER 125 mg/dL 70-110 H : TESTED A T [facility] 6720 (BEAKER) ([facility] = [facility], 1538) [address]: Data Abstractor/Techni allen ID = [id number] for ON LALITHA ARMSTRONG BASIC METABOLIC [id number] 03:42:00 Test Item Value Reference Range Interpretation [...] S NOT APPLICABLE FOR DIALYSIS PATIEN TS. Data Abstractor ID - [id number] 03:42:00 Test Item Value Reference Range Interpretation Comments MAGNESIUM (BEAKER) (test code = 2.2 mg/dL 1.6-2.6 627) Data Abstractor ID - [id number] 03:42:00 Test Item Value Reference Range Interpretation Comments PHOSPHORUS (BEAKER) (test code = 2.2 mg/dL 2.3-4.7 L 604) Data Abstractor ID - BSBLOOD GAS, [id number] 03:20:00 Test Item Value Reference Range Interpretation [...] (BEAKER) (test code = 1819) 40.0 GLUCOSE-STAT [id number] 03:20:00 Test Item Value Reference Range Interpretation Comments GLUCOSE RANDOM (BEAKER) (test code 167 mg/dL 70-110 H = 652) HGB/HCT (H&H) - STAT [id number] 03:20:00 Test Item Value Reference Range Interpretation Comments HEMOGLOBIN (BEAKER) (test code = 11.3 GM/DL 13.0-16.8 L 410) HEMATOCRIT (BEAKER) (test code = 33.0 % 40.0-50.0 L 411) SODIUM NA-STAT [id number] 03:15:00 Test Item Value Reference Range Interpretation Comments SODIUM (BEAKER) (test code = 381) 137 meq/L 136-145 POTASSIUM-STAT [id number] 03:15:00 Test Item Value Reference Range Interpretation Comments POTASSIUM (BEAKER) (test code = 3.9 meq/L 3.6-5.5 379) CBC W/PLT COUNT & AUTO [id number] 03:10:00 Test Item Value Reference Range Interpretation [...] (BEAKER) (test code = 2801) Comprehensive metabolic [id number] 02:35:00 Test Item Value Reference Range Interpretation Comments Protein, Total (test 5.7 See_Comment L [Autom ated code = 2885-2) message] The system which generated this result transmitted reference range : 6.0 - 8.3 gm/dL . The reference range was not used to interpr et this result as normal/abnormal . Albumin (test code = 3.2 g/dL 3.5-5.0 L 49692-8) Alkaline Phosphatase 112 U/L 40-150 (test code = 6768-6) Total Bilirubin (test 1.3 mg/dL 0.2-1.2 H code = 1975-2) Sodium (test code = 138 meq/L 344-929 5340-2) Potassium (test code 4.3 meq/L 3.5-5.1 = 2823-3) Chloride (test code = 107 meq/L 98-107 2075-0) CO2 (test code = 20 meq/L 22-29 L 2028-9) BUN (test code = 15 mg/dL 7-21 3094-0) Creatinine (test code 1.16 mg/dL 0.57-1.25 = 2160-0) Glucose (test code = 263 mg/dL 70-105 H 2345-7) Calcium (test code = 9.3 mg/dL 8.4-10.2 83428-6) AST (test code = 38 U/L 5-34 H 1920-8) ALT (test code = 26 U/L 6-55 1742-6) EGFR (test code = 69 mL/min/1[place]73 [place] [address]-3) m NOT ACCURATE CREATININE CLEARANCE IN PREDICTING GLOMERULAR FILTRATION RATE . ESTIMATED GFR I S NOT APPLICABLE FOR DIALYSIS PATIENTS. NANCY (test code = NANCY) Data Abstractor ID - BSOperator ID - BS Lab Interpretation Abnormal (test code = 12843-8) [facility] HospitalMAGNESIUM2021-04-07 02:35:00 Test Item Value Reference Range Interpretation Comments MAGNESIUM (BEAKER) (test code = 2.5 mg/dL 1.6-2.6 627) Data Abstractor ID - BSCOMPREHENSIVE METABOLIC [id number] 02:35:00 Test Item Value Reference Range Interpretation [...] S NOT APPLICABLE FOR DIALYSIS PATIEN TS. Data Abstractor ID - BSOperator ID - [id number] 02:25:00 Test Item Value Reference Range Interpretation Comments MAGNESIUM (BEAKER) (test code = 2.3 mg/dL 1.6-2.6 627) Data Abstractor ID - BSLACTIC ACID, [id number] 02:21:00 Test Item Value Reference Range Interpretation Comments LACTATE BLOOD ARTERIAL (2) 1.2 mmol/L 0.5-2.2 (BEAKER) (test code = 2874) Data Abstractor ID - BSHGB/HCT (H&H) - STAT [id number] 02:07:00 Test Item Value Reference Range Interpretation Comments HEMOGLOBIN (BEAKER) (test code = 11.3 GM/DL 13.0-16.8 L 410) HEMATOCRIT (BEAKER) (test code = 33.0 % 40.0-50.0 L 411) BLOOD GAS, [id number] 02:06:00 Test Item Value Reference Range Interpretation [...] (BEAKER) (test code = 1819) 40.0 GLUCOSE-STAT [id number] 02:06:00 Test Item Value Reference Range Interpretation Comments GLUCOSE RANDOM (BEAKER) (test code 189 mg/dL 70-110 H = 652) SODIUM NA-STAT [id number] 02:05:00 Test Item Value Reference Range Interpretation Comments SODIUM (BEAKER) (test code = 381) 137 meq/L 136-145 POTASSIUM-STAT [id number] 02:05:00 Test Item Value Reference Range Interpretation Comments POTASSIUM (BEAKER) (test code = 4.0 meq/L 3.6-5.5 379) POCT-GLUCOSE [id number] 01:29:00 Test Item Value Reference Range Interpretation Comments POC-GLUCOSE METER 194 mg/dL 70-110 H : TESTED A T [facility] 6720 (BEAKER) (test code = [place], 1538) [address]: Data Abstractor/Techni allen ID = [id number] for ON LALITHA ARMSTRONG BLOOD [id number] 01:00:00 Test Item Value Reference Range Interpretation Comments CULTURE (BEAKER) (test No growth in 5 days code = 1095) BLOOD [id number] 01:00:00 Test Item Value Reference Range Interpretation Comments CULTURE (BEAKER) (test No growth in 5 days code = 1095) GLUCOSE-STAT [id number] 00:32:00 Test Item Value Reference Range Interpretation Comments GLUCOSE RANDOM (BEAKER) (test code 243 mg/dL 70-110 H = 652) HGB/HCT (H&H) - STAT [id number] 00:32:00 Test Item Value Reference Range Interpretation Comments HEMOGLOBIN (BEAKER) (test code = 11.2 GM/DL 13.0-16.8 L 410) HEMATOCRIT (BEAKER) (test code = 33.0 % 40.0-50.0 L 411) BLOOD GAS, [id number] 00:31:00 Test Item Value Reference Range Interpretation [...] 1819) 60.0 RAD, CHEST, 1 VIEW, NON [id number] 00:30:00Reason for exam:->Status post CV Surgery post op day 0Should this be performed at the bedside?->Yes [facility] : 1975 Sex: MFINAL [...] mediastinal contours.Additional findings: None. Signed: Candelaria Lockett MDReport Verified Date/Time: 07/02/2020 00:30:13 SODIUM NA-STAT [id number] 00:26:00 Test Item Value Reference Range Interpretation Comments SODIUM (BEAKER) (test code = 381) 137 meq/L 136-145 POTASSIUM-STAT [id number] 00:26:00 Test Item Value Reference Range Interpretation Comments POTASSIUM (BEAKER) (test code = 4.3 meq/L 3.6-5.5 379) [id number] 00:00:00 Test Item Value Reference Range Interpretation Comments PHOSPHORUS (BEAKER) (test code = 3.4 mg/dL 2.3-4.7 604) Data Abstractor ID - BSLACTIC ACID, [id number] 23:52:00 Test Item Value Reference Range Interpretation Comments LACTATE BLOOD 2.3 mmol/L 0.5-2.2 H Specimen sligh tly ARTERIAL (2) (BEAKER) hemoly zed (test code = 2874) Data Abstractor ID - [id number] 23:41:00 Test Item Value Reference Range Interpretation Comments Fibrinogen (test code = 3255-7) 533 mg/dl 225-434 H Lab Interpretation (test code = Abnormal 83529-0) [facility] HospitalaPTT2021-[facility] 23:41:00 Test Item Value Reference Range Interpretation Comments PTT (test code = 36.8 See_Comment H [Automated message] 74213-4) The system Shustir generated this result transmitted ref erence range: 22.5 - 3 6.0 seconds. The reference range was not used to int erpret this result as normal/abnormal . Lab Interpretation (test Abnormal code = 42593-3) [facility] HospitalFIBRINOGEN2021-04-06 23:41:00 Test Item Value Reference Range Interpretation Comments FIBRINOGEN LEVEL (MANUELAKER) (test 533 mg/dl 225-434 H code = 658) [id number] 23:41:00 Test Item Value Reference Range Interpretation Comments PARTIAL THROMBOPLASTIN TIME 36.8 seconds 22.5-36.0 H (MANUELAKER) (test code = 760) Prothromin time/[id number] 23:40:00 Test Item Value Reference Interpretation Comments [...] valves. Lab Interpretation Abnormal (test code = 92813-5) [facility] HospitalPROTHROMBIN TIME/[id number] 23:40:00 Test Item Value Reference Range Interpretation Comments PROTIME (BEAKER) 17.0 seconds 11.9-14.2 H (test code = 759) INR (BEAKER) (test 1.42 See_Comment [Automat ed message] code = 370) The system Shustir generated this result transmitted ref erence range: <=5.90. The reference range was not used to int erpret this result as normal/abnormal . Effective 08/23/2018: PT Reference Range ChangeNew: 11.9-14.2 Previous: 11.7- 14.7RECOMMENDED COUMADIN/WARFARIN INR THERAPY RANGESSTANDARD DOSE: 2.0-3.0 Includes: PROPHYLAXIS for venous thrombosis, systemic embolization; TREATMENT for venous thrombosis and/or pulmonary embolus.HIGH RISK: Target INR is2.5-3.5 for patients wiht mechanical heart valves.Prepare [id number] 23:30:00 Test Item Value Reference Range Interpretation Comments CROSSMATCH (test code = 2264) COMPATIBLE Unit ABO (test code = A Pos 1758973) UNIT NUMBER (test code = [id number] 934-0) Status (test code = 6661001) CANCELED Blood Bank Product (test code RED BLOOD CELLS = 2263) PRODUCT CODE (test code = B4685N95 933-2) [facility] HospitalCB W/PLT COUNT & AUTO [id number] 23:27:00 Test Item Value Reference Range Interpretation [...] = 2801) CBC W/PLT COUNT & AUTO [id number] 23:21:00 Test Item Value Reference Range Interpretation [...] PERCENT (BEAKER) (test code = 2801) CALCIUM, [id number] 23:15:00 Test Item Value Reference Range Interpretation Comments CALCIUM IONIZED (BEAKER) (test 1.23 mmol/L 1.12-1.27 code = 698) PH, BLOOD (BEAKER) (test code = 7.31 1810) OXYGEN SATURATION, [id number] 23:15:00 Test Item Value Reference Range Interpretation Comments O2 SATURATION (MEASURED) (BEAKER) 84.0 % (test code = 1455) BLOOD GAS, [id number] 23:14:00 Test Item Value Reference Range Interpretation [...] (BEAKER) (test code = 1819) 40.0 GLUCOSE-STAT [id number] 23:14:00 Test Item Value Reference Range Interpretation Comments GLUCOSE RANDOM (BEAKER) (test code 249 mg/dL 70-110 H = 652) HGB/HCT (H&H) - STAT [id number] 23:14:00 Test Item Value Reference Range Interpretation Comments HEMOGLOBIN (BEAKER) (test code = 11.4 GM/DL 13.0-16.8 L 410) HEMATOCRIT (BEAKER) (test code = 34.0 % 40.0-50.0 L 411) SODIUM NA-STAT [id number] 23:12:00 Test Item Value Reference Range Interpretation Comments SODIUM (BEAKER) (test code = 381) 137 meq/L 136-145 POTASSIUM-STAT [id number] 23:12:00 Test Item Value Reference Range Interpretation Comments POTASSIUM (BEAKER) (test code = 4.2 meq/L 3.6-5.5 379) SODIUM NA-STAT [id number] 22:33:00 Test Item Value Reference Range Interpretation Comments SODIUM (BEAKER) (test code = 381) 135 meq/L 136-145 L POTASSIUM-STAT [id number] 22:33:00 Test Item Value Reference Range Interpretation Comments POTASSIUM (BEAKER) (test code = 3.9 meq/L 3.6-5.5 379) CALCIUM, [id number] 22:33:00 Test Item Value Reference Range Interpretation Comments CALCIUM IONIZED (BEAKER) (test 1.26 mmol/L 1.12-1.27 code = 698) PH, BLOOD (BEAKER) (test code = 7.32 1810) BLOOD GAS, [id number] 22:33:00 Test Item Value Reference Range Interpretation [...] (BEAKER) (test code = 1819) 100.0 GLUCOSE-STAT [id number] 22:33:00 Test Item Value Reference Range Interpretation Comments GLUCOSE RANDOM (BEAKER) (test code 239 mg/dL 70-110 H = 652) HGB/HCT (H&H) - STAT [id number] 22:33:00 Test Item Value Reference Range Interpretation Comments HEMOGLOBIN (BEAKER) (test code = 10.9 GM/DL 13.0-16.8 L 410) HEMATOCRIT (BEAKER) (test code = 32.0 % 40.0-50.0 L 411) PROTHROMBIN TIME/[id number] 22:28:00 Test Item Value Reference Range Interpretation Comments PROTIME (BEAKER) 18.1 seconds 11.9-14.2 H (test code = 759) INR (BEAKER) (test 1.54 See_Comment [Automat ed message] code = 370) The system Shustir generated this result transmitted ref erence range: <=5.90. The reference range was not used to int erpret this result as normal/abnormal . Effective 08/23/2018: PT Reference Range ChangeNew: 11.9-14.2 Previous: 11.7- 14.7RECOMMENDED COUMADIN/WARFARIN INR THERAPY RANGESSTANDARD DOSE: 2.0-3.0 Includes: PROPHYLAXIS for venous thrombosis, systemic embolization; TREATMENT for venous thrombosis and/or pulmonary embolus.HIGH RISK: Target INR is2.5-3.5 for patients wiht mechanical heart valves.[id number] 22:28:00 Test Item Value Reference Range Interpretation Comments FIBRINOGEN LEVEL (BEAKER) (test 527 mg/dl 225-434 H code = 658) [id number] 22:28:00 Test Item Value Reference Range Interpretation Comments PARTIAL THROMBOPLASTIN TIME 31.7 seconds 22.5-36.0 (BEAKER) (test code = 760) Platelet [id number] 22:09:00 Test Item Value Reference Range Interpretation Comments Platelets (test code 90 See_Comment L [Autom ated = 777-3) message] The system which generated this result transmit adriana reference range : 150 - 450 K/CU MM. The reference range was not u sed to interpret th is result as normal/abnormal . NANCY (test code = NANCY) Data Abstractor ID - [id number] ID - [id number] ID - [id number] Lab Interpretation Abnormal (test code = 07365-8) [id number] 22:09:00 Test Item Value Reference Range Interpretation Comments PLATELET COUNT (BEAKER) (test code 90 K/CU MM 150-450 L = 756) Data Abstractor ID - [id number] ID - [id number] ID - [id number] LAB 2020-07-01 21:58:00 Test Item Value Reference Range Interpretation Comments POTASSIUM (BEAKER) (test code = 4.1 meq/L 3.6-5.5 379) BLOOD GAS, [id number] 21:58:00 Test Item Value Reference Range Interpretation [...] (BEAKER) (test code = 1819) 100.0 CALCIUM, [id number] 21:58:00 Test Item Value Reference Range Interpretation Comments CALCIUM IONIZED (BEAKER) (test 1.04 mmol/L 1.12-1.27 L code = 698) PH, BLOOD (BEAKER) (test code = 7.36 1810) SODIUM NA-STAT [id number] 21:58:00 Test Item Value Reference Range Interpretation Comments SODIUM (BEAKER) (test code = 381) 134 meq/L 136-145 L GLUCOSE-STAT [id number] 21:58:00 Test Item Value Reference Range Interpretation Comments GLUCOSE RANDOM (BEAKER) (test code 237 mg/dL 70-110 H = 652) HGB/HCT (H&H) - STAT [id number] 21:58:00 Test Item Value Reference Range Interpretation Comments HEMOGLOBIN (BEAKER) (test code = 10.1 GM/DL 13.0-16.8 L 410) HEMATOCRIT (BEAKER) (test code = 30.0 % 40.0-50.0 L 411) BLOOD GAS, [id number] 21:09:00 Test Item Value Reference Range Interpretation [...] (BEAKER) (test code = 1819) 80.0 POTASSIUM-STAT [id number] 21:09:00 Test Item Value Reference Range Interpretation Comments POTASSIUM (BEAKER) (test code = 5.8 meq/L 3.6-5.5 H 379) GLUCOSE-STAT [id number] 21:09:00 Test Item Value Reference Range Interpretation Comments GLUCOSE RANDOM (BEAKER) (test code 268 mg/dL 70-110 H = 652) HGB/HCT (H&H) - STAT [id number] 21:09:00 Test Item Value Reference Range Interpretation Comments HEMOGLOBIN (BEAKER) (test code = 9.4 GM/DL 13.0-16.8 L 410) HEMATOCRIT (BEAKER) (test code = 28.0 % 40.0-50.0 L 411) SODIUM NA-STAT [id number] 21:08:00 Test Item Value Reference Range Interpretation Comments SODIUM (BEAKER) (test code = 381) 135 meq/L 136-145 L POTASSIUM-STAT [id number] 20:36:00 Test Item Value Reference Range Interpretation Comments POTASSIUM (BEAKER) (test code = 6.5 meq/L 3.6-5.5 HH 379) HGB/HCT (H&H) - STAT [id number] 20:36:00 Test Item Value Reference Range Interpretation Comments HEMOGLOBIN (BEAKER) (test code = 9.4 GM/DL 13.0-16.8 L 410) HEMATOCRIT (BEAKER) (test code = 28.0 % 40.0-50.0 L 411) BLOOD GAS, [id number] 20:34:00 Test Item Value Reference Range Interpretation [...] (test code = 1819) 80.0 SODIUM NA-STAT [id number] 20:34:00 Test Item Value Reference Range Interpretation Comments SODIUM (BEAKER) (test code = 381) 131 meq/L 136-145 L GLUCOSE-STAT [id number] 20:34:00 Test Item Value Reference Range Interpretation Comments GLUCOSE RANDOM (BEAKER) (test code 289 mg/dL 70-110 H = 652) BLOOD GAS, [id number] 20:07:00 Test Item Value Reference Range Interpretation [...] (test code = 1819) 80.0 SODIUM NA-STAT [id number] 20:07:00 Test Item Value Reference Range Interpretation Comments SODIUM (BEAKER) (test code = 381) 129 meq/L 136-145 L GLUCOSE-STAT [id number] 20:07:00 Test Item Value Reference Range Interpretation Comments GLUCOSE RANDOM (BEAKER) (test code 284 mg/dL 70-110 H = 652) POTASSIUM-STAT [id number] 20:07:00 Test Item Value Reference Range Interpretation Comments POTASSIUM (BEAKER) (test code = 7.1 meq/L 3.6-5.5 HH 379) HGB/HCT (H&H) - STAT [id number] 20:07:00 Test Item Value Reference Range Interpretation Comments HEMOGLOBIN (BEAKER) (test code = 10.5 GM/DL 13.0-16.8 L 410) HEMATOCRIT (BEAKER) (test code = 31.0 % 40.0-50.0 L 411) SODIUM NA-STAT [id number] 19:37:00 Test Item Value Reference Range Interpretation Comments SODIUM (BEAKER) (test code = 381) 126 meq/L 136-145 L POTASSIUM-STAT [id number] 19:37:00 Test Item Value Reference Range Interpretation Comments POTASSIUM (BEAKER) (test code = 7.6 meq/L 3.6-5.5 HH 379) HGB/HCT (H&H) - STAT [id number] 19:37:00 Test Item Value Reference Range Interpretation Comments HEMOGLOBIN (BEAKER) (test code = 10.7 GM/DL 13.0-16.8 L 410) HEMATOCRIT (BEAKER) (test code = 31.0 % 40.0-50.0 L 411) BLOOD GAS, [id number] 19:36:00 Test Item Value Reference Range Interpretation [...] (BEAKER) (test code = 1819) 80.0 GLUCOSE-STAT [id number] 19:36:00 Test Item Value Reference Range Interpretation Comments GLUCOSE RANDOM (BEAKER) (test code 261 mg/dL 70-110 H = 652) POTASSIUM-STAT [id number] 17:35:00 Test Item Value Reference Range Interpretation Comments POTASSIUM (BEAKER) (test code = 4.1 meq/L 3.6-5.5 379) BLOOD GAS, [id number] 17:35:00 Test Item Value Reference Range Interpretation [...] (test code = 1819) 100.0 SODIUM NA-STAT [id number] 17:35:00 Test Item Value Reference Range Interpretation Comments SODIUM (BEAKER) (test code = 381) 133 meq/L 136-145 L GLUCOSE-STAT [id number] 17:35:00 Test Item Value Reference Range Interpretation Comments GLUCOSE RANDOM (BEAKER) (test code 146 mg/dL 70-110 H = 652) HGB/HCT (H&H) - STAT [id number] 17:35:00 Test Item Value Reference Range Interpretation Comments HEMOGLOBIN (BEAKER) (test code = 11.6 GM/DL 13.0-16.8 L 410) HEMATOCRIT (BEAKER) (test code = 34.0 % 40.0-50.0 L 411) CALCIUM, [id number] 17:32:00 Test Item Value Reference Range Interpretation Comments CALCIUM IONIZED (BEAKER) (test 1.16 mmol/L 1.12-1.27 code = 698) PH, BLOOD (BEAKER) (test code = 7.44 1810) POCT-GLUCOSE [id number] 16:22:00 Test Item Value Reference Range Interpretation Comments POC-GLUCOSE METER 109 mg/dL 70-110 : TESTED A T [facility] 6720 (BEAKER) (test code = [place]A [place], 1538) 52470: Data Abstractor/Techni allen ID = [id number] for JOSE MANUEL MEEHAN PATRICIA POCT-GLUCOSE [id number] 14:34:00 Test Item Value Reference Range Interpretation Comments POC-GLUCOSE METER 119 mg/dL 70-110 H : TESTED A T [facility] 6720 (BEAKER) (test code = [facility], 153) 76101: Data Abstractor/Techni allen ID = [id number] for JOSE MANUEL RNANDEZ, PATRICIA Venous doppler arm, [id number] 13:32:51Ejection FractionSLE ECHO HEARTLAB MKCKESSON [facility] [id number] 12:23:00 Test Item Value Reference Range Interpretation Comments Hemoglobin A1C (test code = 4548-4) 8.5 % 4.3-6.1 H Lab Interpretation (test code = Abnormal 72291-4) [facility] [id number] 12:23:00 Test Item Value Reference Range Interpretation Comments HEMOGLOBIN A1C (BEAKER) (test code = 8.5 % 4.3-6.1 H 368) POCT-GLUCOSE [id number] 12:19:00 Test Item Value Reference Range Interpretation Comments POC-GLUCOSE METER 142 mg/dL 70-110 H : TESTED A T [facility] 6720 (BEAKER) (test code = [facility], 153) 30499: Data Abstractor/Techni allen ID = [id number] for HE RNANDEZ, PATRICIA POCT-GLUCOSE [id number] 10:25:00 Test Item Value Reference Range Interpretation Comments POC-GLUCOSE METER 125 mg/dL 70-110 H : TESTED A T [facility] 6720 (BEAKER) (test code = [facility], 153) 41170: Data Abstractor/Techni allen ID = [id number] for HE RNANDEZ, PATRICIA POCT-GLUCOSE [id number] 09:11:00 Test Item Value Reference Range Interpretation Comments POC-GLUCOSE METER 125 mg/dL 70-110 H : TESTED A T [facility] 6720 (BEAKER) (test code = [facility], 153) 48300: Data Abstractor/Techni allen ID = [id number] for HE RNANDEZ, PATRICIA POCT-GLUCOSE [id number] 08:26:00 Test Item Value Reference Range Interpretation Comments POC-GLUCOSE METER 130 mg/dL 70-110 H : TESTED A T [facility] 6720 (BEAKER) (test code = [facility], 153) 29784: Data Abstractor/Techni allen ID = [id number] for HE RNANDEZ, PATRICIA RAD, CHEST, 1 VIEW, NON [id number] 07:48:00Reason for exam:->IABPShould this be performed at the bedside?->Yes [facility] 1975 Sex: [...] Bella Verified Date/Time: 07/01/2020 07:48:53 Reading Location: [facility] Radiology Reading Room POCT-GLUCOSE METER 2020-07-01 07:04:00 Test Item Value Reference Range Interpretation Comments POC-GLUCOSE METER 115 mg/dL 70-110 H : TESTED A T [facility] 6720 (BEAKER) (test code = [place], 1538) 84622: Data Abstractor/Techni allen ID = [id number] for OTIS MAURER BASIC METABOLIC [id number] 05:57:00 Test Item Value Reference Range Interpretation [...] S NOT APPLICABLE FOR DIALYSIS PATIEN TS. Data Abstractor ID - [id number] 05:57:00 Test Item Value Reference Range Interpretation Comments MAGNESIUM (BEAKER) (test code = 2.1 mg/dL 1.6-2.6 627) Data Abstractor ID - [id number] 05:30:00 Test Item Value Reference Range Interpretation Comments PARTIAL THROMBOPLASTIN TIME 89.6 seconds 22.5-36.0 H (BEAKER) (test code = 760) CBC W/PLT COUNT & AUTO [id number] 05:04:00 Test Item Value Reference Range Interpretation [...] PERCENT (BEAKER) (test code = 2801) POCT-GLUCOSE [id number] 05:00:00 Test Item Value Reference Range Interpretation Comments POC-GLUCOSE METER 129 mg/dL 70-110 H : TESTED A T [facility] 6720 (BEAKER) (test code = [facility], 1538) 34052: Data Abstractor/Techni allen ID = [id number] for OTIS MAURER POCT-GLUCOSE [id number] 03:40:00 Test Item Value Reference Range Interpretation Comments POC-GLUCOSE METER 164 mg/dL 70-110 H : TESTED A T [facility] 6720 (BEAKER) (test code = [facility], 1538) 76127: Data Abstractor/Techni allen ID = [id number] for OSAMN DELEON POCT-GLUCOSE [id number] 02:20:00 Test Item Value Reference Range Interpretation Comments POC-GLUCOSE METER 182 mg/dL 70-110 H : TESTED A T [facility] 6720 (BEAKER) (test code = ANGELA Maya [facility], 1538) 98206: Data Abstractor/Techni allen ID = [id number] for OTIS MAURER ABORH, [id number] 01:31:00 Test Item Value Reference Range Interpretation Comments ABO Grouping (test code = 2588) A Rh Factor (test code = 2589) POS [facility]PO[facility] [id number] 01:02:00 Test Item Value Reference Range Interpretation Comments POC-GLUCOSE METER 226 mg/dL 70-110 H : TESTED A T [facility] 6720 (BEAKER) (test code = ANGELA Maya [facility], 1538) 13782: Data Abstractor/Techni allen ID = [id number] for OTIS MAURER Type and screen, [id number] 23:53:00 Test Item Value Reference Range Interpretation Comments ABO/RH AUTOMATED (BEAKER) (test A POSITIVE code = 2260) Ab Scrn (test code = 890-4) NEGATIVE [facility] HospitalLipid [id number] 23:48:00 Test Item Value Reference Range Interpretation Comments Triglycerides (test 71 mg/dL Specimen code = 2571-8) slightly hemolyzed Cholesterol (test 82 mg/dL Specimen code = 2093-3) slightly hemolyzed HDL (test code = 30 mg/dL 5-9) LDL Calculated (test 38 mg/dL code = 68649-9) NANCY (test code = Triglyceride NANCY) Reference Range: Low Risk <150 Borderline 150-199 High Risk 200-499 Very High Risk >=500 Cholesterol Reference Range: Low Risk <200 Borderline 200-239 High Risk >240 HDL Cholesterol Reference Range: Low Risk >=60 High Risk <40 LDL Cholesterol Reference Range: Optimal <100 Near Optimal 100-129 Borderline 130-159 High 160-189 Very High >=190 Data Abstractor ID - DB [facility] HospitalLIPID [id number] 23:48:00 Test Item Value Reference Range Interpretation Comments TRIGLYCERIDES (BEAKER) 71 mg/dL Speci men slightly (test code = 540) hemolyzed CHOLESTEROL (BEAKER) 82 mg/dL Specime n slightly (test code = 631) hemolyzed HDL CHOLESTEROL (AKER) 30 mg/dL (test code = 976) LDL CHOLESTEROL 38 mg/dL CALCULATED ([facility]) (test code = 633) Triglyceride Reference Range: Low Risk <150 Borderline 150-199 High Risk 200-499 Very High Risk >=500Cholesterol Reference Range: Low Risk <200 Borderline 200-239 High Risk >240HDL Cholesterol Reference Range: Low Risk >=60 High Risk <40LDL Cholesterol Reference Range: Optimal <100 Near Optimal 100-129 Borderline 130-159 High 160-189 Very High >=190 Data Abstractor ID - DBPOCT-GLUCOSE [id number] 23:10:00 Test Item Value Reference Range Interpretation Comments POC-GLUCOSE METER 233 mg/dL 70-110 H : TESTED A T [facility] 6720 (BEAKER) (test code = [facility], 1538) 67189: Data Abstractor/Techni allen ID = [id number] for DOUGLAS ELOY, OSMAN POCT-GLUCOSE [id number] 21:45:00 Test Item Value Reference Range Interpretation Comments POC-GLUCOSE METER 175 mg/dL 70-110 H : TESTED A T [facility] 6720 (BEAKER) (test code = [facility], 1538) 31588: Data Abstractor/Techni allen ID = [id number] for RUSSELL MAURERA POCT-GLUCOSE [id number] 20:26:00 Test Item Value Reference Range Interpretation Comments POC-GLUCOSE METER 116 mg/dL 70-110 H : TESTED A T [facility] 6720 (BEAKER) (test code = [facility], 1538) 39175: Data Abstractor/Techni allen ID = [id number] for AR ELOY, OMSAN POCT-GLUCOSE [id number] 19:28:00 Test Item Value Reference Range Interpretation Comments POC-GLUCOSE METER 96 mg/dL 70-110 : TESTED A T [facility] 6720 (BEAKER) (test code = [facility], 1538) 94767: Data Abstractor/Techni allen ID = [id number] for DORY COLEMAN POCT-GLUCOSE [id number] 18:17:00 Test Item Value Reference Range Interpretation Comments POC-GLUCOSE METER 121 mg/dL 70-110 H : TESTED A T [facility] 6720 (BEAKER) (test code = [facility], 1538) 77269: Data Abstractor/Techni allen ID = [id number] for BE LL, BEAULA POCT-GLUCOSE [id number] 17:15:00 Test Item Value Reference Range Interpretation Comments POC-GLUCOSE METER 168 mg/dL 70-110 H : TESTED A T [facility] 6720 (BEAKER) (test code = [facility], 1538) 18311: Data Abstractor/Techni allen ID = [id number] for BE LL, BEAULA POCT-GLUCOSE [id number] 15:56:00 Test Item Value Reference Range Interpretation Comments POC-GLUCOSE METER 168 mg/dL 70-110 H : TESTED A T [facility] 6720 (BEAKER) (test code = [facility], 1538) 37335: Data Abstractor/Techni allen ID = [id number] for BE LL, BEAULA POCT-GLUCOSE [id number] 14:43:00 Test Item Value Reference Range Interpretation Comments POC-GLUCOSE METER 154 mg/dL 70-110 H : TESTED A T [facility] 6720 (BEAKER) (test code = [facility], 1538) 66862: Data Abstractor/Techni allen ID = [id number] for NI ETO CINTIA POCT-GLUCOSE [id number] 13:50:00 Test Item Value Reference Range Interpretation Comments POC-GLUCOSE METER 128 mg/dL 70-110 H : TESTED A T [facility] 6720 (BEAKER) (test code = [facility], 1538) 18266: Data Abstractor/Techni allen ID = [id number] for BE LL, BEAULA POCT-GLUCOSE [id number] 12:44:00 Test Item Value Reference Range Interpretation Comments POC-GLUCOSE METER 141 mg/dL 70-110 H : TESTED A T [facility] 6720 (BEAKER) (test code = [facility], 1538) 12447: Data Abstractor/Techni allen ID = [id number] for BE LL, BEAULA POCT-GLUCOSE [id number] 11:41:00 Test Item Value Reference Range Interpretation Comments POC-GLUCOSE METER 144 mg/dL 70-110 H : TESTED A T [facility] 6720 (BEAKER) (test code = [facility], 1538) 18623: Data Abstractor/Techni allen ID = [id number] for BE LLMANUELAULA POCT-GLUCOSE [id number] 10:49:00 Test Item Value Reference Range Interpretation Comments POC-GLUCOSE METER 177 mg/dL 70-110 H : TESTED A T [facility] 6720 (BEAKER) (test code = [facility], 1538) 73906: Data Abstractor/Techni allen ID = [id number] for NI CINTIA KERNS POCT-GLUCOSE [id number] 07:39:00 Test Item Value Reference Range Interpretation Comments POC-GLUCOSE METER 112 mg/dL 70-110 H : TESTED A T [facility] 6720 (BEAKER) (test code = [facility], 1538) 41349: Data Abstractor/Techni allen ID = [id number] for RI PPLE, RHETT POCT-GLUCOSE [id number] 06:22:00 Test Item Value Reference Range Interpretation Comments POC-GLUCOSE METER 118 mg/dL 70-110 H : TESTED A T [facility] 6720 (BEAKER) (test code = [facility], 1538) 74858: Data Abstractor/Techni allen ID = [id number] for RI PPLE, RHETT [id number] 05:06:00 Test Item Value Reference Range Interpretation Comments MAGNESIUM (BEAKER) 2.2 mg/dL 1.6-2.6 Specimen slightly (test code = 627) hemolyzed Data Abstractor ID - EDASIBASIC METABOLIC [id number] 05:06:00 Test Item Value Reference Range Interpretation [...] S NOT APPLICABLE FOR DIALYSIS PATIEN TS. Data Abstractor ID - [id number] 04:53:00 Test Item Value Reference Range Interpretation Comments PARTIAL THROMBOPLASTIN TIME 72.5 seconds 22.5-36.0 H (BEAKER) (test code = 760) CBC W/PLT COUNT & AUTO [id number] 04:50:00 Test Item Value Reference Range Interpretation [...] PERCENT (BEAKER) (test code = 2801) POCT-GLUCOSE [id number] 04:40:00 Test Item Value Reference Range Interpretation Comments POC-GLUCOSE METER 143 mg/dL 70-110 H : TESTED A T [facility] 6720 (BEAKER) (test code = ANGELA Zulma [facility], 1538) 42116: Data Abstractor/Techni allen ID = [id number] for RI INGRIDLE, RHETT RAD, CHEST, 1 VIEW, NON [id number] 04:25:00Reason for exam:->IABPShould this be performed at the bedside?->Yes [facility] 1975 Sex: MFINAL REPORT [...] Bee MDReport Verified Date/Time: 06/30/2020 04:25:17 POCT-GLUCOSE [id number] 03:29:00 Test Item Value Reference Range Interpretation Comments POC-GLUCOSE METER 143 mg/dL 70-110 H : TESTED A T [facility] 6720 (BEAKER) (test code = [facility], [facility]8) 55173: Data Abstractor/Techni allen ID = [id number] for RI PPLE, RHETT POCT-GLUCOSE [id number] 01:36:00 Test Item Value Reference Range Interpretation Comments POC-GLUCOSE METER 122 mg/dL 70-110 H : TESTED A T [facility] 6720 (BEAKER) (test code = [facility], 1538) 18367: Data Abstractor/Techni allen ID = [id number] for RI PPLE, RHETT POCT-GLUCOSE [id number] 00:35:00 Test Item Value Reference Range Interpretation Comments POC-GLUCOSE METER 81 mg/dL 70-110 : TESTED A T [facility] 6720 ([facility]) (test code = [facility], 1538) 47944: Data Abstractor/Techni allen ID = [id number] for DeLu ca, Mallory POCT-GLUCOSE [id number] 00:12:00 Test Item Value Reference Range Interpretation Comments POC-GLUCOSE METER 78 mg/dL 70-110 : TESTED A T [facility] 6720 ([facility]) (test code = [facility], 1538) 58407: Data Abstractor/Techni allen ID = [id number] for RIPP LE, RHETT [id number] 00:00:00 Test Item Value Reference Range Interpretation Comments PARTIAL THROMBOPLASTIN TIME 64.7 seconds 22.5-36.0 H (BEAKER) (test code = 760) POCT-GLUCOSE [id number] 23:39:00 Test Item Value Reference Range Interpretation Comments POC-GLUCOSE METER 85 mg/dL 70-110 : TESTED A T [facility] 6720 (BEAKER) (test code = [facility], 153) 43999: Data Abstractor/Techni allen ID = [id number] for RIPP LE, RHETT Carotid doppler [id number] 23:13:55Ejection FractionSLEH ECHO HEARTLAB MKCKESSON [facility] CenterVein Mapping Legs Bilateral 2020-06-29 23:13:30Ejection FractionSLEH ECHO HEARTLAB MKCKST. [facility]ITALON [facility] CenterPOCT[facility]GLUCOSE [id number] 21:59:00 Test Item Value Reference Range Interpretation Comments POC-GLUCOSE METER 154 mg/dL 70-110 H : TESTED A T [facility] 6720 ([facility]) (test code = [facility], 153) 60560: Data Abstractor/Techni allen ID = [id number] for RI PPLE, RHETT POCT-GLUCOSE [id number] 20:47:00 Test Item Value Reference Range Interpretation Comments POC-GLUCOSE METER 141 mg/dL 70-110 H : TESTED A T [facility] 6720 ([facility]) (test code = [facility], 1538) 22481: Data Abstractor/Techni allen ID = [id number] for RI PPLE, RHETT POCT-GLUCOSE [id number] 19:07:00 Test Item Value Reference Range Interpretation Comments POC-GLUCOSE METER 156 mg/dL 70-110 H : TESTED A T [facility] 6720 (BEAKER) (test code [facility], = 1538) 72053: Data Abstractor/Techni allen ID = [id number] for TORR ALBA, BENITO [id number] 17:32:00 Test Item Value Reference Range Interpretation Comments PARTIAL THROMBOPLASTIN TIME 63.9 seconds 22.5-36.0 H (MANUELAKER) (test code = 760) POCT-GLUCOSE [id number] 17:23:00 Test Item Value Reference Range Interpretation Comments POC-GLUCOSE METER 147 mg/dL 70-110 H : TESTED A T [facility] 6720 (BEAKER) (test code = [facility], 1538) 29390: Data Abstractor/Techni allen ID = [id number] for FO X, AIMEE POCT-GLUCOSE [id number] 16:28:00 Test Item Value Reference Range Interpretation Comments POC-GLUCOSE METER 94 mg/dL 70-110 : TESTED A T [facility] 6720 (BEAKER) (test code = [facility], 1538) 13489: Data Abstractor/Techni allen ID = [id number] for SILVA, AIMEE POCT-GLUCOSE [id number] 15:17:00 Test Item Value Reference Range Interpretation Comments POC-GLUCOSE METER 89 mg/dL 70-110 : TESTED A T [facility] 6720 (BEAKER) (test code [facility], = 1538) 04750: Data Abstractor/Techni allen ID = [id number] for TORR ALBA, BENITO POCT-GLUCOSE [id number] 14:46:00 Test Item Value Reference Range Interpretation Comments POC-GLUCOSE METER 133 mg/dL 70-110 H : TESTED A T [facility] 6720 (BEAKER) (test code [facility], = 1538) 78773: Data Abstractor/Techni allen ID = [id number] for TORR ALBA, BENITO POCT-GLUCOSE [id number] 13:24:00 Test Item Value Reference Range Interpretation Comments POC-GLUCOSE METER 206 mg/dL 70-110 H : TESTED A T [facility] 6720 (BEAKER) (test code [facility], = 1538) 94980: Data Abstractor/Techni allen ID = [id number] for TORR ALBA, BENITO POCT-GLUCOSE [id number] 12:27:00 Test Item Value Reference Range Interpretation Comments POC-GLUCOSE METER 236 mg/dL 70-110 H : TESTED A T [facility] 6720 (BEAKER) (test code = [facility], 1538) 60222: Data Abstractor/Techni allen ID = [id number] for FO X, AIMEE Transthoracic 2D echo w/ doppler (cw/pw/color)2020-06-29 12:22:56Ejection [facility] ECHO HEARTLAB MKCKESSON [facility] CenterPO[facility] [id number] 11:37:00 Test Item Value Reference Range Interpretation Comments POC-GLUCOSE METER 214 mg/dL 70-110 H : TESTED A T [facility] 6720 ([facility]) (test code = [facility], 1538) 40272: Data Abstractor/Techni allen ID = [id number] for PURNIMA MCCULLOUGH POCT-GLUCOSE [id number] 09:14:00 Test Item Value Reference Range Interpretation Comments POC-GLUCOSE METER 146 mg/dL 70-110 H : TESTED A T [facility] 6720 ([facility]) (test code [facility], = 1538) 72783: Data Abstractor/Techni allen ID = [id number] for BENITO GÓMEZ [id number] 08:18:00 Test Item Value Reference Range Interpretation Comments PARTIAL THROMBOPLASTIN TIME 55.8 seconds 22.5-36.0 H ([facility]) (test code = 760) POCT-GLUCOSE [id number] 08:09:00 Test Item Value Reference Range Interpretation Comments POC-GLUCOSE METER 114 mg/dL 70-110 H : TESTED A T [facility] 6720 ([facility]) (test code = [facility] Zul[facility], 1538) 25679: Data Abstractor/Techni allen ID = [id number] for AIMEE NAGEL POCT-GLUCOSE [id number] 07:08:00 Test Item Value Reference Range Interpretation Comments POC-GLUCOSE METER 115 mg/dL 70-110 H : Notified RN/MD: ([facility]) (test code = TESTED AT [place] [address] 1538) [facility], [address]: Data Abstractor/Techni allen ID = [id number] for ROGER BARRON SARS-COV2/RT-PCR ([facility])2020-06-29 07:01:00 Test Item Value Reference Range Interpretation Comments SARS-COV2/RT-PCR (test Negative Not Detected, Negative, code = 1437363) See external report for linked test SARS-COV-2 PERFORMING LAB [facility] (test code = 1286821) Negative result for this test determines that [...] 564(g) of the Act.Fact Sheet for Healthcare Providers:https://www.[employer].Boats.com/sites/default/files/product/documents/Fact_Shee h_IW_Lihnaiwwm_Nlfp_QJXX-ZpE-2.pdfFact Sheet for Healthcare Patients:https://www.[employer].com/sites/default/files/product/ documents/Wivz_Zincr_Axvkmlqy_Nyle_RGWD-CtR-9.pdfPerforming Laboratory:[facility], [place] [id number] METER 2020-06-29 06:09:00 Test Item Value Reference Range Interpretation Comments POC-GLUCOSE METER 123 mg/dL 70-110 H : TESTED A T [facility] 6720 ([place]) (test code = [facility], 1538) [address]: Data Abstractor/Techni allen ID = [id number] for SA NTRICHYO, ROGER RAD, CHEST, 1 VIEW, NON [id number] 05:53:00Reason for exam:->IABPShould this be performed at the bedside?->Yes [facility] : 1975 Sex: [...] findings: None. Signed: Page Oliver Verified Date/Time: 06/29/2020 05:53:32 BASIC METABOLIC [id number] 05:22:00 Test Item Value Reference Range Interpretation [...] S NOT APPLICABLE FOR DIALYSIS PATIEN TS. Data Abstractor ID - [id number] 05:22:00 Test Item Value Reference Range Interpretation Comments MAGNESIUM (BEAKER) (test code = 2.5 mg/dL 1.6-2.6 627) Data Abstractor ID - [id number] W/PLT COUNT & AUTO [id number] 04:59:00 Test Item Value Reference Range Interpretation [...] PERCENT (BEAKER) (test code = 2801) POCT-GLUCOSE [id number] 04:28:00 Test Item Value Reference Range Interpretation Comments POC-GLUCOSE METER 164 mg/dL 70-110 H : TESTED A T [facility] 6720 ([facility]) (test code = [facility], 1538) [address]: Data Abstractor/Techni allen ID = [id number] for RI PPLE, RHETT POCT-GLUCOSE [id number] 03:24:00 Test Item Value Reference Range Interpretation Comments POC-GLUCOSE METER 181 mg/dL 70-110 H : TESTED A T [facility] 6720 ([facility]) (test code = [facility], 1538) [address]: Data Abstractor/Techni allen ID = [id number] for RI PPLE, RHETT POCT-GLUCOSE [id number] 02:01:00 Test Item Value Reference Range Interpretation Comments POC-GLUCOSE METER 206 mg/dL 70-110 H : Notified RN/MD: ([facility]) (test code = TESTED AT [place] [address] 1538) [facility], [address]: Data Abstractor/Techni allen ID = [id number] for ROGER BARRON [id number] 00:35:00 Test Item Value Reference Range Interpretation Comments GLUCOSE RANDOM ([facility]) (test code 268 mg/dL 70-105 H = 652) Data Abstractor ID - [id number]-[id number] 00:34:00 Test Item Value Reference Range Interpretation Comments Potassium (test code = 4.2 meq/L 3.5-5.1 2823-3) NANCY (test code = NANCY) Data Abstractor ID - DB Lab Interpretation (test Normal code = 09579-4) [facility] 00:34:00 Test Item Value Reference Range Interpretation Comments POTASSIUM (BEAKER) (test code = 4.2 meq/L 3.5-5.1 379) Data Abstractor ID - [id number] 00:33:00 Test Item Value Reference Range Interpretation Comments PARTIAL THROMBOPLASTIN TIME 119.0 seconds 22.5-36.0 H (BEAKER) (test code = 760) POCT-GLUCOSE [id number] 21:56:00 Test Item Value Reference Range Interpretation Comments POC-GLUCOSE METER 247 mg/dL 70-110 H : Notified RN/MD: (YOANA) (test code = TESTED AT [facility] 6720 1538) [facility], [address]: Data Abstractor/Techni allen ID = [id number] for ROGER BARRON POCT-GLUCOSE [id number] 21:06:00 Test Item Value Reference Range Interpretation Comments POC-GLUCOSE METER 283 mg/dL 70-110 H : TESTED A T [facility] 6720 ([facility]) ([facility] = [facility], 1538) [address]: Data Abstractor/Techni allen ID = [id number] for ERIKA LYNN Troponin [id number] 19:07:00 Test Item Value Reference Range Interpretation Comments Troponin I (test code = 48.48 ng/mL 0.00-0.03 69969-5) NANCY (test code = NANCY) Troponin I [...] EDASI Lab Interpretation (test Abnormal code = 69117-2) [facility] [id number] 19:07:00 Test Item Value Reference Range Interpretation Comments TROPONIN I (BEAKER) (test code = 48.48 ng/mL 0.00-0.03 397) [...] failure, acidosis, acute neurological disease, and persistent tachyarrhythmia.Data Abstractor ID - [id number] 18:52:00 Test Item Value Reference Range Interpretation Comments PARTIAL THROMBOPLASTIN TIME 70.0 seconds 22.5-36.0 H (MANUELAKER) (test code = 760) POCT-GLUCOSE [id number] 16:25:00 Test Item Value Reference Range Interpretation Comments POC-GLUCOSE METER 260 mg/dL 70-110 H : TESTED A T [facility] 6720 (Y[facility]) (test code = [facility], 1538) [address]: Data Abstractor/Techni allen ID = [id number] for WeLinkE (V), ALVARO ECHO W CONTRAST & [id number] 12:35:00Ejection [facility] ECHO HEARTLAB MK[facility] 12:11:00 Test Item Value Reference Range Interpretation Comments PARTIAL THROMBOPLASTIN TIME 113.3 seconds 22.5-36.0 H (YOANA) (test code = 760) TROPONIN [id number] 10:03:00 Test Item Value Reference Range Interpretation Comments TROPONIN I (BEAKER) (test code = 56.61 ng/mL 0.00-0.03 397) [...] failure, acidosis, acute neurological disease, and persistent tachyarrhythmia.Data Abstractor ID - EDASIOperator ID - EDASI POCT-GLUCOSE [id number] 08:26:00 Test Item Value Reference Range Interpretation Comments POC-GLUCOSE METER 225 mg/dL 70-110 H : TESTED A T [facility] 6720 (BEAKER) (test code = [place], 1538) [address]: Data Abstractor/Techni allen ID = [id number] for NHAN STEWARD [id number] 06:09:00 Test Item Value Reference Range Interpretation Comments MAGNESIUM (BEAKER) 1.9 mg/dL 1.6-2.6 Specimen slightly (test code = 627) hemolyzed Data Abstractor ID - [id number] 06:09:00 Test Item Value Reference Range Interpretation Comments PHOSPHORUS (BEAKER) 2.8 mg/dL 2.3-4.7 Specimen slightly (test code = 604) hemolyzed Data Abstractor ID - EDASIBASIC METABOLIC [id number] 06:09:00 Test Item Value Reference Range Interpretation [...] S NOT APPLICABLE FOR DIALYSIS PATIEN TS. Data Abstractor ID - EDASIHEPATIC FUNCTION [id number] 06:09:00 Test Item Value Reference Range Interpretation [...] Specimen slightly (test code = 347) hemolyzed Data Abstractor ID - ARUNASIMIKHAIL [id number] 06:02:00 Test Item Value Reference Range Interpretation Comments TROPONIN I (BEAKER) (test code = 66.32 ng/mL 0.00-0.03 HH 397) Troponin I (TnI) levels must be [...] failure, acidosis, acute neurological disease, and persistent tachyarrhythmia.Data Abstractor ID - DBOperator ID - DBB-type natriuretic [id number] 05:40:00 Test Item Value Reference Range Interpretation Comments BNP (test code = 80771-8) 154 pg/mL 0-100 H NANCY (test code = NANCY) Data Abstractor ID - EDASI Lab Interpretation (test Abnormal code = 92853-4) [facility] NATRIURET[facility] FACTOR (BNP)2020-06-28 05:40:00 Test Item Value Reference Range Interpretation Comments B-TYPE NATRIURETIC PEPTIDE (BEAKER) 154 pg/mL 0-100 H (test code = 700) Data Abstractor ID - [id number] 05:37:00 Test Item Value Reference Range Interpretation Comments PARTIAL THROMBOPLASTIN TIME 76.1 seconds 22.5-36.0 H (BEAKER) (test code = 760) PROTHROMBIN TIME/[id number] 05:35:00 Test Item Value Reference Range Interpretation Comments PROTIME (BEAKER) 14.3 seconds 11.9-14.2 H (test code = 759) INR (BEAKER) (test 1.14 See_Comment [Automat ed message] code = 370) The system Shust[employer] generated this result transmitted ref erence range: [...] mechanical heart valves.CBC W/PLT COUNT & AUTO [id number] 05:27:00 Test Item Value Reference Range Interpretation [...] PERCENT (BEAKER) (test code = 2801) POCT-GLUCOSE [id number] 05:09:00 Test Item Value Reference Range Interpretation Comments POC-GLUCOSE METER 174 mg/dL 70-110 H : TESTED A T [facility] 6720 (BEAKER) (test code = [facility], 1538) [address]: Data Abstractor/Techni allen ID = [id number] for RI PPLE, RHETT RAD, CHEST, 1 VIEW, NON [id number] 04:59:00Reason for exam:->IABPShould this be performed at the bedside?->Yes [facility] 1975 Sex: [...] Page Oliver Verified Date/Time: 06/28/2020 04:59:08 POCT-GLUCOSE [id number] 23:23:00 Test Item Value Reference Range Interpretation Comments POC-GLUCOSE METER 80 mg/dL 70-110 : TESTED A T [facility] ([employer]) (test code = [address] 15[address]) [place] [address]: Data Abstractor/Techni allen ID = [id number] for Salvatore Moeda POCT-GLUCOSE [id number] 21:48:00 Test Item Value Reference Range Interpretation Comments POC-GLUCOSE METER 59 mg/dL 70-110 L : TESTED A T [facility] (BEAKER) (test code = [address], 1538) [place] [address]: Data Abstractor/Techni allen ID = [id number] for Nitin ost Fiordaliza TROPONIN [id number] 21:23:00 Test Item Value Reference Range Interpretation Comments TROPONIN I (BEAKER) (test code = 64.31 ng/mL 0.00-0.15 [facility]) Troponin I (TnI) levels must be interpreted [...] failure, acidosis, acute neurological disease, and persistent tachyarrhythmia.Data Abstractor ID - [id number] ID - [id number] NATRIURETIC FACTOR (BNP)2020-06-27 21:08:00 Test Item Value Reference Range Interpretation Comments B-TYPE NATRIURETIC PEPTIDE (BEAKER) 209 pg/mL 0-100 H (test code = 700) Data Abstractor ID - [id number] METABOLIC [id number] 21:01:00 Test Item Value Reference Range Interpretation [...] S NOT APPLICABLE FOR DIALYSIS PATIEN TS. Data Abstractor ID - [id number] ID - [id number] ID - [id number] ID - [id number] ID - [id number] ID - [id number] ID - [id number] ID - [id number] ID - [id number] ID - [id number] ID - [id number] ID - [id number] 20:57:00 Test Item Value Reference Range Interpretation Comments PARTIAL THROMBOPLASTIN 33.6 seconds 23.0-35.0 Final Information TIME (BEAKER) (test (Auto Ou tput) code = 760) Lactic acid, [id number] 20:55:00 Test Item Value Reference Range Interpretation Comments Lactate, Venous (test 1.28 mmol/L 0.50-2.00 Specim en code = 2872) slightly hemolyzed NANCY (test code = NANCY) Data Abstractor ID - [id number] ID - [id number] ID - [id number] ID - [id number] Lab Interpretation Normal (test code = 10879-0) [facility] CenterLACTIC ACID, [id number] 20:55:00 Test Item Value Reference Range Interpretation Comments LACTATE BLOOD 1.28 mmol/L See_Comment Specimen sligh tly VENOUS (2) (BEAKER) hemolyze d [Automated (test code = 2872) message] The system which generated this result transmit adriana reference range : 0.50-<2.00. The reference range was not used to interpr et this result as normal/abnormal . Data Abstractor ID - [id number] ID - [id number] ID - [id number] ID - [id number]-IKVYMTR [id number] 16:34:00 Test Item Value Reference Range Interpretation Comments POC-GLUCOSE METER 242 mg/dL 70-110 H : TESTED A T [facility] (BEAKER) (test code [address], = 1538) [place] [address]: Data Abstractor/Techni allen ID = [id number] for Opal Woods [id number] 12:38:00 Test Item Value Reference Range Interpretation Comments PARTIAL THROMBOPLASTIN 36.9 seconds 23.0-35.0 H Final Information TIME ([facility]) (test (Auto Ou tput) code = 760) POCT-GLUCOSE [id number] 12:01:00 Test Item Value Reference Range Interpretation Comments POC-GLUCOSE METER 333 mg/dL 70-110 H : TESTED A T [facility] (BEAKER) (test code [address], = 1538) [place] [address]: Data Abstractor/Techni allen ID = [id number] for Opal Woods POCT-GLUCOSE [id number] 08:03:00 Test Item Value Reference Range Interpretation Comments POC-GLUCOSE METER 298 mg/dL 70-110 H : TESTED A T [facility] (BEAKER) (test code [address], = 1538) [place] [address]: Data Abstractor/Techni allen ID = [id number] for Bella Clark LIPID [id number] 05:53:00 Test Item Value Reference Range Interpretation [...] Borderline 130-159 High 160-189 Very High >=190 Data Abstractor ID - [id number] ID - [id number] ID - [id number] 05:47:00 Test Item Value Reference Range Interpretation Comments MAGNESIUM (BEAKER) (test code = 2.1 mg/dL 1.5-3.0 627) Data Abstractor ID - [id number] ID - [id number] ID - [id number] ID - [id number] METABOLIC [id number] 05:45:00 Test Item Value Reference Range Interpretation [...] S NOT APPLICABLE FOR DIALYSIS PATIEN TS. Data Abstractor ID - [id number] ID - [id number] ID - [id number] ID - [id number] ID - [id number] ID - [id number] ID - [id number] ID - [id number] ID - [id number] W/PLT COUNT & AUTO [id number] 05:37:00 Test Item Value Reference Range Interpretation [...] H PERCENT (BEAKER) (test code = 2801) [id number] 01:41:00 Test Item Value Reference Range Interpretation Comments PARTIAL THROMBOPLASTIN 33.1 seconds 23.0-35.0 Final Information TIME (BEAKER) (test (Auto Ou tput) code = 760) Urinalysis w/Microscopic + Reflex to [id number] 00:07:00 Test Item Value Reference Range Interpretation Comments Color, UA (test code = Yellow 5778-6) Clarity, UA (test code Clear = 5767-9) Specific Reserve, UA 1.020 1.001-1.035 (test code = 5811-5) pH, UA (test code = 6.0 5.0-8.0 5803-2) Protein, UA (test code Negative Negative = 14603-4) Glucose, UA (test code >=1000 mg/dL Negative A = 365) Ketones, UA (test code 40 mg/dL Negative A = 2514-8) Bilirubin, UA (test Negative Negative code = 29673-1) Blood, UA (test code = Negative Negative 03310-7) Nitrite, UA (test code Negative Negative = 5802-4) Leukocytes, UA (test Negative Negative code = 5799-2) Urobilinogen, UA (test 0.2 mg/dL 0.2-1.0 code = 52308-5) Bacteria, UA (test None Seen code = 88078-3) RBC, UA (test code = None Seen See_Comment [Autom ated 799-7) message] The sy stem which generated this result transmitted reference range : /HPF. The refer ence range was not u sed to interpret th is result as normal/abnormal . WBC, UA (test code = <5 See_Comment [Autom ated 29133-2) message] The sy stem which generated this result transmitted reference range : /HPF. The refer ence range was not u sed to interpret th is result as normal/abnormal . SQUAMOUS EPITHELIAL <5 See_Comment [Automa adriana (test code = 11577-4) messag e] The system which generated this result transmitted reference range : /HPF. The refer ence range was not u sed to interpret th is result as normal/abnormal . Specimen Source (test code = 2795) Lab Interpretation Abnormal (test code = 03215-5) [facility] REFLEX URINE [id number] 00:07:00 Test Item Value Reference Range Interpretation [...] = 2795) RAD, CHEST, 1 VIEW, NON [id number] 23:40:00Reason for exam:->fever, elevated troponinShould this be performed at the bedside?->Yes [facility] 1975 Sex: MFINAL REPORT INDICATION: fever, elevated troponin COMPARISON: None TECHNIQUE: Single frontal view of the chest. IMPRESSION: Lungs and pleura: There are vague bibasilar parenchymal opacities suggestive of atelectasis or atypical pneumonitis. No dense consolidation.No effusion.Heart and mediastinum: Normal heart size. Unremarkable mediastinal contours.Osseous structures: No acute abnormality.Other: None. Signed: Candelaria Lockett Verified Date/Time: 06/26/2020 23:40:36 POCT-GLUCOSE [id number] 21:24:00 Test Item Value Reference Range Interpretation Comments POC-GLUCOSE METER 213 mg/dL 70-110 H : TESTED A [facility] (YOANA) ([address] [facility] [address], = 1538) [facility] [address]: Data Abstractor/Techni allen ID = [id number] for Hina Moe B-TYPE NATRIURETIC FACTOR (BNP)2020-06-26 18:29:00 Test Item Value Reference Range Interpretation Comments B-TYPE NATRIURETIC PEPTIDE (YOANA) 228 pg/mL 0-100 H (test code = 700) Data Abstractor ID - [id number] 17:25:00 Test Item Value Reference Range Interpretation Comments TROPONIN I (IzzuiRENETTA) (test code = 83.94 ng/mL 0.00-0.15 HH 397) Troponin I (TnI) levels must be [...] failure, acidosis, acute neurological disease, and persistent tachyarrhythmia.Data Abstractor ID - [id number] ID - [id number] 16:59:00 Test Item Value Reference Range Interpretation Comments MAGNESIUM (BEAKER) (test code = 2.1 mg/dL 1.5-3.0 627) Data Abstractor ID - [id number] ID - [id number] ID - [id number] ID - [id number] [id number] 16:59:00 Test Item Value Reference Range Interpretation Comments HEMOGLOBIN A1C (BEAKER) (test code = 7.9 % 4.3-6.1 H 368) Data Abstractor ID - [id number] METABOLIC [id number] 16:58:00 Test Item Value Reference Range Interpretation [...] S NOT APPLICABLE FOR DIALYSIS PATIEN TS. Data Abstractor ID - [id number] ID - [id number] ID - [id number] ID - [id number] ID - [id number] ID - [id number] ID - [id number] ID - [id number] ID - [id number] 16:57:00 Test Item Value Reference Range Interpretation Comments PARTIAL THROMBOPLASTIN 39.3 seconds 23.0-35.0 H Final Information TIME (BEAKER) (test (Auto Ou tput) code = 760) CBC W/PLT COUNT & AUTO [id number] 16:51:00 Test Item Value Reference Range Interpretation [...] PERCENT (BEAKER) (test code = 2801) POCT-GLUCOSE [id number] 16:35:00 Test Item Value Reference Range Interpretation Comments POC-GLUCOSE METER 202 mg/dL 70-110 H : Notified RN/MD: TESTED (BEAKER) (test code AT [address] = 1538) [facility] [address]: Data Abstractor/Techni allen ID = [id number] for Octavia Garcia
[2021-06-13] MEDS ORDERED: FAMOTIDINE 20 MG/2 ML VIAL IV ONE (14:45)
[2021-06-13] MEDS ORDERED: DIPHENHYDRAMINE 50 MG/ML VIAL ONE (14:45)
[2021-06-13] MEDS ORDERED: METHYLPREDNISOLONE 125 MG INJ ONE (14:45)
--- NOTE | 2021-06-13 16:05 | ER ---
Nurse's Notes [facility] Name: Trevor Miguel Age: 45 yrs Sex: Male : 1975 Arrival Date: 06/13/2021 Time: 14:30 Bed 14 Private MD: Diagnosis: Urticaria, unspecified Presentation: 06/13 14:38 Chief complaint: Patient states: was seen yesterday for rash; states 'its getting vg1 worse'. Rash appears to be on chest, ABD, back and ASMUEL arms. Coronavirus screen: Vaccine status: Patient reports being unvaccinated. Client denies travel out of the [place] in the last 14 days. Ebola Screen: Patient negative for fever greater than or equal to 101.5 degrees Fahrenheit, and additional compatible Ebola Virus Disease symptoms. Onset: The symptoms/episode began/occurred yesterday. Anaphylaxis evaluation, no signs or symptoms of anaphylaxis were noted. Initial Sepsis Screen: Does the patient meet any 2 criteria? No. Patient's initial sepsis screen is negative. Does the patient have a suspected source of infection? No. Patient's initial sepsis screen is negative. Risk Assessment: Do you want to hurt yourself or someone else? Patient reports no desire to harm self or others. Onset of symptoms was June 12, 2021. 14:38 Method Of Arrival: Ambulatory vg1 14:38 Acuity: MEGAN 3 vg1 Triage Assessment: 14:41 General: Appears uncomfortable, Behavior is calm, cooperative. Pain: Complains of pain vg1 in abdomen. Derm: Rash noted that is red, on back, chest and abdomen. Historical: - Allergies: 14:41 No Known Allergies; vg1 - Home Meds: 14:41 Insulin Glargine Sub-Q twice a day [Active]; vg1 - PMHx: 14:41 Diabetes - IDDM; vg1 - Immunization history:: Client reports having NOT received the Covid vaccine. - Social history:: Smoking status: Patient reports the use of cigarette tobacco products, smokes one-half pack cigarettes per day. Screenin:51 Abuse screen: Denies threats or abuse. Denies injuries from another. Nutritional ic1 screening: No deficits noted. Tuberculosis screening: No symptoms or risk factors identified. Fall Risk None identified. Assessment: 14:51 General: Appears in no apparent distress. Behavior is calm, cooperative. Pain: ic1 Complains of pain in back, chest and abdomen. Neuro: Level of Consciousness is awake, alert, obeys commands, Oriented to person, place, time, situation. Cardiovascular: Denies chest pain. Respiratory: Airway is patent Respiratory effort is even, unlabored, Denies cough, shortness of breath. GI: No deficits noted. : No deficits noted. EENT: No deficits noted. Derm: Rash noted that is itchy, red. Musculoskeletal: No deficits noted. Vital Signs: 14:38 BP 132 / 80; Pulse 95; Resp 16; Temp 98.8; Pulse Ox 100% ; Weight 72.57 kg; Height 5 vg1 ft. 7 in. (170.18 cm); Pain 6/10; 17:00 BP 128 / 75; Pulse 72; Resp 18; Pulse Ox 100% ; ic1 14:38 Body Mass Index 25.06 (72.57 kg, 170.18 cm) vg1 ED Course: 14:30 Patient arrived in ED. ja2 14:32 Adriana Babcock, YON is Primary Nurse. ic1 14:33 Marnie Coulter FNP-C is PHCP. kb 14:33 Eligio Crowe MD is Attending Physician. kb 14:41 Triage completed. vg1 14:41 Arm band placed on. vg1 14:51 Patient has correct armband on for positive identification. Bed in low position. Call ic1 light in reach. Side rails up X2. 14:51 Pulse ox on. NIBP on. Warm blanket given. ic1 14:51 No provider procedures requiring assistance completed. Inserted saline lock: 20 gauge ic1 in right hand, using aseptic technique. Blood collected. 17:00 IV discontinued, intact, bleeding controlled, No redness/swelling at site. Pressure ic1 dressing applied. Administered Medications: 14:50 Drug: SOLU-Medrol (methylPrednisoLONE) 125 mg Route: IVP; Site: right hand; ic1 14:50 Drug: Pepcid (famotidine) 20 mg Route: IVP; Site: right hand; ic1 14:50 Drug: NS 0.9% 1000 ml Route: IV; Rate: 1000 ml; Site: right hand; ic1 17:01 Follow up: IV Status: Completed infusion; IV Intake: 1000ml ic1 14:51 Drug: Benadryl (diphenhydrAMINE) 25 mg Route: IVP; Site: right hand; ic1 Intake: 17:01 IV: 1000ml; Total: 1000ml. ic1 Outcome: 16:04 Discharge ordered by MD. berrios 17:00 Discharged to home ambulatory. ic1 17:00 Condition: stable 17:00 Discharge instructions given to patient, Instructed on discharge instructions, follow up and referral plans. Demonstrated understanding of instructions, follow-up care. 17:10 Patient left the ED. ic1 Signatures: Marnie Coulter, REA-Sonal Flynn, RN RN vg1 Laxmi Addison Iesha, RN RN ic1
--- NOTE | 2021-06-13 16:05 | EDPHYS ---
Physician Documentation [facility] Name: Trevor Miguel Age: 45 yrs Sex: Male : 1975 Arrival Date: 06/13/2021 Time: 14:30 Bed 14 Private MD: ED Physician Eligio Crowe HPI: 06/13 14:55 This 45 yrs old Male presents to ER via Ambulatory with complaints of Allergic kb Reaction. 14:55 The patient presents with rash. Onset: The symptoms/episode began/occurred 3 day(s) kb ago. Associated signs and symptoms: The patient has no apparent associated signs or symptoms. Possible causes: The patient has no known obvious cause for the symptoms. At home the patient or guardian has treated the symptoms with nothing. Severity of symptoms: At their worst the symptoms were moderate in the emergency department the symptoms are unchanged. The patient has not experienced similar symptoms in the past. The patient has not recently seen a physician. Pt reports rash to torso and upper extremities that started 3 days ago. c/o itching. Historical: - Allergies: 14:41 No Known Allergies; vg1 - Home Meds: 14:41 Insulin Glargine Sub-Q twice a day [Active]; vg1 - PMHx: 14:41 Diabetes - IDDM; vg1 - Immunization history:: Client reports having NOT received the Covid vaccine. - Social history:: Smoking status: Patient reports the use of cigarette tobacco products, smokes one-half pack cigarettes per day. ROS: 14:55 Constitutional: Negative for fever, chills, and weight loss. kb 14:55 Skin: Positive for rash, of the back, chest, abdomen, right arm and left arm. 14:55 All other systems are negative. Exam: 14:56 Constitutional: This is a well developed, well nourished patient who is awake, alert, kb and in no acute distress. Head/Face: Normocephalic, atraumatic. ENT: Moist Mucous membranes Respiratory: Respirations even and unlabored. No increased work of breathing. Talking in full sentences MS/ Extremity: Pulses equal, no cyanosis. Neurovascular intact. Full, normal range of motion. Neuro: Awake and alert, GCS 15, oriented to person, place, time, and situation. Moves all extremities. Normal gait. Psych: Awake, alert, with orientation to person, place and time. Behavior, mood, and affect are within normal limits. 14:56 Skin: rash a moderate rash is noted, rash can be described as urticarial, on the back, chest, abdomen, right arm and left arm. Vital Signs: 14:38 BP 132 / 80; Pulse 95; Resp 16; Temp 98.8; Pulse Ox 100% ; Weight 72.57 kg; Height 5 vg1 ft. 7 in. (170.18 cm); Pain 6/10; 17:00 BP 128 / 75; Pulse 72; Resp 18; Pulse Ox 100% ; ic1 14:38 Body Mass Index 25.06 (72.57 kg, 170.18 cm) vg1 MDM: 14:33 Patient medically screened. kb 14:54 Data reviewed: vital signs, nurses notes. Data interpreted: Pulse oximetry: on room air kb is 100 %. Interpretation: normal. 16:03 Counseling: I had a detailed discussion with the patient and/or guardian regarding: the kb historical points, exam findings, and any diagnostic results supporting the discharge/admit diagnosis, the need for outpatient follow up, a police lieutenant patrol, to return to the emergency department if symptoms worsen or persist or if there are any questions or concerns that arise at home. 06/13 14:37 Order name: IV Start; Complete Time: 14:50 kb Administered Medications: 14:50 Drug: SOLU-Medrol (methylPrednisoLONE) 125 mg Route: IVP; Site: right hand; ic1 14:50 Drug: Pepcid (famotidine) 20 mg Route: IVP; Site: right hand; ic1 14:50 Drug: NS 0.9% 1000 ml Route: IV; Rate: 1000 ml; Site: right hand; ic1 17:01 Follow up: IV Status: Completed infusion; IV Intake: 1000ml ic1 14:51 Drug: Benadryl (diphenhydrAMINE) 25 mg Route: IVP; Site: right hand; ic1 Disposition Summary: 06/13/21 16:04 Discharge Ordered Location: Home kb Condition: Stable kb Diagnosis - Urticaria, unspecified kb Followup: kb - With: Private Physician - When: As needed - Reason: Worsening of condition Followup: kb - With: Emergency Department - When: As needed - Reason: Worsening of condition Discharge Instructions: - Discharge Summary Sheet kb - Hives, [id number] kb Forms: - Medication Reconciliation Form kb - Thank You Letter kb - Antibiotic Education kb - Prescription Opioid Use kb Signatures: Marnie Coulter FNP-C FNP-Sonal Zuñiga, RN RN vg1 Adriana Babcock RN RN ic1 Corrections: (The following items were deleted from the chart) 16:04 14:56 Skin: rash a moderate rash is noted, rash can be described as erythematous, kb macular, on the back, chest, abdomen, right arm and left arm, kb
[2021-06-13 17:22] VITALS: TEMP 98.8; O2SAT 100
[2021-06-13 17:24] VITALS: BP 128/75
== END 2021-06-13 17:10 | disposition home or self-care (01) ==
LOC: ER 14:27
DX: L50.9 Urticaria, unspecified (principal); E11.9 Type 2 diabetes mellitus without complications; F17.210 Nicotine dependence, cigarettes, uncomplicated; Z79.4 Long term (current) use of insulin
CPT/HCPCS: 96361; 96374; 96375; 99284; J1200; J2930